=== PATIENT | female | born 1935 | race Caucasian/White ===

== ENCOUNTER → 2017-08-14 10:19 | Day surgery (SDC) | payer MEDICARE, SELFPAY ==
[2017-08-11 09:38] VITALS: BMI 31.8
[2017-08-14 10:35] LABS: Prothrombin Time Fingerstick 28.8 SEC (11.9-14.4)
--- NOTE | 2017-08-14 10:40 | PCM.HP.STD ---
Problem List (1) Persistent atrial fibrillation Status: Chronic (2) Benign hypertension Status: Chronic History of Present Illness Date of Admission: 08/14/17 The patient is a 81 year old F [who presents here today for a cardioversion. Patient is a patient of Dr. Hector Junior. This would be her third cardioversion. She is on flecainide. Her INR has been therapeutic. She states that she noted that she was in atrial fibrillation by her blood pressure monitor and feeling more fatigued and short of breath walking up steps. She does not have any chest discomfort or heaviness. She does not have any lightheadedness, dizziness, syncopal episodes. She does not have any lower extremity edema.] Past Medical History Past Medical History (Chronic Problems): Chronic Problems (Last Updated 08/04/17 @ 08:54 by Charlene Bey) History of sigmoidoscopy (Chronic) 12/10/2009 History of colonoscopy (Chronic) 06/2004 History of selective injection of anesthetic agent around lumbar nerve root (Chronic) History of cholecystectomy (Chronic) 1969 Status post surgical manipulation of ankle joint (Chronic) right X 2 in 2007 History of bilateral cataract extraction (Chronic) 2009 History of cardioversion (Chronic) 04/02/2002 History of ovarian cystectomy (Chronic) 2014 History of section (Chronic) 1965, 1968 History of laminectomy (Chronic) 2010 1-2 segment excision lesion thoracic History of appendectomy (Chronic) 1968 Sensory neuropathy (Chronic) Diverticulitis (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) 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) Persistent atrial fibrillation (Chronic) Obesity (Chronic) Adult body mass index 30+ (Chronic) Benign hypertension (Chronic) Allergies crab Allergy (Severe, Verified 08/04/17 08:36) Itching and swelling on contact Sulfa (Sulfonamide Antibiotics) Allergy (Severe, Verified 08/04/17 08:36) Swelling, Rash metoprolol [From Toprol XL] Adverse Reaction (Intermediate, Verified 08/04/17 08:36) Chest heaviness or fullness Lobster Allergy (Severe, Uncoded 08/04/17 08:36) Itching and swelling on contact Scampi Allergy (Severe, Uncoded 08/04/17 08:36) Itching and swelling on contact Home Medications: Ambulatory Orders Medication Instructions Recorded biotin 1 mg capsule 1 mg PO QDAY 08/04/17 cholecalciferol (vitamin D3) 2,000 2,000 unit PO QDAY cap 08/04/17 unit capsule denosumab 60 mg/mL subcutaneous 60 mg SC [id number] 08/04/17 syringe flecainide 100 mg tablet 100 mg PO Q12H 08/04/17 fluticasone furoate 200 1 inh INHALATION Q24H 08/04/17 mcg/actuation blister powder for inhalation furosemide 20 mg tablet 20 mg PO .q other day tab 08/04/17 hydroxychloroquine 200 mg tablet 200 mg PO BID tab 08/04/17 ketoconazole 2 % shampoo 1 applic TOPICAL .q day ml 08/04/17 lisinopril 20 mg tablet 20 mg PO BID tab 08/04/17 nitroglycerin 0.4 mg sublingual 0.4 mg SUBLINGUAL Q5-15M PRN 08/04/17 tablet oxycodone-acetaminophen 5 mg-325 1 tab PO .q day PRN tab 08/04/17 mg tablet potassium chloride ER 10 mEq 10 meq PO .COMPLEX 08/04/17 capsule,extended release temazepam 15 mg capsule 15 mg PO QHS PRN 08/04/17 tramadol 50 mg tablet 50 mg PO Q6H PRN tab 08/04/17 warfarin 5 mg tablet 5 mg PO .COMPLEX 08/04/17 Montelukast [Singulair] 10 mg PO DAILY 08/11/17 Verapamil HCl [Verapamil ER] 240 mg PO DAILY 08/11/17 Surgical History: appendectomy Lives: Spouse/ Significant Other Smoking Status: Never smoker Review of Systems Constitutional: Denies: Chills, Fever, Weight Change HEENT: Denies: Head Aches, Sinus Congestion, Sinus Drainage Cardiovascular: Denies: Chest Pain, Palpitations Respiratory: Reports: Shortness of Breath. Denies: Cough, Shortness of breath at rest, Sputum production Gastrointestinal: Denies: Abdominal Pain, Nausea, Vomiting Genitourinary: Denies: Dysuria Musculoskeletal: Denies: Joint Pain, Joint Tenderness Skin: Denies: Rash, Wounds Neurological: Denies: Numbness, Tingling, Focal weakness Psychiatric: Denies: Anxiety, Depression, Homicidal Ideations, Suicidal Ideations Hematologic/ Lymphatic: Denies: Easy Bruising, Easy Bleeding VTE Information - Inpt Only VTE Present on Admission: No - here for cardioversion - Physical Exam General: Alert, Oriented x3, Cooperative HEENT: Atraumatic, PERRLA, EOMI, Normocephalic Neck: Supple, No JVD, Negative Carotid Bruits Lungs: Clear to auscultation, Normal air movement Cardiovascular: No murmurs, - - irregularly irregular Abdomen: Bowel Sounds Present, Soft, Non Tender Extremities: No edema, Capillary Refill Less than 3 Seconds Skin: No rashes, No breakdown Musculoskeletal: No Tenderness to Palpation of Joints or Extremities Neurological: Cranial nerves II-XII grossly intact Psych/Mental Status: Normal Affect, Appropriate Weight: 203 lb Body Mass Index (BMI) 31.8 Laboratory Tests Past 24 Hrs 08/14/17 10:27 POC PT 28.8 H INR 2.50 Assessment/Plan 1. Atrial fibrillation: Patient's INR has been therapeutic for greater than 30 days. EKG today demonstrates atrial fibrillation. We will proceed with cardioversion. This will be done by Dr. Drew Ledezma. She will follow-up with Dr. Hector Aguilera post cardioversion. 2. Hypertension: This is managed by primary care doctor.
--- NOTE | 2017-08-14 10:44 | HP.PCM_ITS ---
Problem List (1) Persistent atrial fibrillation Status: Chronic (2) Benign hypertension Status: Chronic History of Present Illness Date of Admission: 08/14/17 The patient is a 81 year old F [who presents here today for a cardioversion. Patient is a patient of Dr. Hector Junior. This would be her third cardioversion. She is on flecainide. Her INR has been therapeutic. She states that she noted that she was in atrial fibrillation by her blood pressure monitor and feeling more fatigued and short of breath walking up steps. She does not have any chest discomfort or heaviness. She does not have any lightheadedness, dizziness, syncopal episodes. She does not have any lower extremity edema.] Past Medical History Past Medical History (Chronic Problems): Chronic Problems (Last Updated 08/04/17 @ 08:54 by Charlene Bey) History of sigmoidoscopy (Chronic) 12/10/2009 History of colonoscopy (Chronic) 06/2004 History of selective injection of anesthetic agent around lumbar nerve root ( Chronic) History of cholecystectomy (Chronic) 1969 Status post surgical manipulation of ankle joint (Chronic) right X 2 in 2007 History of bilateral cataract extraction (Chronic) 2009 History of cardioversion (Chronic) 04/02/2002 History of ovarian cystectomy (Chronic) 2014 History of section (Chronic) 1965, 1968 History of laminectomy (Chronic) 2010 1-2 segment excision lesion thoracic History of appendectomy (Chronic) 1968 Sensory neuropathy (Chronic) Diverticulitis (Chronic) 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 (Chronic) Persistent atrial fibrillation (Chronic) Obesity (Chronic) Adult body mass index 30+ (Chronic) Benign hypertension (Chronic) Allergies crab Allergy (Severe, Verified 08/04/17 08:36) Itching and swelling on contact Sulfa (Sulfonamide Antibiotics) Allergy (Severe, Verified 08/04/17 08:36) Swelling, Rash metoprolol [From Toprol XL] Adverse Reaction (Intermediate, Verified 08/04/17 08 :36) Chest heaviness or fullness Lobster Allergy (Severe, Uncoded 08/04/17 08:36) Itching and swelling on contact Scampi Allergy (Severe, Uncoded 08/04/17 08:36) Itching and swelling on contact Home Medications: Ambulatory Orders Medication Instructions Recorded biotin 1 mg capsule 1 mg PO QDAY 08/04/17 cholecalciferol (vitamin D3) 2,000 2,000 unit PO QDAY cap 08/04/17 unit capsule denosumab 60 mg/mL subcutaneous 60 mg SC [id number] 08/04/17 syringe flecainide 100 mg tablet 100 mg PO Q12H 08/04/17 fluticasone furoate 200 1 inh INHALATION Q24H 08/04/17 mcg/actuation blister powder for inhalation furosemide 20 mg tablet 20 mg PO .q other day tab 08/04/17 hydroxychloroquine 200 mg tablet 200 mg PO BID tab 08/04/17 ketoconazole 2 % shampoo 1 applic TOPICAL .q day ml 08/04/17 lisinopril 20 mg tablet 20 mg PO BID tab 08/04/17 nitroglycerin 0.4 mg sublingual 0.4 mg SUBLINGUAL Q5-15M PRN 08/04/17 tablet oxycodone-acetaminophen 5 mg-325 1 tab PO .q day PRN tab 08/04/17 mg tablet potassium chloride ER 10 mEq 10 meq PO .COMPLEX 08/04/17 capsule,extended release temazepam 15 mg capsule 15 mg PO QHS PRN 08/04/17 tramadol 50 mg tablet 50 mg PO Q6H PRN tab 08/04/17 warfarin 5 mg tablet 5 mg PO .COMPLEX 08/04/17 Montelukast [Singulair] 10 mg PO DAILY 08/11/17 Verapamil HCl [Verapamil ER] 240 mg PO DAILY 08/11/17 Surgical History: appendectomy Lives: Spouse/ Significant Other Smoking Status: Never smoker Review of Systems Constitutional: Denies: Chills, Fever, Weight Change HEENT: Denies: Head Aches, Sinus Congestion, Sinus Drainage Cardiovascular: Denies: Chest Pain, Palpitations Respiratory: Reports: Shortness of Breath. Denies: Cough, Shortness of breath at rest, Sputum production Gastrointestinal: Denies: Abdominal Pain, Nausea, Vomiting Genitourinary: Denies: Dysuria Musculoskeletal: Denies: Joint Pain, Joint Tenderness Skin: Denies: Rash, Wounds Neurological: Denies: Numbness, Tingling, Focal weakness Psychiatric: Denies: Anxiety, Depression, Homicidal Ideations, Suicidal Ideations Hematologic/ Lymphatic: Denies: Easy Bruising, Easy Bleeding VTE Information - Inpt Only VTE Present on Admission: No - here for cardioversion - Physical Exam General: Alert, Oriented x3, Cooperative HEENT: Atraumatic, PERRLA, EOMI, Normocephalic Neck: Supple, No JVD, Negative Carotid Bruits Lungs: Clear to auscultation, Normal air movement Cardiovascular: No murmurs, - - irregularly irregular Abdomen: Bowel Sounds Present, Soft, Non Tender Extremities: No edema, Capillary Refill Less than 3 Seconds Skin: No rashes, No breakdown Musculoskeletal: No Tenderness to Palpation of Joints or Extremities Neurological: Cranial nerves II-XII grossly intact Psych/Mental Status: Normal Affect, Appropriate Weight: 203 lb Body Mass Index (BMI) 31.8 Laboratory Tests Past 24 Hrs 08/14/17 10:27 POC PT 28.8 H INR 2.50 Assessment/Plan 1. Atrial fibrillation: Patient's INR has been therapeutic for greater than 30 days. EKG today demonstrates atrial fibrillation. We will proceed with cardioversion. This will be done by Dr. Drew Ledezma. She will follow-up with Dr. Hector Aguilera post cardioversion. 2. Hypertension: This is managed by primary care doctor.
--- NOTE | 2017-08-14 12:07 | PCM.OP.BLANK ---
Operative Report Date of Procedure: 08/14/17 DC cardioversion. Indication: Persistent atrial fibrillation. X Procedure: Patient was previously evaluated by Dr. Aguilera of the cardiovascular division. She was scheduled to have a DC cardioversion had been on anticoagulation for at least 4 weeks with therapeutic INRs. After informed consent was obtained anterior posterior pads were applied an EKG was done which confirmed that the patient was in atrial fibrillation with a controlled ventricular response rate. The patient was seen by Dr. Rothman of the critical care division. The patient was administered 40 mg of intravenous propofol. 200 J of synchronized DC cardioversion energy were applied with prompt reversal to sinus rhythm. Patient tolerated the procedure well. Postoperative EKG confirmed sinus rhythm. Patient will continue to follow-up with Dr. Aguilera on her current medications.
--- NOTE | 2017-08-14 12:53 | OP.PCM_ITS ---
Operative Report Date of Procedure: 08/14/17 CONSCIOUS SEDATION REPORT DATE OF SERVICE: August 14, 2017 BRIEF HISTORY OF PRESENT ILLNESS: The patient is an 81-year-old female who presented to [facility] for an elective outpatient cardioversion due to underlying atrial fibrillation. The patient's last surface echocardiogram revealed ejection fraction of 55%. The patient denies a previous history of anesthetic complications. She does report a history of asthma. She denies a history of obstructive sleep apnea. She is currently anticoagulated on Coumadin. PHYSICAL EXAMINATION: VITAL SIGNS: Reviewed and were acceptable. GENERAL: The patient is a female, in no apparent distress, speaking in full sentences. HEENT: Normocephalic, atraumatic. Mucous membranes are moist and pink. Good mouth opening noted. Trachea is midline. Good neck mobility. CHEST: S1, S2 irregularly irregular. No murmurs, rubs or gallops were noted. LUNGS: Clear to auscultation bilaterally without appreciable wheezes, rales or rhonchi. ABDOMEN: Soft, nontender, nondistended. Positive bowel sounds. EXTREMITIES: There is no clubbing, cyanosis or edema. ASA Class: II DESCRIPTION OF PROCEDURE: After confirmation of informed consent, the patient's anesthesia plan was reviewed in detail. Propofol was chosen. Risks and benefits were reviewed and the patient agreed to proceed. At 1201, the patient was given 40 mg of propofol. The patient achieved an appropriate level of sedation and was given a 200 joule synchronized cardioversion by Dr. Ledezma at the bedside. This was successful in achieving normal sinus rhythm. The patient was monitored until 1208, at which time she reached her baseline mental status and function. The patient tolerated the procedure well. COMPLICATIONS: None ESTIMATED BLOOD LOSS: None RECOMMENDATIONS: Okay to recover in usual fashion. Code Visit 9xxxx: Other Procedure See Report
== END ==
PROVIDERS: Family Provider Internal Medicine; PCP Internal Medicine; Visit Provider Internal Medicine Cardiovascular Disease
DX: I48.1 Persistent atrial fibrillation (principal); I10 Essential (primary) hypertension; E66.9 Obesity, unspecified; Z68.31 Body mass index [BMI] 31.0-31.9, adult; Z79.01 Long term (current) use of anticoagulants; Z79.899 Other long term (current) drug therapy
CPT/HCPCS: 36416; 85610; 92960; 93005

== ENCOUNTER 2018-04-06 16:34 | Emergency (ER) | payer MEDICARE, SELFPAY ==
[2018-04-06 16:34] VITALS: BP 158/93; PULSE 67; RESP 16; TEMP 36.5; O2SAT 96; BMI 32.8
--- NOTE | 2018-04-06 16:55 | CT_ITS ---
STUDY: CT CERVICAL SPINE WITHOUT CONTRAST REASON FOR EXAM: Female, 82 years old. Fall, head injury, pain RADIATION DOSAGE (If Supplied By Facility): CTDIvol = ( 23.01 ) mGy, DLP = ( 463.92 ) mGycm TECHNIQUE: High resolution transaxial imaging was performed without contrast material. Sagittal and coronal images were reconstructed. Individualized dose optimization techniques were used for this CT. COMPARISON: None FINDINGS: There are degenerative changes of the atlantoaxial articulation. The odontoid process is unremarkable. There is straightening of the normal cervical lordosis. There are osteophytes scattered in the cervical spine. C2-3: There is no disc space narrowing or canal narrowing. There is mild foraminal narrowing on the right and moderate foraminal narrowing on the left. C3-4: There is moderate disc space narrowing without canal narrowing. There is marked foraminal narrowing on the right and mild foraminal narrowing on the left. C4-5: There is mild disc space narrowing without canal narrowing. There is marked foraminal narrowing bilaterally. C5-6: There is marked disc space narrowing with mild canal narrowing. There is marked foraminal narrowing bilaterally. C6-7: There is mild disc space narrowing without canal narrowing. There is mild foraminal narrowing bilaterally. C7-T1: There is moderate disc space narrowing without canal narrowing. There is mild foraminal narrowing on the left. The lung apices are unremarkable. There is a vague 1 cm hypodensity in the right lobe of the thyroid. There are mild vascular calcifications in the carotid bulbs. CT/Spine Cervical without Contras IMPRESSION: No acute abnormalities are seen in the cervical spine. There are scattered degenerative changes, described above. There is a vague 1 cm hypodensity in the right lobe of the thyroid. An outpatient thyroid ultrasound can be obtained for further characterization. Electronically Signed: Rosemary Fallon MD at 18:23 EST Tel Direct: [phone], Service support ,
--- NOTE | 2018-04-06 16:55 | CT_ITS ---
STUDY: CT BRAIN WITHOUT CONTRAST REASON FOR EXAM: Female, 82 years old. Fall, head injury, pain, patient on Coumadin RADIATION DOSAGE (If Supplied By Facility): CTDIvol = ( 44.99 ) mGy, DLP = ( 829.85 ) mGycm TECHNIQUE: Transaxial CT imaging of the brain was performed without administration of intravenous contrast material. Individualized dose optimization techniques were used for this CT. COMPARISON: None. FINDINGS: There is very minimal soft tissue swelling in the left parietal region. The osseous structures are unremarkable. There is mild cerebral atrophy with widening of the extra-axial spaces and ventricular dilatation. There are scattered areas of decreased attenuation within the white matter tracts of the supratentorial brain. The basal ganglia and thalami are unremarkable. No abnormalities are seen in the brainstem. The cerebellum is unremarkable. There are marked vascular calcifications. There is no intracranial hemorrhage. There are no findings of acute ischemia. The visualized sinuses are unremarkable. 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 CT/Brain/Head without Contrast IMPRESSION: No acute intracranial abnormalities. There are scattered white matter changes likely representing microvascular disease. Electronically Signed: Rosemary Fallon MD at 18:15 EST Tel Direct: [phone], Service support ,
--- NOTE | 2018-04-06 18:43 | ED.VISSUMM ---
- ER Visit Summary Date of Service: 04/06/18 Chief Complaint: [Fall with head injury] History of Present Illness: The patient is a 82 F presents the emergency department after a fall that occurred earlier today. Patient states that she missed the stool while sitting in the kitchen and fell backwards striking her head on the stool and in the tile floor. No loss of consciousness. Patient complains of some mild soreness in her neck. Patient states that she is on Coumadin and she was advised by her primary care physician if she ever hit her head to be evaluated. Patient also had an INR checked this morning and her INR was elevated at 5.1 and she is was advised on stopping the Coumadin for a short time by her physicians. Patient denies any chest or abdomen pain. Patient's been ambulatory since the fall. She denies any vomiting. She denies visual changes.] Physical Examination: [HEENT-PERRLA, EOMI. Cranial nerves II through XII grossly intact. TMs clear. Mucous membranes moist. No adenopathy. Patient has a small hematoma to the right posterior occiput with no bony step-offs noted. Patient has some mild diffuse C-spine tenderness on palpation. Cardiovascular-regular rate and rhythm without murmur or ectopy Lungs-clear to auscultation, chest wall stable without crepitus or subcu emphysema Abdomen-normoactive bowel sounds, soft, nontender, no rebound or rigidity, no peritoneal signs. Extremities-intact ?4, normal range of motion, normal pulses, atraumatic] Test Results: [CT scan of the brain without contrast showed chronic microvascular changes. CT scan of C-spine showed chronic degenerative changes as well as a 1 cm hypodensity in the right lobe of the thyroid and recommended outpatient ultrasound for further evaluation.] Emergency Department Course and Treatment: [I discussed results with patient and advised to follow-up with primary care physician regarding an outpatient ultrasound of her thyroid.] Treatment Plan: [Patient to follow-up with her primary care physician within next 3-5 days. Patient advised to return if worsening headache, vomiting, difficult with balance or speech, or condition should worsen anyway. She is advised that there is a small possibility of delayed intracranial hemorrhage and if symptoms worsen to return the emergency department.] Disposition: [Discharged home in stable condition] Impression: [Mechanical fall Closed head injury Cervical strain Coumadin coagulopathy] This note was generated with Dragon dictation software. It may contain incorrect words, spelling, and punctuation that were not noted in review of the chart prior to signing ED Disposition - Plan for ED Patient: Chief Complaint: Fall Referrals: Ariana Almazan MD [Primary Care Provider] -
--- NOTE | 2018-04-06 18:47 | ED.DEP ---
ED Disposition - Plan for ED Patient: Chief Complaint: Fall Instructions: ED Mechanical Fall, ED Head Injury Closed, ED Sprain Strain Neck Referrals: Ariana Almazan MD [Primary Care Provider] - 3-5 Days Additional Instructions: Recommend having outpatient ultrasound of your thyroid gland to evaluate 1 cm Hypodensity
[2018-04-06 19:02] VITALS: BP 149/95
--- OUTSIDE RECORDS SUMMARY | 2018-06-01 16:30 | XMS RPT_ITS ---
:1935 Author Organization OHIP Care Team Providers Name Role Phone Maida Charlene Danielle Attending Unavailable Brisa, Drew Attending Unavailable Brisa, [place] Referring Unavailable Ganta, Farrukh Primary Care Unavailable Brisa, [place] Attending Unavailable Brisa, [place] Referring Unavailable Ganta, Farrukh Primary Care Unavailable Brisa, Drew Consulting Unavailable Joseph Rothman D.O. Attending Unavailable Brisa, [place] Referring Unavailable Ganta, Farrukh Primary Care Unavailable Brisa, Drew Consulting Unavailable Brisa, [place] Attending Unavailable Ganta, Farrukh Referring Unavailable Ganta, Farrukh Primary Care Unavailable Jaxson Carrillo Attending Unavailable RAFAEL, RASHARD E Referring Unavailable RAFAEL, RASHARD E Attending Unavailable RAFAEL, RASHARD E Referring Unavailable RAFAEL, RASHARD E Referring Unavailable RAFAEL, RASHARD E Attending Unavailable RAFAEL, RASHARD E Referring Unavailable GANTA, FARRUKH Referring Unavailable RAFAEL, RASHARD E Referring Unavailable GANTA, FARRUKH Referring Unavailable GANTA, FARRUKH Referring Unavailable GANTA, FARRUKH Referring Unavailable RAFAEL, RASHARD E Referring Unavailable GANTA, FARRUKH Referring Unavailable RAFAEL, RASHARD E Referring Unavailable GANTA, FARRUKH Referring Unavailable RAFAEL, RASHARD E Referring Unavailable GANTA, FARRUKH Attending Unavailable GANTA, FARRUKH Referring Unavailable RAFAEL, RASHARD E Referring Unavailable GANTA, FARRUKH Referring Unavailable GANTA, FARRUKH Referring Unavailable RAFAEL, RASHARD E Referring Unavailable LUIS VAZQUEZ Attending Unavailable MICKLEWRIGHT, JUSTINA Mota (PA) Attending Unavailable MICKLEWRIGHT, JUSTINA E (PA) Referring Unavailable RAFAEL, RASHARD E Referring Unavailable GANTA, FARRUKH Referring Unavailable GANTA, FARRUKH Referring Unavailable DIANNE MCCLURE (FOREST PATROLMAN) Referring Unavailable RAFAEL, RASHARD E Referring Unavailable TESTRAKEWOLFGANG Attending Unavailable RAFAEL, RASHARD E Referring Unavailable TESTRAKE, WOLFGANG Attending Unavailable TESTRAKE, WOLFGANG Referring Unavailable RAFAEL, RASHARD E Referring Unavailable GANTA, FARRUKH Attending Unavailable GANTA, FARRUKH Referring Unavailable RAFAEL, RASHARD E Attending Unavailable GANTA, FARRUKH Referring Unavailable CHAD AKINS (PT) Attending Unavailable GANTA, FARRUKH Referring Unavailable GANTA, FARRUKH Referring Unavailable GANTA, FARRUKH Referring Unavailable GANTA, FARRUKH Referring Unavailable GANTA, FARRUKH Referring Unavailable GANTA, FARRUKH Referring Unavailable GANTA, FARRUKH Referring Unavailable GANTA, FARRUKH Referring Unavailable GANTA, FARRUKH Referring Unavailable GANTA, FARRUKH Referring Unavailable CHAD AKINS (PT) Attending Unavailable GANTA, FARRUKH Referring Unavailable GANTA, FARRUKH Referring Unavailable GANTA, FARRUKH Referring Unavailable RAFAEL, RASHARD E Referring Unavailable GANTA, FARRUKH Attending Unavailable GANTA, FARRUKH Referring Unavailable MICKLEWRIGHT, JUSTINA E (PA) Referring Unavailable MICKLEWRIGHT, JUSTINA E (PA) Attending Unavailable MICKLEWRIGHT, JUSTINA E (PA) Referring Unavailable GANTA, FARRUKH Referring Unavailable GANTA, FARRUKH Referring Unavailable ANMOL CASEY (FOREST PATROLMAN) Attending Unavailable GANTA, FARRUKH Referring Unavailable ANMOL CASEY (FOREST PATROLMAN) Referring Unavailable GANTA, FARRUKH Referring Unavailable [facility] Primary Care Unavailable RASHARD HALL Attending Unavailable RAFAEL, RASHARD Referring Unavailable [facility] Primary Care Unavailable RAFAEL RASHARD Referring Unavailable [facility] Primary Care Unavailable RAFAEL, RASHARD Attending Unavailable RAFAEL, RASHARD Referring Unavailable [facility] Primary Care Unavailable RASHARD HALL Referring Unavailable [facility] Referring Unavailable RASHARD HALL Attending Unavailable PROBLEMS PROBLEMS DATE TYPE CONDITION / CODE ATTENDING STATUS SOURCE 04/18/2018 Active 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 / [facility] E04.1(ICD-10) [facility] 04/16/2018 Active Unspecified fall, NA Active [place] initial encounter / [facility] W19.XXXA(ICD-10) [facility] 03/16/2018 Active Moderate persistent NA Active [place] asthma, [facility] uncomplicated / [facility] J45.40(ICD-10) Repository 03/08/2018 Active Other 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 NA Active [place] (current) drug [facility] therapy / [facility] Z79.899(ICD-10) Repository 11/14/2017 Active Unknown / JAVIER WHALENRA Active [place] UNK(Unknown) [facility] 09/11/2008 Active Unspecified atrial NA Active [place] fibrillation / [facility] I48.91(ICD-10) [facility] 09/12/2017 Active intermediate card tender (current) NA Active [place] use of [facility] Main anticoagulants / [place] Z79.01(ICD-10) Repository 08/18/2017 Admitting Unknown / RAFAEL, Active [place] [facility] diagnosis UNK(Unknown) [facility] Repository 06/27/2017 Active Paroxysmal atrial RAFAEL, Active [place] fibrillation / [facility] Other I48.0(ICD-10) [facility] 05/12/2015 Active Essential (primary) NA Active [place] hypertension / [facility] I10(ICD-10) [facility] PROCEDURES PROCEDURES No Procedure Records FoundRESULTS RESULTS PROGRESS Observed: 04/18/2018 Status: COMPLETED Source: [place] 11:02 AM [facility] REPOSITORY HNO ID: [id number] Author: Dianne Grimes MA Service: (none) Author Type: (none) Type: Progress Notes Filed: 04/18/2018 11:02 AM Note Text: Please see phone note. Dianne Grmies MA T3 Collected: 04/18/2018 Status: F Source: [facility] 9:40 AM MAIN CAMPUS REPOSITORY TYPE CODE TESTS RESULT OUT OF RANGE REFERENCE UNITS LAB T3 79-165 ng/dL T3 103 Performed By: #### T3, T4, TSH #### [facility] [address], [place] [address] T4 Collected: 04/18/2018 Status: F Source: [facility] 9:40 AM [facility] REPOSITORY TYPE CODE TESTS RESULT OUT OF RANGE REFERENCE UNITS LAB T4 5.5-10.2 ug/dL T4 8.5 Performed By: #### T3, T4, TSH #### [facility] [address], [place] [address] TSH Collected: 04/18/2018 Status: F Source: [place] 9:40 AM [facility] REPOSITORY TYPE CODE TESTS RESULT OUT OF RANGE REFERENCE UNITS LAB TSH 0.400-5.500 uU/mL TSH 2.020 Performed By: #### T3, T4, TSH #### [facility] [address], [place] [address] PROGRESS Observed: 04/18/2018 Status: COMPLETED Source: [place] 9:36 AM [facility] REPOSITORY HNO ID: [id number] Author: Irena Montoya RN Service: (none) Author Type: (none) Type: Progress Notes Filed: 04/18/2018 9:39 AM Note Text: Patient had INR completed at [facility] Patient's INR is 3.2 Patient is currently taking 6mg alt 9mg. Patient's last dose change was 04/06/18 due to high INR at 5.1 Patient has had no medication and no change in diet. Advised patient that they would be contacted regarding medication dose and follow-up once reviewed by provider. After provider review, please contact patient with information and schedule follow-up appointment with coumadin clinic. XR THORACIC 2V AP/LAT Observed: 04/16/2018 Status: F Source: [place] 5:04 PM [facility] REPOSITORY * * *Final Report* * * DATE OF EXAM: Apr 16 2018 5:04PM WOX [id number] - XR THORACIC 2V AP/LAT / PROCEDURE REASON: Fall, initial encounter * * * * Physician Interpretation * * * * EXAM: LUMBAR SPINE, 3 VIEWS; THORACIC SPINE, 2 VIEWS CLINICAL: 82-year-old female with pain after fall TECHNIQUE: AP, lateral coned down lateral ; AP and lateral thoracic spine COMPARISON: Lumbar spine done on 10/03/2015 RESULTS: Counting reference: Anatomic Variant: None. L4-5 is considered the level of the iliac crest and assume there are 5 lumbar-type vertebrae. The first rib-bearing vertebral bodies considered T1. 12 thoracic and 5 lumbar vertebrae. There is a long segment curve of the thoracic spine convex right centered at T6/T7. Osteopenia. Diffuse degenerative disc disease in the thoracic spine more prominent thoracic kyphosis centered at approximately T6. Lateral bridging osteophytes on the right in the mid to lower thoracic spine. Severe crush type compression fractures of L1 L5. Mild levoscoliosis centered at L1. Moderate degenerative disc disease at L1/L2 and L2/L3 and mild degenerative disc disease L3/L4. Severe degenerative disc disease at L4/L5 and L5/S1 with 9 mm grade 1 anterolisthesis of L4 in relation L5. Facet degenerative changes are present throughout the lumbar spine with hypertrophic changes at L3/L4 through L5/S1. Abdominal aortic calcifications are present. There is methacrylate consistent with vertebral augmentation at the L5 vertebral body. IMPRESSION: COMPRESSION FRACTURES AT L1 AND L5. DIFFUSE DEGENERATIVE DISC DISEASE IN THE THORACOLUMBAR SPINE. OSTEOPENIA. FACET DEGENERATIVE CHANGES IN LOWER LUMBAR SPINE. VERTEBRAL AUGMENTATION AT L5. 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 Receptionist: In[employer] Transcribe Date/Time: Apr 17 2018 5:57P Dictated by : NAINA BRUNER MD This examination was interpreted and the report reviewed and electronically signed by: NAINA BRUNER MD on Apr 17 2018 6:04PM EST [id number] XR LUMBAR 3V Observed: 04/16/2018 Status: F Source: [place] AP/LAT/L5-S1 5:04 PM [facility] MAIN CAMP[facility] REPOSITORY * * *Final Report* * * DATE OF EXAM: Apr 16 2018 5:04PM WOX [id number] - XR LUMBAR 3V AP/LAT/L5-S1 / PROCEDURE REASON: Fall, initial encounter * * * * Physician Interpretation * * * * EXAM: LUMBAR SPINE, 3 VIEWS; THORACIC SPINE, 2 VIEWS CLINICAL: 82-year-old female with pain after fall TECHNIQUE: AP, lateral coned down lateral ; AP and lateral thoracic spine COMPARISON: Lumbar spine done on 10/03/2015 RESULTS: Counting reference: Anatomic Variant: None. L4-5 is considered the level of the iliac crest and assume there are 5 lumbar-type vertebrae. The first rib-bearing vertebral bodies considered T1. 12 thoracic and 5 lumbar vertebrae. There is a long segment curve of the thoracic spine convex right centered at T6/T7. Osteopenia. Diffuse degenerative disc disease in the thoracic spine more prominent thoracic kyphosis centered at approximately T6. Lateral bridging osteophytes on the right in the mid to lower thoracic spine. Severe crush type compression fractures of L1 L5. Mild levoscoliosis centered at L1. Moderate degenerative disc disease at L1/L2 and L2/L3 and mild degenerative disc disease L3/L4. Severe degenerative disc disease at L4/L5 and L5/S1 with 9 mm grade 1 anterolisthesis of L4 in relation L5. Facet degenerative changes are present throughout the lumbar spine with hypertrophic changes at L3/L4 through L5/S1. Abdominal aortic calcifications are present. There is methacrylate consistent with vertebral augmentation at the L5 vertebral body. IMPRESSION: COMPRESSION FRACTURES AT L1 AND L5. DIFFUSE DEGENERATIVE DISC DISEASE IN THE THORACOLUMBAR SPINE. OSTEOPENIA. FACET DEGENERATIVE CHANGES IN LOWER LUMBAR SPINE. VERTEBRAL AUGMENTATION AT L5. Clerical Receptionist: OLIVIA Transcribe Date/Time: Apr 17 2018 5:57P Dictated by : NAINA BRUNER MD This examination was interpreted and the report reviewed and electronically signed by: NAINA BRUNER MD on Apr 17 2018 6:04PM EST [id number] PROGRESS Observed: 04/16/2018 Status: COMPLETED Source: [place] 4:53 PM [facility] REPOSITORY HNO ID: [id number] Author: Harinder Santos (He Nixon Service: (none) Author Type: Funeral Service Apprentice Type: Progress Notes Filed: 04/16/2018 5:04 PM Note Text: Radiology Service Progress Note PATIENT NAME: Felicia Stover DATE OF SERVICE: April 16, 2018 TIME: 4:53 PM PATIENT IDENTITY VERIFICATION COMPLETED USING TWO (2) METHODS: Patient confirmed name verbally and Date of . PATIENT GENDER DATA: Female. status: : No status: NO. PATIENT RELEVANT IMPLANT DATA REVIEWED: Not Applicable RADIOLOGY DEPARTMENT: General X-ray: Exam(s) Completed: Spine X-Ray(s): Thoracic and Lumbar AP / LAT / L5-S1 Two view thoracic only PERIPHERAL IV DATA: Not applicable SIGNED BY: RT Jose April 16, 2018 4:53 PM PROGRESS Observed: 04/16/2018 Status: COMPLETED Source: [place] 11:36 AM [facility] REPOSITORY HNO ID: [id number] Author: Anmol Casey Service: (none) Author Type: Nurse Practitioner Type: Progress Notes Filed: 04/16/2018 1:52 PM Note Text: CC: Patient presents with: Recheck: ER Follow up, patient has had 3 falls in 3 weeks. Having some back pain HPI Felicia Stover is a 82 year old female who presents today for [facility] ER follow up 04/06/18. Patient presented to [facility] ER 10 days ago after sustaining a fall where she hit her head. Patient is on coumadin and required further evaluation. CT of the brain showed only chronic changes and CT of the Cspine showed chronic degenerative changes as well as a 1cm hypodensity to right lobe of the thyroid with recommendations for US outpatient. Patient reports she has fallen 3 times over the last 3 weeks, most recent occurred just prior to her ER evaluation. Falls were all mechanically related. Patient denies any dizziness, lightheadedness or syncope related to the falls. Today patient presents with left sided mid back pain without radiation that began ~1 week ago after her last fall. Pain is described as aching and sharp. Pain is worse with standing, walking and changing positions and better with sitting. Patient also denies dysuria. Patient does have history of osteoporosis- on Prolia and positive hx of previous spine fractures. She also reports ongoing intermittent constipation. States this has been ongoing and she forgets to discuss at routine visits. She notes BMs occur once daily or every other day, but seem to be small then every 4th or 5th day she reports having abdominal cramping, episode of vomiting and several large BMs throughout the day. She denies any fever, chills, constant abdominal pain, nausea, black or bloody stools. She reports adequate water intake and is relatively active. No recent dietary changes. She has not tried anything for relief. REVIEW OF SYSTEMS General: no fevers, no chills, no change in appetite, no change in energy and no significant changes in weight Respiratory: no shortness of breath, no hemoptysis Chronic cough with intermittent wheezing/SOB secondary to asthma diagnosis Cardiovascular: no chest pain, no chest pressure and no palpitations GI: See HPI : No history of dysuria, frequency or incontinence Musculoskeletal: See HPI Neurologic: No headache, neck stiffness, tremor, vertigo, dizziness, memory loss, syncope. Chronic numbness/tingling of BLE. 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 - LAPAROSCOPIC CYSTECTOMY 01/14/14 bilateral oophrectomy - PAST SURGICAL HISTORY OF 04/02/2002 DC cardioversion - PAST SURGICAL HISTORY OF 2008 cataracts left and right - PAST SURGICAL HISTORY OF 2007 ankle surgery x 2 right - PAST SURGICAL HISTORY OF lumbar pain injections X2 - REMOVAL GALLBLADDER 1968 Cholecystectomy open - SIGMOIDOSCOPY FLEX DIAG 12/10/09 ALLERGIES Crab; Lobster (Crustaceans); Ragweed; Scampi [Other]; Sulfa (Sulfonamide Antibiotics); Toprol Xl [Metoprolol Succinate] MEDICATIONS temazepam (RESTORIL) 15 mg cap TAKE ONE CAPSULE BY MOUTH EVERY DAY AT BEDTIME predniSONE (DELTASONE) 10 mg tablet Take 2 tabs a day for 5 days, then take 1 tab a day for 5 days. Then stop. Keep leftover budesonide (PULMICORT) 0.5 mg/2 mL nebulizer solution Take 1 vial in the nebulizer twice a day Nebulizer and Compressor For Neb denise Use as directed. Please provide machine with accessories with lifetime supply. warfarin (COUMADIN) 3 mg tablet Take 3 day cycle - day 1 9mg, day 2 9mg, day 3 6mg and repeat or as directed by physician lisinopril (ZESTRIL, PRINIVIL) 20 mg tablet Take 1 tablet by mouth twice daily. flecainide (TAMBOCOR) 100 mg tablet TAKE 1 TABLET BY MOUTH TWICE DAILY. warfarin (COUMADIN) 3 mg tablet Take 1 tablet by mouth once daily. As directed montelukast (SINGULAIR) 10 mg tablet TAKE 1 TABLET BY MOUTH DAILY AT BEDTIME. verapamil SR (CALAN SR, ISOPTIN SR) 240 mg CR tablet Take 1 tablet by mouth once daily. ipratropium bromide (ATROVENT) 42 mcg (0.06 %) nasal spray 2 sprays per each nostril 2-3 times a day. potassium chloride (K-TAB) 10 mEq tablet Take 1 tablet by mouth every 48 hours. furosemide (LASIX) 20 mg tablet Take 1 tablet by mouth every 48 hours. mupirocin (BACTROBAN) 2 % cream Apply 1 application to affected area three times daily. nitroglycerin sublingual (NITROQUICK) 0.4 mg SL tablet Dissolve 1 tablet under the tongue as needed. for chest pain,every 5 min x3 fluticasone furoate (ARNUITY ELLIPTA) 200 mcg/actuation dsdv Inhale 1 Inhalation as instructed once daily. ketoconazole (NIZORAL) 2 % shampoo Apply 1 application to affected area once daily as needed. For hair thinning hydroxychloroquine (PLAQUENIL) 200 mg tablet Take 200 mg by mouth twice daily. warfarin (COUMADIN) 2.5 mg tablet Take as directed per physician. warfarin (COUMADIN) 5 mg tablet Take as directed warfarin (COUMADIN) 2 mg tablet Take 1 tablet by mouth daily as directed. denosumab (PROLIA) 60 mg/mL syrg Inject 1 mL subcutaneously as directed. oxyCODONE-acetaminophen (PERCOCET) 5-325 mg tablet Take 1 tablet by mouth once daily as needed. BIOTIN ORAL Take 1 capsule by mouth once daily. Cholecalciferol, Vitamin D3, 2,000 unit cap Take 1 capsule by mouth once daily. take with the largest meal of the day FAMILY HISTORY Problem Relation Age of Onset - Heart Father - Stroke Mother - Hypertension Mother - Diabetes Brother Social History Substance Use Topics - Smoking status: Never Smoker - Smokeless tobacco: Never Used - Alcohol use Yes Comment: 7 glasses of wine weekly PHYSICAL EXAM BP 136/88 Pulse 67 Temp 36.2 ?C (97.1 ?F) (Temporal Artery) Resp 16 Wt 95.7 kg (211 lb) SpO2 98% BMI 33.05 kg/m? General Appearance: well appearing, in no acute distress, alert Skin: Skin color, texture, turgor normal for age; Head: normocephalic, atraumatic Back: thoracolumbar scoliosis of mild degree, limitation of motion - flexion: mild and rotation: mild, tenderness over paraspinal muscles at level of T10-12 Lungs: lungs clear to auscultation. No wheezing, rhonchi, rales Heart: RRR without murmur, gallop, or rubs. No ectopy Abdomen: Abdomen soft, non-tender. Bowel sounds normal. No masses, organomegaly Bilateral Lower Extremities: No deformities or edema. Pulses +2 DIABETES SCREEN due on 10/16/2020 DTAP,TDAP,TD(2 - Td) due on 12/02/2024 BONE DENSITY Completed ADULT PREVNAR-13 Completed INFLUENZA Completed PNEUMOVAX AGE 65 AND OVER WITH 5YR LOOKBACK Completed ASSESSMENT/PLAN: 1. Fall, initial encounter - ICD9: E888.9, ICD10: W19.XXXA (primary diagnosis) - No concerning exam findings, but given nature of recent falls and patient's medical history will order imaging studies - XR LUMBAR GENERAL 3V AP/LAT/L5-S1 - XR THORACIC LIMITED 2V AP/LAT 2. Acute left-sided thoracic back pain - ICD9: 724.1, ICD10: M54.6 - No concerning exam findings, will obtain imaging d/t recent falls - Bedrest for 2-3 days - Ice for localized tenderness - Avoid NSAIDs given retirement coumadin use, recommend Tylenol Arthritis - Consider PT if no improvement - Patient given instructions use of medications as ordered, intermittent rest and back care exercise program - Follow up in 2 weeks or sooner if symptoms persist or worsen 3. Abnormal CT scan - ICD9: 793.99, ICD10: R93.89 - Incidental 1cm hypodensity found on brain CT preformed at [facility] ER 04/06/18 - Labs ordered previously, TSH, T3/T4 to be completed - US THYROID/PARATHYROID - Follow up to be determined by laboratory and imaging studies, may require surgical consult for possible biopsy. 4. Change in bowel habits - ICD9: 787.99, ICD10: R19.4 - DOCUSATE SODIUM 100 MG CAPSULE daily - Follow up in 2 weeks if no symptom improvement, sooner for new or worsening symptoms Anmol Casey APRN.FOREST PATROLMAN Prescription instructions reviewed with patient as applicable. Potential red flag symptoms discussed with the patient. Reviewed appropriate action plan to take if red flag symptoms occur. Patient agreeable to treatment plan. CNOV Observed: 04/16/2018 Status: COMPLETED Source: [place] 11:20 AM [facility] REPOSITORY Office Visit (INTMWS) FELICIA STOVER ([id number]) 1935 F NFR Date Time Provider Department 04/16/18 11:20 AM ANMOL CASEY ([facility]) INTMWS During your visit today, we recorded the following information about you: Temperature Pulse Respiration Blood pressure 97.1 degrees 67/minute 16/minute 136/88 Weight 95.7 kg Anmol Casey APRN.CNP 04/16/2018 1:52 PM Signed CC: Patient presents with: Recheck: ER Follow up, patient has had 3 falls in 3 weeks. Having some back pain HPI Felicia Stover is a 82 year old female who presents today for [facility] ER follow up 04/06/18. Patient presented to [facility] ER 10 days ago after sustaining a fall where she hit her head. Patient is on coumadin and required further evaluation. CT of the brain showed only chronic changes and CT of the Cspine showed chronic degenerative changes as well as a 1cm hypodensity to right lobe of the thyroid with recommendations for US outpatient. Patient reports she has fallen 3 times over the last 3 weeks, most recent occurred just prior to her ER evaluation. Falls were all mechanically related. Patient denies any dizziness, lightheadedness or syncope related to the falls. Today patient presents with left sided mid back pain without radiation that began ~1 week ago after her last fall. Pain is described as aching and sharp. Pain is worse with standing, walking and changing positions and better with sitting. Patient also denies dysuria. Patient does have history of osteoporosis- on Prolia and positive hx of previous spine fractures. She also reports ongoing intermittent constipation. States this has been ongoing and she forgets to discuss at routine visits. She notes BMs occur once daily or every other day, but seem to be small then every 4th or 5th day she reports having abdominal cramping, episode of vomiting and several large BMs throughout the day. She denies any fever, chills, constant abdominal pain, nausea, black or bloody stools. She reports adequate water intake and is relatively active. No recent dietary changes. She has not tried anything for relief. REVIEW OF SYSTEMS General: no fevers, no chills, no change in appetite, no change in energy and no significant changes in weight Respiratory: no shortness of breath, no hemoptysis Chronic cough with intermittent wheezing/SOB secondary to asthma diagnosis Cardiovascular: no chest pain, no chest pressure and no palpitations GI: See HPI : No history of dysuria, frequency or incontinence Musculoskeletal: See HPI Neurologic: No headache, neck stiffness, tremor, vertigo, dizziness, memory loss, syncope. Chronic numbness/tingling of BLE. 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 - LAPAROSCOPIC CYSTECTOMY 01/14/14 bilateral oophrectomy - PAST SURGICAL HISTORY OF 04/02/2002 DC cardioversion - PAST SURGICAL HISTORY OF 2009 cataracts left and right - PAST SURGICAL HISTORY OF 2007 ankle surgery x 2 right - PAST SURGICAL HISTORY OF lumbar pain injections X2 - REMOVAL GALLBLADDER 1968 Cholecystectomy open - SIGMOIDOSCOPY FLEX DIAG 12/10/09 ALLERGIES Crab; Lobster (Crustaceans); Ragweed; Scampi [Other]; Sulfa (Sulfonamide Antibiotics); Toprol Xl [Metoprolol Succinate] MEDICATIONS temazepam (RESTORIL) 15 mg cap TAKE ONE CAPSULE BY MOUTH EVERY DAY AT BEDTIME predniSONE (DELTASONE) 10 mg tablet Take 2 tabs a day for 5 days, then take 1 tab a day for 5 days. Then stop. Keep leftover budesonide (PULMICORT) 0.5 mg/2 mL nebulizer solution Take 1 vial in the nebulizer twice a day Nebulizer and Compressor For Neb denise Use as directed. Please provide machine with accessories with lifetime supply. NP [id number] warfarin (COUMADIN) 3 mg tablet Take 3 day cycle - day 1 9mg, day 2 9mg, day 3 6mg and repeat or as directed by physician lisinopril (ZESTRIL, PRINIVIL) 20 mg tablet Take 1 tablet by mouth twice daily. flecainide (TAMBOCOR) 100 mg tablet TAKE 1 TABLET BY MOUTH TWICE DAILY. warfarin (COUMADIN) 3 mg tablet Take 1 tablet by mouth once daily. As directed montelukast (SINGULAIR) 10 mg tablet TAKE 1 TABLET BY MOUTH DAILY AT BEDTIME. verapamil SR (CALAN SR, ISOPTIN SR) 240 mg CR tablet Take 1 tablet by mouth once daily. ipratropium bromide (ATROVENT) 42 mcg (0.06 %) nasal spray 2 sprays per each nostril 2-3 times a day. potassium chloride (K-TAB) 10 mEq tablet Take 1 tablet by mouth every 48 hours. furosemide (LASIX) 20 mg tablet Take 1 tablet by mouth every 48 hours. mupirocin (BACTROBAN) 2 % cream Apply 1 application to affected area three times daily. nitroglycerin sublingual (NITROQUICK) 0.4 mg SL tablet Dissolve 1 tablet under the tongue as needed. for chest pain,every 5 min x3 fluticasone furoate (ARNUITY ELLIPTA) 200 mcg/actuation dsdv Inhale 1 Inhalation as instructed once daily. ketoconazole (NIZORAL) 2 % shampoo Apply 1 application to affected area once daily as needed. For hair thinning hydroxychloroquine (PLAQUENIL) 200 mg tablet Take 200 mg by mouth twice daily. warfarin (COUMADIN) 2.5 mg tablet Take as directed per physician. warfarin (COUMADIN) 5 mg tablet Take as directed warfarin (COUMADIN) 2 mg tablet Take 1 tablet by mouth daily as directed. denosumab (PROLIA) 60 mg/mL syrg Inject 1 mL subcutaneously as directed. oxyCODONE-acetaminophen (PERCOCET) 5-325 mg tablet Take 1 tablet by mouth once daily as needed. BIOTIN ORAL Take 1 capsule by mouth once daily. Cholecalciferol, Vitamin D3, 2,000 unit cap Take 1 capsule by mouth once daily. take with the largest meal of the day FAMILY HISTORY Problem Relation Age of Onset - Heart Father - Stroke Mother - Hypertension Mother - Diabetes Brother Social History Substance Use Topics - Smoking status: Never Smoker - Smokeless tobacco: Never Used - Alcohol use Yes Comment: 7 glasses of wine weekly PHYSICAL EXAM BP 136/88 Pulse 67 Temp 36.2 ?C (97.1 ?F) (Temporal Artery) Resp 16 Wt 95.7 kg (211 lb) SpO2 98% BMI 33.05 kg/m? General Appearance: well appearing, in no acute distress, alert Skin: Skin color, texture, turgor normal for age; Head: normocephalic, atraumatic Back: thoracolumbar scoliosis of mild degree, limitation of motion - flexion: mild and rotation: mild, tenderness over paraspinal muscles at level of T10-12 Lungs: lungs clear to auscultation. No wheezing, rhonchi, rales Heart: RRR without murmur, gallop, or rubs. No ectopy Abdomen: Abdomen soft, non-tender. Bowel sounds normal. No masses, organomegaly Bilateral Lower Extremities: No deformities or edema. Pulses +2 DIABETES SCREEN due on 10/16/2020 DTAP,TDAP,TD(2 - Td) due on 12/02/2024 BONE DENSITY Completed ADULT PREVNAR-13 Completed INFLUENZA Completed PNEUMOVAX AGE 65 AND OVER WITH 5YR LOOKBACK Completed ASSESSMENT/PLAN: 1. Fall, initial encounter - ICD9: E888.9, ICD10: W19.XXXA (primary diagnosis) - No concerning exam findings, but given nature of recent falls and patient's medical history will order imaging studies - XR LUMBAR GENERAL 3V AP/LAT/L5-S1 - XR THORACIC LIMITED 2V AP/LAT 2. Acute left-sided thoracic back pain - ICD9: 724.1, ICD10: M54.6 - No concerning exam findings, will obtain imaging d/t recent falls - Bedrest for 2-3 days - Ice for localized tenderness - Avoid NSAIDs given 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 coumadin use, recommend Tylenol Arthritis - Consider PT if no improvement - Patient given instructions use of medications as ordered, intermittent rest and back care exercise program - Follow up in 2 weeks or sooner if symptoms persist or worsen 3. Abnormal CT scan - ICD9: 793.99, ICD10: R93.89 - Incidental 1cm hypodensity found on brain CT preformed at [facility] ER 04/06/18 - Labs ordered previously, TSH, T3/T4 to be completed - US THYROID/PARATHYROID - Follow up to be determined by laboratory and imaging studies, may require surgical consult for possible biopsy. 4. Change in bowel habits - ICD9: 787.99, ICD10: R19.4 - DOCUSATE SODIUM 100 MG CAPSULE daily - Follow up in 2 weeks if no symptom improvement, sooner for new or worsening symptoms Anmol Casey APRN.[facility] Prescription instructions reviewed with patient as applicable. Potential red flag symptoms discussed with the patient. Reviewed appropriate action plan to take if red flag symptoms occur. Patient agreeable to treatment plan. Anmol Casey APRN.CNP 04/16/2018 12:13 PM Signed Ice to back 2-3 times a day. Rest as much as possible 2-3 days. Tylenol Arthritis as needed for back pain. Take Colace daily to help regulate stools, if no improvement after 2 weeks please notify office. Xrays of the back. Referring Provider: FARRUKH WHALEN [[id number]] Allergies As of Date: 04/16/2018 Noted Allergy Reaction CRAB 03/12/2003 Comments: Itching, swelling LOBSTER (CRUSTACEANS) 03/12/2003 Comments: Can'T touch RAGWEED 03/12/2003 14 - Other: See Comments Comments: Sneezing Scampi [Other] 03/12/2003 Comments: Swelling, itching. SULFA (SULFONAMIDE ANTIBIOTICS) 03/12/2003 Comments: SWELLING Rash TOPROL XL (METOPROLOL SUCCINATE) 04/13/2010 14 - Other: See Comments Comments: Chest fullness Date Reviewed: 03/16/2018 Reviewed by: Seun Varela Ma - Fully Assessed Reason for Visit: Recheck [92] Cmt: ER Follow up, patient has had 3 falls in 3 weeks. Having some back pain Reason For Visit History Recorded Primary Visit Diagnosis:Fall, initial encounter [W19.XXXA] Other Visit Diagnoses:Acute left-sided thoracic back pain [M54.6] Abnormal CT scan [R93.89] Change in bowel habits [R19.4] Order(s):XR LUMBAR GENERAL 3V AP/LAT/L5-S1 [[id number]] Order #: [id number] FUTURE XR THORACIC LIMITED 2V AP/LAT [[id number]] Order #: [id number] FUTURE docusate sodium (COLACE) 100 mg capsuleTake 1 capsule by mouth once daily.Disp: 30 capsuleRfl: 1 THYROID/PARATHYROID [[id number]] Order #: [id number] FUTURE Prescriptions as of 04/16/2018 Sig: DOCUSATE SODIUM 100 MG CAPSULE Take 1 capsule by mouth once * TEMAZEPAM 15 MG CAPSULE TAKE ONE CAPSULE BY MOUTH BALTA* PREDNISONE 10 MG TABLET Take 2 tabs a day for 5 days,* BUDESONIDE 0.5 MG/2 ML SUSPEN* Take 1 vial in the nebulizer * NEBULIZER AND COMPRESSOR Use as directed. Please provi* WARFARIN 3 MG TABLET Take 3 day cycle - day 1 9mg* LISINOPRIL 20 MG TABLET Take 1 tablet by mouth twice * FLECAINIDE 100 MG TABLET TAKE 1 TABLET BY MOUTH TWICE * WARFARIN 3 MG TABLET Take 1 tablet by mouth once d* MONTELUKAST 10 MG TABLET TAKE 1 TABLET BY MOUTH DAILY * VERAPAMIL ER (SR) 240 MG TABL* Take 1 tablet by mouth once d* IPRATROPIUM BROMIDE 42 MCG (0* 2 sprays per each nostril 2-3* Patient not taking: Reported on 11/17/2017 POTASSIUM CHLORIDE ER 10 MEQ * Take 1 tablet by mouth every * Patient taking differently: Take 10 mEq by mouth once lio* FUROSEMIDE 20 MG TABLET Take 1 tablet by mouth every * Patient taking differently: Take 20 mg by mouth as needed* MUPIROCIN 2 % TOPICAL CREAM Apply 1 application to affect* NITROGLYCERIN 0.4 MG SUBLINGU* Dissolve 1 tablet under the t* FLUTICASONE FUROATE 200 MCG/A* Inhale 1 Inhalation as instru* KETOCONAZOLE 2 % SHAMPOO Apply 1 application to affect* HYDROXYCHLOROQUINE 200 MG TAB* Take 200 mg by mouth twice da* WARFARIN 2.5 MG TABLET Take as directed per physicia* WARFARIN 5 MG TABLET Take as directed WARFARIN 2 MG TABLET Take 1 tablet by mouth daily * DENOSUMAB 60 MG/ML SUBCUTANEO* Inject 1 mL subcutaneously as* OXYCODONE-ACETAMINOPHEN 5 MG-* Take 1 tablet by mouth once d* BIOTIN ORAL Take 1 capsule by mouth once * CHOLECALCIFEROL (VITAMIN D3) * Take 1 capsule by mouth once * Problem List As Of Date 04/16/2018 Noted Resolved PARESTHESIAS [R20.9] INVALID FOR* OVERWEIGHT [E66.9] INVALID FOR*12/02/2014 Essential hypertension [I10] INVALID FOR* More... FEMALE STRESS INCONTINENCE [N39.3] INVALID FOR* DIVERTICULITIS OF COLON W/O BLEED [K57.32] INVALID FOR* HEMORRHOIDS NOS [K64.9] INVALID FOR* ATRIAL FIBRILLATION [I48.91] INVALID FOR* More... HYPERLIPIDEMIA NEC/NOS [E78.5] INVALID FOR* More... INSOMNIA NOS [G47.00] INVALID FOR* GENERAL OSTEOARTHROSIS [M15.9] INVALID FOR* BRADYCARDIA [I49.8] INVALID FOR* Postmenopausal osteoporosis [M81.0] INVALID FOR* More... HYPERGLYCEMIA [R79.89] INVALID FOR* More... MITRAL REGURGITATION [I05.9] INVALID FOR* HYPOMAGNESEMIA [E83.40] INVALID FOR* Unspecified closed fracture of ankle [S82.899A] INVALID FOR* More... IDIO PERIPH NEURPTHY NOS [G60.9] INVALID FOR* BACKACHE NOS [M54.9] INVALID FOR* Other Chronic Pain [G89.29] INVALID FOR* More... 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 Pathologic fracture of vertebrae [M84.48XA] INVALID FOR* Lumbago [M54.5] INVALID FOR* Pseudogout [M11.20] INVALID FOR* More... Lumbar spondylosis [M47.816] INVALID FOR* Spinal stenosis of lumbar region [M48.061] INVALID FOR* Vitamin D deficiency [E55.9] INVALID FOR* GERD (gastroesophageal reflux disease) [K21.9] INVALID FOR* BMI 32.0-32.9,adult [Z68.32] INVALID FOR* Hyperlipidemia [E78.5] INVALID FOR* More... Impaired fasting glucose [R73.01] INVALID FOR* Bilateral low back pain without sciatica [M54.5]INVALID FOR* Moderate persistent asthma [J45.40] INVALID FOR* More... Persistent asthma [CFY4382] INVALID FOR* CKD (chronic kidney disease) stage 3, GFR 30-59*INVALID FOR* Other instructions from your clinician: Ice to back 2-3 times a day. Rest as much as possible 2-3 days. Tylenol Arthritis as needed for back pain. Take Colace daily to help regulate stools, if no improvement after 2 weeks please notify office. Xrays of the back. Prescriptions ordered this encounter Disp Refills Start End DOCUSATE SODIUM 100 MG CAPSULE 30 c* 1 04/16/2018 Route: ORAL Sig: Take 1 capsule by mouth once daily. Encounter Status:Closed by ANMOL CASEY CNP on 04/16/18 [place] Observed: 04/16/2018 Status: COMPLETED Source: [place] 12:00 AM [facility] REPOSITORY Telephone (INTMWS) MERCHANTDENZEL ([id number]) 1935 F NFR Date Time Provider Department 04/16/18 ANMOL CASEY (ALVIN) INTMWS During your visit today, we recorded the following information about you: Anmol Casey APRN.CNP 04/16/2018 12:55 PM Signed Can we please remind patient to have labs completed when she comes in for xrays. I have also ordered follow up US of the thyroid if we can assist with scheduling. LUZ ELENA Youngblood LPN 04/17/2018 4:14 PM Signed Pt notified of need for labs and US of thyroid. Manjula Langford Psr 04/24/2018 4:13 PM Signed us appt has been schedule for 12--18 and told patient to get labs done to Allergies As of Date: 04/16/2018 Noted Allergy Reaction CRAB 03/12/2003 Comments: Itching, swelling LOBSTER (CRUSTACEANS) 03/12/2003 Comments: Can'T touch RAGWEED 03/12/2003 14 - Other: See Comments Comments: Sneezing Scampi [Other] 03/12/2003 Comments: Swelling, itching. SULFA (SULFONAMIDE ANTIBIOTICS) 03/12/2003 Comments: SWELLING Rash TOPROL XL (METOPROLOL SUCCINATE) 04/13/2010 14 - Other: See Comments Comments: Chest fullness Date Reviewed: 03/16/2018 Reviewed by: Seun Varela Ma - Fully Assessed Reason for Visit: Lab Orders [1688] Prescriptions as of 04/16/2018 Sig: BIOTIN ORAL Take 1 capsule by mouth once * BUDESONIDE 0.5 MG/2 ML SUSPEN* Take 1 vial in the nebulizer * CHOLECALCIFEROL (VITAMIN D3) * Take 1 capsule by mouth once * DENOSUMAB 60 MG/ML SUBCUTANEO* Inject 1 mL subcutaneously as* DOCUSATE SODIUM 100 MG CAPSULE Take 1 capsule by mouth once * FLECAINIDE 100 MG TABLET TAKE 1 TABLET BY MOUTH TWICE * FLUTICASONE FUROATE 200 MCG/A* Inhale 1 Inhalation as instru* FUROSEMIDE 20 MG TABLET Take 1 tablet by mouth every * Patient taking differently: Take 20 mg by mouth as needed* HYDROXYCHLOROQUINE 200 MG TAB* Take 200 mg by mouth twice da* IPRATROPIUM BROMIDE 42 MCG (0* 2 sprays per each nostril 2-3* Patient not taking: Reported on 11/17/2017 KETOCONAZOLE 2 % SHAMPOO Apply 1 application to affect* LISINOPRIL 20 MG TABLET Take 1 tablet by mouth twice * MONTELUKAST 10 MG TABLET TAKE 1 TABLET BY MOUTH DAILY * MUPIROCIN 2 % TOPICAL CREAM Apply 1 application to affect* NEBULIZER AND COMPRESSOR Use as directed. Please provi* NITROGLYCERIN 0.4 MG SUBLINGU* Dissolve 1 tablet under the t* OXYCODONE-ACETAMINOPHEN 5 MG-* Take 1 tablet by mouth once d* POTASSIUM CHLORIDE ER 10 MEQ * Take 1 tablet by mouth every * Patient taking differently: Take 10 mEq by mouth once lio* PREDNISONE 10 MG TABLET Take 2 tabs a day for 5 days,* TEMAZEPAM 15 MG CAPSULE TAKE ONE CAPSULE BY MOUTH BALTA* VERAPAMIL ER (SR) 240 MG TABL* Take 1 tablet by mouth once d* WARFARIN 2 MG TABLET Take 1 tablet by mouth daily * WARFARIN 2.5 MG TABLET Take as directed per physicia* WARFARIN 3 MG TABLET Take 1 tablet by mouth once d* WARFARIN 3 MG TABLET Take 3 day cycle - day 1 9mg* WARFARIN 5 MG TABLET Take as directed Problem List As Of Date 04/16/2018 Noted Resolved PARESTHESIAS [R20.9] INVALID FOR* OVERWEIGHT [E66.9] INVALID FOR*12/02/2014 Essential hypertension [I10] INVALID FOR* More... FEMALE STRESS INCONTINENCE [N39.3] INVALID FOR* DIVERTICULITIS OF COLON W/O BLEED [K57.32] INVALID FOR* HEMORRHOIDS NOS [K64.9] INVALID FOR* ATRIAL FIBRILLATION [I48.91] INVALID FOR* More... HYPERLIPIDEMIA NEC/NOS [E78.5] INVALID FOR* More... INSOMNIA NOS [G47.00] INVALID FOR* GENERAL OSTEOARTHROSIS [M15.9] INVALID FOR* BRADYCARDIA [I49.8] INVALID FOR* Postmenopausal osteoporosis [M81.0] INVALID FOR* More... HYPERGLYCEMIA [R79.89] INVALID FOR* More... MITRAL REGURGITATION [I05.9] INVALID FOR* HYPOMAGNESEMIA [E83.40] INVALID FOR* Unspecified closed fracture of ankle [S82.899A] INVALID FOR* More... IDIO PERIPH NEURPTHY NOS [G60.9] INVALID FOR* BACKACHE NOS [M54.9] INVALID FOR* Other Chronic Pain [G89.29] INVALID FOR* More... 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 Pathologic fracture of vertebrae [M84.48XA] INVALID FOR* Lumbago [M54.5] INVALID FOR* Pseudogout [M11.20] INVALID FOR* More... Lumbar spondylosis [M47.816] INVALID FOR* Spinal stenosis of lumbar region [M48.061] INVALID FOR* Vitamin D deficiency [E55.9] INVALID FOR* GERD (gastroesophageal reflux disease) [K21.9] INVALID FOR* BMI 32.0-32.9,adult [Z68.32] INVALID FOR* Hyperlipidemia [E78.5] INVALID FOR* More... Impaired fasting glucose [R73.01] INVALID FOR* Bilateral low back pain without sciatica [M54.5]INVALID FOR* Moderate persistent asthma [J45.40] INVALID FOR* More... Persistent asthma [ECH1976] INVALID FOR* CKD (chronic kidney disease) stage 3, GFR 30-59*INVALID FOR* Encounter Status:Closed by MANJULA VIEIRA LPN on 04/17/18 PROGRESS Observed: 04/10/2018 Status: COMPLETED Source: [place] 3:28 PM [facility] REPOSITORY HNO ID: [id number] Author: Mesfin Peterson RN Service: (none) Author Type: (none) Type: Progress Notes Filed: 04/10/2018 3:28 PM Note Text: See phone note for instructions Mesfin Peterson RN PROGRESS Observed: 04/10/2018 Status: COMPLETED Source: [place] 3:28 PM [facility] REPOSITORY HNO ID: [id number] Author: Mesfin Peterson RN Service: (none) Author Type: (none) Type: Progress Notes Filed: 04/10/2018 3:28 PM Note Text: This note was created using Soundstache. Subjective Felicia Stover is a 82 year old female. Review of Systems Objective There were no vitals taken for this visit. Physical Exam Assessment and Plan PROGRESS Observed: 04/10/2018 Status: COMPLETED Source: [place] 3:15 PM [facility] REPOSITORY HNO ID: [id number] Author: Chula Renee RN Service: (none) Author Type: (none) Type: Progress Notes Filed: 04/10/2018 3:16 PM Note Text: patient had inr completed at [facility] patients inr is 2.9 (patients inr range is 2.0-3.0) patient is currently taking 6mg alternating with 9mg patients last dose change was on 04/06/18 due to a high level of 5.1 (dose at that time was 9mg alternating with 6mg) patient has had no changes in medication except for coumadin and no uninstructed missed doses and no change in diet Advised patient that they would be contacted regarding medication dose and when to follow up after information is reviewed by provider. After provider review please contact the patient with information and schedule follow up appointment with coumadin clinic. DISCHARGE INSTRUCTION Observed: 04/06/2018 Status: F Source: [place] 6:48 PM [facility] [place] Medical Records Department [address] [place] [address] Discharge Instruction 04/06/181846 MR#: [id number] Acct: [id number] Name: FELICIA STOVER Rep #: [id number] : 1935 82 From: Jaxson Carrillo DO PCP: Farrukh Whalen MD Status: REG ER ED Disposition - Plan for ED Patient: Chief Complaint: Fall Instructions: ED Mechanical Fall, ED Head Injury Closed, ED Sprain Strain Neck Referrals: Farrukh Whalen MD [Primary Care Provider] - 3-5 Days Additional Instructions: Recommend having outpatient ultrasound of your thyroid gland to evaluate 1 cm Hypodensity What to do if you have Problems For any increased pain, shortness of breath, bleeding, nausea or vomiting, chest pain, or any unexpected problems, contact your Primary Care Provider. Call [facility] ([phone]) or report to the closest Emergency Room. Call 911 if necessary. 04/06/181847 <Electronically signed by aJxson Carrillo DO> Date Jaxson Carrillo DO Cosigner Signature (If Indicated): Date CC: Farrukh Whalen MD EMERGENCY DEPARTMENT Observed: 04/06/2018 Status: F Source: [place] SUMMARY 6:46 PM [facility] [place] [facility] Medical Records Department [address] [place] [address] Emergency Department Summary 04/06/181842 MR#: [id number] Acct: [id number] Name: FELICIA STOVER Rep #: [id number] : 1935 82 From: Jaxson Carrillo DO PCP: Farrukh Whalen MD Status: REG ER - ER Visit Summary Date of Service: 04/06/18 Chief Complaint: [Fall with head injury] History of Present Illness: The patient is a 82 F presents the emergency department after a fall that occurred earlier today. Patient states that she missed the stool while sitting in the kitchen and fell backwards striking her head on the stool and in the tile floor. No loss of consciousness. Patient complains of some mild soreness in her neck. Patient states that she is on Coumadin and she was advised by her primary care physician if she ever hit her head to be evaluated. Patient also had an INR checked this morning and her INR was elevated at 5.1 and she is was advised on stopping the Coumadin for a short time by her physicians. Patient denies any chest or abdomen pain. Patient's been ambulatory since the fall. She denies any vomiting. She denies visual changes.] Physical Examination: [HEENT-PERRLA, EOMI. Cranial nerves II through XII grossly intact. TMs clear. Mucous membranes moist. No adenopathy. Patient has a small hematoma to the right posterior occiput with no bony step-offs noted. Patient has some mild diffuse C-spine tenderness on palpation. Cardiovascular-regular rate and rhythm without murmur or ectopy Lungs-clear to auscultation, chest wall stable without crepitus or subcu emphysema Abdomen-normoactive bowel sounds, soft, nontender, no rebound or rigidity, no peritoneal signs. Extremities-intact 4, normal range of motion, normal pulses, atraumatic] Test Results: [CT scan of the brain without contrast showed chronic microvascular changes. CT scan of C-spine showed chronic degenerative changes as well as a 1 cm hypodensity in the right lobe of the thyroid and recommended outpatient ultrasound for further evaluation.] Emergency Department Course and Treatment: [I discussed results with patient and advised to follow-up with primary care physician regarding an outpatient ultrasound of her thyroid.] Treatment Plan: [Patient to follow-up with her primary care physician within next 3-5 days. Patient advised to return if worsening headache, vomiting, difficult with balance or speech, or condition should worsen anyway. She is advised that there is a small possibility of delayed intracranial hemorrhage and if symptoms worsen to return the emergency department.] Disposition: [Discharged home in stable condition] Impression: [Mechanical fall Closed head injury Cervical strain Coumadin coagulopathy] This note was generated with BlueMessaging dictation software. It may contain incorrect words, spelling, and punctuation that were not noted in review of the chart prior to signing ED Disposition - Plan for ED Patient: Chief Complaint: Fall Referrals: Farrukh Whalen MD [Primary Care Provider] - What to do if you have Problems For any increased pain, shortness of breath, bleeding, nausea or vomiting, chest pain, or any unexpected problems, contact your Primary Care Provider. Call [facility] ([phone]) or report to the closest Emergency Room. Call 911 if necessary. 04/06/18 1846 <Electronically signed by Jaxson Carrillo DO> Date Jaxson Carrillo DO Cosigner Signature (If Indicated): Date CC: Farrukh Whalen MD BRAIN/HEAD WITHOUT Observed: 04/06/2018 Status: F Source: [place] 4:55 PM [facility] [place] [facility] Imaging Services [address] [place] [id number] Brain/Head without Contrast MR#: [id number] Acct: [id number] Name: FELICIA STOVER Rep #: [id number] : 1935 F 82 From: Rosemary Fallon MD PCP: Farrukh Whalen MD Status: REG ER Study: Brain/Head without Contrast Date of Exam: 04/06/18 Exam# [id number] Ordering Dr: Jaxson Carrillo DO STUDY: CT BRAIN WITHOUT CONTRAST REASON FOR EXAM: Female, 82 years old. Fall, head injury, pain, patient on Coumadin RADIATION DOSAGE (If Supplied By Facility): CTDIvol = ( 44.99 ) mGy, DLP = ( 829.85 ) mGycm TECHNIQUE: Transaxial CT imaging of the brain was performed without administration of intravenous contrast material. Individualized dose optimization techniques were used for this CT. COMPARISON: None. FINDINGS: There is very minimal soft tissue swelling in the left parietal region. The osseous structures are unremarkable. There is mild cerebral atrophy with widening of the extra- axial spaces and ventricular dilatation. There are scattered areas of decreased attenuation within the white matter tracts of the supratentorial brain. The basal ganglia and thalami are unremarkable. No abnormalities are seen in the brainstem. The cerebellum is unremarkable. There are marked vascular calcifications. There is no intracranial hemorrhage. There are no findings of acute ischemia. The visualized sinuses are unremarkable. 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 CT/Brain/Head without Contrast IMPRESSION: No acute intracranial abnormalities. There are scattered white matter changes likely representing microvascular disease. Electronically Signed: Rosemary Fallon MD at 18:15 EST Tel Direct: [phone], Service support , CC: Farrukh Whalen MD; Jaxson Carrillo DO Clerical Receptionist: Signed SPINE CERVICAL Observed: 04/06/2018 Status: F Source: [place] WITHOUT [place] 4:55 PM [facility] [place] [facility] Imaging Services [address] [place] [id number] Spine Cervical without Contras MR#: [id number] Acct: [id number] Name: FELICIA STOVER Rep #: [id number] : 1935 F 82 From: Rosemary Fallon MD PCP: Farrukh Whalen MD Status: REG ER Study: Spine Cervical without Contras Date of Exam: 04/06/18 Exam# [id number] Ordering Dr: Jaxson Carrillo DO STUDY: CT CERVICAL SPINE WITHOUT CONTRAST REASON FOR EXAM: Female, 82 years old. Fall, head injury, pain RADIATION DOSAGE (If Supplied By Facility): CTDIvol = ( 23.01 ) mGy, DLP = ( 463.92 ) mGycm TECHNIQUE: High resolution transaxial imaging was performed without contrast material. Sagittal and coronal images were reconstructed. Individualized dose optimization techniques were used for this CT. COMPARISON: None FINDINGS: There are degenerative changes of the atlantoaxial articulation. The odontoid process is unremarkable. There is straightening of the normal cervical lordosis. There are osteophytes scattered in the cervical spine. C2-3: There is no disc space narrowing or canal narrowing. There is mild foraminal narrowing on the right and moderate foraminal narrowing on the left. C3-4: There is moderate disc space narrowing without canal narrowing. There is marked foraminal narrowing on the right and mild foraminal narrowing on the left. C4-5: There is mild disc space narrowing without canal narrowing. There is marked foraminal narrowing bilaterally. C5-6: There is marked disc space narrowing with mild canal narrowing. There is marked foraminal narrowing bilaterally. C6-7: There is mild disc space narrowing without canal narrowing. There is mild foraminal narrowing bilaterally. C7-T1: There is moderate disc space narrowing without canal narrowing. There is mild foraminal narrowing on the left. The lung apices are unremarkable. There is a vague 1 cm hypodensity in the right lobe of the thyroid. There are mild vascular calcifications in the carotid bulbs. CT/Spine Cervical without Contras IMPRESSION: No acute abnormalities are seen in the cervical spine. There are scattered degenerative changes, described above. There is a vague 1 cm hypodensity in the right lobe of the thyroid. An outpatient thyroid ultrasound can be obtained for further characterization. Electronically Signed: Rosemary Fallon MD at 18:23 EST Tel Direct: [phone], Service support , CC: Farrukh Whalen MD; Jaxson Carrillo DO Clerical Receptionist: Signed PROGRESS Observed: 04/06/2018 Status: COMPLETED Source: [place] 10:14 AM [facility] REPOSITORY HNO ID: [id number] Author: Dianne Grimes MA Service: (none) Author Type: (none) Type: Progress Notes Filed: 04/06/2018 10:14 AM Note Text: Please see phone encounter. Dianne Grimes MA PROGRESS Observed: 04/06/2018 Status: COMPLETED Source: [place] 9:52 AM [facility] REPOSITORY HNO ID: [id number] Author: Chula Renee RN Service: (none) Author Type: (none) Type: Progress Notes Filed: 04/06/2018 9:53 AM Note Text: patient had inr completed at [facility] [place] patients inr is 5.1 (patients inr range is 2.0-3.0) patient is currently taking 9mg alternating with 6mg (per patient) patients last dose change unknown as patient has been getting lab blood draws patient has had no changes in medication and no missed doses and no change in diet Advised patient that they would be contacted regarding medication dose and when to follow up after information is reviewed by provider. After provider review please contact the patient with information and schedule follow up appointment with coumadin clinic. 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 Cough - Suspect post nasal drip instigated by vasomotor rhintis, upper airway cough syndrome - Tried flonase in the past without resolution - Cannot have antihistamines per pt - TRIAL of ipratropium bromide nasal spray- 2-3 x a day, advised to use before meal in the evening. - If symptoms continue, can consider a trial of different nasal steroid spray. ? Felicia Stover will follow-up in pulmonary clinic in 6 months, sooner if needed. History Felicia Stover is a 82 year old female with asthma who presents today for follow-up. Doing well today, but has noticed over the past month she has been coughing more frequently Cough is sometimes productive of white to yellow mucous. 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 Denies dyspnea. Her a fib was converted- feels much better since conversion. Denies reflux Taking arnuity ICS daily Singulair daily Albuterol PRN Medications Current Outpatient Prescriptions: traMADol (ULTRAM) 50 mg tablet Take 1 tablet by mouth every 4 hours for 7 days. temazepam (RESTORIL) 15 mg cap Take 1 capsule by mouth daily at bedtime for 30 days. warfarin (COUMADIN) 3 mg tablet Take 3 day cycle - day 1 9mg, day 2 9mg, day 3 6mg and repeat or as directed by physician lisinopril (ZESTRIL, PRINIVIL) 20 mg tablet Take 1 tablet by mouth twice daily. flecainide (TAMBOCOR) 100 mg tablet TAKE 1 TABLET BY MOUTH TWICE DAILY. warfarin (COUMADIN) 3 mg tablet Take 1 tablet by mouth once daily. As directed montelukast (SINGULAIR) 10 mg tablet TAKE 1 TABLET BY MOUTH DAILY AT BEDTIME. verapamil SR (CALAN SR, ISOPTIN SR) 240 mg CR tablet Take 1 tablet by mouth once daily. ipratropium bromide (ATROVENT) 42 mcg (0.06 %) nasal spray 2 sprays per each nostril 2-3 times a day. (Patient not taking: Reported on 11/17/2017 ) potassium chloride (K-TAB) 10 mEq tablet Take 1 tablet by mouth every 48 hours. (Patient taking differently: Take 10 mEq by mouth once daily. ) furosemide (LASIX) 20 mg tablet Take 1 tablet by mouth every 48 hours. (Patient taking differently: Take 20 mg by mouth as needed. ) mupirocin (BACTROBAN) 2 % cream Apply 1 application to affected area three times daily. nitroglycerin sublingual (NITROQUICK) 0.4 mg SL tablet Dissolve 1 tablet under the tongue as needed. for chest pain,every 5 min x3 fluticasone furoate (ARNUITY ELLIPTA) 200 mcg/actuation dsdv Inhale 1 Inhalation as instructed once daily. ketoconazole (NIZORAL) 2 % shampoo Apply 1 application to affected area once daily as needed. For hair thinning hydroxychloroquine (PLAQUENIL) 200 mg tablet Take 200 mg by mouth twice daily. warfarin (COUMADIN) 2.5 mg tablet Take as directed per physician. warfarin (COUMADIN) 5 mg tablet Take as directed warfarin (COUMADIN) 2 mg tablet Take 1 tablet by mouth daily as directed. denosumab (PROLIA) 60 mg/mL syrg Inject 1 mL subcutaneously as directed. oxyCODONE-acetaminophen (PERCOCET) 5-325 mg tablet Take 1 tablet by mouth once daily as needed. BIOTIN ORAL Take 1 capsule by mouth once daily. Cholecalciferol, Vitamin D3, 2,000 unit cap Take 1 capsule by mouth once daily. take with the largest meal of the day No current facility-administered medications for this visit. Immunization History Administered Date(s) Administered Influenza Seasonal - High Dose - Age 65+ 03/21/2015 04/07/2016 02/21/2017 Influenza Seasonal Inj Age 3+ 03/27/2014 Influenza Vaccine, Split-Non Spec 04/21/2005 03/20/2006 03/07/2007 03/13/2008 02/07/2009 03/09/2010 03/19/2011 02/25/2012 03/23/2013 Pneumococcal-13 Vac Conjugate 12/02/2014 Pneumovax 02/06/2008 06/01/2009 TD Adult 05/08/2004 Tdap (Age 7+) 12/02/2014 Zostavax 07/01/2008 Deferred Date(s) Deferred Influenza Seasonal - High Dose - Age 65+ 02/21/2017 03/15/2018 Allergies ALLERGIES Allergen Reactions - Crab Itching, swelling - Lobster (Crustacean* Can'T touch - Ragweed Other: See Comments Sneezing - Scampi [Other] Swelling, itching. - Sulfa (Sulfonamide * SWELLING Rash - Toprol Xl [Metoprol* Other: See Comments Chest fullness This patient's past medical history, family history, social history, medications and allergies have been reviewed from the [facility] electronic medical record and any appropriate up-dates have been made. Physical Exam BP 146/66 Pulse 69 Temp 97.7 Resp 16 Ht 5' 7 (1.70m) Wt 215 lb (97.5kg) SpO2 95% BMI 33.67 kg/(m2). GEN: NAD, AANDO x 3, speaking in full sentences HEENT: EOMI, sinus non tender; clear oropharynx, nares patent CV: RRR no MRG, no heaves/thrills, 2+ radial arteries bilaterally, no clubbing, cyanosis or edema of LE Lungs: symmetrical expansion, fair breath sounds- diminished at bases, no wheeze Ext: gait - wheeled walker, digits/nails no clubbing, cyanosis or edema, muscles of head and neck stable, non-tender. Diagnostic Data SPIROMETRY WITH DILATOR IF OBSTRUCTED ([id number]) - ordered on 03/16/18 [facility] [address] [place] [address] Test Date: 2018-03-16 Pat Name: FELICIA STOVER Department: Room: Gender: Female Funeral Service Apprentice: JUDITH Bach : 1935 Requested By: Order Number: [id number] Reading MD: Interpretive Statements Test no. 1 03/16/2018 01:49:29PM Medications and Allergies were reviewed for possible drug interactions per policy MM-102. No contraindications or sensitivities were noted. Meds taken: ELLIPTA 4.5 hours before testing. PRE AND POST: ATS acceptability and repeatability standards for spirometry met. 4 puffs albuterol (360 mcg) [facility], HRpre=49 /min, HRpost=56 /min.//JUDITH james?? IMPRESSION: [facility] [place] Pulmonary Function Lab Pred LLN ULN Pre % Post % % chg Date [id number] Time 01:39PM 01:54PM -- Height 170.2 170.2 Weight 98 98 -- FVC 2.86 2.10 3.61 1.94 68 1.97 69 2 FEV 1 2.13 1.49 2.77 1.23 58 1.30 61 6 FEV1%F 73.17 63.38 82.97 63.57 87 66.07 90 4 FEV 2 2.27 1.53 3.01 1.41 62 1.54 68 9 FEV 3 2.64 2.02 3.26 1.54 58 1.66 63 8 FEV3%E 88.68 83.32 94.04 79.52 90 84.42 95 6 MEF 50 2.77 1.59 3.95 0.61 22 0.82 30 35 FIF 50 2.69 1.84 -32 F25/75 1.43 0.08 2.79 0.42 30 0.64 45 52 FE%FIF 22.72 44.75 97 FEV6 1.74 1.86 7 PEF 5.53 3.80 7.26 4.33 78 4.46 81 3 FET 12.98 11.59 -11 FETPEF 0.06 0.06 13 VBe%FV 3.07 5.82 90 VBEex 0.06 0.11 93 -- VC MAX 2.86 2.10 3.61 1.94 68 1.98 69 2 -- -- -- I have personally reviewed and confirmed the findings on pulmonary function testing. Impression / Plan: Moderate persistent asthma Recent increase in symptoms of cough Spirometry features obstruction and decrease in FEV1 since last testing Her history with this testing indicative of asthma flare Does not tolerate PO steroids well (had poor experience with medrol- felt terrible) Low dose prednisone: 20 mg x 5 days, 10 mg x 5 days Start additional ICS - budesonide in nebulizer Sending for nebulizer for patient to begin, along with RX of nebulized budesonide to be run through medicare part B High dose fluzone today Felicia Stover will follow-up in pulmonary clinic in 4 months, sooner if needed She will call in 4 weeks with an update. The duration of this appointment visit was 30 minutes of zajg-bk-zxgo time with the patient. More than 50% of this time was spent in counseling, explanation of diagnosis, planning of further management, and coordination of care. Justina Martinez PA-C [facility] March 16, 2018 2:21 PM CNOV Observed: 03/16/2018 Status: COMPLETED Source: [place] 1:55 PM [facility] REPOSITORY Office Visit (PULMMN) FELICIA STOVER ([id number]) 1935 F NFR Date Time Provider Department 03/16/18 1:55 PM JUSTINA MARTINEZ) MADELYN During your visit today, we recorded the following information about you: Temperature Pulse Respiration Blood pressure 97.7 degrees 69/minute 16/minute 146/66 Weight Height 97.5 kg 1.702 m LEONCIO Gonzalez 03/16/2018 6:53 PM Signed At last visit : Moderate persistent asthma, well controlled on daily ICS inhaler - Continue Arnuity Ellipta once daily - Albuterol PRN for symptoms ? Cough - Suspect post nasal drip instigated by vasomotor rhintis, upper airway cough syndrome - Tried flonase in the past without resolution - Cannot have antihistamines per pt - TRIAL of ipratropium bromide nasal spray- 2-3 x a day, advised to use before meal in the evening. - If symptoms continue, can consider a trial of different nasal steroid spray. ? Felicia Stover will follow-up in pulmonary clinic in 6 months, sooner if needed. History Felicia Stover is a 82 year old female with asthma who presents today for follow-up. Doing well today, but has noticed over the past month she has been coughing more frequently Cough is sometimes productive of white to yellow mucous. 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 Denies dyspnea. Her a fib was converted- feels much better since conversion. Denies reflux Taking arnuity ICS daily Singulair daily Albuterol PRN Medications Current Outpatient Prescriptions: traMADol (ULTRAM) 50 mg tablet Take 1 tablet by mouth every 4 hours for 7 days. temazepam (RESTORIL) 15 mg cap Take 1 capsule by mouth daily at bedtime for 30 days. warfarin (COUMADIN) 3 mg tablet Take 3 day cycle - day 1 9mg, day 2 9mg, day 3 6mg and repeat or as directed by physician pratikpril (ZESTRIL, PRINIVIL) 20 mg tablet Take 1 tablet by mouth twice daily. flecainide (TAMBOCOR) 100 mg tablet TAKE 1 TABLET BY MOUTH TWICE DAILY. warfarin (COUMADIN) 3 mg tablet Take 1 tablet by mouth once daily. As directed montelukast (SINGULAIR) 10 mg tablet TAKE 1 TABLET BY MOUTH DAILY AT BEDTIME. verapamil SR (CALAN SR, ISOPTIN SR) 240 mg CR tablet Take 1 tablet by mouth once daily. ipratropium bromide (ATROVENT) 42 mcg (0.06 %) nasal spray 2 sprays per each nostril 2-3 times a day. (Patient not taking: Reported on 11/17/2017 ) potassium chloride (K-TAB) 10 mEq tablet Take 1 tablet by mouth every 48 hours. (Patient taking differently: Take 10 mEq by mouth once daily. ) furosemide (LASIX) 20 mg tablet Take 1 tablet by mouth every 48 hours. (Patient taking differently: Take 20 mg by mouth as needed. ) mupirocin (BACTROBAN) 2 % cream Apply 1 application to affected area three times daily. nitroglycerin sublingual (NITROQUICK) 0.4 mg SL tablet Dissolve 1 tablet under the tongue as needed. for chest pain,every 5 min x3 fluticasone furoate (ARNUITY ELLIPTA) 200 mcg/actuation dsdv Inhale 1 Inhalation as instructed once daily. ketoconazole (NIZORAL) 2 % shampoo Apply 1 application to affected area once daily as needed. For hair thinning hydroxychloroquine (PLAQUENIL) 200 mg tablet Take 200 mg by mouth twice daily. warfarin (COUMADIN) 2.5 mg tablet Take as directed per physician. warfarin (COUMADIN) 5 mg tablet Take as directed warfarin (COUMADIN) 2 mg tablet Take 1 tablet by mouth daily as directed. denosumab (PROLIA) 60 mg/mL syrg Inject 1 mL subcutaneously as directed. oxyCODONE-acetaminophen (PERCOCET) 5-325 mg tablet Take 1 tablet by mouth once daily as needed. BIOTIN ORAL Take 1 capsule by mouth once daily. Cholecalciferol, Vitamin D3, 2,000 unit cap Take 1 capsule by mouth once daily. take with the largest meal of the day No current facility-administered medications for this visit. Immunization History Administered Date(s) Administered Influenza Seasonal - High Dose - Age 65+ 03/21/2015 04/07/2016 02/21/2017 Influenza Seasonal Inj Age 3+ 03/27/2014 Influenza Vaccine, Split-Non Spec 04/21/2005 03/20/2006 03/07/2007 03/13/2008 02/07/2009 03/09/2010 03/19/2011 02/25/2012 03/23/2013 Pneumococcal-13 Vac Conjugate 12/02/2014 Pneumovax 02/06/2008 06/01/2009 TD Adult 05/08/2004 Tdap (Age 7+) 12/02/2014 Zostavax 07/01/2008 Deferred Date(s) Deferred Influenza Seasonal - High Dose - Age 65+ 02/21/2017 03/15/2018 Allergies ALLERGIES Allergen Reactions - Crab Itching, swelling - Lobster (Crustacean* Can'T touch - Ragweed Other: See Comments Sneezing - Scampi [Other] Swelling, itching. - Sulfa (Sulfonamide * SWELLING Rash - Toprol Xl [Metoprol* Other: See Comments Chest fullness This patient's past medical history, family history, social history, medications and allergies have been reviewed from the [facility] electronic medical record and any appropriate up-dates have been made. Physical Exam BP 146/66 Pulse 69 Temp 97.7 Resp 16 Ht 5' 7 (1.70m) Wt 215 lb (97.5kg) SpO2 95% BMI 33.67 kg/(m2). GEN: NAD, AANDO x 3, speaking in full sentences HEENT: EOMI, sinus non tender; clear oropharynx, nares patent CV: RRR no MRG, no heaves/thrills, 2+ radial arteries bilaterally, no clubbing, cyanosis or edema of LE Lungs: symmetrical expansion, fair breath sounds- diminished at bases, no wheeze Ext: gait - wheeled walker, digits/nails no clubbing, cyanosis or edema, muscles of head and neck stable, non-tender. Diagnostic Data SPIROMETRY WITH DILATOR IF OBSTRUCTED ([id number]) - ordered on 03/16/18 [facility] [address] [place] [address] Test Date: 2018-03-16 Pat Name: FELICIA STOVER Department: Room: Gender: Female Funeral Service Apprentice: JUDITH Bach : 1935 Requested By: Order Number: [id number] Reading MD: Interpretive Statements Test no. 1 03/16/2018 01:49:29PM Medications and Allergies were reviewed for possible drug interactions per policy MM-102. No contraindications or sensitivities were noted. Meds taken: ELLIPTA 4.5 hours before testing. PRE AND POST: ATS acceptability and repeatability standards for spirometry met. 4 puffs albuterol (360 mcg) delivered by MDI via valved holding ch[facility] er, HRpre=49 /min, HRpost=56 /min.//JUDITH james?? IMPRESSION: [facility] [place] Pulmonary Function Lab Pred AN MADRIGAL Pre % Post % % [facility] Date [id number] Time 01:39PM 01:54PM Height 170.2 170.2 Weight 98 98 FVC 2.86 2.10 3.61 1.94 68 1.97 69 2 FEV 1 2.13 1.49 2.77 1.23 58 1.30 61 6 FEV1%F 73.17 63.38 82.97 63.57 87 66.07 90 4 FEV 2 2.27 1.53 3.01 1.41 62 1.54 68 9 FEV 3 2.64 2.02 3.26 1.54 58 1.66 63 8 FEV3%E 88.68 83.32 94.04 79.52 90 84.42 95 6 MEF 50 2.77 1.59 3.95 0.61 22 0.82 30 35 FIF 50 2.69 1.84 -32 F25/75 1.43 0.08 2.79 0.42 30 0.64 45 52 FE%FIF 22.72 44.75 97 FEV6 1.74 1.86 7 PEF 5.53 3.80 7.26 4.33 78 4.46 81 3 FET 12.98 11.59 -11 FETPEF 0.06 0.06 13 VBe%FV 3.07 5.82 90 VBEex 0.06 0.11 93 VC MAX 2.86 2.10 3.61 1.94 68 1.98 69 2 I have personally reviewed and confirmed the findings on pulmonary function testing. Impression / Plan: Moderate persistent asthma Recent increase in symptoms of cough Spirometry features obstruction and decrease in FEV1 since last testing Her history with this testing indicative of asthma flare Does not tolerate PO steroids well (had poor experience with medrol- felt terrible) Low dose prednisone: 20 mg x 5 days, 10 mg x 5 days Start additional ICS - budesonide in nebulizer Sending for nebulizer for patient to begin, along with RX of nebulized budesonide to be run through medicare part B High dose fluzone today Felicia Stover will follow-up in pulmonary clinic in 4 months, sooner if needed She will call in 4 weeks with an update. The duration of this appointment visit was 30 minutes of xsss-gi-hvht time with the patient. More than 50% of this time was spent in counseling, explanation of diagnosis, planning of further management, and coordination of care. Justina Martinez PA-C [facility] [place] March 16, 2018 2:21 PM LEONCIO Gonzalez 03/16/2018 3:14 PM Addendum For the cough and mucous now- low dose prednisone 20 mg x 5 days, then 10 mg x 5 days. Then stop. New medicine- Budesonide (also called pulmicort) This is an extra inhaled steroid to help with the inflammation in the lungs. Continue to take your Arnuity Ellipta in the morning. Then, in the afternoon or evening, take one nebulizer treatment with one vial of budesonide. Do this everyday for at least 2 weeks. Give me an update in 4 weeks to let me know how you are doing. You can call sooner if there are any new symptoms or you aren't feeling any better. Or if there is any issue getting your meds. High dose flu shot today option 3 (you will get one of our secretaries- sara or aye - they will send me a message to call you back) Referring Provider: JUSTINA MARTINEZ (LEONCIO) [[id number]] Allergies As of Date: 03/16/2018 Noted Allergy Reaction CRAB 03/12/2003 Comments: Itching, swelling LOBSTER (CRUSTACEANS) 03/12/2003 Comments: Can'T touch RAGWEED 03/12/2003 14 - Other: See Comments Comments: Sneezing Scampi [Other] 03/12/2003 Comments: Swelling, itching. SULFA (SULFONAMIDE ANTIBIOTICS) 03/12/2003 Comments: SWELLING Rash TOPROL XL (METOPROLOL SUCCINATE) 04/13/2010 14 - Other: See Comments Comments: Chest fullness Date Reviewed: 03/16/2018 Reviewed by: Seun Varela Ma - Fully Assessed Reason for Visit: Recheck [92] Primary Visit Diagnosis:Moderate persistent asthma with acute exacerbation [J45.41] Other Visit Diagnosis:Need for vaccination [Z23] Order(s):predniSONE (DELTASONE) 10 mg tabletTake 2 tabs a day for 5 days, then take 1 tab a day for 5 days. Then stop. Keep leftoverDisp: 20 tabletRfl: 0 budesonide (PULMICORT) 0.5 mg/2 mL nebulizer solutionTake 1 vial in the nebulizer twice a dayDisp: 60 VialRfl: 1 ADMIN OF INFLUENZA VACCINE [[id number]] Order #: [id number]: 1 INFLUENZA SEASONAL HIGH DOSE AGE 65+ [[id number]] Order #: [id number] Prescriptions as of 03/16/2018 Sig: PREDNISONE 10 MG TABLET Take 2 tabs a day for 5 days,* BUDESONIDE 0.5 MG/2 ML SUSPEN* Take 1 vial in the nebulizer * TRAMADOL 50 MG TABLET Take 1 tablet by mouth every * TEMAZEPAM 15 MG CAPSULE Take 1 capsule by mouth daily* WARFARIN 3 MG TABLET Take 3 day cycle - day 1 9mg* LISINOPRIL 20 MG TABLET Take 1 tablet by mouth twice * FLECAINIDE 100 MG TABLET TAKE 1 TABLET BY MOUTH TWICE * WARFARIN 3 MG TABLET Take 1 tablet by mouth once d* MONTELUKAST 10 MG TABLET TAKE 1 TABLET BY MOUTH DAILY * VERAPAMIL ER (SR) 240 MG TABL* Take 1 tablet by mouth once d* IPRATROPIUM BROMIDE 42 MCG (0* 2 sprays per each nostril 2-3* Patient not taking: Reported on 11/17/2017 POTASSIUM CHLORIDE ER 10 MEQ * Take 1 tablet by mouth every * Patient taking differently: Take 10 mEq by mouth once lio* FUROSEMIDE 20 MG TABLET Take 1 tablet by mouth every * Patient taking differently: Take 20 mg by mouth as needed* MUPIROCIN 2 % TOPICAL CREAM Apply 1 application to affect* NITROGLYCERIN 0.4 MG SUBLINGU* Dissolve 1 tablet under the t* FLUTICASONE FUROATE 200 MCG/A* Inhale 1 Inhalation as instru* KETOCONAZOLE 2 % SHAMPOO Apply 1 application to affect* HYDROXYCHLOROQUINE 200 MG TAB* Take 200 mg by mouth twice da* WARFARIN 2.5 MG TABLET Take as directed per physicia* WARFARIN 5 MG TABLET Take as directed WARFARIN 2 MG TABLET Take 1 tablet by mouth daily * DENOSUMAB 60 MG/ML SUBCUTANEO* Inject 1 mL subcutaneously as* OXYCODONE-ACETAMINOPHEN 5 MG-* Take 1 tablet by mouth once d* BIOTIN ORAL Take 1 capsule by mouth once * CHOLECALCIFEROL (VITAMIN D3) * Take 1 capsule by mouth once * Problem List As Of Date 03/16/2018 Noted Resolved PARESTHESIAS [R20.9] INVALID FOR* OVERWEIGHT [E66.9] INVALID FOR*12/02/2014 Essential hypertension [I10] INVALID FOR* More... FEMALE STRESS INCONTINENCE [N39.3] INVALID FOR* DIVERTICULITIS OF COLON W/O BLEED [K57.32] INVALID FOR* HEMORRHOIDS NOS [K64.9] INVALID FOR* ATRIAL FIBRILLATION [I48.91] INVALID FOR* More... HYPERLIPIDEMIA NEC/NOS [E78.5] INVALID FOR* More... INSOMNIA NOS [G47.00] INVALID FOR* GENERAL OSTEOARTHROSIS [M15.9] INVALID FOR* BRADYCARDIA [I49.8] INVALID FOR* Postmenopausal osteoporosis [M81.0] INVALID FOR* More... HYPERGLYCEMIA [R79.89] INVALID FOR* More... MITRAL REGURGITATION [I05.9] INVALID FOR* HYPOMAGNESEMIA [E83.40] INVALID FOR* Unspecified closed fracture of ankle [S82.899A] INVALID FOR* More... IDIO PERIPH NEURPTHY NOS [G60.9] INVALID FOR* BACKACHE NOS [M54.9] INVALID FOR* Other Chronic Pain [G89.29] INVALID FOR* More... 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 Pathologic fracture of vertebrae [M84.48XA] INVALID FOR* Lumbago [M54.5] INVALID FOR* Pseudogout [M11.20] INVALID FOR* More... Lumbar spondylosis [M47.816] INVALID FOR* Spinal stenosis of lumbar region [M48.061] INVALID FOR* Vitamin D deficiency [E55.9] INVALID FOR* GERD (gastroesophageal reflux disease) [K21.9] INVALID FOR* BMI 32.0-32.9,adult [Z68.32] INVALID FOR* Hyperlipidemia [E78.5] INVALID FOR* More... Impaired fasting glucose [R73.01] INVALID FOR* Bilateral low back pain without sciatica [M54.5]INVALID FOR* Moderate persistent asthma [J45.40] INVALID FOR* More... Persistent asthma [DGN0658] INVALID FOR* CKD (chronic kidney disease) stage 3, GFR 30-59*INVALID FOR* Other instructions from your clinician: For the cough and mucous now- low dose prednisone 20 mg x 5 days, then 10 mg x 5 days. Then stop. New medicine- Budesonide (also called pulmicort) This is an extra inhaled steroid to help with the inflammation in the lungs. Continue to take your Arnuity Ellipta in the morning. Then, in the afternoon or evening, take one nebulizer treatment with one vial of budesonide. Do this everyday for at least 2 weeks. Give me an update in 4 weeks to let me know how you are doing. You can call sooner if there are any new symptoms or you aren't feeling any better. Or if there is any issue getting your meds. High dose flu shot today option 3 (you will get one of our secretaries- sara or aye - they will send me a message to call you back) Prescriptions ordered this encounter Disp Refills Start End PREDNISONE 10 MG TABLET 20 t* 0 03/16/2018 Sig: Take 2 tabs a day for 5 days, then take 1 tab a day for 5 days. Then stop. Keep leftover BUDESONIDE 0.5 MG/2 ML SUSPENSION FO* 60 V* 1 03/16/2018 Class: Print RX Sig: Take 1 vial in the nebulizer twice a day Disposition: Return in about 5 months (around 08/14/2018) for asthma follow up. Follow-up and Disposition History Recorded Encounter Status:Closed by JUSTINA MARTINEZ on 03/16/18 PROGRESS Observed: 03/15/2018 Status: COMPLETED Source: [place] 11:04 AM [facility] REPOSITORY HNO ID: [id number] Author: Farrukh Whalen Service: (none) Author Type: Physician Type: Progress Notes Filed: 03/15/2018 12:34 PM Note Text: Reason for Visit Patient presents with: Established Patient: 4 month follow up-HTN c/o right knee pain Imm/Inj: Flu Vaccine Felicia Stover is a 82 year old female who presents here today for Above Complaints.. Health Maintenance INFLUENZA(1) HPI Got pain medications from Dr. Noel in the past, but he asked her to follow up with me from the same. She uses the tramadol only when she needs it, The last time 30 pills lasted for one and a half year and more. Its when the patient cannot sleep that she takes the medication She hurt her knee recently. She notes that she failed her rehab. She is not any better from rehab to make her walk better. Has not had anyone xray her back for a long time..... Her breathing has been doing fairly well. Plaquenil for degenerative changes of the thumb, generalized ostearthritis and She takes prednisone when her wrist starts swelling- this was given by Dr Winkler. She has had her eye checked this year. Has not had anyone xray her back for a long time..... On chronic anticoagulation for afib. She gets prolia shots for her cholesterol every 6 months. No problem-specific Assessment AND Plan notes found for this encounter. 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 - LAPAROSCOPIC CYSTECTOMY 01/14/14 bilateral oophrectomy - PAST SURGICAL HISTORY OF 04/02/2002 DC cardioversion - PAST SURGICAL HISTORY OF 2009 cataracts left and right - PAST SURGICAL HISTORY OF 2008 ankle surgery x 2 right - PAST SURGICAL HISTORY OF lumbar pain injections X2 - REMOVAL GALLBLADDER 1969 Cholecystectomy open - SIGMOIDOSCOPY FLEX DIAG 12/10/09 FAMILY HISTORY Problem Relation Age of Onset - Heart Father - Stroke Mother - Hypertension Mother - Diabetes Brother Social History Substance Use Topics - Smoking status: Never Smoker - Smokeless tobacco: Never Used - Alcohol use Yes Comment: 7 glasses of wine weekly Past medical history, appointments, medications, allergies reviewed. Pertinent Lab/Diagnostic Studies are reviewed and discussed today Current Outpatient Prescriptions: - temazepam (RESTORIL) 15 mg cap - warfarin (COUMADIN) 3 mg tablet - lisinopril (ZESTRIL, PRINIVIL) 20 mg tablet - flecainide (TAMBOCOR) 100 mg tablet - warfarin (COUMADIN) 3 mg tablet - montelukast (SINGULAIR) 10 mg tablet - verapamil SR (CALAN SR, ISOPTIN SR) 240 mg CR tablet - ipratropium bromide (ATROVENT) 42 mcg (0.06 %) nasal spray - potassium chloride (K-TAB) 10 mEq tablet - furosemide (LASIX) 20 mg tablet - mupirocin (BACTROBAN) 2 % cream - nitroglycerin sublingual (NITROQUICK) 0.4 mg SL tablet - fluticasone furoate (ARNUITY ELLIPTA) 200 mcg/actuation dsdv - ketoconazole (NIZORAL) 2 % shampoo - hydroxychloroquine (PLAQUENIL) 200 mg tablet - warfarin (COUMADIN) 2.5 mg tablet - warfarin (COUMADIN) 5 mg tablet - warfarin (COUMADIN) 2 mg tablet - denosumab (PROLIA) 60 mg/mL syrg - oxyCODONE-acetaminophen (PERCOCET) 5-325 mg tablet - traMADol (ULTRAM) 50 mg tablet - BIOTIN ORAL - Cholecalciferol, Vitamin D3, 2,000 unit cap Review of Systems CONSTITUTIONAL: No fevers, chills night sweats, unintended weight loss CARDIOVASCULAR: No chest pain, dyspnea, palpitations, orthopnea, PND, ankle edema. PULM: No dyspnea, unexplained cough. GI: No dysphagia/odynophagia, problematic reflux, constipation, diarrhea, changes in stool habits, hematochezia, melena. : No new urinary complaints, including dysuria, gross hematuria or pyuria. NEURO: No new balance problems, peripheral weakness/paresthesias or numbness of concern. Physical Exam BP 132/72 (BP Site: Left Arm, BP Position: Sitting, BP Cuff Size: Large Adult) Pulse 63 Resp 14 Ht 170.2 cm (5' 7) Wt 97.1 kg (214 lb) SpO2 94% BMI 33.52 kg/m? General appearance: Well appearing, alert, in no acute distress, well nourished. Skin: Skin color, texture, turgor normal, no suspicious rashes or lesions Head: Normocephalic, no masses, lesions, tenderness or abnormalities Eyes: Anicteric sclera. Pupils are equally round and reactive to light. Extraocular movements are intact. Lungs: Lungs clear to auscultation. No wheezing, rhonchi, rales Heart: RRR without murmur, gallop, or rubs. Extremities: No deformities, edema, skin discoloration, clubbing or cyanosis. Good capillary refill. ASSESSMENT/PLAN: 1. Osteoarthritis of both knees, unspecified osteoarthritis type - ICD9: 715.96, ICD10: M17.0 (primary diagnosis) - TRAMADOL 50 MG TABLET 2. Need for vaccination - ICD9: V05.9, ICD10: Z23 - INFLUENZA SEASONAL HIGH DOSE AGE 65+ 3. Essential hypertension - ICD9: 401.9, ICD10: I10 - good control - Recommended regular aerobic exercise. - Recommend home blood pressure monitoring, to bring results in on next visit - Goal of BP <130/80 4. Atrial fibrillation, unspecified type (HCC) - ICD9: 427.31, ICD10: I48.91 Chronic anticoagulation - TRAMADOL 50 MG TABLET She does take restoril on and off. FARRUKH WHALEN MD PROGRESS Observed: 03/15/2018 Status: COMPLETED Source: [place] 10:47 AM [facility] REPOSITORY O ID: [id number] Author: Swathi Lopez LPN Service: (none) Author Type: (none) Type: Progress Notes Filed: 03/15/2018 12:34 PM Note Text: 82 year old female here for INACTIVATED INFLUENZA VACCINE. [id number] Season Patient is identified by name and date of : Yes [] CONTRAINDICATIONS color enhanced section Age less than 6 months? No Allergy to eggs, chicken, chicken feathers, or chicken dander? No Allergy to thimerosal (a preservative) or formaldehyde, gelatin? No History of severe reaction to any vaccine component or a previous dose of influenza vaccination? No History of Guillain-Arabi Syndrome within 6 weeks after a previous influenza vaccine? No Patient is not moderately or severely ill? No Current temperature greater or equal to 100.4F? No History of Bone Marrow Transplant prior 6 months or solid organ transplant in the past 3 months ? No History of fainting after a prior injection or medical procedure? No- ? If patient has fainted in the past, the CDC recommends sitting or lying down for 15 minutes after the vaccination. [] VERIFICATION color enhanced section Was the answer Yes for any of the above contraindications? No contraindications present. Acceptable to proceed with vaccine. Patient/guardian agrees the above answers are true to the best of their knowledge? Yes Flu vaccine information sheet given? Yes See immunization activity in [facility] for details of immunizations adminstered today. Patient age: [age] year old For The 2474-4413 Flu Season 6-35 months old: Fluzone 0.25 ml - IM (Preservative Free) 3 years of age: Fluzone 0.5 ml - IM (Preservative Free) 3 years and older: Fluzone 0.5 ml- IM-(with Preservatives) 65+ years old: 2-49 years old Fluzone High-Dose 0.5 ml - IM (Preservative Free) FLUMIST- intranasal REMEMBER: If patient is less than 9 years of age and this is the first vaccine of Influenza to be received in any flu season, they should receive a second dose in one months time. CNOV Observed: 03/15/2018 Status: COMPLETED Source: [place] 10:40 AM [facility] RE[facility] Office Visit (INTMWS) KAYKAYFELICIA BENSON ([id number]) 1935 F NFR Date Time Provider Department 03/15/18 10:40 AM FARRUKH WHALEN INTMWS During your visit today, we recorded the following information about you: Pulse Respiration Blood pressure Weight 63/minute 14/minute 132/72 97.1 kg Height 1.702 m Swathi John [place] 03/15/2018 12:34 PM Signed 82 year old female here for INACTIVATED INFLUENZA VACCINE. [id number] Season Patient is identified by name and date of : Yes [] CONTRAINDICATIONS color enhanced section Age less than 6 months? No Allergy to eggs, chicken, chicken feathers, or chicken dander? No Allergy to thimerosal (a preservative) or formaldehyde, gelatin? No History of severe reaction to any vaccine component or a previous dose of influenza vaccination? No History of Guillain-Arabi Syndrome within 6 weeks after a previous influenza vaccine? No Patient is not moderately or severely ill? No Current temperature greater or equal to 100.4F? No History of Bone Marrow Transplant prior 6 months or solid organ transplant in the past 3 months ? No History of fainting after a prior injection or medical procedure? No- ? If patient has fainted in the past, the CDC recommends sitting or lying down for 15 minutes after the vaccination. [] VERIFICATION color enhanced section Was the answer Yes for any of the above contraindications? No contraindications present. Acceptable to proceed with vaccine. Patient/guardian agrees the above answers are true to the best of their knowledge? Yes Flu vaccine information sheet given? Yes See immunization activity in [facility] for details of immunizations adminstered today. Patient age: [age] year old For The 7473-5215 Flu Season 6-35 months old: Fluzone 0.25 ml - IM (Preservative Free) 3 years of age: Fluzone 0.5 ml - IM (Preservative Free) 3 years and older: Fluzone 0.5 ml- IM-(with Preservatives) 65+ years old: 2-49 years old Fluzone High-Dose 0.5 ml - IM (Preservative Free) FLUMIST- intranasal REMEMBER: If patient is less than 9 years of age and this is the first vaccine of Influenza to be received in any flu season, they should receive a second dose in one months time. FARRUKH WHALEN MD 03/15/2018 12:34 PM Signed Reason for Visit Patient presents with: Established Patient: 4 month follow up-HTN c/o right knee pain Imm/Inj: Flu Vaccine Felicia Stover is a 82 year old female who presents here today for Above Complaints.. Health Maintenance INFLUENZA(1) HPI Got pain medications from Dr. Noel in the past, but he asked her to follow up with me from the same. She uses the tramadol only when she needs it, The last time 30 pills lasted for one and a half year and more. Its when the patient cannot sleep that she takes the medication She hurt her knee recently. She notes that she failed her rehab. She is not any better from rehab to make her walk better. Has not had anyone xray her back for a long time..... Her breathing has been doing fairly well. Plaquenil for degenerative changes of the thumb, generalized ostearthritis and She takes prednisone when her wrist starts swelling- this was given by Dr Winkler. She has had her eye checked this year. Has not had anyone xray her back for a long time..... On chronic anticoagulation for afib. She gets prolia shots for her cholesterol every 6 months. No problem-specific Assessment AND Plan notes found for this encounter. 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 - LAPAROSCOPIC CYSTECTOMY 01/14/14 bilateral oophrectomy - PAST SURGICAL HISTORY OF 04/02/2002 DC cardioversion - PAST SURGICAL HISTORY OF 2008 cataracts left and right - PAST SURGICAL HISTORY OF 2007 ankle surgery x 2 right - PAST SURGICAL HISTORY OF lumbar pain injections X2 - REMOVAL GALLBLADDER 1968 Cholecystectomy open - SIGMOIDOSCOPY FLEX DIAG 12/10/09 FAMILY HISTORY Problem Relation Age of Onset - Heart Father - Stroke Mother - Hypertension Mother - Diabetes Brother Social History Substance Use Topics - Smoking status: Never Smoker - Smokeless tobacco: Never Used - Alcohol use Yes Comment: 7 glasses of wine weekly Past medical history, appointments, medications, allergies reviewed. Pertinent Lab/Diagnostic Studies are reviewed and discussed today Current Outpatient Prescriptions: - temazepam (RESTORIL) 15 mg cap - warfarin (COUMADIN) 3 mg tablet - lisinopril (ZESTRIL, PRINIVIL) 20 mg tablet - flecainide (TAMBOCOR) 100 mg tablet - warfarin (COUMADIN) 3 mg tablet - montelukast (SINGULAIR) 10 mg tablet - verapamil SR (CALAN SR, ISOPTIN SR) 240 mg CR tablet - ipratropium bromide (ATROVENT) 42 mcg (0.06 %) nasal spray - potassium chloride (K-TAB) 10 mEq tablet - furosemide (LASIX) 20 mg tablet - mupirocin (BACTROBAN) 2 % cream - nitroglycerin sublingual (NITROQUICK) 0.4 mg SL tablet - fluticasone furoate (ARNUITY ELLIPTA) 200 mcg/actuation dsdv - ketoconazole (NIZORAL) 2 % shampoo - hydroxychloroquine (PLAQUENIL) 200 mg tablet - warfarin (COUMADIN) 2.5 mg tablet - warfarin (COUMADIN) 5 mg tablet - warfarin (COUMADIN) 2 mg tablet - denosumab (PROLIA) 60 mg/mL syrg - oxyCODONE-acetaminophen (PERCOCET) 5-325 mg tablet - traMADol (ULTRAM) 50 mg tablet - BIOTIN ORAL - Cholecalciferol, Vitamin D3, 2,000 unit cap Review of Systems CONSTITUTIONAL: No fevers, chills night sweats, unintended weight loss CARDIOVASCULAR: No chest pain, dyspnea, palpitations, orthopnea, PND, ankle edema. PULM: No dyspnea, unexplained cough. GI: No dysphagia/odynophagia, problematic reflux, constipation, diarrhea, changes in stool habits, hematochezia, melena. : No new urinary complaints, including dysuria, gross hematuria or pyuria. NEURO: No new balance problems, peripheral weakness/paresthesias or numbness of concern. Physical Exam BP 132/72 (BP Site: Left Arm, BP Position: Sitting, BP Cuff Size: Large Adult) Pulse 63 Resp 14 Ht 170.2 cm (5' 7) Wt 97.1 kg (214 lb) SpO2 94% BMI 33.52 kg/m? General appearance: Well appearing, alert, in no acute distress, well nourished. Skin: Skin color, texture, turgor normal, no suspicious rashes or lesions Head: Normocephalic, no masses, lesions, tenderness or abnormalities Eyes: Anicteric sclera. Pupils are equally round and reactive to light. Extraocular movements are intact. Lungs: Lungs clear to auscultation. No wheezing, rhonchi, rales Heart: RRR without murmur, gallop, or rubs. Extremities: No deformities, edema, skin discoloration, clubbing or cyanosis. Good capillary refill. ASSESSMENT/PLAN: 1. Osteoarthritis of both knees, unspecified osteoarthritis type - ICD9: 715.96, ICD10: M17.0 (primary diagnosis) - TRAMADOL 50 MG TABLET 2. Need for vaccination - ICD9: V05.9, ICD10: Z23 - INFLUENZA SEASONAL HIGH DOSE AGE 65+ 3. Essential hypertension - ICD9: 401.9, ICD10: I10 - good control - Recommended regular aerobic exercise. - Recommend home blood pressure monitoring, to bring results in on next visit - Goal of BP <130/80 4. Atrial fibrillation, unspecified type (HCC) - ICD9: 427.31, ICD10: I48.91 Chronic anticoagulation - TRAMADOL 50 MG TABLET She does take restoril on and off. FARRUKH WHALEN MD Referring Provider: FARRUKH WHALEN [[id number]] Allergies As of Date: 03/15/2018 Noted Allergy Reaction CRAB 03/12/2003 Comments: Itching, swelling LOBSTER (CRUSTACEANS) 03/12/2003 Comments: Can'T touch RAGWEED 03/12/2003 14 - Other: See Comments Comments: Sneezing Scampi [Other] 03/12/2003 Comments: Swelling, itching. SULFA (SULFONAMIDE ANTIBIOTICS) 03/12/2003 Comments: SWELLING Rash TOPROL XL (METOPROLOL SUCCINATE) 04/13/2010 14 - Other: See Comments Comments: Chest fullness Date Reviewed: 02/22/2018 Reviewed by: Rosemary Graves RN - Fully Assessed Reason for Visit: Established Patient [175] Cmt: 4 month follow up-HTN c/o right knee pain Imm/Inj [58] Cmt: Flu Vaccine Reason For Visit History Recorded Primary Visit Diagnosis:Osteoarthritis of both knees, unspecified osteoarthritis type [M17.0] Other Visit Diagnoses:Need for vaccination [Z23] Essential hypertension [I10] Atrial fibrillation, unspecified type (HCC) [I48.91] Order(s):INFLUENZA SEASONAL HIGH DOSE AGE 65+ [[id number]] Order #: [id number] traMADol (ULTRAM) 50 mg tabletTake 1 tablet by mouth every 4 hours for 7 days.Disp: 30 tabletRfl: 1 Prescriptions as of 03/15/2018 Sig: TRAMADOL 50 MG TABLET Take 1 tablet by mouth every * TEMAZEPAM 15 MG CAPSULE Take 1 capsule by mouth daily* WARFARIN 3 MG TABLET Take 3 day cycle - day 1 9mg* LISINOPRIL 20 MG TABLET Take 1 tablet by mouth twice * FLECAINIDE 100 MG TABLET TAKE 1 TABLET BY MOUTH TWICE * WARFARIN 3 MG TABLET Take 1 tablet by mouth once d* MONTELUKAST 10 MG TABLET TAKE 1 TABLET BY MOUTH DAILY * VERAPAMIL ER (SR) 240 MG TABL* Take 1 tablet by mouth once d* IPRATROPIUM BROMIDE 42 MCG (0* 2 sprays per each nostril 2-3* Patient not taking: Reported on 11/17/2017 POTASSIUM CHLORIDE ER 10 MEQ * Take 1 tablet by mouth every * Patient taking differently: Take 10 mEq by mouth once lio* FUROSEMIDE 20 MG TABLET Take 1 tablet by mouth every * Patient taking differently: Take 20 mg by mouth as needed* MUPIROCIN 2 % TOPICAL CREAM Apply 1 application to affect* NITROGLYCERIN 0.4 MG SUBLINGU* Dissolve 1 tablet under the t* FLUTICASONE FUROATE 200 MCG/A* Inhale 1 Inhalation as instru* KETOCONAZOLE 2 % SHAMPOO Apply 1 application to affect* HYDROXYCHLOROQUINE 200 MG TAB* Take 200 mg by mouth twice da* WARFARIN 2.5 MG TABLET Take as directed per physicia* WARFARIN 5 MG TABLET Take as directed WARFARIN 2 MG TABLET Take 1 tablet by mouth daily * DENOSUMAB 60 MG/ML SUBCUTANEO* Inject 1 mL subcutaneously as* OXYCODONE-ACETAMINOPHEN 5 MG-* Take 1 tablet by mouth once d* BIOTIN ORAL Take 1 capsule by mouth once * CHOLECALCIFEROL (VITAMIN D3) * Take 1 capsule by mouth once * Problem List As Of Date 03/15/2018 Noted Resolved PARESTHESIAS [R20.9] INVALID FOR* OVERWEIGHT [E66.9] INVALID FOR*12/02/2014 Essential hypertension [I10] INVALID FOR* More... FEMALE STRESS INCONTINENCE [N39.3] INVALID FOR* DIVERTICULITIS OF COLON W/O BLEED [K57.32] INVALID FOR* HEMORRHOIDS NOS [K64.9] INVALID FOR* ATRIAL FIBRILLATION [I48.91] INVALID FOR* More... HYPERLIPIDEMIA NEC/NOS [E78.5] INVALID FOR* More... INSOMNIA NOS [G47.00] INVALID FOR* GENERAL OSTEOARTHROSIS [M15.9] INVALID FOR* BRADYCARDIA [I49.8] INVALID FOR* Postmenopausal osteoporosis [M81.0] INVALID FOR* More... HYPERGLYCEMIA [R79.89] INVALID FOR* More... MITRAL REGURGITATION [I05.9] INVALID FOR* HYPOMAGNESEMIA [E83.40] INVALID FOR* Unspecified closed fracture of ankle [S82.899A] INVALID FOR* More... IDIO PERIPH NEURPTHY NOS [G60.9] INVALID FOR* BACKACHE NOS [M54.9] INVALID FOR* Other Chronic Pain [G89.29] INVALID FOR* More... 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 Pathologic fracture of vertebrae [M84.48XA] INVALID FOR* Lumbago [M54.5] INVALID FOR* Pseudogout [M11.20] INVALID FOR* More... Lumbar spondylosis [M47.816] INVALID FOR* Spinal stenosis of lumbar region [M48.061] INVALID FOR* Vitamin D deficiency [E55.9] INVALID FOR* GERD (gastroesophageal reflux disease) [K21.9] INVALID FOR* BMI 32.0-32.9,adult [Z68.32] INVALID FOR* Hyperlipidemia [E78.5] INVALID FOR* More... Impaired fasting glucose [R73.01] INVALID FOR* Bilateral low back pain without sciatica [M54.5]INVALID FOR* Moderate persistent asthma [J45.40] INVALID FOR* More... Persistent asthma [[id number]] INVALID FOR* CKD (chronic kidney disease) stage 3, GFR 30-59*INVALID FOR* Prescriptions ordered this encounter Disp Refills Start End TRAMADOL 50 MG TABLET 30 t* 1 03/15/2018 03/22/2018 Class: Print RX Route: ORAL Sig: Take 1 tablet by mouth every 4 hours for 7 days. Medications Discontinued During This Encounter traMADol (ULTRAM) 50 mg tablet 120 * 1 01/18/2016 03/15/2018 Class: Print RX Route: ORAL Sig: Take 1 tablet by mouth every 6 hours as needed. Disc: Reason for discontinue is not on file. Encounter Status:Closed by FARRUKH WHALEN MD on 03/15/18 PROTIME Collected: 03/08/2018 Status: F Source: [place] 9:05 AM [facility] RE[facility] TYPE CODE TESTS RESULT OUT OF RANGE REFERENCE UNITS LAB PSEC 9.7-13.0 sec High PT Sec 24.4 LAB INR 0.9-1.3 High PT INR 2.5 Result Comment: Vitamin K Antagonist (VKA) Therapeutic Range: INR 2 to 3 (Target INR of 2.5) Note: For patients treated with VKA drugs, such as warfarin, the [employer] [employer] 2012 Guideline recommends a therapeutic INR range of 2 to 3 (target INR of 2.5). This recommendation includes high-risk patients with antiphospholipid syndrome with previous arterial or venous thromboembolism, current-generation mechanical or bioprosthetic aortic heart valve replacement. Note: Patients with mechanical aortic valve replacement and additional risk factors for thromboembolic events (atrial fibrillation, previous thromboembolism, LV dysfunction, hypercoagulable conditions) or an older generation mechanical AVR (i.e., ball in-Cage) or any mechanical MVR should have a INR therapeutic range of 2.5 to 3.5 (target INR of 3). Solomon GH, et al. Chest 2012, 141:7S-47S Harshad RA, et al. [facility] 2017, 70: 252-289 Performed By: #### PT #### [facility] [address] [address] LIPID PANEL, BASIC Collected: 03/08/2018 Status: F Source: [place] 9:05 AM [facility] REPOSITORY TYPE CODE TESTS RESULT OUT OF REFERENCE UNITS RANGE LAB CHOL <200 mg/dL Cholesterol 197 Result Comment: <200 mg/dL, Desirable 200-239 mg/dL, Borderline high >239 mg/dL, High LAB TRIGLY <150 mg/dL Triglyceride 61 Result Comment: <150 mg/dL, Normal 150-199 mg/dL, Borderline high 200-499 mg/dL, High >499 mg/dL, Very high LAB HDL >39 mg/dL HDL-Cholesterol 83 Result Comment: 40-59 mg/dL, Acceptable >59 mg/dL, High: Negative risk factor for coronary heart disease <40 mg/dL, Low: Positive risk factor for coronary heart disease LAB LDL <100 mg/dL LDL-Cholesterol High 102 Result Comment: <100 mg/dL, Optimal 100-129 mg/dL, Near optimal/above optimal 130-159 mg/dL, Borderline high 160-189 mg/dL, High >189 mg/dL, Very high Secondary prevention optimal LDL Cholesterol levels are recommended to be < 70 mg/dL LAB NONHDL <130 mg/dL Non HDL Cholesterol 114 Result Comment: <130 mg/dL, Optimal 130-159 mg/dL, Near optimal/above optimal 160-189 mg/dL, Borderline high 190-219 mg/dL, High >219 mg/dL, Very high Secondary prevention optimal non HDL Cholesterol levels are recommended to be < 100 mg/dL LAB FT hrs Fasting Time 12 LAB VLDL <30 mg/dL VLDL Cholesterol 12 LAB TCHDL <5.10 TC:HDL Ratio 2.37 LAB LDLHDL <2.54 LDL:HDL Ratio 1.23 Result Comment: Reference: 1. National Cholesterol Education Program ATP III Guideline At-A-Glance Quick Desk Reference: National Heart, Lung, and Blood [place]. National Institutes of Health. 2001: NIH Publication No. 01-3305. 2. An International Atherosclerosis Society position paper: global recommendations for the management of dyslipidemia: executive summary, Atherosclerosis. 2014: 232(2):410-413. Performed By: #### LIPB #### [facility] [address] [id number] CNPTOUTREACH Observed: 02/27/2018 Status: COMPLETED Source: [place] 12:00 AM [facility] REPOSITORY Patient Outreach (INTM[facility]) FELICIA STOVER ([id number]) 1935 F NFR Date Time Provider Department 02/27/18 FARRUKH WHALEN [facility] During your visit today, we recorded the following information about you: Allergies As of Date: 02/27/2018 Noted Allergy Reaction CRAB 03/12/2003 Comments: Itching, swelling LOBSTER (CRUSTACEANS) 03/12/2003 Comments: Can'T touch RAGWEED 03/12/2003 14 - Other: See Comments Comments: Sneezing Scampi [Other] 03/12/2003 Comments: Swelling, itching. SULFA (SULFONAMIDE ANTIBIOTICS) 03/12/2003 Comments: SWELLING Rash TOPROL XL (METOPROLOL SUCCINATE) 04/13/2010 14 - Other: See Comments Comments: Chest fullness Date Reviewed: 02/22/2018 Reviewed by: Rosemary Graves RN - Fully Assessed Visit Diagnosis:Medication management [Z79.899] Order(s):LIPID PANEL BASIC [SQLIPB] Order #: [id number] FUTURE Prescriptions as of 02/27/2018 Sig: X TEMAZEPAM 15 MG CAPSULE Take 1 capsule by mouth daily* WARFARIN 3 MG TABLET Take 3 day cycle - day 1 9mg* LISINOPRIL 20 MG TABLET Take 1 tablet by mouth twice * FLECAINIDE 100 MG TABLET TAKE 1 TABLET BY MOUTH TWICE * WARFARIN 3 MG TABLET Take 1 tablet by mouth once d* MONTELUKAST 10 MG TABLET TAKE 1 TABLET BY MOUTH DAILY * VERAPAMIL ER (SR) 240 MG TABL* Take 1 tablet by mouth once d* IPRATROPIUM BROMIDE 42 MCG (0* 2 sprays per each nostril 2-3* Patient not taking: Reported on 11/17/2017 POTASSIUM CHLORIDE ER 10 MEQ * Take 1 tablet by mouth every * Patient taking differently: Take 10 mEq by mouth once lio* FUROSEMIDE 20 MG TABLET Take 1 tablet by mouth every * Patient taking differently: Take 20 mg by mouth as needed* MUPIROCIN 2 % TOPICAL CREAM Apply 1 application to affect* NITROGLYCERIN 0.4 MG SUBLINGU* Dissolve 1 tablet under the t* FLUTICASONE FUROATE 200 MCG/A* Inhale 1 Inhalation as instru* KETOCONAZOLE 2 % SHAMPOO Apply 1 application to affect* HYDROXYCHLOROQUINE 200 MG TAB* Take 200 mg by mouth twice da* WARFARIN 2.5 MG TABLET Take as directed per physicia* WARFARIN 5 MG TABLET Take as directed WARFARIN 2 MG TABLET Take 1 tablet by mouth daily * DENOSUMAB 60 MG/ML SUBCUTANEO* Inject 1 mL subcutaneously as* OXYCODONE-ACETAMINOPHEN 5 MG-* Take 1 tablet by mouth once d* X TRAMADOL 50 MG TABLET Take 1 tablet by mouth every * BIOTIN ORAL Take 1 capsule by mouth once * CHOLECALCIFEROL (VITAMIN D3) * Take 1 capsule by mouth once * Problem List As Of Date 02/27/2018 Noted Resolved PARESTHESIAS [R20.9] INVALID FOR* OVERWEIGHT [E66.9] INVALID FOR*12/02/2014 Essential hypertension [I10] INVALID FOR* More... FEMALE STRESS INCONTINENCE [N39.3] INVALID FOR* DIVERTICULITIS OF COLON W/O BLEED [K57.32] INVALID FOR* HEMORRHOIDS NOS [K64.9] INVALID FOR* ATRIAL FIBRILLATION [I48.91] INVALID FOR* More... HYPERLIPIDEMIA NEC/NOS [E78.5] INVALID FOR* More... INSOMNIA NOS [G47.00] INVALID FOR* GENERAL OSTEOARTHROSIS [M15.9] INVALID FOR* BRADYCARDIA [I49.8] INVALID FOR* Postmenopausal osteoporosis [M81.0] INVALID FOR* More... HYPERGLYCEMIA [R79.89] INVALID FOR* More... MITRAL REGURGITATION [I05.9] INVALID FOR* HYPOMAGNESEMIA [E83.40] INVALID FOR* Unspecified closed fracture of ankle [S82.899A] INVALID FOR* More... IDIO PERIPH NEURPTHY NOS [G60.9] INVALID FOR* BACKACHE NOS [M54.9] INVALID FOR* Other Chronic Pain [G89.29] INVALID FOR* More... 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 Pathologic fracture of vertebrae [M84.48XA] INVALID FOR* Lumbago [M54.5] INVALID FOR* Pseudogout [M11.20] INVALID FOR* More... Lumbar spondylosis [M47.816] INVALID FOR* Spinal stenosis of lumbar region [M48.061] INVALID FOR* Vitamin D deficiency [E55.9] INVALID FOR* GERD (gastroesophageal reflux disease) [K21.9] INVALID FOR* BMI 32.0-32.9,adult [Z68.32] INVALID FOR* Hyperlipidemia [E78.5] INVALID FOR* More... Impaired fasting glucose [R73.01] INVALID FOR* Bilateral low back pain without sciatica [M54.5]INVALID FOR* Moderate persistent asthma [J45.40] INVALID FOR* More... Persistent asthma [DWO2642] INVALID FOR* CKD (chronic kidney disease) stage 3, GFR 30-59*INVALID FOR* Encounter Status:Closed by EPIC, PRODUSER on 03/30/18 CNOV Observed: 02/22/2018 Status: COMPLETED Source: [place] 10:30 AM [facility] REPOSITORY Office Visit (ENDMED) FELICIA STOVER ([id number]) 1935 F NFR Date Time Provider Department 02/22/18 10:30 AM NURSE MAYA CUADRA ANTONINO During your visit today, we recorded the following information about you: Rosemary Graves RN 02/22/2018 10:36 AM Signed The patient is here for an injection of Prolia Dose: 60 mg Route: Subcutaneous Lot# [id number] Expiration date 05/2020 [facility]: 61117-014-80 Given without incident. Site: left arm Dr. López present in clinic at time of injection. The date due for the next injection is 6 months. On or after 08/23/18. Primary Insurance: [employer] Medicare. [place] up to date: effective: 02/07/18--02/07/19 Patient education was given by nurse. Patient tolerated well in NAD and no reactions noted. Medication supplied by [facility] stock Pharmacy. Rosemary Graves RN Referring Provider: SELF [200] Allergies As of Date: 02/22/2018 Noted Allergy Reaction CRAB 03/12/2003 Comments: Itching, swelling LOBSTER (CRUSTACEANS) 03/12/2003 Comments: Can'T touch RAGWEED 03/12/2003 14 - Other: See Comments Comments: Sneezing Scampi [Other] 03/12/2003 Comments: Swelling, itching. SULFA (SULFONAMIDE ANTIBIOTICS) 03/12/2003 Comments: SWELLING Rash TOPROL XL (METOPROLOL SUCCINATE) 04/13/2010 14 - Other: See Comments Comments: Chest fullness Date Reviewed: 02/22/2018 Reviewed by: Rosemary Graves RN - Fully Assessed Reason for Visit: Prolia Injection [Other] Primary Visit Diagnosis:Osteoporosis, unspecified osteoporosis type, unspecified pathological fracture presence [M81.0] Order(s):[] denosumab 60 mg injection (PROLIA)Disp: Rfl: Prescriptions as of 02/22/2018 Sig: TEMAZEPAM 15 MG CAPSULE Take 1 capsule by mouth daily* WARFARIN 3 MG TABLET Take 3 day cycle - day 1 9mg* LISINOPRIL 20 MG TABLET Take 1 tablet by mouth twice * FLECAINIDE 100 MG TABLET TAKE 1 TABLET BY MOUTH TWICE * WARFARIN 3 MG TABLET Take 1 tablet by mouth once d* MONTELUKAST 10 MG TABLET TAKE 1 TABLET BY MOUTH DAILY * VERAPAMIL ER (SR) 240 MG TABL* Take 1 tablet by mouth once d* IPRATROPIUM BROMIDE 42 MCG (0* 2 sprays per each nostril 2-3* Patient not taking: Reported on 11/17/2017 POTASSIUM CHLORIDE ER 10 MEQ * Take 1 tablet by mouth every * Patient taking differently: Take 10 mEq by mouth once lio* FUROSEMIDE 20 MG TABLET Take 1 tablet by mouth every * Patient taking differently: Take 20 mg by mouth as needed* MUPIROCIN 2 % TOPICAL CREAM Apply 1 application to affect* NITROGLYCERIN 0.4 MG SUBLINGU* Dissolve 1 tablet under the t* FLUTICASONE FUROATE 200 MCG/A* Inhale 1 Inhalation as instru* KETOCONAZOLE 2 % SHAMPOO Apply 1 application to affect* HYDROXYCHLOROQUINE 200 MG TAB* Take 200 mg by mouth twice da* WARFARIN 2.5 MG TABLET Take as directed per physicia* WARFARIN 5 MG TABLET Take as directed WARFARIN 2 MG TABLET Take 1 tablet by mouth daily * DENOSUMAB 60 MG/ML SUBCUTANEO* Inject 1 mL subcutaneously as* OXYCODONE-ACETAMINOPHEN 5 MG-* Take 1 tablet by mouth once d* TRAMADOL 50 MG TABLET Take 1 tablet by mouth every * BIOTIN ORAL Take 1 capsule by mouth once * CHOLECALCIFEROL (VITAMIN D3) * Take 1 capsule by mouth once * Problem List As Of Date 02/22/2018 Noted Resolved PARESTHESIAS [R20.9] INVALID FOR* OVERWEIGHT [E66.9] INVALID FOR*12/02/2014 Essential hypertension [I10] INVALID FOR* More... FEMALE STRESS INCONTINENCE [N39.3] INVALID FOR* DIVERTICULITIS OF COLON W/O BLEED [K57.32] INVALID FOR* HEMORRHOIDS NOS [K64.9] INVALID FOR* ATRIAL FIBRILLATION [I48.91] INVALID FOR* More... HYPERLIPIDEMIA NEC/NOS [E78.5] INVALID FOR* More... INSOMNIA NOS [G47.00] INVALID FOR* GENERAL OSTEOARTHROSIS [M15.9] INVALID FOR* BRADYCARDIA [I49.8] INVALID FOR* Postmenopausal osteoporosis [M81.0] INVALID FOR* More... HYPERGLYCEMIA [R79.89] INVALID FOR* More... MITRAL REGURGITATION [I05.9] INVALID FOR* HYPOMAGNESEMIA [E83.40] INVALID FOR* Unspecified closed fracture of ankle [S82.899A] INVALID FOR* More... IDIO PERIPH NEURPTHY NOS [G60.9] INVALID FOR* BACKACHE NOS [M54.9] INVALID FOR* Other Chronic Pain [G89.29] INVALID FOR* More... 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 Pathologic fracture of vertebrae [M84.48XA] INVALID FOR* Lumbago [M54.5] INVALID FOR* Pseudogout [M11.20] INVALID FOR* More... Lumbar spondylosis [M47.816] INVALID FOR* Spinal stenosis of lumbar region [M48.061] INVALID FOR* Vitamin D deficiency [E55.9] INVALID FOR* GERD (gastroesophageal reflux disease) [K21.9] INVALID FOR* BMI 32.0-32.9,adult [Z68.32] INVALID FOR* Hyperlipidemia [E78.5] INVALID FOR* More... Impaired fasting glucose [R73.01] INVALID FOR* Bilateral low back pain without sciatica [M54.5]INVALID FOR* Moderate persistent asthma [J45.40] INVALID FOR* More... Persistent asthma [SGE7949] INVALID FOR* CKD (chronic kidney disease) stage 3, GFR 30-59*INVALID FOR* Visit Notes: >> Rosemary Graves RN Rox Feb 22, 2018 10:30 AM Status: Signed The patient is here for an injection of Prolia Dose: 60 mg Route: Subcutaneous Lot# [id number] Expiration date 05/2020 [facility]: 46556-026-26 Given without incident. Site: left arm Dr. López present in clinic at time of injection. The date due for the next injection is 6 months. On or after 08/23/18. Primary Insurance: [employer] Medicare. [place] up to date: effective: 02/07/18--02/07/19 Patient education was given by nurse. Patient tolerated well in NAD and no reactions noted. Medication supplied by [facility] stock Pharmacy. Rosemary Graves RN Prescriptions ordered this encounter Disp Refills Start End DENOSUMAB 60 MG/ML SUBCUTANEOUS SYRI* 02/22/2018 02/22/2018 Route: SUBCUTANEOUS Encounter Status:Closed by ROSEMARY GRAVES RN on 02/22/18 PROGRESS Observed: 02/02/2018 Status: COMPLETED Source: [place] 4:09 PM [facility] REPOSITORY HNO ID: [id number] Author: Mesfin Peterson RN Service: (none) Author Type: (none) Type: Progress Notes Filed: 02/02/2018 4:10 PM Note Text: Patient notified of results and provider's instructions. Patient verbalizes understanding. Mesfin Peterson RN PROGRESS Observed: 02/02/2018 Status: COMPLETED Source: [place] 4:09 PM [facility] REPOSITORY HNO ID: [id number] Author: Mesfin Peterson RN Service: (none) Author Type: (none) Type: Progress Notes Filed: 02/02/2018 4:10 PM Note Text: This note was created using Soundstache. Subjective Felicia Stover is a 82 year old female. Review of Systems Objective There were no vitals taken for this visit. Physical Exam Assessment and Plan PROGRESS Observed: 02/02/2018 Status: COMPLETED Source: [place] 4:05 PM [facility] REPOSITORY HNO ID: [id number] Author: Rashard Hall Service: (none) Author Type: Physician Type: Progress Notes Filed: 02/02/2018 4:10 PM Note Text: This note was created using Soundstache. Subjective Felicia Stover is a 82 year old female. Review of Systems Objective There were no vitals taken for this visit. Physical Exam Assessment and Plan Same dose. 4 weeks Rashard Hall MD PROGRESS Observed: 02/02/2018 Status: COMPLETED Source: [place] 1:16 PM [facility] REPOSITORY HNO ID: [id number] Author: Chula Renee RN Service: (none) Author Type: (none) Type: Progress Notes Filed: 02/02/2018 1:17 PM Note Text: patient had inr completed at [facility] patients inr is 2.8 (patients inr range is 2.0-3.0) patient is currently taking 9mg-9mg-6mg cycle patients last dose change was on 08/01/17 due to provider choice (inr level at that was 2.7 and dose was 9mg alternating with 6mg) patient has had no changes in medication and no missed doses and no change in diet Advised patient that they would be contacted regarding medication dose and when to follow up after information is reviewed by provider. After provider review please contact the patient with information and schedule follow up appointment with coumadin clinic. PROGRESS Observed: 01/08/2018 Status: COMPLETED Source: [place] 10:17 PM [facility] REPOSITORY HNO ID: [id number] Author: Chad Akins Service: (none) Author Type: Physical Therapist Type: Progress Notes Filed: 01/08/2018 10:23 PM Note Text: Episode Visit Count: 9 Therapist That Will Oversee The Plan Of Care: Chad Akins Start of Care Date: 11/23/17 Onset Date: 05/08/17 Plan of Care Certification Date: 11/23/17 REHABILITATION AND SPORTS THERAPY PHYSICAL THERAPY DISCONTINUANCE OF CARE PLAN OF CARE UPDATE: Assessment: Felicia Stover is discontinued from Physical Therapy services due to maximal benefit.. Patient was seen for 9 visits from Start of Care Date: 11/23/17 to 01/08/2018 and treatment included: Therapeutic exercise, Neuromuscular re-education, Self-snf management and Patient/Family/Caregiver Education. Patient has seen little to no progress, and actually regression in some of her objective measures taken today. Patient may be fatigued and having more difficulty coming in later in the day than she usually does, but regardless of objective measures, she has seen no carry over into functional gains or changes outside of therapy. Patient has a good exercise program that she is performing 3x/week and is appropriate to continue this on her own. Patient encouraged to contact me with any questions or concerns in regards to her home program, but considering she has seen no change at this point, it is unlikely that she will benefit from any further skilled care. Goals for Episode of Care: created on 11/23/17 through 02/23/18 Patient will report no falls. Met Improve score on Timed Up and Go Test to 10 seconds to reflect decreased fall risk. Not met Improve score on 30 Second Chair Stand to 8 repetitions to reflect decreased fall risk. Not met Improve performance on 4 Stage Balance Test to 8 sec bilaterally in single leg stance to reflect decreased fall risk. Not met Bath in home exercise program including cardiovascular exercise. Met Patient will decrease pain rating by 2 points to meet Minimal Clinical Important Difference for number pain scale rating. Not met Perform standing for cooking with decreased report of symptoms / pain. Not met G CODE REPORTING Based on clinical assessment and the score on the AM-PAC Scale Score Assessment Tool, the G code and corresponding severity modifiers are documented below. Evaluation: 11/23/2017 Current Status: Mobility: Walking and Moving Around: G8978 CJ 20-39% impaired Goal Status: Mobility: Walking and Moving Around: G8979 CJ 20-39% impaired G CODE REPORTING: Based on clinical assessment and the score on the AM-PAC Scale Score Assessment Tool, the G code and corresponding severity modifiers are documented below. Discharge: 01/08/2018 Goal Status: Mobility: Walking and Moving Around: G8979 CJ 20-39% impaired Discharge: Mobility: Walking and Moving Around: G8980 CK 40-59% impaired SUBJECTIVE: Pt reports no change in therapy thus far. She feels she is better at the exercises, but this has had zero functional carry over outside of therapy. She also fidns she has been having issues with fatigue exercising 5x/week at this point.. Pain Score: 3/10 Pain Location: Back Description: Aching Frequency: Continuous Post Treatment Pain Score: No Change OBJECTIVE MEASURES WITH LEVEL OF FUNCTION: LE Strength Trunk Strength: 4-/5 R LE Strength: 5/5 L LE Strength: 5/5 30 Second Sit to Stand Test (reps): 7 reps 4 Stage Balance Test Tandem base of support (sec): 10 sec Single leg stance - right (sec): 0 sec Single leg stance - left (sec): 0 sec Timed Up and Go (sec): 14.01 sec TREATMENT: Therapeutic Exercise: 2: Seated TA with alt arm lifts x 15. 3: SeatedTA with marching x 15 4: Seated TA with alt arm and leg lifts x 15 5: Seated heel and toe raises x 25. 6: Seated marching 3# B 2x12. 7: Seated B LAQ 2x12 Skilled Intervention: Patient was educated in proper exercise technique and purpose for exercises. Skilled judgment was provided in selection of appropriate interventions. Billing: [facility]: Therapeutic Exercise (29304): 1:1 time: 40 minutes (3 units: 38-52 mins) Total time: 40 minutes Chad Akins PT PROGRESS Observed: 01/05/2018 Status: COMPLETED Source: [place] 4:39 PM [facility] REPOSITORY HNO ID: [id number] Author: Mesfin Peterson RN Service: (none) Author Type: (none) Type: Progress Notes Filed: 01/05/2018 4:39 PM Note Text: See phone note for orders Mesfin Peterson RN PROGRESS Observed: 01/05/2018 Status: COMPLETED Source: [place] 4:39 PM [facility] REPOSITORY HNO ID: [id number] Author: Mesfin Peterson RN Service: (none) Author Type: (none) Type: Progress Notes Filed: 01/05/2018 4:39 PM Note Text: This note was created using Soundstache. Subjective Felicia Stover is a 82 year old female. Review of Systems Objective There were no vitals taken for this visit. Physical Exam Assessment and Plan PROGRESS Observed: 01/05/2018 Status: COMPLETED Source: [place] 1:31 PM [facility] REPOSITORY HNO ID: [id number] Author: Chula Renee RN Service: (none) Author Type: (none) Type: Progress Notes Filed: 01/05/2018 1:33 PM Note Text: patient had inr completed at [facility] patients inr is 3.0 (patients inr range is 2.0-3.0) patient is currently taking 9mg-9mg-6mg cycle patients last dose change was on 08/01/17 due to provider preference (level of 2.7 and dose was 9mg alternating with 6mg) patient has had no changes in medication and no missed doses and no change in diet Advised patient that they would be contacted regarding medication dose and when to follow up after information is reviewed by provider. After provider review please contact the patient with information and schedule follow up appointment with coumadin clinic. FYI- if patient is needing an inr in 1-2 weeks patient will need to be advises that they will have to have this completed at that lab due to the coumadin clinic will be closed 01/12-01/19/18 - thanks CNTHERAPY Observed: 01/04/2018 Status: COMPLETED Source: [place] 12:30 PM [facility] REPOSITORY OT/PT/Speech Visit (PTWS) FELICIA STOVER ([id number]) 1935 F NFR Date Time Provider Department 01/04/18 12:30 PM CHAD AKINS (PT) PTWS Date Time Provider Department Center 01/04/2018 12:30 PM [id number], SEAN (PT)PTWS [facility] Reason for Visit: PT Discharge [752] Physical Therapy [503] Primary Visit Diagnosis:Chronic bilateral low back pain without sciatica [M54.5, G89.29] Other Visit Diagnosis:Spinal stenosis of lumbar region, unspecified whether neurogenic claudication present [M48.061] Allergies As of Date: 01/04/2018 Noted Allergy Reaction CRAB 03/12/2003 Comments: Itching, swelling LOBSTER (CRUSTACEANS) 03/12/2003 Comments: Can'T touch RAGWEED 03/12/2003 14 - Other: See Comments Comments: Sneezing Scampi [Other] 03/12/2003 Comments: Swelling, itching. SULFA (SULFONAMIDE ANTIBIOTICS) 03/12/2003 Comments: SWELLING Rash TOPROL XL (METOPROLOL SUCCINATE) 04/13/2010 14 - Other: See Comments Comments: Chest fullness Date Reviewed: 11/17/2017 Reviewed by: Mesfin Peterson RN - Fully Assessed Prescriptions as of 01/04/2018 Sig: TEMAZEPAM 15 MG CAPSULE TAKE ONE CAPSULE BY MOUTH AT * LISINOPRIL 20 MG TABLET Take 1 tablet by mouth twice * FLECAINIDE 100 MG TABLET TAKE 1 TABLET BY MOUTH TWICE * WARFARIN 3 MG TABLET Take 1 tablet by mouth once d* MONTELUKAST 10 MG TABLET TAKE 1 TABLET BY MOUTH DAILY * VERAPAMIL ER (SR) 240 MG TABL* Take 1 tablet by mouth once d* IPRATROPIUM BROMIDE 42 MCG (0* 2 sprays per each nostril 2-3* Patient not taking: Reported on 11/17/2017 POTASSIUM CHLORIDE ER 10 MEQ * Take 1 tablet by mouth every * Patient taking differently: Take 10 mEq by mouth once lio* FUROSEMIDE 20 MG TABLET Take 1 tablet by mouth every * Patient taking differently: Take 20 mg by mouth as needed* MUPIROCIN 2 % TOPICAL CREAM Apply 1 application to affect* NITROGLYCERIN 0.4 MG SUBLINGU* Dissolve 1 tablet under the t* FLUTICASONE FUROATE 200 MCG/A* Inhale 1 Inhalation as instru* KETOCONAZOLE 2 % SHAMPOO Apply 1 application to affect* HYDROXYCHLOROQUINE 200 MG TAB* Take 200 mg by mouth twice da* WARFARIN 2.5 MG TABLET Take as directed per physicia* WARFARIN 5 MG TABLET Take as directed WARFARIN 2 MG TABLET Take 1 tablet by mouth daily * DENOSUMAB 60 MG/ML SUBCUTANEO* Inject 1 mL subcutaneously as* OXYCODONE-ACETAMINOPHEN 5 MG-* Take 1 tablet by mouth once d* TRAMADOL 50 MG TABLET Take 1 tablet by mouth every * BIOTIN ORAL Take 1 capsule by mouth once * CHOLECALCIFEROL (VITAMIN D3) * Take 1 capsule by mouth once * Progress Notes: Chad Akins, PT 01/08/2018 10:23 PM Signed Episode Visit Count: 9 Therapist That Will Oversee The Plan Of Care: Chad Akins Start of Care Date: 11/23/17 Onset Date: 05/08/17 Plan of Care Certification Date: 11/23/17 REHABILITATION AND SPORTS THERAPY PHYSICAL THERAPY DISCONTINUANCE OF CARE PLAN OF CARE UPDATE: Assessment: Felicia Stover is discontinued from Physical Therapy services due to maximal benefit.. Patient was seen for 9 visits from Start of Care Date: 11/23/17 to 01/08/2018 and treatment included: Therapeutic exercise, Neuromuscular re-education, Self-snf management and Patient/Family/Caregiver Education. Patient has seen little to no progress, and actually regression in some of her objective measures taken today. Patient may be fatigued and having more difficulty coming in later in the day than she usually does, but regardless of objective measures, she has seen no carry over into functional gains or changes outside of therapy. Patient has a good exercise program that she is performing 3x/week and is appropriate to continue this on her own. Patient encouraged to contact me with any questions or concerns in regards to her home program, but considering she has seen no change at this point, it is unlikely that she will benefit from any further skilled care. Goals for Episode of Care: created on 11/23/17 through 02/23/18 Patient will report no falls. Met Improve score on Timed Up and Go Test to 10 seconds to reflect decreased fall risk. Not met Improve score on 30 Second Chair Stand to 8 repetitions to reflect decreased fall risk. Not met Improve performance on 4 Stage Balance Test to 8 sec bilaterally in single leg stance to reflect decreased fall risk. Not met Bath in home exercise program including cardiovascular exercise. Met Patient will decrease pain rating by 2 points to meet Minimal Clinical Important Difference for number pain scale rating. Not met Perform standing for cooking with decreased report of symptoms / pain. Not met G CODE REPORTING Based on clinical assessment and the score on the AM-PAC Scale Score Assessment Tool, the G code and corresponding severity modifiers are documented below. Evaluation: 11/23/2017 Current Status: Mobility: Walking and Moving Around: G8978 CJ 20-39% impaired Goal Status: Mobility: Walking and Moving Around: G8979 CJ 20-39% impaired G CODE REPORTING: Based on clinical assessment and the score on the AM-PAC Scale Score Assessment Tool, the G code and corresponding severity modifiers are documented below. Discharge: 01/08/2018 Goal Status: Mobility: Walking and Moving Around: G8979 CJ 20-39% impaired Discharge: Mobility: Walking and Moving Around: G8980 CK 40-59% impaired SUBJECTIVE: Pt reports no change in therapy thus far. She feels she is better at the exercises, but this has had zero functional carry over outside of therapy. She also fidns she has been having issues with fatigue exercising 5x/week at this point.. Pain Score: 07/15 Pain Location: Back Description: Aching Frequency: Continuous Post Treatment Pain Score: No Change OBJECTIVE MEASURES WITH LEVEL OF FUNCTION: LE Strength Trunk Strength: 4-/5 R LE Strength: 5/5 L LE Strength: 5/5 30 Second Sit to Stand Test (reps): 7 reps 4 Stage Balance Test Tandem base of support (sec): 10 sec Single leg stance - right (sec): 0 sec Single leg stance - left (sec): 0 sec Timed Up and Go (sec): 14.01 sec TREATMENT: Therapeutic Exercise: 2: Seated TA with alt arm lifts x 15. 3: SeatedTA with marching x 15 4: Seated TA with alt arm and leg lifts x 15 5: Seated heel and toe raises x 25. 6: Seated marching 3# B 2x12. 7: Seated B LAQ 2x12 Skilled Intervention: Patient was educated in proper exercise technique and purpose for exercises. Skilled judgment was provided in selection of appropriate interventions. Billing: [facility]: Therapeutic Exercise ([id number]): 1:1 time: 40 minutes (3 units: 38-52 mins) Total time: 40 minutes Chad Akins PT PROGRESS Observed: 01/02/2018 Status: COMPLETED Source: [place] 11:01 AM [facility] REPOSITORY HNO ID: [id number] Author: Chad Akins Service: (none) Author Type: Physical Therapist Type: Progress Notes Filed: 01/02/2018 12:42 PM Note Text: Episode Visit Count: 8 Therapist That Will Oversee The Plan Of Care: Chad Akins Start of Care Date: 11/23/17 Onset Date: 05/08/17 Plan of Care Certification Date: 11/23/17 Patient Identified by Name and Date of : Yes REHABILITATION AND SPORTS THERAPY PHYSICAL THERAPY TREATMENT NOTE ASSESSMENT: Felicia Stover demonstrated improvements in 30 second sit to stand and improved balance with Narrow base of support on uneven surfaces. She needs cueing to look up during gait to assist with better posture. The patient will continue to benefit from continued skilled physical therapy for balance ,strengthening and plan of care update. PLAN FOR NEXT VISIT: POC update next visit SUBJECTIVE: Patient reports her back is feeling achy today. Pain Score: 5/10 Pain Location: Back Description: Aching Frequency: Continuous Post Treatment Pain Score: No Change OBJECTIVE MEASURES WITH LEVEL OF FUNCTION: 30 second sit to stand from chair x 7 with UE assist. TREATMENT: Therapeutic Exercise: 1: Seated upright perturbations with green Rep band forward, lateral right and lateral left 3x15. 2: Seated TA with alt arm lifts x 15. 3: SeatedTA with marching x 15 4: Seated TA with alt arm and leg lifts x 15 5: Seated heel and toe raises x 25. 6: Seated marching 3# B 2x12. 7: Seated B LAQ 3# 2x12. 8: Sit to stand from chair 1x 10 with UE assist. 9: Supine core stabiliation with green band from thighs up toward ceiling 2x15. 10: Standing upright alt shoulder extension for core stabilization with green Rep band 2x10. 12: seated scapular retraction 1x15. 13: 30 second sit to stand from chair x 7 with UE assist. Skilled Intervention: Patient was educated in proper exercise technique and purpose for exercises. Skilled judgment was provided in selection of appropriate interventions. Correct performance of therapeutic exercises was facilitated with verbal cuing. Neuromuscular Re-Education: 1: NBOS on foam square with eyes open, eyes open and head turns and eyes closed with CGA. 2: Semi-tandem stance with eyes open , eyes open and head turns and eyes closed with CGA. 3: Balance board A/P and lateral x 10 and multiple attempts at balance. with CGA. 4: Tandem stance leading with right and left LE with CGA and difficulty. 5: Forward step up onto foam beam leading with right and left LE x 10 each with 1 UE assist. 6: Semi- tandem stance on foam with eyes open with difficulty. 7: Forward and backward stepping over 6 nafisa x 10 with CGA Skilled Intervention: Skilled judgment used to assess appropriate program for balance and coordination activity. Insured patient safety with use of gait belt and contact guard assist. Billing: [facility]: Therapeutic Exercise ([id number]): 1:1 time: 30 minutes (2 units: 23-37 mins) Neuromuscular Re-education ([id number]): 1:1 time:15 minutes (1 unit: 8-22 mins) Total time: 45 minutes JOSH Henao PT CNTHERAPY Observed: 01/02/2018 Status: COMPLETED Source: [place] 10:45 AM [facility] REPOSITORY OT/PT/Speech Visit (PTWS) FELICIA STOVER ([id number]) 1935 F NFR Date Time Provider Department 01/02/18 10:45 AM ZULMA PATEL ([facility] PTWS Date Time Provider Department Center 01/02/2018 10:45 AM [id number], NANCY ([facility]) PTWS [facility] Reason for Visit: Physical Therapy [503] Primary Visit Diagnosis:Chronic bilateral low back pain without sciatica [M54.5, G89.29] Other Visit Diagnosis:Spinal stenosis of lumbar region, unspecified whether neurogenic claudication present [M48.061] Allergies As of Date: 01/02/2018 Noted Allergy Reaction CRAB 03/12/2003 Comments: Itching, swelling LOBSTER (CRUSTACEANS) 03/12/2003 Comments: Can'T touch RAGWEED 03/12/2003 14 - Other: See Comments Comments: Sneezing Scampi [Other] 03/12/2003 Comments: Swelling, itching. SULFA (SULFONAMIDE ANTIBIOTICS) 03/12/2003 Comments: SWELLING Rash TOPROL XL (METOPROLOL SUCCINATE) 04/13/2010 14 - Other: See Comments Comments: Chest fullness Date Reviewed: 11/17/2017 Reviewed by: Mesfin Peterson RN - Fully Assessed Prescriptions as of 01/02/2018 Sig: LISINOPRIL 20 MG TABLET Take 1 tablet by mouth twice * FLECAINIDE 100 MG TABLET TAKE 1 TABLET BY MOUTH TWICE * WARFARIN 3 MG TABLET Take 1 tablet by mouth once d* MONTELUKAST 10 MG TABLET TAKE 1 TABLET BY MOUTH DAILY * VERAPAMIL ER (SR) 240 MG TABL* Take 1 tablet by mouth once d* IPRATROPIUM BROMIDE 42 MCG (0* 2 sprays per each nostril 2-3* Patient not taking: Reported on 11/17/2017 POTASSIUM CHLORIDE ER 10 MEQ * Take 1 tablet by mouth every * Patient taking differently: Take 10 mEq by mouth once lio* FUROSEMIDE 20 MG TABLET Take 1 tablet by mouth every * Patient taking differently: Take 20 mg by mouth as needed* MUPIROCIN 2 % TOPICAL CREAM Apply 1 application to affect* NITROGLYCERIN 0.4 MG SUBLINGU* Dissolve 1 tablet under the t* FLUTICASONE FUROATE 200 MCG/A* Inhale 1 Inhalation as instru* KETOCONAZOLE 2 % SHAMPOO Apply 1 application to affect* HYDROXYCHLOROQUINE 200 MG TAB* Take 200 mg by mouth twice da* WARFARIN 2.5 MG TABLET Take as directed per physicia* WARFARIN 5 MG TABLET Take as directed WARFARIN 2 MG TABLET Take 1 tablet by mouth daily * DENOSUMAB 60 MG/ML SUBCUTANEO* Inject 1 mL subcutaneously as* OXYCODONE-ACETAMINOPHEN 5 MG-* Take 1 tablet by mouth once d* TRAMADOL 50 MG TABLET Take 1 tablet by mouth every * BIOTIN ORAL Take 1 capsule by mouth once * CHOLECALCIFEROL (VITAMIN D3) * Take 1 capsule by mouth once * Progress Notes: Chad Akins, PT 01/02/2018 12:42 PM Signed Episode Visit Count: 8 Therapist That Will Oversee The Plan Of Care: Chad Akins Start of Care Date: 11/23/17 Onset Date: 05/08/17 Plan of Care Certification Date: 11/23/17 Patient Identified by Name and Date of : Yes REHABILITATION AND SPORTS THERAPY PHYSICAL THERAPY TREATMENT NOTE ASSESSMENT: Felicia Stover demonstrated improvements in 30 second sit to stand and improved balance with Narrow base of support on uneven surfaces. She needs cueing to look up during gait to assist with better posture. The patient will continue to benefit from continued skilled physical therapy for balance ,strengthening and plan of care update. PLAN FOR NEXT VISIT: POC update next visit SUBJECTIVE: Patient reports her back is feeling achy today. Pain Score: 5/10 Pain Location: Back Description: Aching Frequency: Continuous Post Treatment Pain Score: No Change OBJECTIVE MEASURES WITH LEVEL OF FUNCTION: 30 second sit to stand from chair x 7 with UE assist. TREATMENT: Therapeutic Exercise: 1: Seated upright perturbations with green Rep band forward, lateral right and lateral left 3x15. 2: Seated TA with alt arm lifts x 15. 3: SeatedTA with marching x 15 4: Seated TA with alt arm and leg lifts x 15 5: Seated heel and toe raises x 25. 6: Seated marching 3# B 2x12. 7: Seated B LAQ 3# 2x12. 8: Sit to stand from chair 1x 10 with UE assist. 9: Supine core stabiliation with green band from thighs up toward ceiling 2x15. 10: Standing upright alt shoulder extension for core stabilization with green Rep band 2x10. 12: seated scapular retraction 1x15. 13: 30 second sit to stand from chair x 7 with UE assist. Skilled Intervention: Patient was educated in proper exercise technique and purpose for exercises. Skilled judgment was provided in selection of appropriate interventions. Correct performance of therapeutic exercises was facilitated with verbal cuing. Neuromuscular Re-Education: 1: NBOS on foam square with eyes open, eyes open and head turns and eyes closed with CGA. 2: Semi-tandem stance with eyes open , eyes open and head turns and eyes closed with CGA. 3: Balance board A/P and lateral x 10 and multiple attempts at balance. with CGA. 4: Tandem stance leading with right and left LE with CGA and difficulty. 5: Forward step up onto foam beam leading with right and left LE x 10 each with 1 UE assist. 6: Semi- tandem stance on foam with eyes open with difficulty. 7: Forward and backward stepping over 6 nafisa x 10 with CGA Skilled Intervention: Skilled judgment used to assess appropriate program for balance and coordination activity. Insured patient safety with use of gait belt and contact guard assist. Billing: [facility]: Therapeutic Exercise ([id number]): 1:1 time: 30 minutes (2 units: 23-37 mins) Neuromuscular Re-education (99072): 1:1 time:15 minutes (1 unit: 8-22 mins) Total time: 45 minutes JOSH Henao PT Previous Version Follow-up and Disposition History Recorded PROGRESS Observed: 12/31/2017 Status: COMPLETED Source: [place] 8:08 PM [facility] REPOSITORY HNO ID: [id number] Author: Chad Akins Service: (none) Author Type: Physical Therapist Type: Progress Notes Filed: 12/31/2017 8:27 PM Note Text: Episode Visit Count: 7 Therapist That Will Oversee The Plan Of Care: Chad Akins Start of Care Date: 11/23/17 Onset Date: 05/08/17 Plan of Care Certification Date: 11/23/17 Patient Identified by Name and Date of : Yes REHABILITATION AND SPORTS THERAPY PHYSICAL THERAPY TREATMENT NOTE ASSESSMENT: Felicia Stover demonstrated improvements in balance exercises today with improved control. Patient with difficulty with upright posture during walking. Instructed patient on scapular retraction to be done throughout the day to assist patient with upright posture. The patient will continue to benefit from continued skilled physical therapy for lower extremity strengthening, core strengthening and balance. PLAN FOR NEXT VISIT: Continue with core stabilization and balance exercises. SUBJECTIVE: Patient reports she played bridge yesterday and was able to move around and had no increase pain with the activity. Patient reports being pleased with the no increase in pain. Pain Score: 3/10 Pain Location: Back (thoracic area tightness) Description: Tightness Frequency: Continuous Post Treatment Pain Score: No Change OBJECTIVE MEASURES WITH LEVEL OF FUNCTION: Forward flexed posture during gait with cane. TREATMENT: Therapeutic Exercise: 1: Seated upright perturbations with green Rep band forward, lateral right and lateral left 3x15. 2: SeatedTA with alt arm lifts x 15. 3: SeatedTA with marching x 15 4: Seated TA with alt arm and leg lifts x 10 5: Seated heel and toe raises x 25. 6: Seated marching 3# B 2x10. 7: Seated B LAQ 3# 2x10. 8: Sit to stand from chair 2x 10 with UE assist. 9: Supine core stabiliation with green band from thighs up toward ceiling 2x15. 10: Standing upright alt shoulder extension for core stabilization with green Rep band 2x10. 12: * seated scapular retraction with instruction to do this 3-5 times throughout the day. Skilled Intervention: Patient was educated in proper exercise technique and purpose for exercises. Reviewed and educated patient on additions/changes for home exercise program as above (*) Skilled judgment was provided in selection of appropriate interventions. Provided written instruction for home exercise program to facilitate proper performance and compliance. Correct performance of therapeutic exercises was facilitated with verbal and visual cuing. Neuromuscular Re-Education: 1: NBOS on foam square with eyes open, eyes open and head turns and eyes closed with CGA. 2: Semi-tandem stance with eyes open , eyes open and head turns and eyes closed with CGA. 3: Balance board A/P and lateral x 10 and multiple attempts at balance. with CGA. 4: Tandem stance leading with right and left LE with CGA and difficulty. 5: Forward step up onto foam beam leading with right and left LE x 10 each with 1 UE assist. 6: Semi- tandem stance on foam with eyes open with difficulty. 7: Forward and backward stepping over 2'x4 x 10 with CGA Skilled Intervention: Skilled judgment used to assess appropriate program for balance and coordination activity. Insured patient safety with use of gait belt and contact guard assist. Billing: [facility]: Therapeutic Exercise ([id number]): 1:1 time: 30 minutes (2 units: 23-37 mins) Neuromuscular Re-education (62301): 1:1 time:15 minutes (1 unit: 8-22 mins) Total time: 45 minutes JOSH Henao PT CNTHERAPY Observed: 12/28/2017 Status: COMPLETED Source: [place] 10:45 AM [facility] REPOSITORY OT/PT/Speech Visit (PTWS) FELICIA STOVER ([id number]) 1935 F NFR Date Time Provider Department 12/28/17 10:45 AM ZULMA PATEL ([facility] PTWS Date Time Provider Department Center 12/28/2017 10:45 AM [id number], NANCY ([facility]) PTWS [facility] Reason for Visit: Physical Therapy [503] Primary Visit Diagnosis:Chronic bilateral low back pain without sciatica [M54.5, G89.29] Other Visit Diagnosis:Spinal stenosis of lumbar region, unspecified whether neurogenic claudication present [M48.061] Allergies As of Date: 12/28/2017 Noted Allergy Reaction CRAB 03/12/2003 Comments: Itching, swelling LOBSTER (CRUSTACEANS) 03/12/2003 Comments: Can'T touch RAGWEED 03/12/2003 14 - Other: See Comments Comments: Sneezing Scampi [Other] 03/12/2003 Comments: Swelling, itching. SULFA (SULFONAMIDE ANTIBIOTICS) 03/12/2003 Comments: SWELLING Rash TOPROL XL (METOPROLOL SUCCINATE) 04/13/2010 14 - Other: See Comments Comments: Chest fullness Date Reviewed: 11/17/2017 Reviewed by: Mesfin Peterson RN - Fully Assessed Prescriptions as of 12/28/2017 Sig: LISINOPRIL 20 MG TABLET Take 1 tablet by mouth twice * FLECAINIDE 100 MG TABLET TAKE 1 TABLET BY MOUTH TWICE * WARFARIN 3 MG TABLET Take 1 tablet by mouth once d* MONTELUKAST 10 MG TABLET TAKE 1 TABLET BY MOUTH DAILY * VERAPAMIL ER (SR) 240 MG TABL* Take 1 tablet by mouth once d* IPRATROPIUM BROMIDE 42 MCG (0* 2 sprays per each nostril 2-3* Patient not taking: Reported on 11/17/2017 POTASSIUM CHLORIDE ER 10 MEQ * Take 1 tablet by mouth every * Patient taking differently: Take 10 mEq by mouth once lio* FUROSEMIDE 20 MG TABLET Take 1 tablet by mouth every * Patient taking differently: Take 20 mg by mouth as needed* MUPIROCIN 2 % TOPICAL CREAM Apply 1 application to affect* NITROGLYCERIN 0.4 MG SUBLINGU* Dissolve 1 tablet under the t* FLUTICASONE FUROATE 200 MCG/A* Inhale 1 Inhalation as instru* KETOCONAZOLE 2 % SHAMPOO Apply 1 application to affect* HYDROXYCHLOROQUINE 200 MG TAB* Take 200 mg by mouth twice da* WARFARIN 2.5 MG TABLET Take as directed per physicia* WARFARIN 5 MG TABLET Take as directed WARFARIN 2 MG TABLET Take 1 tablet by mouth daily * DENOSUMAB 60 MG/ML SUBCUTANEO* Inject 1 mL subcutaneously as* OXYCODONE-ACETAMINOPHEN 5 MG-* Take 1 tablet by mouth once d* TRAMADOL 50 MG TABLET Take 1 tablet by mouth every * BIOTIN ORAL Take 1 capsule by mouth once * CHOLECALCIFEROL (VITAMIN D3) * Take 1 capsule by mouth once * Progress Notes: Chad Akins, PT 12/31/2017 8:27 PM Signed Episode Visit Count: 7 Therapist That Will Oversee The Plan Of Care: Chad Akins Start of Care Date: 11/23/17 Onset Date: 05/08/17 Plan of Care Certification Date: 11/23/17 Patient Identified by Name and Date of : Yes REHABILITATION AND SPORTS THERAPY PHYSICAL THERAPY TREATMENT NOTE ASSESSMENT: Felicia Stover demonstrated improvements in balance exercises today with improved control. Patient with difficulty with upright posture during walking. Instructed patient on scapular retraction to be done throughout the day to assist patient with upright posture. The patient will continue to benefit from continued skilled physical therapy for lower extremity strengthening, core strengthening and balance. PLAN FOR NEXT VISIT: Continue with core stabilization and balance exercises. SUBJECTIVE: Patient reports she played bridge yesterday and was able to move around and had no increase pain with the activity. Patient reports being pleased with the no increase in pain. Pain Score: 3/10 Pain Location: Back (thoracic area tightness) Description: Tightness Frequency: Continuous Post Treatment Pain Score: No Change OBJECTIVE MEASURES WITH LEVEL OF FUNCTION: Forward flexed posture during gait with cane. TREATMENT: Therapeutic Exercise: 1: Seated upright perturbations with green Rep band forward, lateral right and lateral left 3x15. 2: SeatedTA with alt arm lifts x 15. 3: SeatedTA with marching x 15 4: Seated TA with alt arm and leg lifts x 10 5: Seated heel and toe raises x 25. 6: Seated marching 3# B 2x10. 7: Seated B LAQ 3# 2x10. 8: Sit to stand from chair 2x 10 with UE assist. 9: Supine core stabiliation with green band from thighs up toward ceiling 2x15. 10: Standing upright alt shoulder extension for core stabilization with green Rep band 2x10. 12: * seated scapular retraction with instruction to do this 3-5 times throughout the day. Skilled Intervention: Patient was educated in proper exercise technique and purpose for exercises. Reviewed and educated patient on additions/changes for home exercise program as above (*) Skilled judgment was provided in selection of appropriate interventions. Provided written instruction for home exercise program to facilitate proper performance and compliance. Correct performance of therapeutic exercises was facilitated with verbal and visual cuing. Neuromuscular Re-Education: 1: NBOS on foam square with eyes open, eyes open and head turns and eyes closed with CGA. 2: Semi-tandem stance with eyes open , eyes open and head turns and eyes closed with CGA. 3: Balance board A/P and lateral x 10 and multiple attempts at balance. with CGA. 4: Tandem stance leading with right and left LE with CGA and difficulty. 5: Forward step up onto foam beam leading with right and left LE x 10 each with 1 UE assist. 6: Semi- tandem stance on foam with eyes open with difficulty. 7: Forward and backward stepping over 2'x4 x 10 with CGA Skilled Intervention: Skilled judgment used to assess appropriate program for balance and coordination activity. Insured patient safety with use of gait belt and contact guard assist. Billing: [facility]: Therapeutic Exercise ([id number]): 1:1 time: 30 minutes (2 units: 23-37 mins) Neuromuscular Re-education ([id number]): 1:1 time:15 minutes (1 unit: 8-22 mins) Total time: 45 minutes JOSH Henao PT Previous Version Follow-up and Disposition History Recorded PROGRESS Observed: 12/26/2017 Status: COMPLETED Source: [place] 11:38 AM [facility] REPOSITORY HNO ID: [id number] Author: Chad Akins Service: (none) Author Type: Physical Therapist Type: Progress Notes Filed: 12/26/2017 12:09 PM Note Text: Episode Visit Count: 6 Therapist That Will Oversee The Plan Of Care: Chad Akins Start of Care Date: 11/23/17 Onset Date: 05/08/17 Plan of Care Certification Date: 11/23/17 Patient Identified by Name and Date of : Yes REHABILITATION AND SPORTS THERAPY PHYSICAL THERAPY TREATMENT NOTE ASSESSMENT: Felicia Stover demonstrated improvements in back pain reduction. She had difficulty with getting out of a chair after prolonged period of playing cards yesterday. Patient is challenged with balance activities. The patient will continue to benefit from continued skilled physical therapy for core stabilization and balance exercises. PLAN FOR NEXT VISIT: Continue with core stabilization and balance exercises. SUBJECTIVE: Patient reports she played cards for a long time period yesterday and she had to have help to get out of the chair. Patient reports she had a hard time standing over the weekend due to pain.. Pain Score: 2/10 Pain Location: Back Description: Aching Frequency: Continuous Post Treatment Pain Score: No Change OBJECTIVE MEASURES WITH LEVEL OF FUNCTION: Ambulation on level with cane with forward flexed posture. TREATMENT: Therapeutic Exercise: 1: TA supine 2-3 second hold x 15. 2: TA with alt arm lifts x 15. 3: TA with marching x 15 4: TA with bent knee fall outs x 15. 5: Seated heel and toe raises x 25. 6: Seated marching 2# B 2x15. 7: Seated B LAQ 2# 2x15. 8: Sit to stand from chair 1x 10 and 1x5 with UE assist. 9: Supine core stabiliation with green band from thighs up toward ceiling 2x12. 10: Standing upright alt shoulder extension for core stabilization with green Rep band 2x10. 11: TA supine with alt arm and leg lifts x 15 each side. Skilled Intervention: Patient was educated in proper exercise technique and purpose for exercises. Skilled judgment was provided in selection of appropriate interventions. Correct performance of therapeutic exercises was facilitated with verbal and visual cuing. Neuromuscular Re-Education: 1: NBOS on foam square with eyes open, eyes open and head turns and eyes closed with CGA. 2: Semi-tandem stance with eyes open , eyes open and head turns and eyes closed with CGA. 3: Balance board A/P and lateral x 10 and multiple attempts at balance. with CGA. 4: Tandem stance leading with right and left LE with CGA and difficulty. 5: Forward step up onto foam beam leading with right and left LE x 10 each with 1 UE assist. Skilled Intervention: Skilled judgment used to assess appropriate program for balance and coordination activity. Insured patient safety with use of gait belt and contact guard assist. Billing: [facility]: Therapeutic Exercise (69917): 1:1 time: 30 minutes (2 units: 23-37 mins) Neuromuscular Re-education (98253): 1:1 time:15 minutes (1 unit: 8-22 mins) Total time: 45 minutes JOSH Henao PT CNTHERAPY Observed: 12/26/2017 Status: COMPLETED Source: [place] 10:45 AM [facility] REPOSITORY OT/PT/Speech Visit (PTWS) FELICIA STOVER ([id number]) 1935 F NFR Date Time Provider Department 12/26/17 10:45 AM ZULMA PATEL ([facility] PTWS Date Time Provider Department Center 12/26/2017 10:45 AM [id number], NANCY ([facility]) PTWS [facility] Reason for Visit: Physical Therapy [503] Primary Visit Diagnosis:Chronic bilateral low back pain without sciatica [M54.5, G89.29] Other Visit Diagnosis:Spinal stenosis of lumbar region, unspecified whether neurogenic claudication present [M48.061] Allergies As of Date: 12/26/2017 Noted Allergy Reaction CRAB 03/12/2003 Comments: Itching, swelling LOBSTER (CRUSTACEANS) 03/12/2003 Comments: Can'T touch RAGWEED 03/12/2003 14 - Other: See Comments Comments: Sneezing Scampi [Other] 03/12/2003 Comments: Swelling, itching. SULFA (SULFONAMIDE ANTIBIOTICS) 03/12/2003 Comments: SWELLING Rash TOPROL XL (METOPROLOL SUCCINATE) 04/13/2010 14 - Other: See Comments Comments: Chest fullness Date Reviewed: 11/17/2017 Reviewed by: Mesfin Peterson RN - Fully Assessed Prescriptions as of 12/26/2017 Sig: LISINOPRIL 20 MG TABLET Take 1 tablet by mouth twice * FLECAINIDE 100 MG TABLET TAKE 1 TABLET BY MOUTH TWICE * WARFARIN 3 MG TABLET Take 1 tablet by mouth once d* MONTELUKAST 10 MG TABLET TAKE 1 TABLET BY MOUTH DAILY * VERAPAMIL ER (SR) 240 MG TABL* Take 1 tablet by mouth once d* IPRATROPIUM BROMIDE 42 MCG (0* 2 sprays per each nostril 2-3* Patient not taking: Reported on 11/17/2017 POTASSIUM CHLORIDE ER 10 MEQ * Take 1 tablet by mouth every * Patient taking differently: Take 10 mEq by mouth once lio* FUROSEMIDE 20 MG TABLET Take 1 tablet by mouth every * Patient taking differently: Take 20 mg by mouth as needed* MUPIROCIN 2 % TOPICAL CREAM Apply 1 application to affect* NITROGLYCERIN 0.4 MG SUBLINGU* Dissolve 1 tablet under the t* FLUTICASONE FUROATE 200 MCG/A* Inhale 1 Inhalation as instru* KETOCONAZOLE 2 % SHAMPOO Apply 1 application to affect* HYDROXYCHLOROQUINE 200 MG TAB* Take 200 mg by mouth twice da* WARFARIN 2.5 MG TABLET Take as directed per physicia* WARFARIN 5 MG TABLET Take as directed WARFARIN 2 MG TABLET Take 1 tablet by mouth daily * DENOSUMAB 60 MG/ML SUBCUTANEO* Inject 1 mL subcutaneously as* OXYCODONE-ACETAMINOPHEN 5 MG-* Take 1 tablet by mouth once d* TRAMADOL 50 MG TABLET Take 1 tablet by mouth every * BIOTIN ORAL Take 1 capsule by mouth once * CHOLECALCIFEROL (VITAMIN D3) * Take 1 capsule by mouth once * Progress Notes: Chad Akins, PT 12/26/2017 12:09 PM Signed Episode Visit Count: 6 Therapist That Will Oversee The Plan Of Care: Chad Akins Start of Care Date: 11/23/17 Onset Date: 05/08/17 Plan of Care Certification Date: 11/23/17 Patient Identified by Name and Date of : Yes REHABILITATION AND SPORTS THERAPY PHYSICAL THERAPY TREATMENT NOTE ASSESSMENT: Felicia Stover demonstrated improvements in back pain reduction. She had difficulty with getting out of a chair after prolonged period of playing cards yesterday. Patient is challenged with balance activities. The patient will continue to benefit from continued skilled physical therapy for core stabilization and balance exercises. PLAN FOR NEXT VISIT: Continue with core stabilization and balance exercises. SUBJECTIVE: Patient reports she played cards for a long time period yesterday and she had to have help to get out of the chair. Patient reports she had a hard time standing over the weekend due to pain.. Pain Score: 2/10 Pain Location: Back Description: Aching Frequency: Continuous Post Treatment Pain Score: No Change OBJECTIVE MEASURES WITH LEVEL OF FUNCTION: Ambulation on level with cane with forward flexed posture. TREATMENT: Therapeutic Exercise: 1: TA supine 2-3 second hold x 15. 2: TA with alt arm lifts x 15. 3: TA with marching x 15 4: TA with bent knee fall outs x 15. 5: Seated heel and toe raises x 25. 6: Seated marching 2# B 2x15. 7: Seated B LAQ 2# 2x15. 8: Sit to stand from chair 1x 10 and 1x5 with UE assist. 9: Supine core stabiliation with green band from thighs up toward ceiling 2x12. 10: Standing upright alt shoulder extension for core stabilization with green Rep band 2x10. 11: TA supine with alt arm and leg lifts x 15 each side. Skilled Intervention: Patient was educated in proper exercise technique and purpose for exercises. Skilled judgment was provided in selection of appropriate interventions. Correct performance of therapeutic exercises was facilitated with verbal and visual cuing. Neuromuscular Re-Education: 1: NBOS on foam square with eyes open, eyes open and head turns and eyes closed with CGA. 2: Semi-tandem stance with eyes open , eyes open and head turns and eyes closed with CGA. 3: Balance board A/P and lateral x 10 and multiple attempts at balance. with CGA. 4: Tandem stance leading with right and left LE with CGA and difficulty. 5: Forward step up onto foam beam leading with right and left LE x 10 each with 1 UE assist. Skilled Intervention: Skilled judgment used to assess appropriate program for balance and coordination activity. Insured patient safety with use of gait belt and contact guard assist. Billing: [facility]: Therapeutic Exercise ([id number]): 1:1 time: 30 minutes (2 units: 23-37 mins) Neuromuscular Re-education (72371): 1:1 time:15 minutes (1 unit: 8-22 mins) Total time: 45 minutes Zulma Patel PT-Danielle Akins PT Previous Version Follow-up and Disposition History Recorded OBSOLETE Observed: 12/24/2017 Status: COMPLETED Source: [place] 12:00 AM [facility] REPOSITORY Refill (AGCARDWST) FELICIA STOVER ([id number]) 1935 F NFR Date Time Provider Department 12/24/17 [facility] AGCARDWST During your visit today, we recorded the following information about you: Allergies As of Date: 12/24/2017 Noted Allergy Reaction CRAB 03/12/2003 Comments: Itching, swelling LOBSTER (CRUSTACEANS) 03/12/2003 Comments: Can'T touch RAGWEED 03/12/2003 14 - Other: See Comments Comments: Sneezing Scampi [Other] 03/12/2003 Comments: Swelling, itching. SULFA (SULFONAMIDE ANTIBIOTICS) 03/12/2003 Comments: SWELLING Rash TOPROL XL (METOPROLOL SUCCINATE) 04/13/2010 14 - Other: See Comments Comments: Chest fullness Date Reviewed: 11/17/2017 Reviewed by: Mesfin Peterson RN - Fully Assessed Reason for Visit: Refill Request [94] Order(s):flecainide (TAMBOCOR) 100 mg tabletTAKE 1 TABLET BY MOUTH TWICE DAILY.Disp: 180 tabletRfl: 3 Prescriptions as of 12/24/2017 Sig: FLECAINIDE 100 MG TABLET TAKE 1 TABLET BY MOUTH TWICE * WARFARIN 3 MG TABLET Take 1 tablet by mouth once d* MONTELUKAST 10 MG TABLET TAKE 1 TABLET BY MOUTH DAILY * VERAPAMIL ER (SR) 240 MG TABL* Take 1 tablet by mouth once d* IPRATROPIUM BROMIDE 42 MCG (0* 2 sprays per each nostril 2-3* Patient not taking: Reported on 11/17/2017 POTASSIUM CHLORIDE ER 10 MEQ * Take 1 tablet by mouth every * Patient taking differently: Take 10 mEq by mouth once lio* FUROSEMIDE 20 MG TABLET Take 1 tablet by mouth every * Patient taking differently: Take 20 mg by mouth as needed* MUPIROCIN 2 % TOPICAL CREAM Apply 1 application to affect* NITROGLYCERIN 0.4 MG SUBLINGU* Dissolve 1 tablet under the t* FLUTICASONE FUROATE 200 MCG/A* Inhale 1 Inhalation as instru* KETOCONAZOLE 2 % SHAMPOO Apply 1 application to affect* HYDROXYCHLOROQUINE 200 MG TAB* Take 200 mg by mouth twice da* LISINOPRIL 20 MG TABLET Take 1 tablet by mouth twice * WARFARIN 2.5 MG TABLET Take as directed per physicia* WARFARIN 5 MG TABLET Take as directed WARFARIN 2 MG TABLET Take 1 tablet by mouth daily * DENOSUMAB 60 MG/ML SUBCUTANEO* Inject 1 mL subcutaneously as* OXYCODONE-ACETAMINOPHEN 5 MG-* Take 1 tablet by mouth once d* TRAMADOL 50 MG TABLET Take 1 tablet by mouth every * BIOTIN ORAL Take 1 capsule by mouth once * CHOLECALCIFEROL (VITAMIN D3) * Take 1 capsule by mouth once * Problem List As Of Date 12/24/2017 Noted Resolved PARESTHESIAS [R20.9] INVALID FOR* OVERWEIGHT [E66.9] INVALID FOR*12/02/2014 Essential hypertension [I10] INVALID FOR* More... FEMALE STRESS INCONTINENCE [N39.3] INVALID FOR* DIVERTICULITIS OF COLON W/O BLEED [K57.32] INVALID FOR* HEMORRHOIDS NOS [K64.9] INVALID FOR* ATRIAL FIBRILLATION [I48.91] INVALID FOR* More... HYPERLIPIDEMIA NEC/NOS [E78.5] INVALID FOR* More... INSOMNIA NOS [G47.00] INVALID FOR* GENERAL OSTEOARTHROSIS [M15.9] INVALID FOR* BRADYCARDIA [I49.8] INVALID FOR* Postmenopausal osteoporosis [M81.0] INVALID FOR* More... HYPERGLYCEMIA [R79.89] INVALID FOR* More... MITRAL REGURGITATION [I05.9] INVALID FOR* HYPOMAGNESEMIA [E83.40] INVALID FOR* Unspecified closed fracture of ankle [S82.899A] INVALID FOR* More... IDIO PERIPH NEURPTHY NOS [G60.9] INVALID FOR* BACKACHE NOS [M54.9] INVALID FOR* Other Chronic Pain [G89.29] INVALID FOR* More... 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 Pathologic fracture of vertebrae [M84.48XA] INVALID FOR* Lumbago [M54.5] INVALID FOR* Pseudogout [M11.20] INVALID FOR* More... Lumbar spondylosis [M47.816] INVALID FOR* Spinal stenosis of lumbar region [M48.061] INVALID FOR* Vitamin D deficiency [E55.9] INVALID FOR* GERD (gastroesophageal reflux disease) [K21.9] INVALID FOR* BMI 32.0-32.9,adult [Z68.32] INVALID FOR* Hyperlipidemia [E78.5] INVALID FOR* More... Impaired fasting glucose [R73.01] INVALID FOR* Bilateral low back pain without sciatica [M54.5]INVALID FOR* Moderate persistent asthma [J45.40] INVALID FOR* More... Persistent asthma [J45.909] INVALID FOR* CKD (chronic kidney disease) stage 3, GFR 30-59*INVALID FOR* Prescriptions ordered this encounter Disp Refills Start End FLECAINIDE 100 MG TABLET 180 * 3 12/25/2017 Route: ORAL Sig: TAKE 1 TABLET BY MOUTH TWICE DAILY. Medications Discontinued During This Encounter flecainide (TAMBOCOR) 100 mg tablet 180 * 3 03/20/2017 12/25/2017 Route: ORAL Sig: Take 1 tablet by mouth twice daily. Disc: Reason for discontinue is not on file. Encounter Status:Closed by MESFIN PETERSON RN on 12/25/17 PROGRESS Observed: 12/21/2017 Status: COMPLETED Source: [place] 11:41 AM [facility] REPOSITORY [facility] ID: [id number] Author: Chad (Pt) Tashi Service: (none) Author Type: Physical Therapist Type: Progress Notes Filed: 12/21/2017 1:39 PM Note Text: Episode Visit Count: 5 Therapist That Will Oversee The Plan Of Care: Chad Akins Start of Care Date: 11/23/17 Onset Date: 05/08/17 Plan of Care Certification Date: 11/23/17 Patient Identified by Name and Date of : Yes REHABILITATION AND SPORTS THERAPY PHYSICAL THERAPY TREATMENT NOTE ASSESSMENT: Felicia Stover demonstrated difficulty with standing in place for too long due to increase fatigue in B legs. No improvement with 30 second sit to stand test. The patient will continue to benefit from continued skilled physical therapy for progression of strength and balance activities. PLAN FOR NEXT VISIT: Add standing alt shoulder extension with resistance next visit. SUBJECTIVE: Patient reports her back continues to feel stiff. She reports her legs have a tired feeling. Pain Score: 5/10 Pain Location: Back Description: Stiffness Frequency: Continuous Post Treatment Pain Score: No Change OBJECTIVE MEASURES WITH LEVEL OF FUNCTION: 30 second sit to stand from chair with UE assist x 5. TREATMENT: Therapeutic Exercise: 1: TA supine 2-3 second hold x 15. 2: TA with alt arm lifts x 15. 3: TA with marching x 15 4: TA with bent knee fall outs x 15. 5: Seated heel and toe raises x 25. 6: Seated marching 2# B 2x12. 7: Seated B LAQ 2# 2x12. 8: Sit to stand from chair 1x 10 with UE assist. 9: Supine core stabiliation with green band from thighs up toward ceiling 2x10. 10: Step One stepper seat 14 x 5 minutes at start of treatment. subjective taken during this time. 11: TA supine with alt arm and leg lifts x 15 each side. 13: 30 second sit to stand from chair with UE assist x 5. Skilled Intervention: Patient was educated in proper exercise technique and purpose for exercises. Skilled judgment was provided in selection of appropriate interventions. Neuromuscular Re-Education: 1: NBOS on foam square with eyes open, eyes open and head turns and eyes closed with CGA. 2: Semi-tandem stance with eyes open , eyes open and head turns and eyes closed with CGA. 3: Balance board A/P and lateral x 10 and multiple attempts at balance. with CGA. 4: Tandem stance leading with right and left LE with CGA and difficulty. 5: Forward step up onto foam beam leading with right and left LE x 10 each with 1 UE assist. Skilled Intervention: Skilled judgment used to assess appropriate program for balance and coordination activity. Insured patient safety with use of gait belt and contact guard assist. Billing: [facility]: Therapeutic Exercise (58392): 1:1 time: 23 minutes (2 units: 23-37 mins) Neuromuscular Re-education (93322): 1:1 time:20 minutes (1 unit: 8-22 mins) Total time: 43 minutes Zulma Patel PTDavid Akins PT CNTHERAPY Observed: 12/21/2017 Status: COMPLETED Source: [place] 10:45 AM [facility] REPOSITORY OT/PT/Speech Visit (PTWS) FELICIA STOVER ([id number]) 1935 F NFR Date Time Provider Department 12/21/17 10:45 AM ZULMA PATEL ([facility] PTWS Date Time Provider Department Center 12/21/2017 10:45 AM [id number], NANCY ([facility]) PTWS [facility] Reason for Visit: Physical Therapy [503] Primary Visit Diagnosis:Chronic bilateral low back pain without sciatica [M54.5, G89.29] Other Visit Diagnosis:Spinal stenosis of lumbar region, unspecified whether neurogenic claudication present [M48.061] Allergies As of Date: 12/21/2017 Noted Allergy Reaction CRAB 03/12/2003 Comments: Itching, swelling LOBSTER (CRUSTACEANS) 03/12/2003 Comments: Can'T touch RAGWEED 03/12/2003 14 - Other: See Comments Comments: Sneezing Scampi [Other] 03/12/2003 Comments: Swelling, itching. SULFA (SULFONAMIDE ANTIBIOTICS) 03/12/2003 Comments: SWELLING Rash TOPROL XL (METOPROLOL SUCCINATE) 04/13/2010 14 - Other: See Comments Comments: Chest fullness Date Reviewed: 11/17/2017 Reviewed by: Mesfin Peterson RN - Fully Assessed Prescriptions as of 12/21/2017 Sig: WARFARIN 3 MG TABLET Take 1 tablet by mouth once d* MONTELUKAST 10 MG TABLET TAKE 1 TABLET BY MOUTH DAILY * VERAPAMIL ER (SR) 240 MG TABL* Take 1 tablet by mouth once d* IPRATROPIUM BROMIDE 42 MCG (0* 2 sprays per each nostril 2-3* Patient not taking: Reported on 11/17/2017 POTASSIUM CHLORIDE ER 10 MEQ * Take 1 tablet by mouth every * Patient taking differently: Take 10 mEq by mouth once lio* FUROSEMIDE 20 MG TABLET Take 1 tablet by mouth every * Patient taking differently: Take 20 mg by mouth as needed* MUPIROCIN 2 % TOPICAL CREAM Apply 1 application to affect* NITROGLYCERIN 0.4 MG SUBLINGU* Dissolve 1 tablet under the t* FLUTICASONE FUROATE 200 MCG/A* Inhale 1 Inhalation as instru* KETOCONAZOLE 2 % SHAMPOO Apply 1 application to affect* FLECAINIDE 100 MG TABLET Take 1 tablet by mouth twice * HYDROXYCHLOROQUINE 200 MG TAB* Take 200 mg by mouth twice da* LISINOPRIL 20 MG TABLET Take 1 tablet by mouth twice * WARFARIN 2.5 MG TABLET Take as directed per physicia* WARFARIN 5 MG TABLET Take as directed WARFARIN 2 MG TABLET Take 1 tablet by mouth daily * DENOSUMAB 60 MG/ML SUBCUTANEO* Inject 1 mL subcutaneously as* OXYCODONE-ACETAMINOPHEN 5 MG-* Take 1 tablet by mouth once d* TRAMADOL 50 MG TABLET Take 1 tablet by mouth every * BIOTIN ORAL Take 1 capsule by mouth once * CHOLECALCIFEROL (VITAMIN D3) * Take 1 capsule by mouth once * Progress Notes: Chad Akins, PT 12/21/2017 1:39 PM Signed Episode Visit Count: 5 Therapist That Will Oversee The Plan Of Care: Chad Akins Start of Care Date: 11/23/17 Onset Date: 05/08/17 Plan of Care Certification Date: 11/23/17 Patient Identified by Name and Date of : Yes REHABILITATION AND SPORTS THERAPY PHYSICAL THERAPY TREATMENT NOTE ASSESSMENT: Felicia Stover demonstrated difficulty with standing in place for too long due to increase fatigue in B legs. No improvement with 30 second sit to stand test. The patient will continue to benefit from continued skilled physical therapy for progression of strength and balance activities. PLAN FOR NEXT VISIT: Add standing alt shoulder extension with resistance next visit. SUBJECTIVE: Patient reports her back continues to feel stiff. She reports her legs have a tired feeling. Pain Score: 5/10 Pain Location: Back Description: Stiffness Frequency: Continuous Post Treatment Pain Score: No Change OBJECTIVE MEASURES WITH LEVEL OF FUNCTION: 30 second sit to stand from chair with UE assist x 5. TREATMENT: Therapeutic Exercise: 1: TA supine 2-3 second hold x 15. 2: TA with alt arm lifts x 15. 3: TA with marching x 15 4: TA with bent knee fall outs x 15. 5: Seated heel and toe raises x 25. 6: Seated marching 2# B 2x12. 7: Seated B LAQ 2# 2x12. 8: Sit to stand from chair 1x 10 with UE assist. 9: Supine core stabiliation with green band from thighs up toward ceiling 2x10. 10: Step One stepper seat 14 x 5 minutes at start of treatment. subjective taken during this time. 11: TA supine with alt arm and leg lifts x 15 each side. 13: 30 second sit to stand from chair with UE assist x 5. Skilled Intervention: Patient was educated in proper exercise technique and purpose for exercises. Skilled judgment was provided in selection of appropriate interventions. Neuromuscular Re-Education: 1: NBOS on foam square with eyes open, eyes open and head turns and eyes closed with CGA. 2: Semi-tandem stance with eyes open , eyes open and head turns and eyes closed with CGA. 3: Balance board A/P and lateral x 10 and multiple attempts at balance. with CGA. 4: Tandem stance leading with right and left LE with CGA and difficulty. 5: Forward step up onto foam beam leading with right and left LE x 10 each with 1 UE assist. Skilled Intervention: Skilled judgment used to assess appropriate program for balance and coordination activity. Insured patient safety with use of gait belt and contact guard assist. Billing: [facility]: Therapeutic Exercise ([id number]): 1:1 time: 23 minutes (2 units: 23-37 mins) Neuromuscular Re-education (38763): 1:1 time:20 minutes (1 unit: 8-22 mins) Total time: 43 minutes JOSH Henao PT Previous Version Follow-up and Disposition History Recorded PROGRESS Observed: 12/19/2017 Status: COMPLETED Source: [place] 11:34 AM [facility] REPOSITORY [facility] ID: [id number] Author: Chad Akins Service: (none) Author Type: Physical Therapist Type: Progress Notes Filed: 12/19/2017 1:46 PM Note Text: Episode Visit Count: 4 Therapist That Will Oversee The Plan Of Care: Chad Akins Start of Care Date: 11/23/17 Onset Date: 05/08/17 Plan of Care Certification Date: 11/23/17 Patient Identified by Name and Date of : Yes REHABILITATION AND SPORTS THERAPY PHYSICAL THERAPY TREATMENT NOTE ASSESSMENT: Felicia Stover demonstrated improvements in ability to sit to stand today from chair with UE assist. Advanced balance exercise today. Patient needs short rest periods throughout treatment. The patient will continue to benefit from continued skilled physical therapy for progression of core stabilization and balance. PLAN FOR NEXT VISIT: Add standing alt shoulder extension with resistance next visit. SUBJECTIVE: Patient reports working out at [facility] for about 45 minutes and did another set of exercises at home. She feeling tired from the exercise. She reports hurting this morning. Pain Score: 5/10 Pain Location: Back (with movment and at rest) Description: Stiffness Frequency: Continuous Post Treatment Pain Score: (not rated) OBJECTIVE MEASURES WITH LEVEL OF FUNCTION: Improved functional ability to sit to stand from chair. TREATMENT: Therapeutic Exercise: 1: TA supine 2-3 second hold x 15. 2: TA with alt arm lifts x 15. 3: TA with marching x 15 4: TA with bent knee fall outs x 15. 5: Seated heel and toe raises x 20. 6: Seated marching 1# B 2x12. 7: Seated B LAQ 1# 2x12. 8: Sit to stand from chair 1x 10 and 1x5 with UE assist. 9: Supine core stabiliation with green band from thighs up toward ceiling 2x10. Skilled Intervention: Patient was educated in proper exercise technique and purpose for exercises. Skilled judgment was provided in selection of appropriate interventions. Neuromuscular Re-Education: 1: NBOS on foam square with eyes open, eyes open and head turns and eyes closed with CGA. 2: Semi-tandem stance with eyes open , eyes open and head turns and eyes closed with CGA. 3: Balance board A/P and lateral x 10 and multiple attempts at balance. with CGA. 4: Forward and backward stepping over 2'x4 x 10 each direction. 5: Forward step up onto foam square leading with right and left LE x 10 each with 1 UE assist. Skilled Intervention: Skilled judgment used to assess appropriate program for balance and coordination activity. Insured patient safety with use of gait belt and contact guard assist. Billing: [facility]: Therapeutic Exercise ([id number]): 1:1 time: 25 minutes (2 units: 23-37 mins) Neuromuscular Re-education (44113): 1:1 time:20 minutes (1 unit: 8-22 mins) Total time: 45 minutes Zluma Patel, PT-Danielle Akins PT CNTHERAPY Observed: 12/19/2017 Status: COMPLETED Source: [place] 10:45 AM [facility] REPOSITORY OT/PT/Speech Visit (PTWS) FELICIA STOVER ([id number]) 1935 F NFR Date Time Provider Department 12/19/17 10:45 AM ZULMA PATEL ([facility] PTWS Date Time Provider Department Center 12/19/2017 10:45 AM [id number], NANCY ([facility]) PTWS [facility] Reason for Visit: Physical Therapy [503] Primary Visit Diagnosis:Chronic bilateral low back pain without sciatica [M54.5, G89.29] Other Visit Diagnosis:Spinal stenosis of lumbar region, unspecified whether neurogenic claudication present [M48.061] Allergies As of Date: 12/19/2017 Noted Allergy Reaction CRAB 03/12/2003 Comments: Itching, swelling LOBSTER (CRUSTACEANS) 03/12/2003 Comments: Can'T touch RAGWEED 03/12/2003 14 - Other: See Comments Comments: Sneezing Scampi [Other] 03/12/2003 Comments: Swelling, itching. SULFA (SULFONAMIDE ANTIBIOTICS) 03/12/2003 Comments: SWELLING Rash TOPROL XL (METOPROLOL SUCCINATE) 04/13/2010 14 - Other: See Comments Comments: Chest fullness Date Reviewed: 11/17/2017 Reviewed by: Mesfin Peterson RN - Fully Assessed Prescriptions as of 12/19/2017 Sig: WARFARIN 3 MG TABLET Take 1 tablet by mouth once d* MONTELUKAST 10 MG TABLET TAKE 1 TABLET BY MOUTH DAILY * VERAPAMIL ER (SR) 240 MG TABL* Take 1 tablet by mouth once d* IPRATROPIUM BROMIDE 42 MCG (0* 2 sprays per each nostril 2-3* Patient not taking: Reported on 11/17/2017 POTASSIUM CHLORIDE ER 10 MEQ * Take 1 tablet by mouth every * Patient taking differently: Take 10 mEq by mouth once lio* FUROSEMIDE 20 MG TABLET Take 1 tablet by mouth every * Patient taking differently: Take 20 mg by mouth as needed* MUPIROCIN 2 % TOPICAL CREAM Apply 1 application to affect* NITROGLYCERIN 0.4 MG SUBLINGU* Dissolve 1 tablet under the t* FLUTICASONE FUROATE 200 MCG/A* Inhale 1 Inhalation as instru* KETOCONAZOLE 2 % SHAMPOO Apply 1 application to affect* FLECAINIDE 100 MG TABLET Take 1 tablet by mouth twice * HYDROXYCHLOROQUINE 200 MG TAB* Take 200 mg by mouth twice da* LISINOPRIL 20 MG TABLET Take 1 tablet by mouth twice * WARFARIN 2.5 MG TABLET Take as directed per physicia* WARFARIN 5 MG TABLET Take as directed WARFARIN 2 MG TABLET Take 1 tablet by mouth daily * DENOSUMAB 60 MG/ML SUBCUTANEO* Inject 1 mL subcutaneously as* OXYCODONE-ACETAMINOPHEN 5 MG-* Take 1 tablet by mouth once d* TRAMADOL 50 MG TABLET Take 1 tablet by mouth every * BIOTIN ORAL Take 1 capsule by mouth once * CHOLECALCIFEROL (VITAMIN D3) * Take 1 capsule by mouth once * Progress Notes: Chad Akins, PT 12/19/2017 1:46 PM Signed Episode Visit Count: 4 Therapist That Will Oversee The Plan Of Care: Chad Akins Start of Care Date: 11/23/17 Onset Date: 05/08/17 Plan of Care Certification Date: 11/23/17 Patient Identified by Name and Date of : Yes REHABILITATION AND SPORTS THERAPY PHYSICAL THERAPY TREATMENT NOTE ASSESSMENT: Felicia Stover demonstrated improvements in ability to sit to stand today from chair with UE assist. Advanced balance exercise today. Patient needs short rest periods throughout treatment. The patient will continue to benefit from continued skilled physical therapy for progression of core stabilization and balance. PLAN FOR NEXT VISIT: Add standing alt shoulder extension with resistance next visit. SUBJECTIVE: Patient reports working out at [facility] for about 45 minutes and did another set of exercises at home. She feeling tired from the exercise. She reports hurting this morning. Pain Score: 5/10 Pain Location: Back (with movment and at rest) Description: Stiffness Frequency: Continuous Post Treatment Pain Score: (not rated) OBJECTIVE MEASURES WITH LEVEL OF FUNCTION: Improved functional ability to sit to stand from chair. TREATMENT: Therapeutic Exercise: 1: TA supine 2-3 second hold x 15. 2: TA with alt arm lifts x 15. 3: TA with marching x 15 4: TA with bent knee fall outs x 15. 5: Seated heel and toe raises x 20. 6: Seated marching 1# B 2x12. 7: Seated B LAQ 1# 2x12. 8: Sit to stand from chair 1x 10 and 1x5 with UE assist. 9: Supine core stabiliation with green band from thighs up toward ceiling 2x10. Skilled Intervention: Patient was educated in proper exercise technique and purpose for exercises. Skilled judgment was provided in selection of appropriate interventions. Neuromuscular Re-Education: 1: NBOS on foam square with eyes open, eyes open and head turns and eyes closed with CGA. 2: Semi-tandem stance with eyes open , eyes open and head turns and eyes closed with CGA. 3: Balance board A/P and lateral x 10 and multiple attempts at balance. with CGA. 4: Forward and backward stepping over 2'x4 x 10 each direction. 5: Forward step up onto foam square leading with right and left LE x 10 each with 1 UE assist. Skilled Intervention: Skilled judgment used to assess appropriate program for balance and coordination activity. Insured patient safety with use of gait belt and contact guard assist. Billing: [facility]: Therapeutic Exercise (35498): 1:1 time: 25 minutes (2 units: 23-37 mins) Neuromuscular Re-education (44032): 1:1 time:20 minutes (1 unit: 8-22 mins) Total time: 45 minutes Zulma Patel PTDavid Akins PT Previous Version Follow-up and Disposition History Recorded PROGRESS Observed: 12/15/2017 Status: COMPLETED Source: [place] 3:56 PM [facility] REPOSITORY HNO ID: [id number] Author: Dacia Uriostegui Service: (none) Author Type: LICENSED NURSE Type: Progress Notes Filed: 12/15/2017 3:56 PM Note Text: See phone note.Dacia Uriostegui LPN PROGRESS Observed: 12/15/2017 Status: COMPLETED Source: [place] 2:59 PM [facility] REPOSITORY HNO ID: [id number] Author: James JosePt) Marycesar Service: (none) Author Type: Physical Therapist Type: Progress Notes Filed: 12/15/2017 3:59 PM Note Text: Episode Visit Count: 3 Therapist That Will Oversee The Plan Of Care: Chad Akins Start of Care Date: 11/23/17 Onset Date: 05/08/17 Plan of Care Certification Date: 11/23/17 Patient Identified by Name and Date of : Yes REHABILITATION AND SPORTS THERAPY PHYSICAL THERAPY TREATMENT NOTE ASSESSMENT: Felicia Stover demonstrated difficulty with backward stepping over 2'x4. She also fatigued quickly with balance exercise and needed to sit more frequently today. Patient appeared tired today and reported feeling tired. Good form with exercises from previous treatment. The patient will continue to benefit from continued skilled physical therapy for progression of lower extremity strengthening and balance. PLAN FOR NEXT VISIT: Continue with balance , core strengthening and LE strengthening. SUBJECTIVE: Patient reports increase soreness in back with cane being adjusted shorter and requested to have the cane re-adjuted. Patient reports having a corn on right foot which is painful today. 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 Patient reports good tolerance to exercise from last visit. Pain Score: 6/10 Pain Location: Back (no pain at rest) Description: Aching Frequency: Continuous Post Treatment Pain Score: No Change OBJECTIVE MEASURES WITH LEVEL OF FUNCTION: 30 second sit to stand from chair with UE assist x 6. TREATMENT: Therapeutic Exercise: 1: TA supine 2-3 second hold x 10. 2: TA with alt arm lifts x 12. 3: TA with marching x 12 4: TA with bent knee fall outs x 12. 5: Seated heel and toe raises x 20. 6: Seated marching 1# B 2x10. 7: Seated B LAQ 1# 2x10. 8: 30 second sit to stand from chair with UE assist x 6. Skilled Intervention: Patient was educated in proper exercise technique and purpose for exercises. Skilled judgment was provided in selection of appropriate interventions. Correct performance of therapeutic exercises was facilitated with verbal cuing. Neuromuscular Re-Education: 1: NBOS on level with eyes open, eyes open and head turns and eyes closed with CGA. 2: Semi-tandem stance with eyes open , eyes open and head turns and eyes closed with CGA. 3: Balance board A/P and lateral x 10 and multiple attempts at balance. with CGA. 4: Forward and backward stepping over 2'x4 x 10 each direction. Skilled Intervention: Skilled judgment used to assess appropriate program for balance and coordination activity. Insured patient safety with use of gait belt and contact guard assist. Billing: [facility]: Therapeutic Exercise ([id number]): 1:1 time: 25 minutes (2 units: 23-37 mins) Neuromuscular Re-education (93229): 1:1 time:15 minutes (1 unit: 8-22 mins) Total time: 40 minutes JOSH Henao PT CNTHERAPY Observed: 12/15/2017 Status: COMPLETED Source: [place] 2:45 PM [facility] REPOSITORY OT/PT/Speech Visit (PTWS) FELICIA STOVER ([id number]) 1935 F NFR Date Time Provider Department 12/15/17 2:45 PM ZULMA PATEL ([facility] PTWS Date Time Provider Department Center 12/15/2017 2:45 PM [id number], NANCY ([facility]) PTWS [facility] Reason for Visit: Physical Therapy [503] Primary Visit Diagnosis:Chronic bilateral low back pain without sciatica [M54.5, G89.29] Other Visit Diagnosis:Spinal stenosis of lumbar region, unspecified whether neurogenic claudication present [M48.061] Allergies As of Date: 12/15/2017 Noted Allergy Reaction CRAB 03/12/2003 Comments: Itching, swelling LOBSTER (CRUSTACEANS) 03/12/2003 Comments: Can'T touch RAGWEED 03/12/2003 14 - Other: See Comments Comments: Sneezing Scampi [Other] 03/12/2003 Comments: Swelling, itching. SULFA (SULFONAMIDE ANTIBIOTICS) 03/12/2003 Comments: SWELLING Rash TOPROL XL (METOPROLOL SUCCINATE) 04/13/2010 14 - Other: See Comments Comments: Chest fullness Date Reviewed: 11/17/2017 Reviewed by: Mesfin Peterson RN - Fully Assessed Prescriptions as of 12/15/2017 Sig: WARFARIN 3 MG TABLET Take 1 tablet by mouth once d* MONTELUKAST 10 MG TABLET TAKE 1 TABLET BY MOUTH DAILY * VERAPAMIL ER (SR) 240 MG TABL* Take 1 tablet by mouth once d* IPRATROPIUM BROMIDE 42 MCG (0* 2 sprays per each nostril 2-3* Patient not taking: Reported on 11/17/2017 POTASSIUM CHLORIDE ER 10 MEQ * Take 1 tablet by mouth every * Patient taking differently: Take 10 mEq by mouth once lio* FUROSEMIDE 20 MG TABLET Take 1 tablet by mouth every * Patient taking differently: Take 20 mg by mouth as needed* MUPIROCIN 2 % TOPICAL CREAM Apply 1 application to affect* NITROGLYCERIN 0.4 MG SUBLINGU* Dissolve 1 tablet under the t* FLUTICASONE FUROATE 200 MCG/A* Inhale 1 Inhalation as instru* KETOCONAZOLE 2 % SHAMPOO Apply 1 application to affect* FLECAINIDE 100 MG TABLET Take 1 tablet by mouth twice * HYDROXYCHLOROQUINE 200 MG TAB* Take 200 mg by mouth twice da* LISINOPRIL 20 MG TABLET Take 1 tablet by mouth twice * WARFARIN 2.5 MG TABLET Take as directed per physicia* WARFARIN 5 MG TABLET Take as directed WARFARIN 2 MG TABLET Take 1 tablet by mouth daily * DENOSUMAB 60 MG/ML SUBCUTANEO* Inject 1 mL subcutaneously as* OXYCODONE-ACETAMINOPHEN 5 MG-* Take 1 tablet by mouth once d* TRAMADOL 50 MG TABLET Take 1 tablet by mouth every * BIOTIN ORAL Take 1 capsule by mouth once * CHOLECALCIFEROL (VITAMIN D3) * Take 1 capsule by mouth once * Progress Notes: James Mena, PT 12/15/2017 3:59 PM Signed Episode Visit Count: 3 Therapist That Will Oversee The Plan Of Care: Chad Akins Start of Care Date: 11/23/17 Onset Date: 05/08/17 Plan of Care Certification Date: 11/23/17 Patient Identified by Name and Date of : Yes REHABILITATION AND SPORTS THERAPY PHYSICAL THERAPY TREATMENT NOTE ASSESSMENT: Felicia Stover demonstrated difficulty with backward stepping over 2'x4. She also fatigued quickly with balance exercise and needed to sit more frequently today. Patient appeared tired today and reported feeling tired. Good form with exercises from previous treatment. The patient will continue to benefit from continued skilled physical therapy for progression of lower extremity strengthening and balance. PLAN FOR NEXT VISIT: Continue with balance , core strengthening and LE strengthening. SUBJECTIVE: Patient reports increase soreness in back with cane being adjusted shorter and requested to have the cane re-adjuted. Patient reports having a corn on right foot which is painful today. 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 Patient reports good tolerance to exercise from last visit. Pain Score: 6/10 Pain Location: Back (no pain at rest) Description: Aching Frequency: Continuous Post Treatment Pain Score: No Change OBJECTIVE MEASURES WITH LEVEL OF FUNCTION: 30 second sit to stand from chair with UE assist x 6. TREATMENT: Therapeutic Exercise: 1: TA supine 2-3 second hold x 10. 2: TA with alt arm lifts x 12. 3: TA with marching x 12 4: TA with bent knee fall outs x 12. 5: Seated heel and toe raises x 20. 6: Seated marching 1# B 2x10. 7: Seated B LAQ 1# 2x10. 8: 30 second sit to stand from chair with UE assist x 6. Skilled Intervention: Patient was educated in proper exercise technique and purpose for exercises. Skilled judgment was provided in selection of appropriate interventions. Correct performance of therapeutic exercises was facilitated with verbal cuing. Neuromuscular Re-Education: 1: NBOS on level with eyes open, eyes open and head turns and eyes closed with CGA. 2: Semi-tandem stance with eyes open , eyes open and head turns and eyes closed with CGA. 3: Balance board A/P and lateral x 10 and multiple attempts at balance. with CGA. 4: Forward and backward stepping over 2'x4 x 10 each direction. Skilled Intervention: Skilled judgment used to assess appropriate program for balance and coordination activity. Insured patient safety with use of gait belt and contact guard assist. Billing: [facility]: Therapeutic Exercise ([id number]): 1:1 time: 25 minutes (2 units: 23-37 mins) Neuromuscular Re-education (82580): 1:1 time:15 minutes (1 unit: 8-22 mins) Total time: 40 minutes Zulma Patel PTDavid Mena PT Previous Version Follow-up and Disposition History Recorded PROGRESS Observed: 12/15/2017 Status: COMPLETED Source: [place] 9:48 AM [facility] REPOSITORY HNO ID: [id number] Author: Chula Renee RN Service: (none) Author Type: (none) Type: Progress Notes Filed: 12/15/2017 9:50 AM Note Text: patient had inr completed at [facility] patients inr is 2.3 (patients inr range is 2.0-3.0) patient is currently taking 9mg-9mg-6mg cycle patients last dose change was on 08/01/17 due to provider choice (level of 2.7 and dose at that time was 9mg alternating with 6mg) patient has had no changes in medication and no missed doses and no change in diet Advised patient that they would be contacted regarding medication dose and when to follow up after information is reviewed by provider. After provider review please contact the patient with information and schedule follow up appointment with coumadin clinic. PROGRESS Observed: 12/12/2017 Status: COMPLETED Source: [place] 12:06 PM [facility] REPOSITORY HNO ID: [id number] Author: Chad Akins Service: (none) Author Type: Physical Therapist Type: Progress Notes Filed: 12/12/2017 12:29 PM Note Text: Episode Visit Count: 2 Therapist That Will Oversee The Plan Of Care: Chad Akins Start of Care Date: 11/23/17 Onset Date: 05/08/17 Plan of Care Certification Date: 11/23/17 Patient Identified by Name and Date of : Yes REHABILITATION AND SPORTS THERAPY PHYSICAL THERAPY TREATMENT NOTE ASSESSMENT: Felicia Stover demonstrated difficulty with gait with st cane with increase external rotation of left foot from previous foot surgery. Patient with continual low back pain and core strengthening was started today and added to HEP. Flexion based exercises will be avoided due to osteoporosis. The patient will continue to benefit from continued skilled physical therapy for exercise and balance and gait. PLAN FOR NEXT VISIT: Continue with core strengthening, LE strengthening and balance activities. SUBJECTIVE: Patient reports her back aches and she has balance trouble. She reports not taking pain pills currently. Patient reports she goes to the gym at [employer] and works out 3x/week. Pain Score: 6/10 Pain Location: Back (Central) Description: Aching;Stiffness Frequency: Continuous Post Treatment Pain Score: No Change OBJECTIVE MEASURES WITH LEVEL OF FUNCTION: Increase external rotation of left foot during gait with st cane. Patient reports this is from previous left foot surgery. TREATMENT: Therapeutic Exercise: 1: *TA supine 2-3 second hold x 10. 2: *TA with alt arm lifts x 10. 3: *TA with marchin x 10 4: *TA with bent knee fall outs x 10. 5: *Seated heel and toe raises x 20. 6: *Seated marching B 2x10. 7: *Seated B LAQ 2x10. Skilled Intervention: Patient was educated in proper exercise technique and purpose for exercises. Reviewed and educated patient on additions/changes for home exercise program as above (*) Skilled judgment was provided in selection of appropriate interventions. Provided written instruction for home exercise program to facilitate proper performance and compliance. Correct performance of therapeutic exercises was facilitated with verbal and visual cuing. Neuromuscular Re-Education: 1: NBOS on level with eyes open, eyes open and head turns and eyes closed with CGA. 2: Semi-tandem stance with eyes open , eyes open and head turns and eyes closed with CGA. 3: Balance board A/P and lateral x 10 and multiple attempts at balance. with CGA. Skilled Intervention: Skilled judgment used to assess appropriate program for balance and coordination activity. Insured patient safety with use of gait belt and contact guard assist. Billing: [facility]: Therapeutic Exercise ([id number]): 1:1 time: 35 minutes (2 units: 23-37 mins) Neuromuscular Re-education (81534): 1:1 time:10 minutes (1 unit: 8-22 mins) Total time: 45 minutes JOSH Henao PT CNTHERAPY Observed: 12/12/2017 Status: COMPLETED Source: [place] 10:45 AM [facility] REPOSITORY OT/PT/Speech Visit (PTWS) FELICIA STOVER ([id number]) 1935 F NFR Date Time Provider Department 12/12/17 10:45 AM ZULMA PATEL ([facility] PT[facility] Date Time Provider Department Center 12/12/2017 10:45 AM [id number], NANCY ([facility]) PTWS [facility] Reason for Visit: Physical Therapy [503] Primary Visit Diagnosis:Chronic bilateral low back pain without sciatica [M54.5, G89.29] Other Visit Diagnosis:Spinal stenosis of lumbar region, unspecified whether neurogenic claudication present [M48.061] Allergies As of Date: 12/12/2017 Noted Allergy Reaction CRAB 03/12/2003 Comments: Itching, swelling LOBSTER (CRUSTACEANS) 03/12/2003 Comments: Can'T touch RAGWEED 03/12/2003 14 - Other: See Comments Comments: Sneezing Scampi [Other] 03/12/2003 Comments: Swelling, itching. SULFA (SULFONAMIDE ANTIBIOTICS) 03/12/2003 Comments: SWELLING Rash TOPROL XL (METOPROLOL SUCCINATE) 04/13/2010 14 - Other: See Comments Comments: Chest fullness Date Reviewed: 11/17/2017 Reviewed by: Mesfin Peterson RN - Fully Assessed Prescriptions as of 12/12/2017 Sig: MONTELUKAST 10 MG TABLET TAKE 1 TABLET BY MOUTH DAILY * VERAPAMIL ER (SR) 240 MG TABL* Take 1 tablet by mouth once d* IPRATROPIUM BROMIDE 42 MCG (0* 2 sprays per each nostril 2-3* Patient not taking: Reported on 11/17/2017 POTASSIUM CHLORIDE ER 10 MEQ * Take 1 tablet by mouth every * Patient taking differently: Take 10 mEq by mouth once lio* FUROSEMIDE 20 MG TABLET Take 1 tablet by mouth every * Patient taking differently: Take 20 mg by mouth as needed* MUPIROCIN 2 % TOPICAL CREAM Apply 1 application to affect* NITROGLYCERIN 0.4 MG SUBLINGU* Dissolve 1 tablet under the t* FLUTICASONE FUROATE 200 MCG/A* Inhale 1 Inhalation as instru* KETOCONAZOLE 2 % SHAMPOO Apply 1 application to affect* FLECAINIDE 100 MG TABLET Take 1 tablet by mouth twice * HYDROXYCHLOROQUINE 200 MG TAB* Take 200 mg by mouth twice da* LISINOPRIL 20 MG TABLET Take 1 tablet by mouth twice * WARFARIN 3 MG TABLET Take 1 tablet by mouth once d* WARFARIN 2.5 MG TABLET Take as directed per physicia* WARFARIN 5 MG TABLET Take as directed WARFARIN 2 MG TABLET Take 1 tablet by mouth daily * DENOSUMAB 60 MG/ML SUBCUTANEO* Inject 1 mL subcutaneously as* OXYCODONE-ACETAMINOPHEN 5 MG-* Take 1 tablet by mouth once d* TRAMADOL 50 MG TABLET Take 1 tablet by mouth every * BIOTIN ORAL Take 1 capsule by mouth once * CHOLECALCIFEROL (VITAMIN D3) * Take 1 capsule by mouth once * Progress Notes: Chad Akins, PT 12/12/2017 12:29 PM Signed Episode Visit Count: 2 Therapist That Will Oversee The Plan Of Care: Chad Akins Start of Care Date: 11/23/17 Onset Date: 05/08/17 Plan of Care Certification Date: 11/23/17 Patient Identified by Name and Date of : Yes REHABILITATION AND SPORTS THERAPY PHYSICAL THERAPY TREATMENT NOTE ASSESSMENT: Felicia Stover demonstrated difficulty with gait with st cane with increase external rotation of left foot from previous foot surgery. Patient with continual low back pain and core strengthening was started today and added to HEP. Flexion based exercises will be avoided due to osteoporosis. The patient will continue to benefit from continued skilled physical therapy for exercise and balance and gait. PLAN FOR NEXT VISIT: Continue with core strengthening, LE strengthening and balance activities. SUBJECTIVE: Patient reports her back aches and she has balance trouble. She reports not taking pain pills currently. Patient reports she goes to the gym at [employer] and works out 3x/week. Pain Score: 6/10 Pain Location: Back (Central) Description: Aching;Stiffness Frequency: Continuous Post Treatment Pain Score: No Change OBJECTIVE MEASURES WITH LEVEL OF FUNCTION: Increase external rotation of left foot during gait with st cane. Patient reports this is from previous left foot surgery. TREATMENT: Therapeutic Exercise: 1: *TA supine 2-3 second hold x 10. 2: *TA with alt arm lifts x 10. 3: *TA with marchin x 10 4: *TA with bent knee fall outs x 10. 5: *Seated heel and toe raises x 20. 6: *Seated marching B 2x10. 7: *Seated B LAQ 2x10. Skilled Intervention: Patient was educated in proper exercise technique and purpose for exercises. Reviewed and educated patient on additions/changes for home exercise program as above (*) Skilled judgment was provided in selection of appropriate interventions. Provided written instruction for home exercise program to facilitate proper performance and compliance. Correct performance of therapeutic exercises was facilitated with verbal and visual cuing. Neuromuscular Re-Education: 1: NBOS on level with eyes open, eyes open and head turns and eyes closed with CGA. 2: Semi-tandem stance with eyes open , eyes open and head turns and eyes closed with CGA. 3: Balance board A/P and lateral x 10 and multiple attempts at balance. with CGA. Skilled Intervention: Skilled judgment used to assess appropriate program for balance and coordination activity. Insured patient safety with use of gait belt and contact guard assist. Billing: [facility]: Therapeutic Exercise ([id number]): 1:1 time: 35 minutes (2 units: 23-37 mins) Neuromuscular Re-education (90491): 1:1 time:10 minutes (1 unit: 8-22 mins) Total time: 45 minutes Zulma Patel PTDavid Akins PT Previous Version Follow-up and Disposition History Recorded PROGRESS Observed: 11/29/2017 Status: COMPLETED Source: [place] 2:37 PM [facility] REPOSITORY HNO ID: [id number] Author: Dacia Uriostegui Service: (none) Author Type: LICENSED NURSE Type: Progress Notes Filed: 11/29/2017 2:37 PM Note Text: See phone note.Dacia Uriostegui LPN PROGRESS Observed: 11/29/2017 Status: COMPLETED Source: [place] 10:38 AM [facility] REPOSITORY HNO ID: [id number] Author: Nikkie Hilliard RN Service: (none) Author Type: (none) Type: Progress Notes Filed: 11/29/2017 2:37 PM Note Text: INR 3.2-results reviewed with patient. Current Coumadin dose is 9mg-9mg-6mg cycle (patient finished recent antibiotic) with no recent dose change. Last INR on 11/14/17 was 2.4. Advised patient would be contacted regarding dosage and followup instructions after review by Cardiology provider. Written instructions given and patient verbalized understanding. Nikkie Hilliard RN PROGRESS Observed: 11/23/2017 Status: COMPLETED Source: [place] 11:36 AM [facility] REPOSITORY HNO ID: [id number] Author: Chad (Pt) Tashi Service: (none) Author Type: Physical Therapist Type: Progress Notes Filed: 11/23/2017 2:41 PM Note Text: Episode Visit Count: 1 Therapist That Will Oversee The Plan Of Care: Chad Akins Start of Care Date: 11/23/17 Onset Date: 05/08/17 Plan of Care Certification Date: 11/23/17 Patient Identified by Name and Date of : Yes REHABILITATION AND SPORTS THERAPY PHYSICAL THERAPY EVALUATION PLAN OF CARE: Assessment: Felicia Stover presents with the chief complaint of difficulty with walking, standing, and general functional mobility. She presents with impairments of history of falls with injury, balance deficits, endurance and functional strength deficits, as well as decreased walking speed. Patient presents as a complex at risk fall group. She may benefit from skilled therapy services to improve the above noted deficits and prevent prevent falls. Goals for Episode of Care: created on 11/23/17 through 02/23/18 Patient will report no falls. Improve score on Timed Up and Go Test to 10 seconds to reflect decreased fall risk. Improve score on 30 Second Chair Stand to 8 repetitions to reflect decreased fall risk. Improve performance on 4 Stage Balance Test to 8 sec bilaterally in single leg stance to reflect decreased fall risk. Bath in home exercise program including cardiovascular exercise. Patient will decrease pain rating by 2 points to meet Minimal Clinical Important Difference for number pain scale rating. Perform standing for cooking with decreased report of symptoms / pain. G CODE REPORTING Based on clinical assessment and the score on the AM-PAC Scale Score Assessment Tool, the G code and corresponding severity modifiers are documented below. Evaluation: 11/23/2017 Current Status: Mobility: Walking and Moving Around: G8978 20-39% impaired Goal Status: Mobility: Walking and Moving Around: G8979 20-39% impaired Planned Interventions, Frequency, and Duration: Current Frequency: 2x/week Duration: 4 weeks Total Number of Visits Planned: 8 Planned Treatment Interventions: Therapeutic exercise;Neuromuscular re-education;Manual therapy;Self-snf management;Patient/Family/Caregiver Education Patient demonstrates good understanding of plan of care and treatment. The above goals and plan of care were discussed and agreed upon by patient/family. SUBJECTIVE: Felicia Stover is a 82 year old female seen today for chronic low back pain with unsteadiness, difficulty walking, standing, and balance. Sitting is no issue, she can sit for hours with no issues. Getting out of a chair can be problematic. Cooking is very difficult due to the long duration standing. Pt has no issues bending over, but straightening out she feels like her legs are very weak and about to give out on her. Pt has had 4 back fractures spanning from 1989- 2011 or so. Has had many falls in past with and without injury. Spine History Symptoms Location at Onset: Back Symptoms Since Onset: Worsening Pain is Worse Always: Standing Pain is Worse Sometimes: Walking Pain is Better Always: Sitting Pain is Better Sometimes: Lying Pain Score: 2/10 Pain Location: Back Description: Aching Frequency: Continuous OBJECTIVE MEASURES WITH LEVEL OF FUNCTION: LE Strength Trunk Strength: 4-/5 R LE Strength: 5/5 L LE Strength: 5/5 30 Second Sit to Stand Test (reps): 6 reps 4 Stage Balance Test Narrow base of support (sec): 20 sec Semi-tandem base of support (sec): 20 sec Tandem base of support (sec): 10 sec Single leg stance - right (sec): 2 sec Single leg stance - left (sec): 5 sec Timed Up and Go (sec): 13.08 sec Education: TREATMENT: Evaluation Billing: [facility]: Evaluation - Moderate Complexity (16802) Total time: 40 minutes Chad Akins PT CNTHERAPY Observed: 11/23/2017 Status: COMPLETED Source: [place] 10:15 AM [facility] REPOSITORY OT/PT/Speech Visit (PTWS) FELICIA STOVER ([id number]) 1935 F NFR Date Time Provider Department 11/23/17 10:15 AM CHAD AKINS (PT) PTWS Date Time Provider Department Center 11/23/2017 10:15 AM [id number], SEAN (PT)PTWS [facility] Reason for Visit: PT Eval [747] Physical Therapy [503] Primary Visit Diagnosis:Bilateral low back pain without sciatica, unspecified chronicity [M54.5] Other Visit Diagnosis:Spinal stenosis of lumbar region, unspecified whether neurogenic claudication present [M48.061] Allergies As of Date: 11/23/2017 Noted Allergy Reaction CRAB 03/12/2003 Comments: Itching, swelling LOBSTER (CRUSTACEANS) 03/12/2003 Comments: Can'T touch RAGWEED 03/12/2003 14 - Other: See Comments Comments: Sneezing Scampi [Other] 03/12/2003 Comments: Swelling, itching. SULFA (SULFONAMIDE ANTIBIOTICS) 03/12/2003 Comments: SWELLING Rash TOPROL XL (METOPROLOL SUCCINATE) 04/13/2010 14 - Other: See Comments Comments: Chest fullness Date Reviewed: 11/17/2017 Reviewed by: Mesfin Peterson RN - Fully Assessed Prescriptions as of 11/23/2017 Sig: MONTELUKAST 10 MG TABLET TAKE 1 TABLET BY MOUTH DAILY * VERAPAMIL ER (SR) 240 MG TABL* Take 1 tablet by mouth once d* IPRATROPIUM BROMIDE 42 MCG (0* 2 sprays per each nostril 2-3* Patient not taking: Reported on 11/17/2017 POTASSIUM CHLORIDE ER 10 MEQ * Take 1 tablet by mouth every * Patient taking differently: Take 10 mEq by mouth once lio* FUROSEMIDE 20 MG TABLET Take 1 tablet by mouth every * Patient taking differently: Take 20 mg by mouth as needed* MUPIROCIN 2 % TOPICAL CREAM Apply 1 application to affect* NITROGLYCERIN 0.4 MG SUBLINGU* Dissolve 1 tablet under the t* FLUTICASONE FUROATE 200 MCG/A* Inhale 1 Inhalation as instru* KETOCONAZOLE 2 % SHAMPOO Apply 1 application to affect* FLECAINIDE 100 MG TABLET Take 1 tablet by mouth twice * HYDROXYCHLOROQUINE 200 MG TAB* Take 200 mg by mouth twice da* LISINOPRIL 20 MG TABLET Take 1 tablet by mouth twice * WARFARIN 3 MG TABLET Take 1 tablet by mouth once d* WARFARIN 2.5 MG TABLET Take as directed per physicia* WARFARIN 5 MG TABLET Take as directed WARFARIN 2 MG TABLET Take 1 tablet by mouth daily * DENOSUMAB 60 MG/ML SUBCUTANEO* Inject 1 mL subcutaneously as* OXYCODONE-ACETAMINOPHEN 5 MG-* Take 1 tablet by mouth once d* TRAMADOL 50 MG TABLET Take 1 tablet by mouth every * BIOTIN ORAL Take 1 capsule by mouth once * CHOLECALCIFEROL (VITAMIN D3) * Take 1 capsule by mouth once * Progress Notes: Chad Akins, PT 11/23/2017 2:41 PM Signed Episode Visit Count: 1 Therapist That Will Oversee The Plan Of Care: Chad Akins Start of Care Date: 11/23/17 Onset Date: 05/08/17 Plan of Care Certification Date: 11/23/17 Patient Identified by Name and Date of : Yes REHABILITATION AND SPORTS THERAPY PHYSICAL THERAPY EVALUATION PLAN OF CARE: Assessment: Felicia Stover presents with the chief complaint of difficulty with walking, standing, and general functional mobility. She presents with impairments of history of falls with injury, balance deficits, endurance and functional strength deficits, as well as decreased walking speed. Patient presents as a complex at risk fall group. She may benefit from skilled therapy services to improve the above noted deficits and prevent prevent falls. Goals for Episode of Care: created on 11/23/17 through 02/23/18 Patient will report no falls. Improve score on Timed Up and Go Test to 10 seconds to reflect decreased fall risk. Improve score on 30 Second Chair Stand to 8 repetitions to reflect decreased fall risk. Improve performance on 4 Stage Balance Test to 8 sec bilaterally in single leg stance to reflect decreased fall risk. Bath in home exercise program including cardiovascular exercise. Patient will decrease pain rating by 2 points to meet Minimal Clinical Important Difference for number pain scale rating. Perform standing for cooking with decreased report of symptoms / pain. G CODE REPORTING Based on clinical assessment and the score on the AM-PAC Scale Score Assessment Tool, the G code and corresponding severity modifiers are documented below. Evaluation: 11/23/2017 Current Status: Mobility: Walking and Moving Around: G8978 20-39% impaired Goal Status: Mobility: Walking and Moving Around: G8979 20-39% impaired Planned Interventions, Frequency, and Duration: Current Frequency: 2x/week Duration: 4 weeks Total Number of Visits Planned: 8 Planned Treatment Interventions: Therapeutic exercise;Neuromuscular re-education;Manual therapy;Self-snf management;Patient/Family/Caregiver Education Patient demonstrates good understanding of plan of care and treatment. The above goals and plan of care were discussed and agreed upon by patient/family. SUBJECTIVE: Felicia Stover is a 82 year old female seen today for chronic low back pain with unsteadiness, difficulty walking, standing, and balance. Sitting is no issue, she can sit for hours with no issues. Getting out of a chair can be problematic. Cooking is very difficult due to the long duration standing. Pt has no issues bending over, but straightening out she feels like her legs are very weak and about to give out on her. Pt has had 4 back fractures spanning from [id number] or so. Has had many falls in past with and without injury. Spine History Symptoms Location at Onset: Back Symptoms Since Onset: Worsening Pain is Worse Always: Standing Pain is Worse Sometimes: Walking Pain is Better Always: Sitting Pain is Better Sometimes: Lying Pain Score: 2/10 Pain Location: Back Description: Aching Frequency: Continuous OBJECTIVE MEASURES WITH LEVEL OF FUNCTION: LE Strength Trunk Strength: 4-/5 R LE Strength: 5/5 L LE Strength: 5/5 30 Second Sit to Stand Test (reps): 6 reps 4 Stage Balance Test Narrow base of support (sec): 20 sec Semi-tandem base of support (sec): 20 sec Tandem base of support (sec): 10 sec Single leg stance - right (sec): 2 sec Single leg stance - left (sec): 5 sec Timed Up and Go (sec): 13.08 sec Education: TREATMENT: Evaluation Billing: [facility]: Evaluation - Moderate Complexity ([id number]) Total time: 40 minutes Chad Akins PT PROGRESS Observed: 11/17/2017 Status: COMPLETED Source: [place] 2:53 PM [facility] REPOSITORY HNO ID: [id number] Author: Rashard Hall Service: (none) Author Type: Physician Type: Progress Notes Filed: 11/17/2017 5:18 PM Note Text: PERTINENT CARDIAC HISTORY Atrial fib - paroxysmal, c/version (multiple), intolerant of beta doug (bradycardia) HL - declines statin HTN ADHERENCE TO GUIDELINES ABDIEL-I or ARB for HF with prior LVEF<40 (NQF 0081) - N/A ASA or Plavix for ASHD (NQF 0067) - N/A Beta doug for ASHD with prior NC or prior LVEF<40 (NQF 0070) - N/A Beta doug for HF with prior LVEF<40 (NQF 0083) - N/A ABDIEL-I or ARB for ASHD with DM or prior LVEF<40 (NQF 0066) - N/A Statin therapy for ASHD or FHL or DM - declines BMI documented and plan if >25 (NQF 0421) - lifestyle recommendation form Tobacco use screening and referral (NQF 0028) - lifestyle recommendation form Recommendation for whole food, plant based diet - lifestyle recommendation form CLINICAL IMPRESSION/PLAN: Felicia Stover is doing well. She is clinically in sinus rhythm at this time. Blood pressure is well controlled. I've advised her to continue her current medication. She has been advised to increase her exercise. I will see her in 6 months. Follow-up echocardiogram will be considered at that time. Written and verbal health teaching given to patient, patient verbalizes understanding and agrees with treatment plan. DIAGNOSIS FOR VISIT: PAF HISTORY OF PRESENT ILLNESS Felicia Stover returns for follow-up of her atrial fibrillation and hypertension. She has had no palpitations since her last cardioversion. Her exercise tolerance has been stable. She's had no chest pain. She denies orthopnea, edema, syncope, TIAs, amaurosis and claudication. ALLERGIES: ALLERGIES Allergen Reactions - Crab Itching, swelling - Lobster (Crustacean* Can'T touch - Ragweed Other: See Comments Sneezing - Scampi [Other] Swelling, itching. - Sulfa (Sulfonamide * SWELLING Rash - Toprol Xl [Metoprol* Other: See Comments Chest fullness CURRENT OUTPATIENT MEDICATIONS: montelukast (SINGULAIR) 10 mg tablet TAKE 1 TABLET BY MOUTH DAILY AT BEDTIME. verapamil SR (CALAN SR, ISOPTIN SR) 240 mg CR tablet Take 1 tablet by mouth once daily. potassium chloride (K-TAB) 10 mEq tablet Take 1 tablet by mouth every 48 hours. furosemide (LASIX) 20 mg tablet Take 1 tablet by mouth every 48 hours. nitroglycerin sublingual (NITROQUICK) 0.4 mg SL tablet Dissolve 1 tablet under the tongue as needed. for chest pain,every 5 min x3 fluticasone furoate (ARNUITY ELLIPTA) 200 mcg/actuation dsdv Inhale 1 Inhalation as instructed once daily. flecainide (TAMBOCOR) 100 mg tablet Take 1 tablet by mouth twice daily. hydroxychloroquine (PLAQUENIL) 200 mg tablet Take 200 mg by mouth twice daily. lisinopril (ZESTRIL, PRINIVIL) 20 mg tablet Take 1 tablet by mouth twice daily. warfarin (COUMADIN) 2 mg tablet Take 1 tablet by mouth daily as directed. denosumab (PROLIA) 60 mg/mL syrg Inject 1 mL subcutaneously as directed. oxyCODONE-acetaminophen (PERCOCET) 5-325 mg tablet Take 1 tablet by mouth once daily as needed. traMADol (ULTRAM) 50 mg tablet Take 1 tablet by mouth every 6 hours as needed. BIOTIN ORAL Take 1 capsule by mouth once daily. Cholecalciferol, Vitamin D3, 2,000 unit cap Take 1 capsule by mouth once daily. take with the largest meal of the day ipratropium bromide (ATROVENT) 42 mcg (0.06 %) nasal spray 2 sprays per each nostril 2-3 times a day. mupirocin (BACTROBAN) 2 % cream Apply 1 application to affected area three times daily. ketoconazole (NIZORAL) 2 % shampoo Apply 1 application to affected area once daily as needed. For hair thinning warfarin (COUMADIN) 3 mg tablet Take 1 tablet by mouth once daily. As directed warfarin (COUMADIN) 2.5 mg tablet Take as directed per physician. warfarin (COUMADIN) 5 mg tablet Take as directed PHYSICAL EXAMINATION: VITAL SIGNS: BP 125/78 Pulse 78 Wt 211 lb 14.4 oz (96.1kg) Chest: Clear to percussion and auscultation. Trachea is midline. Air entry is equal. Cardiac: Regular rhythm. S1 and S2 are normal. PMI is nondisplaced. There is a soft murmur of mitral insufficiency. Carotids are brisk without bruits. JVP is less than 10 cm. Abdomen: Soft and nontender. There are no pulsatile masses or bruits. No liver enlargement. Bowel sounds are active. Extremities: Trace edema. Pulses are intact and symmetrical. Recent labs reviewed. Renal function is mildly impaired, but stable. Electronically Signed: Rashard Hall MD November 17, 2017 2:53 PM CC: FARRUKH WHALEN MD CNOV Observed: 11/17/2017 Status: COMPLETED Source: [place] 2:30 PM [facility] REPOSITORY Office Visit (CAWSTR) FELICIA STOVER ([id number]) 1935 F NFR Date Time Provider Department 11/17/17 2:30 PM RASHARD HALL CAWSTR During your visit today, we recorded the following information about you: Pulse Blood pressure Weight 78/minute 125/78 96.1 kg Rashard Hall MD 11/17/2017 5:18 PM Signed PERTINENT CARDIAC HISTORY Atrial fib - paroxysmal, c/version (multiple), intolerant of beta doug (bradycardia) HL - declines statin HTN ADHERENCE TO GUIDELINES ABDIEL-I or ARB for HF with prior LVEF<40 (NQF 0081) - N/A ASA or Plavix for ASHD (NQF 0067) - N/A Beta doug for ASHD with prior NC or prior LVEF<40 (NQF 0070) - N/A Beta doug for HF with prior LVEF<40 (NQF 0083) - N/A ABDIEL-I or ARB for ASHD with DM or prior LVEF<40 (NQF 0066) - N/A Statin therapy for ASHD or FHL or DM - declines BMI documented and plan if >25 (NQF 0421) - lifestyle recommendation form Tobacco use screening and referral (NQF 0028) - lifestyle recommendation form Recommendation for whole food, plant based diet - lifestyle recommendation form CLINICAL IMPRESSION/PLAN: Felicia Stover is doing well. She is clinically in sinus rhythm at this time. Blood pressure is well controlled. I've advised her to continue her current medication. She has been advised to increase her exercise. I will see her in 6 months. Follow-up echocardiogram will be considered at that time. Written and verbal health teaching given to patient, patient verbalizes understanding and agrees with treatment plan. DIAGNOSIS FOR VISIT: PAF HISTORY OF PRESENT ILLNESS Felicia Stover returns for follow-up of her atrial fibrillation and hypertension. She has had no palpitations since her last cardioversion. Her exercise tolerance has been stable. She's had no chest pain. She denies orthopnea, edema, syncope, TIAs, amaurosis and claudication. ALLERGIES: ALLERGIES Allergen Reactions - Crab Itching, swelling - Lobster (Crustacean* Can'T touch - Ragweed Other: See Comments Sneezing - Scampi [Other] Swelling, itching. - Sulfa (Sulfonamide * SWELLING Rash - Toprol Xl [Metoprol* Other: See Comments Chest fullness CURRENT OUTPATIENT MEDICATIONS: montelukast (SINGULAIR) 10 mg tablet TAKE 1 TABLET BY MOUTH DAILY AT BEDTIME. verapamil SR (CALAN SR, ISOPTIN SR) 240 mg CR tablet Take 1 tablet by mouth once daily. potassium chloride (K-TAB) 10 mEq tablet Take 1 tablet by mouth every 48 hours. furosemide (LASIX) 20 mg tablet Take 1 tablet by mouth every 48 hours. nitroglycerin sublingual (NITROQUICK) 0.4 mg SL tablet Dissolve 1 tablet under the tongue as needed. for chest pain,every 5 min x3 fluticasone furoate (ARNUITY ELLIPTA) 200 mcg/actuation dsdv Inhale 1 Inhalation as instructed once daily. flecainide (TAMBOCOR) 100 mg tablet Take 1 tablet by mouth twice daily. hydroxychloroquine (PLAQUENIL) 200 mg tablet Take 200 mg by mouth twice daily. lisinopril (ZESTRIL, PRINIVIL) 20 mg tablet Take 1 tablet by mouth twice daily. warfarin (COUMADIN) 2 mg tablet Take 1 tablet by mouth daily as directed. denosumab (PROLIA) 60 mg/mL syrg Inject 1 mL subcutaneously as directed. oxyCODONE-acetaminophen (PERCOCET) 5-325 mg tablet Take 1 tablet by mouth once daily as needed. traMADol (ULTRAM) 50 mg tablet Take 1 tablet by mouth every 6 hours as needed. BIOTIN ORAL Take 1 capsule by mouth once daily. Cholecalciferol, Vitamin D3, 2,000 unit cap Take 1 capsule by mouth once daily. take with the largest meal of the day ipratropium bromide (ATROVENT) 42 mcg (0.06 %) nasal spray 2 sprays per each nostril 2-3 times a day. mupirocin (BACTROBAN) 2 % cream Apply 1 application to affected area three times daily. ketoconazole (NIZORAL) 2 % shampoo Apply 1 application to affected area once daily as needed. For hair thinning warfarin (COUMADIN) 3 mg tablet Take 1 tablet by mouth once daily. As directed warfarin (COUMADIN) 2.5 mg tablet Take as directed per physician. warfarin (COUMADIN) 5 mg tablet Take as directed PHYSICAL EXAMINATION: VITAL SIGNS: BP 125/78 Pulse 78 Wt 211 lb 14.4 oz (96.1kg) Chest: Clear to percussion and auscultation. Trachea is midline. Air entry is equal. Cardiac: Regular rhythm. S1 and S2 are normal. PMI is nondisplaced. There is a soft murmur of mitral insufficiency. Carotids are brisk without bruits. JVP is less than 10 cm. Abdomen: Soft and nontender. There are no pulsatile masses or bruits. No liver enlargement. Bowel sounds are active. Extremities: Trace edema. Pulses are intact and symmetrical. Recent labs reviewed. Renal function is mildly impaired, but stable. Electronically Signed: Rashard Hall MD November 17, 2017 2:53 PM CC: MD Rashard POSADA MD 11/17/2017 2:54 PM Signed LIFESTYLE CHANGE A healthy lifestyle is the most important component of your overall treatment plan. Please give serious thought to the following areas and commit to making retirement changes. EAT A WHOLE FOOD, PLANT BASED DIET The nutrition your body gets is more important than the medicine you take. What matters most is the overall way you eat. We encourage you to minimize the use of animal products (which include dairy and all meats except fatty fish) and use whole, unprocessed plant foods to provide your protein, vitamins and other nutrients. We have a lot of information to share with you on this topic. This is not a diet. It is a way of life that you will keep with you. EXERCISE REGULARLY It is not important to spend hours in the gym, lifting weights and perspiring heavily. A total of 2-3 hours per week of aerobic (causing you to be moderately short of breath) exercise is sufficient to improve your health. Talk to us before you begin a new exercise program, if you have heart disease or experience shortness of breath or chest pain. REDUCE STRESS Chronic emotional and physical stress leads to disease. Ways of reducing stress include meditation, visualization, prayer, yoga and other forms of relaxation therapy. Consistency is the issa. Find a technique that works for you and do it every day. CULTIVATE RELATIONSHIPS Loneliness and isolation have a major negative impact on health. Seek out others who can love, care for and nurture you. Avoid hurtful relationships. MAINTAIN IDEAL BODY WEIGHT The best way to do this is to do all the things above. Our bodies naturally find the right weight if we keep moving and feed ourselves the right food. If your BMI is greater than 25, we strongly recommend a referral to a weight management program. Please speak to us or your family physician about available programs. AVOID NICOTINE IN ALL FORMS This includes all tobacco products, whether chewed, smoked, vaped, or rubbed on the skin. Smoking cessation programs, which can make use of tobacco substitutes, medications to suppress cravings and behavior management, are available. Please contact your family physician about programs in your area. Referring Provider: FARRUKH WHALEN [[id number]] Allergies As of Date: 11/17/2017 Noted Allergy Reaction CRAB 03/12/2003 Comments: Itching, swelling LOBSTER (CRUSTACEANS) 03/12/2003 Comments: Can'T touch RAGWEED 03/12/2003 14 - Other: See Comments Comments: Sneezing Scampi [Other] 03/12/2003 Comments: Swelling, itching. SULFA (SULFONAMIDE ANTIBIOTICS) 03/12/2003 Comments: SWELLING Rash TOPROL XL (METOPROLOL SUCCINATE) 04/13/2010 14 - Other: See Comments Comments: Chest fullness Date Reviewed: 11/17/2017 Reviewed by: Mesfin Peterson RN - Fully Assessed Reason for Visit: Recheck [92] Primary Visit Diagnosis:PAF (paroxysmal atrial fibrillation) ([facility]) [I48.0] Other Visit Diagnosis:Essential hypertension [I10] Prescriptions as of 11/17/2017 Sig: MONTELUKAST 10 MG TABLET TAKE 1 TABLET BY MOUTH DAILY * VERAPAMIL ER (SR) 240 MG TABL* Take 1 tablet by mouth once d* POTASSIUM CHLORIDE ER 10 MEQ * Take 1 tablet by mouth every * Patient taking differently: Take 10 mEq by mouth once lio* FUROSEMIDE 20 MG TABLET Take 1 tablet by mouth every * Patient taking differently: Take 20 mg by mouth as needed* NITROGLYCERIN 0.4 MG SUBLINGU* Dissolve 1 tablet under the t* FLUTICASONE FUROATE 200 MCG/A* Inhale 1 Inhalation as instru* FLECAINIDE 100 MG TABLET Take 1 tablet by mouth twice * HYDROXYCHLOROQUINE 200 MG TAB* Take 200 mg by mouth twice da* LISINOPRIL 20 MG TABLET Take 1 tablet by mouth twice * WARFARIN 2 MG TABLET Take 1 tablet by mouth daily * DENOSUMAB 60 MG/ML SUBCUTANEO* Inject 1 mL subcutaneously as* OXYCODONE-ACETAMINOPHEN 5 MG-* Take 1 tablet by mouth once d* TRAMADOL 50 MG TABLET Take 1 tablet by mouth every * BIOTIN ORAL Take 1 capsule by mouth once * CHOLECALCIFEROL (VITAMIN D3) * Take 1 capsule by mouth once * IPRATROPIUM BROMIDE 42 MCG (0* 2 sprays per each nostril 2-3* Patient not taking: Reported on 11/17/2017 MUPIROCIN 2 % TOPICAL CREAM Apply 1 application to affect* KETOCONAZOLE 2 % SHAMPOO Apply 1 application to affect* WARFARIN 3 MG TABLET Take 1 tablet by mouth once d* WARFARIN 2.5 MG TABLET Take as directed per physicia* WARFARIN 5 MG TABLET Take as directed Medication notes this encounter NITROGLYCERIN 0.4 MG SUBLINGUAL TABLET >> Mesfin Peterson RN 11/17/2017 2:30 PM >> MESFIN PETERSON RN Fri Nov 17, 2017 2:30 PM Problem List As Of Date 11/17/2017 Noted Resolved PARESTHESIAS [R20.9] INVALID FOR* OVERWEIGHT [E66.9] INVALID FOR*12/02/2014 Essential hypertension [I10] INVALID FOR* More... FEMALE STRESS INCONTINENCE [N39.3] INVALID FOR* DIVERTICULITIS OF COLON W/O BLEED [K57.32] INVALID FOR* HEMORRHOIDS NOS [K64.9] INVALID FOR* ATRIAL FIBRILLATION [I48.91] INVALID FOR* More... HYPERLIPIDEMIA NEC/NOS [E78.5] INVALID FOR* More... INSOMNIA NOS [G47.00] INVALID FOR* GENERAL OSTEOARTHROSIS [M15.9] INVALID FOR* BRADYCARDIA [I49.8] INVALID FOR* Postmenopausal osteoporosis [M81.0] INVALID FOR* More... HYPERGLYCEMIA [R79.89] INVALID FOR* More... MITRAL REGURGITATION [I05.9] INVALID FOR* HYPOMAGNESEMIA [E83.40] INVALID FOR* Unspecified closed fracture of ankle [S82.899A] INVALID FOR* More... IDIO PERIPH NEURPTHY NOS [G60.9] INVALID FOR* BACKACHE NOS [M54.9] INVALID FOR* Other Chronic Pain [G89.29] INVALID FOR* More... 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 Pathologic fracture of vertebrae [M84.48XA] INVALID FOR* Lumbago [M54.5] INVALID FOR* Pseudogout [M11.20] INVALID FOR* More... Lumbar spondylosis [M47.816] INVALID FOR* Lumbar stenosis [M48.061] INVALID FOR* Vitamin D deficiency [E55.9] INVALID FOR* GERD (gastroesophageal reflux disease) [K21.9] INVALID FOR* BMI 32.0-32.9,adult [Z68.32] INVALID FOR* Hyperlipidemia [E78.5] INVALID FOR* More... Impaired fasting glucose [R73.01] INVALID FOR* Bilateral low back pain without sciatica [M54.5]INVALID FOR* Moderate persistent asthma [J45.40] INVALID FOR* More... Persistent asthma [J45.909] INVALID FOR* CKD (chronic kidney disease) stage 3, GFR 30-59*INVALID FOR* Other instructions from your clinician: LIFESTYLE CHANGE A healthy lifestyle is the most important component of your overall treatment plan. Please give serious thought to the following areas and commit to making retirement changes. EAT A WHOLE FOOD, PLANT BASED DIET The nutrition your body gets is more important than the medicine you take. What matters most is the overall way you eat. We encourage you to minimize the use of animal products (which include dairy and all meats except fatty fish) and use whole, unprocessed plant foods to provide your protein, vitamins and other nutrients. We have a lot of information to share with you on this topic. This is not a diet. It is a way of life that you will keep with you. EXERCISE REGULARLY It is not important to spend hours in the gym, lifting weights and perspiring heavily. A total of 2-3 hours per week of aerobic (causing you to be moderately short of breath) exercise is sufficient to improve your health. Talk to us before you begin a new exercise program, if you have heart disease or experience shortness of breath or chest pain. REDUCE STRESS Chronic emotional and physical stress leads to disease. Ways of reducing stress include meditation, visualization, prayer, yoga and other forms of relaxation therapy. Consistency is the issa. Find a technique that works for you and do it every day. CULTIVATE RELATIONSHIPS Loneliness and isolation have a major negative impact on health. Seek out others who can love, care for and nurture you. Avoid hurtful relationships. MAINTAIN IDEAL BODY WEIGHT The best way to do this is to do all the things above. Our bodies naturally find the right weight if we keep moving and feed ourselves the right food. If your BMI is greater than 25, we strongly recommend a referral to a weight management program. Please speak to us or your family physician about available programs. AVOID NICOTINE IN ALL FORMS This includes all tobacco products, whether chewed, smoked, vaped, or rubbed on the skin. Smoking cessation programs, which can make use of tobacco substitutes, medications to suppress cravings and behavior management, are available. Please contact your family physician about programs in your area. Encounter Status:Closed by RASHARD HALL MD on 11/17/17 PROGRESS Observed: 11/14/2017 Status: COMPLETED Source: [place] 11:48 AM [facility] [place] REPOSITORY O ID: [id number] Author: Farrukh Whalen Service: (none) Author Type: Physician Type: Progress Notes Filed: 11/14/2017 1:00 PM Note Text: Reason for Visit Patient presents with: Established Patient: 4 month follow up-htn ,questions about balance Felicia Stover is a 82 year old female who presents here today for Above Complaints.. Health Maintenance ZOSTER VACCINE (SHINGRIX)(2 of 3) HPI Continues to jameson the Prolia well. Falls - at least 3; one out of bed; no fractures. Recently seen by Rheum and has been started on new med for both joint and soft tissue swelling. In August her afib was cardioverted. Continues on the tambacor. When ever she bends over after she gets to a standing position, she feels like her legs give out. ? Her crusting in the nose is better. ? Has a lesion on the left upper lid of eye, no tingling or numbness or burning of the eyes. ? Avoid NSAIDS like naproxen, motrin, brufen, aleve etc and contrast. ? Her asthma is very stable. Notes back ache, and stooping when she walks this could be from lumbar stenosis she has forgetten her exercises for the back, when she was doing it her back was definitely better , she would like to go back for therap ? BP is well controlled on current regimen of medicines- lisinopril 20 mgs- which is tolerated well. No significant side effects No problem-specific Assessment AND Plan notes found for this encounter. 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 - LAPAROSCOPIC CYSTECTOMY 01/14/14 bilateral oophrectomy - PAST SURGICAL HISTORY OF 04/02/2002 DC cardioversion - PAST SURGICAL HISTORY OF 2008 cataracts left and right - PAST SURGICAL HISTORY OF 2007 ankle surgery x 2 right - PAST SURGICAL HISTORY OF lumbar pain injections X2 - REMOVAL GALLBLADDER 1968 Cholecystectomy open - SIGMOIDOSCOPY FLEX DIAG 12/10/09 FAMILY HISTORY Problem Relation Age of Onset - Heart Father - Stroke Mother - Hypertension Mother - Diabetes Brother Social History Substance Use Topics - Smoking status: Never Smoker - Smokeless tobacco: Never Used - Alcohol use Yes Comment: 7 glasses of wine weekly Past medical history, appointments, medications, allergies reviewed. Pertinent Lab/Diagnostic Studies are reviewed and discussed today Current Outpatient Prescriptions: - montelukast (SINGULAIR) 10 mg tablet - verapamil SR (CALAN SR, ISOPTIN SR) 240 mg CR tablet - ipratropium bromide (ATROVENT) 42 mcg (0.06 %) nasal spray - potassium chloride (K-TAB) 10 mEq tablet - furosemide (LASIX) 20 mg tablet - mupirocin (BACTROBAN) 2 % cream - nitroglycerin sublingual (NITROQUICK) 0.4 mg SL tablet - fluticasone furoate (ARNUITY ELLIPTA) 200 mcg/actuation dsdv - ketoconazole (NIZORAL) 2 % shampoo - flecainide (TAMBOCOR) 100 mg tablet - hydroxychloroquine (PLAQUENIL) 200 mg tablet - lisinopril (ZESTRIL, PRINIVIL) 20 mg tablet - warfarin (COUMADIN) 3 mg tablet - warfarin (COUMADIN) 2.5 mg tablet - warfarin (COUMADIN) 5 mg tablet - warfarin (COUMADIN) 2 mg tablet - denosumab (PROLIA) 60 mg/mL syrg - oxyCODONE-acetaminophen (PERCOCET) 5-325 mg tablet - traMADol (ULTRAM) 50 mg tablet - BIOTIN ORAL - Cholecalciferol, Vitamin D3, 2,000 unit cap Review of Systems CONSTITUTIONAL: No fevers, chills night sweats, unintended weight loss CARDIOVASCULAR: No chest pain, dyspnea, palpitations, orthopnea, PND, ankle edema. PULM: No dyspnea, unexplained cough. GI: No dysphagia/odynophagia, problematic reflux, constipation, diarrhea, changes in stool habits, hematochezia, melena. : No new urinary complaints, including dysuria, gross hematuria or pyuria. NEURO: No new balance problems, peripheral weakness/paresthesias or numbness of concern. Physical Exam BP 128/70 (BP Site: Left Arm, BP Position: Sitting, BP Cuff Size: Large Adult) Pulse 67 Resp 12 Ht 170.2 cm (5' 7) Wt 88.9 kg (196 lb) SpO2 96% BMI 30.70 kg/m? General appearance: Well appearing, alert, in no acute distress, well nourished. Skin: Skin color, texture, turgor normal, no suspicious rashes or lesions Head: Normocephalic, no masses, lesions, tenderness or abnormalities Eyes: Anicteric sclera. Pupils are equally round and reactive to light. Extraocular movements are intact. Lungs: Lungs clear to auscultation. No wheezing, rhonchi, rales Heart: RRR without murmur, gallop, or rubs. Extremities: No deformities, edema, skin discoloration, clubbing or cyanosis. Good capillary refill. ASSESSMENT/PLAN: 1. Essential hypertension - ICD9: 401.9, ICD10: I10 (primary diagnosis) - good control - Recommended regular aerobic exercise. - Recommend home blood pressure monitoring, to bring results in on next visit - Goal of BP <130/80 2. Postmenopausal osteoporosis - ICD9: 733.01, ICD10: M81.0 - Reviewed the need for Calcium and Vitamin D supplements and weight bearing exercise as tolerated 3. Atrial fibrillation, unspecified type ([facility]) - ICD9: 427.31, ICD10: I48.91 4. CKD (chronic kidney disease) stage 3, GFR 30-59 ml/min ([facility]) - ICD9: 585.3, ICD10: N18.3 5. Moderate persistent asthma without complication - ICD9: 493.90, ICD10: J45.40 Mild intermittent Asthma stable - Avoidance of triggers recommended 6. Need for vaccination - ICD9: V05.9, ICD10: Z23 - VARICELLA-ZOSTER GLYCOE VACC-AS01B ADJ(PF) 50 MCG/0.5 ML IM SUSP, KIT 7. Lumbar spondylosis - ICD9: 721.3, ICD10: M47.816 - CONSULT TO PHYSICAL THERAPY 8. Spinal stenosis of lumbar region, unspecified whether neurogenic claudication present - ICD9: 724.02, ICD10: M48.061 Mechanical low back pain - Bedrest for 2-3 days - CONSULT TO PHYSICAL THERAPY MD BECKY POSADAOV Observed: 11/14/2017 Status: COMPLETED Source: [place] 11:20 AM [facility] REPOSITORY Office Visit (INTMWS) FELICIA STOVER ([id number]) 1935 F NFR Date Time Provider Department 11/14/17 11:20 AM FARRUKH WHALEN During your visit today, we recorded the following information about you: Pulse Respiration Blood pressure Weight 67/minute 12/minute 128/70 88.9 kg Height 1.702 m FARRUKH WHALEN MD 11/14/2017 1:00 PM Signed Reason for Visit Patient presents with: Established Patient: 4 month follow up-htn ,questions about balance Felicia Stvoer is a 82 year old female who presents here today for Above Complaints.. Health Maintenance ZOSTER VACCINE (SHINGRIX)(2 of 3) HPI Continues to jameson the Prolia well. Falls - at least 3; one out of bed; no fractures. Recently seen by Rheum and has been started on new med for both joint and soft tissue swelling. In August her afib was cardioverted. Continues on the tambacor. When ever she bends over after she gets to a standing position, she feels like her legs give out. ? Her crusting in the nose is better. ? Has a lesion on the left upper lid of eye, no tingling or numbness or burning of the eyes. ? Avoid NSAIDS like naproxen, motrin, brufen, aleve etc and contrast. ? Her asthma is very stable. Notes back ache, and stooping when she walks this could be from lumbar stenosis she has forgetten her exercises for the back, when she was doing it her back was definitely better , she would like to go back for therap ? BP is well controlled on current regimen of medicines- lisinopril 20 mgs- which is tolerated well. No significant side effects No problem-specific Assessment AND Plan notes found for this encounter. 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 - LAPAROSCOPIC CYSTECTOMY 01/14/14 bilateral oophrectomy - PAST SURGICAL HISTORY OF 04/02/2002 DC cardioversion - PAST SURGICAL HISTORY OF 2008 cataracts left and right - PAST SURGICAL HISTORY OF 2007 ankle surgery x 2 right - PAST SURGICAL HISTORY OF lumbar pain injections X2 - REMOVAL GALLBLADDER 1968 Cholecystectomy open - SIGMOIDOSCOPY FLEX DIAG 12/10/09 FAMILY HISTORY Problem Relation Age of Onset - Heart Father - Stroke Mother - Hypertension Mother - Diabetes Brother Social History Substance Use Topics - Smoking status: Never Smoker - Smokeless tobacco: Never Used - Alcohol use Yes Comment: 7 glasses of wine weekly Past medical history, appointments, medications, allergies reviewed. Pertinent Lab/Diagnostic Studies are reviewed and discussed today Current Outpatient Prescriptions: - montelukast (SINGULAIR) 10 mg tablet - verapamil SR (CALAN SR, ISOPTIN SR) 240 mg CR tablet - ipratropium bromide (ATROVENT) 42 mcg (0.06 %) nasal spray - potassium chloride (K-TAB) 10 mEq tablet - furosemide (LASIX) 20 mg tablet - mupirocin (BACTROBAN) 2 % cream - nitroglycerin sublingual (NITROQUICK) 0.4 mg SL tablet - fluticasone furoate (ARNUITY ELLIPTA) 200 mcg/actuation dsdv - ketoconazole (NIZORAL) 2 % shampoo - flecainide (TAMBOCOR) 100 mg tablet - hydroxychloroquine (PLAQUENIL) 200 mg tablet - lisinopril (ZESTRIL, PRINIVIL) 20 mg tablet - warfarin (COUMADIN) 3 mg tablet - warfarin (COUMADIN) 2.5 mg tablet - warfarin (COUMADIN) 5 mg tablet - warfarin (COUMADIN) 2 mg tablet - denosumab (PROLIA) 60 mg/mL syrg - oxyCODONE-acetaminophen (PERCOCET) 5-325 mg tablet - traMADol (ULTRAM) 50 mg tablet - BIOTIN ORAL - Cholecalciferol, Vitamin D3, 2,000 unit cap Review of Systems CONSTITUTIONAL: No fevers, chills night sweats, unintended weight loss CARDIOVASCULAR: No chest pain, dyspnea, palpitations, orthopnea, PND, ankle edema. PULM: No dyspnea, unexplained cough. GI: No dysphagia/odynophagia, problematic reflux, constipation, diarrhea, changes in stool habits, hematochezia, melena. : No new urinary complaints, including dysuria, gross hematuria or pyuria. NEURO: No new balance problems, peripheral weakness/paresthesias or numbness of concern. Physical Exam BP 128/70 (BP Site: Left Arm, BP Position: Sitting, BP Cuff Size: Large Adult) Pulse 67 Resp 12 Ht 170.2 cm (5' 7) Wt 88.9 kg (196 lb) SpO2 96% BMI 30.70 kg/m? General appearance: Well appearing, alert, in no acute distress, well nourished. Skin: Skin color, texture, turgor normal, no suspicious rashes or lesions Head: Normocephalic, no masses, lesions, tenderness or abnormalities Eyes: Anicteric sclera. Pupils are equally round and reactive to light. Extraocular movements are intact. Lungs: Lungs clear to auscultation. No wheezing, rhonchi, rales Heart: RRR without murmur, gallop, or rubs. Extremities: No deformities, edema, skin discoloration, clubbing or cyanosis. Good capillary refill. ASSESSMENT/PLAN: 1. Essential hypertension - ICD9: 401.9, ICD10: I10 (primary diagnosis) - good control - Recommended regular aerobic exercise. - Recommend home blood pressure monitoring, to bring results in on next visit - Goal of BP <130/80 2. Postmenopausal osteoporosis - ICD9: 733.01, ICD10: M81.0 - Reviewed the need for Calcium and Vitamin D supplements and weight bearing exercise as tolerated 3. Atrial fibrillation, unspecified type (HCC) - ICD9: 427.31, ICD10: I48.91 4. CKD (chronic kidney disease) stage 3, GFR 30-59 ml/min (HCC) - ICD9: 585.3, ICD10: N18.3 5. Moderate persistent asthma without complication - ICD9: 493.90, ICD10: J45.40 Mild intermittent Asthma stable - Avoidance of triggers recommended 6. Need for vaccination - ICD9: V05.9, ICD10: Z23 - VARICELLA-ZOSTER GLYCOE VACC-AS01B ADJ(PF) 50 MCG/0.5 ML IM SUSP, KIT 7. Lumbar spondylosis - ICD9: 721.3, ICD10: M47.816 - CONSULT TO PHYSICAL THERAPY 8. Spinal stenosis of lumbar region, unspecified whether neurogenic claudication present - ICD9: 724.02, ICD10: M48.061 Mechanical low back pain - Bedrest for 2-3 days - CONSULT TO PHYSICAL THERAPY FARRUKH WHALEN MD Referring Provider: FARRUKH WHALEN [[id number]] Allergies As of Date: 11/14/2017 Noted Allergy Reaction CRAB 03/12/2003 Comments: Itching, swelling LOBSTER (CRUSTACEANS) 03/12/2003 Comments: Can'T touch RAGWEED 03/12/2003 14 - Other: See Comments Comments: Sneezing Scampi [Other] 03/12/2003 Comments: Swelling, itching. SULFA (SULFONAMIDE ANTIBIOTICS) 03/12/2003 Comments: SWELLING Rash TOPROL XL (METOPROLOL SUCCINATE) 04/13/2010 14 - Other: See Comments Comments: Chest fullness Date Reviewed: 11/14/2017 Reviewed by: Swathi Lopez LPN - Fully Assessed Reason for Visit: Established Patient [175] Cmt: 4 month follow up-htn ,questions about balance Primary Visit Diagnosis:Essential hypertension [I10] Other Visit Diagnoses:Postmenopausal osteoporosis [M81.0] Atrial fibrillation, unspecified type ([facility]) [I48.91] CKD (chronic kidney disease) stage 3, GFR 30-59 ml/min ([facility]) [N18.3] Moderate persistent asthma without complication [J45.40] Need for vaccination [Z23] Lumbar spondylosis [M47.816] Spinal stenosis of lumbar region, unspecified whether neurogenic claudication present [M48.061] Order(s):zoster vaccine, recombinant, adjuvanted, (SHINGRIX) 50 mcg/0.5 mL injectionInject 0.5 mL intramuscularly one time only for 1 dose.Disp: 0.5 mLRfl: 0 CONSULT TO PHYSICAL THERAPY [9032] Order #: [id number]: 1 Prescriptions as of 11/14/2017 Sig: VARICELLA-ZOSTER GLYCOE VACC-* Inject 0.5 mL intramuscularly* MONTELUKAST 10 MG TABLET TAKE 1 TABLET BY MOUTH DAILY * VERAPAMIL ER (SR) 240 MG TABL* Take 1 tablet by mouth once d* IPRATROPIUM BROMIDE 42 MCG (0* 2 sprays per each nostril 2-3* POTASSIUM CHLORIDE ER 10 MEQ * Take 1 tablet by mouth every * FUROSEMIDE 20 MG TABLET Take 1 tablet by mouth every * MUPIROCIN 2 % TOPICAL CREAM Apply 1 application to affect* NITROGLYCERIN 0.4 MG SUBLINGU* Dissolve 1 tablet under the t* FLUTICASONE FUROATE 200 MCG/A* Inhale 1 Inhalation as instru* KETOCONAZOLE 2 % SHAMPOO Apply 1 application to affect* FLECAINIDE 100 MG TABLET Take 1 tablet by mouth twice * HYDROXYCHLOROQUINE 200 MG TAB* Take 200 mg by mouth twice da* LISINOPRIL 20 MG TABLET Take 1 tablet by mouth twice * WARFARIN 3 MG TABLET Take 1 tablet by mouth once d* WARFARIN 2.5 MG TABLET Take as directed per physicia* WARFARIN 5 MG TABLET Take as directed WARFARIN 2 MG TABLET Take 1 tablet by mouth daily * DENOSUMAB 60 MG/ML SUBCUTANEO* Inject 1 mL subcutaneously as* OXYCODONE-ACETAMINOPHEN 5 MG-* Take 1 tablet by mouth once d* TRAMADOL 50 MG TABLET Take 1 tablet by mouth every * BIOTIN ORAL Take 1 capsule by mouth once * CHOLECALCIFEROL (VITAMIN D3) * Take 1 capsule by mouth once * Problem List As Of Date 11/14/2017 Noted Resolved PARESTHESIAS [R20.9] INVALID FOR* OVERWEIGHT [E66.9] INVALID FOR*12/02/2014 Essential hypertension [I10] INVALID FOR* More... FEMALE STRESS INCONTINENCE [N39.3] INVALID FOR* DIVERTICULITIS OF COLON W/O BLEED [K57.32] INVALID FOR* HEMORRHOIDS NOS [K64.9] INVALID FOR* ATRIAL FIBRILLATION [I48.91] INVALID FOR* More... HYPERLIPIDEMIA NEC/NOS [E78.5] INVALID FOR* More... INSOMNIA NOS [G47.00] INVALID FOR* GENERAL OSTEOARTHROSIS [M15.9] INVALID FOR* BRADYCARDIA [I49.8] INVALID FOR* Postmenopausal osteoporosis [M81.0] INVALID FOR* More... HYPERGLYCEMIA [R79.89] INVALID FOR* More... MITRAL REGURGITATION [I05.9] INVALID FOR* HYPOMAGNESEMIA [E83.40] INVALID FOR* Unspecified closed fracture of ankle [S82.899A] INVALID FOR* More... IDIO PERIPH NEURPTHY NOS [G60.9] INVALID FOR* BACKACHE NOS [M54.9] INVALID FOR* Other Chronic Pain [G89.29] INVALID FOR* More... 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 Pathologic fracture of vertebrae [M84.48XA] INVALID FOR* Lumbago [M54.5] INVALID FOR* Pseudogout [M11.20] INVALID FOR* More... Lumbar spondylosis [M47.816] INVALID FOR* Lumbar stenosis [M48.061] INVALID FOR* Vitamin D deficiency [E55.9] INVALID FOR* GERD (gastroesophageal reflux disease) [K21.9] INVALID FOR* BMI 32.0-32.9,adult [Z68.32] INVALID FOR* Hyperlipidemia [E78.5] INVALID FOR* More... Impaired fasting glucose [R73.01] INVALID FOR* Bilateral low back pain without sciatica [M54.5]INVALID FOR* Moderate persistent asthma [J45.40] INVALID FOR* More... Persistent asthma [J45.909] INVALID FOR* CKD (chronic kidney disease) stage 3, GFR 30-59*INVALID FOR* Prescriptions ordered this encounter Disp Refills Start End VARICELLA-ZOSTER GLYCOE VACC-AS01B A* 0.5 * 0 11/14/2017 11/14/2017 Class: Print RX Route: INTRAMUSCULA Sig: Inject 0.5 mL intramuscularly one time only for 1 dose. Encounter Status:Closed by FARRUKH WHALEN MD on 11/14/17 PROTIME Collected: 11/14/2017 Status: F Source: [place] 10:58 AM [facility] RE[facility] TYPE CODE TESTS RESULT OUT OF RANGE REFERENCE UNITS LAB PSEC 9.7-13.0 sec High PT Sec 23.2 LAB INR 0.9-1.3 High PT INR 2.4 Result Comment: Vitamin K Antagonist (VKA) Therapeutic Range: INR 2 to 3 (Target INR of 2.5) Note: For patients treated with VKA drugs, such as warfarin, the [place] [employer] 2012 Guideline recommends a therapeutic INR range of 2 to 3 (target INR of 2.5). This recommendation includes high-risk patients with antiphospholipid syndrome with previous arterial or venous thromboembolism, current-generation mechanical or bioprosthetic aortic heart valve replacement. Note: Patients with mechanical aortic valve replacement and additional risk factors for thromboembolic events (atrial fibrillation, previous thromboembolism, LV dysfunction, hypercoagulable conditions) or an older generation mechanical AVR (i.e., ball in-Cage) or any mechanical MVR should have a INR therapeutic range of 2.5 to 3.5 (target INR of 3). Solomon BUSTAMANTE, et al. Chest 2012, 141:7S-47S Harshad ESCAMILLA, et al. [facility] 2017, 70: [phone] Performed By: #### PT #### [facility] [address], [place] [address] PROGRESS Observed: 10/19/2017 Status: COMPLETED Source: [place] 8:12 AM [facility] REPOSITORY O ID: [id number] Author: Wolfgang Doan Service: (none) Author Type: Physician Type: Progress Notes Filed: 10/19/2017 8:43 AM Note Text: ? Wolfgang Doan DPM Department of Podiatry [address] [place] [id number] Dept: [phone] Dept 10/19/2017 Follow Up Podiatric Office Visit: HPI: Felicia Stover is a 82 year old female. Patient presents for follow up for callus. She feels that it needs debrided again. Patient has no complaints of pain. She has tried using the gel toe cap that was given to her at her last office visit but she feels it does not help. Physical Exam: Constitutional: Pt is a well developed 82 year old female who is alert, oriented and cooperative Eyes: Following during examination. No redness or drainage. Respiratory: RR normal and nonlabored. Even breathing. No evidence of distress or shortness of breath. Psychology: Patient is engaged during conversation. Normal affect and mood. Does not appear depressed or anxious during encounter. Vascular: Dorsalis pedis and posterior tibial pulses palpable, R Capillary Fill time < 5 seconds to digits 1-5 R Skin temperature warm to warm proximal to distal R Hair growth present to digits Dermatological: Skin appears well hydrated and supple. good color, texture, turgor. Callosities present to R 5th toe, 1st metatarsal.Open lesions absent. Hammertoe, R 5th toe. Wound: Not present. ASSESSMENT: (L85.9) Hyperkeratosis (primary encounter diagnosis) Comment: Explained that callus is caused by contracture of toe causing rubbing on shoe. Options include conservative care vs surgical correction. Patient does not want surgery at this time. Explained to patient that callus will continue to come back without doing surgery. Patient verbalized understanding. PLAN: 1. History and physical examination performed. 2. Hyperkeratotic lesion(s) to R 5th toe, 1st metatarsal debrided today utilizing both sharp and/or sanding disc. I had long discussion regarding the callus of 5th toe. She feels the corn is still present. After shaving with 15 blade and sanding disk, there is no callus present. The pain she is feeling is due to hammertoe of 5th toe. Continue with wider shoes and padding vs surgical options to derotate the 5th toe. She is not interested in surgery at this time. 3. Follow up as needed for debridement The documentation for this note was completed by Macey Davison RN acting as scribe for Wolfgang Doan DPM. October 19, 2017 8:12 AM. I agree with the Chief Complaint, ROS, and Past Histories independently gathered by the clinical data support specialist and the remaining scribed note accurately describes my personal service to the patient. Wolfgang Dona DPM CNOV Observed: 10/19/2017 Status: COMPLETED Source: [place] 8:10 AM [facility] REPOSITORY Office Visit (PODIWS) FELICIA STOVER ([id number]) 1935 F NFR Date Time Provider Department 10/19/17 8:10 AM WOLFGANG DOAN During your visit today, we recorded the following information about you: Wolfgang Doan DPM 10/19/2017 8:43 AM Signed ? Wolfgang Doan DPM Department of Podiatry [address] [facility] [address] Dept: [phone] Dept 10/19/2017 Follow Up Podiatric Office Visit: HPI: Felicia Stover is a 82 year old female. Patient presents for follow up for callus. She feels that it needs debrided again. Patient has no complaints of pain. She has tried using the gel toe cap that was given to her at her last office visit but she feels it does not help. Physical Exam: Constitutional: Pt is a well developed 82 year old female who is alert, oriented and cooperative Eyes: Following during examination. No redness or drainage. Respiratory: RR normal and nonlabored. Even breathing. No evidence of distress or shortness of breath. Psychology: Patient is engaged during conversation. Normal affect and mood. Does not appear depressed or anxious during encounter. Vascular: Dorsalis pedis and posterior tibial pulses palpable, R Capillary Fill time < 5 seconds to digits 1-5 R Skin temperature warm to warm proximal to distal R Hair growth present to digits Dermatological: Skin appears well hydrated and supple. good color, texture, turgor. Callosities present to R 5th toe, 1st metatarsal.Open lesions absent. Hammertoe, R 5th toe. Wound: Not present. ASSESSMENT: (L85.9) Hyperkeratosis (primary encounter diagnosis) Comment: Explained that callus is caused by contracture of toe causing rubbing on shoe. Options include conservative care vs surgical correction. Patient does not want surgery at this time. Explained to patient that callus will continue to come back without doing surgery. Patient verbalized understanding. PLAN: 1. History and physical examination performed. 2. Hyperkeratotic lesion(s) to R 5th toe, 1st metatarsal debrided today utilizing both sharp and/or sanding disc. I had long discussion regarding the callus of 5th toe. She feels the corn is still present. After shaving with 15 blade and sanding disk, there is no callus present. The pain she is feeling is due to hammertoe of 5th toe. Continue with wider shoes and padding vs surgical options to derotate the 5th toe. She is not interested in surgery at this time. 3. Follow up as needed for debridement The documentation for this note was completed by Macey Davison RN acting as scribe for Wolfgang Doan DPM. October 19, 2017 8:12 AM. I agree with the Chief Complaint, ROS, and Past Histories independently gathered by the clinical data support specialist and the remaining scribed note accurately describes my personal service to the patient. EWA Valerio RN 10/19/2017 8:23 AM Signed Follow up when you need callus debrided again Referring Provider: WOLFGANG DOAN [[id number]] Allergies As of Date: 10/19/2017 Noted Allergy Reaction CRAB 03/12/2003 Comments: Itching, swelling LOBSTER (CRUSTACEANS) 03/12/2003 Comments: Can'T touch RAGWEED 03/12/2003 14 - Other: See Comments Comments: Sneezing Scampi [Other] 03/12/2003 Comments: Swelling, itching. SULFA (SULFONAMIDE ANTIBIOTICS) 03/12/2003 Comments: SWELLING Rash TOPROL XL (METOPROLOL SUCCINATE) 04/13/2010 14 - Other: See Comments Comments: Chest fullness Date Reviewed: 10/19/2017 Reviewed by: Macey Davison RN - Fully Assessed Reason for Visit: Recheck [92] Primary Visit Diagnosis:Hyperkeratosis [L85.9] Other Visit Diagnosis:Pain in toe of right foot [M79.674] Prescriptions as of 10/19/2017 Sig: MONTELUKAST 10 MG TABLET TAKE 1 TABLET BY MOUTH DAILY * VERAPAMIL ER (SR) 240 MG TABL* Take 1 tablet by mouth once d* IPRATROPIUM BROMIDE 42 MCG (0* 2 sprays per each nostril 2-3* POTASSIUM CHLORIDE ER 10 MEQ * Take 1 tablet by mouth every * FUROSEMIDE 20 MG TABLET Take 1 tablet by mouth every * MUPIROCIN 2 % TOPICAL CREAM Apply 1 application to affect* FLUTICASONE FUROATE 200 MCG/A* Inhale 1 Inhalation as instru* KETOCONAZOLE 2 % SHAMPOO Apply 1 application to affect* FLECAINIDE 100 MG TABLET Take 1 tablet by mouth twice * HYDROXYCHLOROQUINE 200 MG TAB* Take 200 mg by mouth twice da* LISINOPRIL 20 MG TABLET Take 1 tablet by mouth twice * WARFARIN 3 MG TABLET Take 1 tablet by mouth once d* WARFARIN 2.5 MG TABLET Take as directed per physicia* WARFARIN 5 MG TABLET Take as directed WARFARIN 2 MG TABLET Take 1 tablet by mouth daily * DENOSUMAB 60 MG/ML SUBCUTANEO* Inject 1 mL subcutaneously as* OXYCODONE-ACETAMINOPHEN 5 MG-* Take 1 tablet by mouth once d* TRAMADOL 50 MG TABLET Take 1 tablet by mouth every * BIOTIN ORAL Take 1 capsule by mouth once * CHOLECALCIFEROL (VITAMIN D3) * Take 1 capsule by mouth once * NITROGLYCERIN 0.4 MG SUBLINGU* Dissolve 1 tablet under the t* Problem List As Of Date 10/19/2017 Noted Resolved PARESTHESIAS [R20.9] INVALID FOR* OVERWEIGHT [E66.9] INVALID FOR*12/02/2014 Essential hypertension [I10] INVALID FOR* More... FEMALE STRESS INCONTINENCE [N39.3] INVALID FOR* DIVERTICULITIS OF COLON W/O BLEED [K57.32] INVALID FOR* HEMORRHOIDS NOS [K64.9] INVALID FOR* ATRIAL FIBRILLATION [I48.91] INVALID FOR* More... HYPERLIPIDEMIA NEC/NOS [E78.5] INVALID FOR* More... INSOMNIA NOS [G47.00] INVALID FOR* GENERAL OSTEOARTHROSIS [M15.9] INVALID FOR* BRADYCARDIA [I49.8] INVALID FOR* Postmenopausal osteoporosis [M81.0] INVALID FOR* More... HYPERGLYCEMIA [R79.89] INVALID FOR* More... MITRAL REGURGITATION [I05.9] INVALID FOR* HYPOMAGNESEMIA [E83.40] INVALID FOR* Unspecified closed fracture of ankle [S82.899A] INVALID FOR* More... IDIO PERIPH NEURPTHY NOS [G60.9] INVALID FOR* BACKACHE NOS [M54.9] INVALID FOR* Other Chronic Pain [G89.29] INVALID FOR* More... 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 Pathologic fracture of vertebrae [M84.48XA] INVALID FOR* Lumbago [M54.5] INVALID FOR* Pseudogout [M11.20] INVALID FOR* More... Lumbar spondylosis [M47.816] INVALID FOR* Lumbar stenosis [M48.061] INVALID FOR* Vitamin D deficiency [E55.9] INVALID FOR* GERD (gastroesophageal reflux disease) [K21.9] INVALID FOR* BMI 32.0-32.9,adult [Z68.32] INVALID FOR* Hyperlipidemia [E78.5] INVALID FOR* More... Impaired fasting glucose [R73.01] INVALID FOR* Bilateral low back pain without sciatica [M54.5]INVALID FOR* Moderate persistent asthma [J45.40] INVALID FOR* More... Persistent asthma [J45.909] INVALID FOR* CKD (chronic kidney disease) stage 3, GFR 30-59*INVALID FOR* Other instructions from your clinician: Follow up when you need callus debrided again Disposition: Return if symptoms worsen or fail to improve. Follow-up and Disposition History Recorded Encounter Status:Closed by WOLFGANG DOAN DPM on 10/19/17 [place] Observed: 10/17/2017 Status: COMPLETED Source: [place] 12:00 AM [facility] REPOSITORY Telephone (CAWSTR) FELICIA STOVER ([id number]) 1935 F NFR Date Time Provider Department 10/17/17 RASHARD HALL During your visit today, we recorded the following information about you: Mesfin Peterson RN 10/17/2017 8:02 AM Signed INR 2.4 Taking 9-9-6 Mesfin Hall MD 10/17/2017 12:05 PM Signed Same dose. 2 weeks. MD Mesfin Adams RN 10/17/2017 1:22 PM Signed Patient notified of results and provider's instructions. Patient verbalizes understanding. *pt asking if she is able to go to coumadin clinic. Please advise Mesfin Hall MD 10/17/2017 3:12 PM Signed I have no objection, if that option is available now MD Yumiko Adams LPN 10/17/2017 4:12 PM Signed Patient aware Yumiko Peterson RN 10/18/2017 11:23 AM Signed Called and talked to coumadin clinic. Per staff pt's are able to set up appointments at coumadin clinic and all results will be sent to us to continue to manage here by Dr. Hall. Called and left pt message to inform her she is able to go to coumadin clinic. She just needs to call and set up apt. Mesfin Uriostegui LPN 10/18/2017 11:42 AM Signed Patient notified of results and provider's instructions. Patient verbalizes understanding. Dacia Uriostegui LPN Allergies As of Date: 10/17/2017 Noted Allergy Reaction CRAB 03/12/2003 Comments: Itching, swelling LOBSTER (CRUSTACEANS) 03/12/2003 Comments: Can'T touch RAGWEED 03/12/2003 14 - Other: See Comments Comments: Sneezing Scampi [Other] 03/12/2003 Comments: Swelling, itching. SULFA (SULFONAMIDE ANTIBIOTICS) 03/12/2003 Comments: SWELLING Rash TOPROL XL (METOPROLOL SUCCINATE) 04/13/2010 14 - Other: See Comments Comments: Chest fullness Date Reviewed: 10/06/2017 Reviewed by: Macey Davison RN - Fully Assessed Reason for Visit: Anticoagulation [8] Prescriptions as of 10/17/2017 Sig: MONTELUKAST 10 MG TABLET TAKE 1 TABLET BY MOUTH DAILY * VERAPAMIL ER (SR) 240 MG TABL* Take 1 tablet by mouth once d* IPRATROPIUM BROMIDE 42 MCG (0* 2 sprays per each nostril 2-3* POTASSIUM CHLORIDE ER 10 MEQ * Take 1 tablet by mouth every * FUROSEMIDE 20 MG TABLET Take 1 tablet by mouth every * MUPIROCIN 2 % TOPICAL CREAM Apply 1 application to affect* NITROGLYCERIN 0.4 MG SUBLINGU* Dissolve 1 tablet under the t* FLUTICASONE FUROATE 200 MCG/A* Inhale 1 Inhalation as instru* KETOCONAZOLE 2 % SHAMPOO Apply 1 application to affect* FLECAINIDE 100 MG TABLET Take 1 tablet by mouth twice * HYDROXYCHLOROQUINE 200 MG TAB* Take 200 mg by mouth twice da* LISINOPRIL 20 MG TABLET Take 1 tablet by mouth twice * WARFARIN 3 MG TABLET Take 1 tablet by mouth once d* WARFARIN 2.5 MG TABLET Take as directed per physicia* WARFARIN 5 MG TABLET Take as directed WARFARIN 2 MG TABLET Take 1 tablet by mouth daily * DENOSUMAB 60 MG/ML SUBCUTANEO* Inject 1 mL subcutaneously as* OXYCODONE-ACETAMINOPHEN 5 MG-* Take 1 tablet by mouth once d* TRAMADOL 50 MG TABLET Take 1 tablet by mouth every * BIOTIN ORAL Take 1 capsule by mouth once * CHOLECALCIFEROL (VITAMIN D3) * Take 1 capsule by mouth once * Problem List As Of Date 10/17/2017 Noted Resolved PARESTHESIAS [R20.9] INVALID FOR* OVERWEIGHT [E66.9] INVALID FOR*12/02/2014 Essential hypertension [I10] INVALID FOR* More... FEMALE STRESS INCONTINENCE [N39.3] INVALID FOR* DIVERTICULITIS OF COLON W/O BLEED [K57.32] INVALID FOR* HEMORRHOIDS NOS [K64.9] INVALID FOR* ATRIAL FIBRILLATION [I48.91] INVALID FOR* More... HYPERLIPIDEMIA NEC/NOS [E78.5] INVALID FOR* More... INSOMNIA NOS [G47.00] INVALID FOR* GENERAL OSTEOARTHROSIS [M15.9] INVALID FOR* BRADYCARDIA [I49.8] INVALID FOR* Postmenopausal osteoporosis [M81.0] INVALID FOR* More... HYPERGLYCEMIA [R79.89] INVALID FOR* More... MITRAL REGURGITATION [I05.9] INVALID FOR* HYPOMAGNESEMIA [E83.40] INVALID FOR* Unspecified closed fracture of ankle [S82.899A] INVALID FOR* More... IDIO PERIPH NEURPTHY NOS [G60.9] INVALID FOR* BACKACHE NOS [M54.9] INVALID FOR* Other Chronic Pain [G89.29] INVALID FOR* More... 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 Pathologic fracture of vertebrae [M84.48XA] INVALID FOR* Lumbago [M54.5] INVALID FOR* Pseudogout [M11.20] INVALID FOR* More... Lumbar spondylosis [M47.816] INVALID FOR* Lumbar stenosis [M48.061] INVALID FOR* Vitamin D deficiency [E55.9] INVALID FOR* GERD (gastroesophageal reflux disease) [K21.9] INVALID FOR* BMI 32.0-32.9,adult [Z68.32] INVALID FOR* Hyperlipidemia [E78.5] INVALID FOR* More... Impaired fasting glucose [R73.01] INVALID FOR* Bilateral low back pain without sciatica [M54.5]INVALID FOR* Moderate persistent asthma [J45.40] INVALID FOR* More... Persistent asthma [J45.909] INVALID FOR* CKD (chronic kidney disease) stage 3, GFR 30-59*INVALID FOR* Encounter Status:Closed by YUMIKO CAMARILLO LPN on 10/17/17 PROTIME Collected: 10/16/2017 Status: F Source: [place] 11:52 AM [facility] TYPE CODE TESTS RESULT OUT OF RANGE REFERENCE UNITS LAB PSEC 9.7-13.0 sec High PT Sec 23.5 LAB INR 0.9-1.3 High PT INR 2.4 Result Comment: Vitamin K Antagonist (VKA) Therapeutic Range: INR 2 to 3 (Target INR of 2.5) Note: For patients treated with VKA drugs, such as warfarin, the [place] [employer] 2012 Guideline recommends a therapeutic INR range of 2 to 3 (target INR of 2.5). This recommendation includes high-risk patients with antiphospholipid syndrome with previous arterial or venous thromboembolism, current-generation mechanical or bioprosthetic aortic heart valve replacement. Note: Patients with mechanical aortic valve replacement and additional risk factors for thromboembolic events (atrial fibrillation, previous thromboembolism, LV dysfunction, hypercoagulable conditions) or an older generation mechanical AVR (i.e., ball in-Cage) or any mechanical MVR should have a INR therapeutic range of 2.5 to 3.5 (target INR of 3). Solomon GH, et al. Chest 2012, 141:7S-47S Harshad RA, et al. [facility] 2017, 70: 252-289 Performed By: #### PT, BMP #### [facility] [address] [place], [place] [address] BASIC METABOLIC PANL Collected: 10/16/2017 Status: F Source: [place] 11:52 AM [facility] REPOSITORY TYPE CODE TESTS RESULT OUT OF REFERENCE UNITS RANGE LAB GLU 74-99 mg/dL Glucose 97 Result Comment: The [place] [employer] Association (ADA) provides guidance for cutoff values for fasting glucose and random glucose. The ADA defines fasting as no caloric intake for at least 8 hours. Fas ting plasma glucose results between 100 to 125 mg/dL indicate increased risk for diabetes (prediabetes). Fasting plasma glucose results greater than or equal to 126 mg/dL meet the criteria for diagnosis of diabetes. In the absence of unequivocal hyperglycemia, results should be confirmed by repeat testing. In a patient with classic symptoms of hyperglycemia or hyperglycemic crisis, random plasma glucose results greater than or equal to 200 mg/dL meet the criteria for diagnosis of diabetes. Reference: Standards of Medical Care in Diabetes 2016, [place] [employer] Association. Diabetes Care. 2016.39(Suppl 1). LAB BUN 7-21 mg/dL BUN 19 LAB CRET 0.58-0.96 mg/dL Creatinine High 1.22 LAB NA 136-144 mmol/L Sodium 141 LAB K 3.7-5.1 mmol/L Potassium 4.7 LAB CL 97-105 mmol/L Chloride 104 LAB CO2 22-30 mmol/L CO2 26 LAB AGAP 9-18 mmol/L Anion Gap 11 LAB CA 8.5-10.2 mg/dL Calcium, Total 8.7 LAB GFRAA eGFR- Amer. 51 LAB GFRNAA . eGFR-All Other Races 42 Result Comment: eGFR (Estimated GFR) Units of measure: mL/min/1.73 meters squared eGFR is derived from the reexpressed MDRD Study equation using the following parameters: serum creatinine, age, gender and race. The creatinine assay has been calibrated to be traceable to IDMS. An eGFR <60 mL/min/1.73m2 for >3 months is consistent with chronic kidney disease. Refer to KDOQI guidelines for clinical interpretation. In patients with unstable renal function, e.g. those with acute kidney injury, the eGFR may not accurately reflect actual GFR. Performed By: #### PT, BMP #### [facility] [address] [place], [place] [address] PROGRESS Observed: 10/06/2017 Status: COMPLETED Source: [place] 10:30 AM [facility] REPOSITORY HNO ID: [id number] Author: Wolfgang Doan Service: (none) Author Type: Physician Type: Progress Notes Filed: 10/06/2017 11:01 AM Note Text: ? Wolfgang Doan DPM Department of Podiatry [address] [facility] [address] Dept: [phone] Dept 10/06/2017 Initial Podiatric Office Visit: HPI: Felicia Stover is a 82 year old female. Patient presents with:Right callous for the past 2 months. Usually patient is able to debride herself with a razor and then she applies a corn pad to help with offloading but this time it's not helping. She used to be a patient of Dr. Echeverria and was seen for regular toenail debridement. Patient does have pain in toenails at times and would like the nails debrided. Patient is on coumadin for a.fib. 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 verapamil SR (CALAN SR, ISOPTIN SR) 240 mg CR tablet Take 1 tablet by mouth once daily. ipratropium bromide (ATROVENT) 42 mcg (0.06 %) nasal spray 2 sprays per each nostril 2-3 times a day. potassium chloride (K-TAB) 10 mEq tablet Take 1 tablet by mouth every 48 hours. furosemide (LASIX) 20 mg tablet Take 1 tablet by mouth every 48 hours. mupirocin (BACTROBAN) 2 % cream Apply 1 application to affected area three times daily. fluticasone furoate (ARNUITY ELLIPTA) 200 mcg/actuation dsdv Inhale 1 Inhalation as instructed once daily. ketoconazole (NIZORAL) 2 % shampoo Apply 1 application to affected area once daily as needed. For hair thinning flecainide (TAMBOCOR) 100 mg tablet Take 1 tablet by mouth twice daily. hydroxychloroquine (PLAQUENIL) 200 mg tablet Take 200 mg by mouth twice daily. lisinopril (ZESTRIL, PRINIVIL) 20 mg tablet Take 1 tablet by mouth twice daily. warfarin (COUMADIN) 3 mg tablet Take 1 tablet by mouth once daily. As directed warfarin (COUMADIN) 2.5 mg tablet Take as directed per physician. warfarin (COUMADIN) 5 mg tablet Take as directed warfarin (COUMADIN) 2 mg tablet Take 1 tablet by mouth daily as directed. denosumab (PROLIA) 60 mg/mL syrg Inject 1 mL subcutaneously as directed. oxyCODONE-acetaminophen (PERCOCET) 5-325 mg tablet Take 1 tablet by mouth once daily as needed. traMADol (ULTRAM) 50 mg tablet Take 1 tablet by mouth every 6 hours as needed. BIOTIN ORAL Take 1 capsule by mouth once daily. Cholecalciferol, Vitamin D3, 2,000 unit cap Take 1 capsule by mouth once daily. take with the largest meal of the day nitroglycerin sublingual (NITROQUICK) 0.4 mg SL tablet Dissolve 1 tablet under the tongue as needed. for chest pain,every 5 min x3 No current facility-administered medications for this visit. ALLERGIES Allergen Reactions - Crab Itching, swelling - Lobster (Crustacean* Can'T touch - Ragweed Other: See Comments Sneezing - Scampi [Other] Swelling, itching. - Sulfa (Sulfonamide * SWELLING Rash - Toprol Xl [Metoprol* Other: See Comments Chest fullness PAST SURGICAL HISTORY Procedure Laterality Date - APPENDECTOMY 1968 - DELIVERY ONLY 1964 , low transverse - DELIVERY ONLY 1968 , low transverse - COLONOSCOP W/ OR W/O [facility] SPEC 06/2004 Colonoscopy - LAMINCTMY 1-2 SEG EXC LESION O 2010? 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 EYES: No diplopia or blurry vision. CARDIOVASCULAR: No chest pain, dyspnea, palpitations, orthopnea, PND, ankle edema. PULM: No dyspnea, unexplained cough. GI: No dysphagia/odynophagia, problematic reflux, constipation, diarrhea, changes in stool habits, hematochezia, melena. : No new urinary complaints, including dysuria, gross hematuria or pyuria. NEURO: No new balance problems, peripheral weakness/paresthesias or numbness of concern. MUSC-SKEL: No new joint pain, swelling, or erythema. PSY: No concerns regarding depression, anxiety or panic. INTEGUMENTARY: No new skin changes (rash, new or changing mole, new growth) Physical Exam: Constitutional: Pt is a well developed 82 year old female who is alert, oriented and cooperative Eyes: Following during examination. No redness or drainage. Respiratory: RR normal and nonlabored. Even breathing. No evidence of distress or shortness of breath. Psychology: Patient is engaged during conversation. Normal affect and mood. Does not appear depressed or anxious during encounter. Vascular: Dorsalis pedis and posterior tibial pulses palpable as b/l Capillary Fill time < 5 seconds to digits 1-5 b/l Skin temperature warm to warm proximal to distal b/l Hair growth present to digits Neurological: intact light touch/epicritic sensation Vibratory sensation intact to hallux b/l intact protective sensation, insignificant neurological deficits Dermatological: Nails 1-5 b/l appear thick, discolored, painful. . Webspaces clean and dry 1-4 b/l. Skin appears well hydrated and supple. good color, texture, turgor. Callosities present b/l 5th toe and b/l 1st metatarsal.Open lesions absent. Wound: Not present. Musculoskeletal/Orthopaedic: Patient has pain to palpation of b/l 5th toe at site of callus Foot type is neutral structurally AJ ROM is full with knee extended and flexed 1st MPJ is full when loaded and no pain or crepitus are noted with ROM. MTJ, STJ are full and free of pain and crepitus. 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 Callus of 5th toe caused by hammertoe. Discussed conservative vs surgical options for callus. Patient interested in only conservative care for now Toenails 1-5 b/l were debrided in length and thickness. f/u in 3 months Offered xrays for hammertoe. Patient elected to hold EWA Valerio Observed: 10/06/2017 Status: COMPLETED Source: [place] 10:25 AM [facility] REPOSITORY Office Visit (PODIWS) FELICIA STOVER ([id number]) 1935 F NFR Date Time Provider Department 10/06/17 10:25 AM WOLFGANG DOAN During your visit today, we recorded the following information about you: Wolfgang Doan DPM 10/06/2017 11:01 AM Signed ? Wolfgang Doan DPM Department of Podiatry [address] [facility] [address] Dept: [phone] Dept 10/06/2017 Initial Podiatric Office Visit: HPI: Felicia Stover is a 82 year old female. Patient presents with:Right callous for the past 2 months. Usually patient is able to debride herself with a razor and then she applies a corn pad to help with offloading but this time it's not helping. She used to be a patient of Dr. Echeverria and was seen for regular toenail debridement. Patient does have pain in toenails at times and would like the nails debrided. Patient is on coumadin for a.fib. 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 verapamil SR (CALAN SR, ISOPTIN SR) 240 mg CR tablet Take 1 tablet by mouth once daily. ipratropium bromide (ATROVENT) 42 mcg (0.06 %) nasal spray 2 sprays per each nostril 2-3 times a day. potassium chloride (K-TAB) 10 mEq tablet Take 1 tablet by mouth every 48 hours. furosemide (LASIX) 20 mg tablet Take 1 tablet by mouth every 48 hours. mupirocin (BACTROBAN) 2 % cream Apply 1 application to affected area three times daily. fluticasone furoate (ARNUITY ELLIPTA) 200 mcg/actuation dsdv Inhale 1 Inhalation as instructed once daily. ketoconazole (NIZORAL) 2 % shampoo Apply 1 application to affected area once daily as needed. For hair thinning flecainide (TAMBOCOR) 100 mg tablet Take 1 tablet by mouth twice daily. hydroxychloroquine (PLAQUENIL) 200 mg tablet Take 200 mg by mouth twice daily. lisinopril (ZESTRIL, PRINIVIL) 20 mg tablet Take 1 tablet by mouth twice daily. warfarin (COUMADIN) 3 mg tablet Take 1 tablet by mouth once daily. As directed warfarin (COUMADIN) 2.5 mg tablet Take as directed per physician. warfarin (COUMADIN) 5 mg tablet Take as directed warfarin (COUMADIN) 2 mg tablet Take 1 tablet by mouth daily as directed. denosumab (PROLIA) 60 mg/mL syrg Inject 1 mL subcutaneously as directed. oxyCODONE-acetaminophen (PERCOCET) 5-325 mg tablet Take 1 tablet by mouth once daily as needed. traMADol (ULTRAM) 50 mg tablet Take 1 tablet by mouth every 6 hours as needed. BIOTIN ORAL Take 1 capsule by mouth once daily. Cholecalciferol, Vitamin D3, 2,000 unit cap Take 1 capsule by mouth once daily. take with the largest meal of the day nitroglycerin sublingual (NITROQUICK) 0.4 mg SL tablet Dissolve 1 tablet under the tongue as needed. for chest pain,every 5 min x3 No current facility-administered medications for this visit. ALLERGIES Allergen Reactions - Crab Itching, swelling - Lobster (Crustacean* Can'T touch - Ragweed Other: See Comments Sneezing - Scampi [Other] Swelling, itching. - Sulfa (Sulfonamide * SWELLING Rash - Toprol Xl [Metoprol* Other: See Comments Chest fullness PAST SURGICAL HISTORY Procedure Laterality Date - APPENDECTOMY 1968 - DELIVERY ONLY 1964 , low transverse - DELIVERY ONLY 1968 , low transverse - COLONOSCOP W/ OR W/O [facility] SPEC 06/2004 Colonoscopy - LAMINCTMY 1-2 SEG EXC LESION THO 2010? 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 EYES: No diplopia or blurry vision. CARDIOVASCULAR: No chest pain, dyspnea, palpitations, orthopnea, PND, ankle edema. PULM: No dyspnea, unexplained cough. GI: No dysphagia/odynophagia, problematic reflux, constipation, diarrhea, changes in stool habits, hematochezia, melena. : No new urinary complaints, including dysuria, gross hematuria or pyuria. NEURO: No new balance problems, peripheral weakness/paresthesias or numbness of concern. MUSC-SKEL: No new joint pain, swelling, or erythema. PSY: No concerns regarding depression, anxiety or panic. INTEGUMENTARY: No new skin changes (rash, new or changing mole, new growth) Physical Exam: Constitutional: Pt is a well developed 82 year old female who is alert, oriented and cooperative Eyes: Following during examination. No redness or drainage. Respiratory: RR normal and nonlabored. Even breathing. No evidence of distress or shortness of breath. Psychology: Patient is engaged during conversation. Normal affect and mood. Does not appear depressed or anxious during encounter. Vascular: Dorsalis pedis and posterior tibial pulses palpable as b/l Capillary Fill time < 5 seconds to digits 1-5 b/l Skin temperature warm to warm proximal to distal b/l Hair growth present to digits Neurological: intact light touch/epicritic sensation Vibratory sensation intact to hallux b/l intact protective sensation, insignificant neurological deficits Dermatological: Nails 1-5 b/l appear thick, discolored, painful. . Webspaces clean and dry 1-4 b/l. Skin appears well hydrated and supple. good color, texture, turgor. Callosities present b/l 5th toe and b/l 1st metatarsal.Open lesions absent. Wound: Not present. Musculoskeletal/Orthopaedic: Patient has pain to palpation of b/l 5th toe at site of callus Foot type is neutral structurally AJ ROM is full with knee extended and flexed 1st MPJ is full when loaded and no pain or crepitus are noted with ROM. MTJ, STJ are full and free of pain and crepitus. 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 Callus of 5th toe caused by hammertoe. Discussed conservative vs surgical options for callus. Patient interested in only conservative care for now Toenails 1-5 b/l were debrided in length and thickness. f/u in 3 months Offered xrays for hammertoe. Patient elected to hold EWA Valerio RN 10/06/2017 11:02 AM Signed You have been given a gel toe cap. These can be purchased at [employer] or online at [employer], [employer], [employer] or [employer] Referring Provider: SELF [[id number]] Allergies As of Date: 10/06/2017 Noted Allergy Reaction CRAB 03/12/2003 Comments: Itching, swelling LOBSTER (CRUSTACEANS) 03/12/2003 Comments: Can'T touch RAGWEED 03/12/2003 14 - Other: See Comments Comments: Sneezing Scampi [Other] 03/12/2003 Comments: Swelling, itching. SULFA (SULFONAMIDE ANTIBIOTICS) 03/12/2003 Comments: SWELLING Rash TOPROL XL (METOPROLOL SUCCINATE) 04/13/2010 14 - Other: See Comments Comments: Chest fullness Date Reviewed: 10/06/2017 Reviewed by: Macey Whitmyer RN - Fully Assessed Reason for Visit: New Patient [172] Primary Visit Diagnosis:Onychomycosis [B35.1] Other Visit Diagnoses:Pain in toe of left foot [M79.675] Pain in toe of right foot [M79.674] Hyperkeratosis [L85.9] Prescriptions as of 10/06/2017 Sig: MONTELUKAST 10 MG TABLET TAKE 1 TABLET BY MOUTH DAILY * VERAPAMIL ER (SR) 240 MG TABL* Take 1 tablet by mouth once d* IPRATROPIUM BROMIDE 42 MCG (0* 2 sprays per each nostril 2-3* POTASSIUM CHLORIDE ER 10 MEQ * Take 1 tablet by mouth every * FUROSEMIDE 20 MG TABLET Take 1 tablet by mouth every * MUPIROCIN 2 % TOPICAL CREAM Apply 1 application to affect* FLUTICASONE FUROATE 200 MCG/A* Inhale 1 Inhalation as instru* KETOCONAZOLE 2 % SHAMPOO Apply 1 application to affect* FLECAINIDE 100 MG TABLET Take 1 tablet by mouth twice * HYDROXYCHLOROQUINE 200 MG TAB* Take 200 mg by mouth twice da* LISINOPRIL 20 MG TABLET Take 1 tablet by mouth twice * WARFARIN 3 MG TABLET Take 1 tablet by mouth once d* WARFARIN 2.5 MG TABLET Take as directed per physicia* WARFARIN 5 MG TABLET Take as directed WARFARIN 2 MG TABLET Take 1 tablet by mouth daily * DENOSUMAB 60 MG/ML SUBCUTANEO* Inject 1 mL subcutaneously as* OXYCODONE-ACETAMINOPHEN 5 MG-* Take 1 tablet by mouth once d* TRAMADOL 50 MG TABLET Take 1 tablet by mouth every * BIOTIN ORAL Take 1 capsule by mouth once * CHOLECALCIFEROL (VITAMIN D3) * Take 1 capsule by mouth once * NITROGLYCERIN 0.4 MG SUBLINGU* Dissolve 1 tablet under the t* Problem List As Of Date 10/06/2017 Noted Resolved PARESTHESIAS [R20.9] INVALID FOR* OVERWEIGHT [E66.9] INVALID FOR*12/02/2014 Essential hypertension [I10] INVALID FOR* More... FEMALE STRESS INCONTINENCE [N39.3] INVALID FOR* DIVERTICULITIS OF COLON W/O BLEED [K57.32] INVALID FOR* HEMORRHOIDS NOS [K64.9] INVALID FOR* ATRIAL FIBRILLATION [I48.91] INVALID FOR* More... HYPERLIPIDEMIA NEC/NOS [E78.5] INVALID FOR* More... INSOMNIA NOS [G47.00] INVALID FOR* GENERAL OSTEOARTHROSIS [M15.9] INVALID FOR* BRADYCARDIA [I49.8] INVALID FOR* Postmenopausal osteoporosis [M81.0] INVALID FOR* More... HYPERGLYCEMIA [R79.89] INVALID FOR* More... MITRAL REGURGITATION [I05.9] INVALID FOR* HYPOMAGNESEMIA [E83.40] INVALID FOR* Unspecified closed fracture of ankle [S82.899A] INVALID FOR* More... IDIO PERIPH NEURPTHY NOS [G60.9] INVALID FOR* BACKACHE NOS [M54.9] INVALID FOR* Other Chronic Pain [G89.29] INVALID FOR* More... 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 Pathologic fracture of vertebrae [M84.48XA] INVALID FOR* Lumbago [M54.5] INVALID FOR* Pseudogout [M11.20] INVALID FOR* More... Lumbar spondylosis [M47.816] INVALID FOR* Lumbar stenosis [M48.061] INVALID FOR* Vitamin D deficiency [E55.9] INVALID FOR* GERD (gastroesophageal reflux disease) [K21.9] INVALID FOR* BMI 32.0-32.9,adult [Z68.32] INVALID FOR* Hyperlipidemia [E78.5] INVALID FOR* More... Impaired fasting glucose [R73.01] INVALID FOR* Bilateral low back pain without sciatica [M54.5]INVALID FOR* Moderate persistent asthma [J45.40] INVALID FOR* More... Persistent asthma [J45.909] INVALID FOR* CKD (chronic kidney disease) stage 3, GFR 30-59*INVALID FOR* Other instructions from your clinician: You have been given a gel toe cap. These can be purchased at [employer] or online at [employer], [employer], [employer] or [employer] Disposition: Return in about 3 months (around 01/06/2018) for nail care. Follow-up and Disposition History Recorded Encounter Status:Closed by WOLFGANG DOAN DPM on 10/06/17 PROTIME Collected: 09/26/2017 Status: F Source: [place] 1:30 PM [facility] REPOSITORY TYPE CODE TESTS RESULT OUT OF RANGE REFERENCE UNITS LAB PSEC 9.7-13.0 sec High PT Sec 21.4 LAB INR 0.9-1.3 High PT INR 2.2 Result Comment: Vitamin K Antagonist (VKA) Therapeutic Range: INR 2 to 3 (Target INR of 2.5) Note: For patients treated with VKA drugs, such as warfarin, the [place] [employer] 2012 Guideline recommends a therapeutic INR range of 2 to 3 (target INR of 2.5). This recommendation includes high-risk patients with antiphospholipid syndrome with previous arterial or venous thromboembolism, current-generation mechanical or bioprosthetic aortic heart valve replacement. Note: Patients with mechanical aortic valve replacement and additional risk factors for thromboembolic events (atrial fibrillation, previous thromboembolism, LV dysfunction, hypercoagulable conditions) or an older generation mechanical AVR (i.e., ball in-Cage) or any mechanical MVR should have a INR therapeutic range of 2.5 to 3.5 (target INR of 3). Solomon GH, et al. Chest 2012, 141:7S-47S Harshad RA, et al. [facility] 2017, 70: 252-289 Performed By: #### PT #### [facility] [address] [place], [place] [address] PROTIME Collected: 09/12/2017 Status: F Source: [place] 2:57 PM [facility] REPOSITORY TYPE CODE TESTS RESULT OUT OF RANGE REFERENCE UNITS LAB PSEC 9.7-13.0 sec High PT Sec 21.4 LAB INR 0.9-1.3 High PT INR 2.2 Result Comment: Vitamin K Antagonist (VKA) Therapeutic Range: INR 2 to 3 (Target INR of 2.5) Note: For patients treated with VKA drugs, such as warfarin, the [place] [employer] 2012 Guideline recommends a therapeutic INR range of 2 to 3 (target INR of 2.5). This recommendation includes high-risk patients with antiphospholipid syndrome with previous arterial or venous thromboembolism, current-generation mechanical or bioprosthetic aortic heart valve replacement. Note: Patients with mechanical aortic valve replacement and additional risk factors for thromboembolic events (atrial fibrillation, previous thromboembolism, LV dysfunction, hypercoagulable conditions) or an older generation mechanical AVR (i.e., ball in-Cage) or any mechanical MVR should have a INR therapeutic range of 2.5 to 3.5 (target INR of 3). Solomon BUSTAMANTE, et al. Chest 2012, 141:7S-47S Harshad ESCAMILLA et al. [facility] 2017, 70: 252-289 Performed By: #### PT #### [facility] [address] [place] [address] BASIC METABOLIC PANL Collected: 09/12/2017 Status: F Source: [place] 2:57 PM [facility] REPOSITORY TYPE CODE TESTS RESULT OUT OF REFERENCE UNITS RANGE LAB GLU 74-99 mg/dL High Glucose 122 Result Comment: The [place] Diabetes Association (ADA) provides guidance for cutoff values for fasting glucose and random glucose. The ADA defines fasting as no caloric intake for at least 8 hours. Fas ting plasma glucose results between 100 to 125 mg/dL indicate increased risk for diabetes (prediabetes). Fasting plasma glucose results greater than or equal to 126 mg/dL meet the criteria for diagnosis of diabetes. In the absence of unequivocal hyperglycemia, results should be confirmed by repeat testing. In a patient with classic symptoms of hyperglycemia or hyperglycemic crisis, random plasma glucose results greater than or equal to 200 mg/dL meet the criteria for diagnosis of diabetes. Reference: Standards of Medical Care in Diabetes 2016, [place] [employer] Association. Diabetes Care. 2016.39(Suppl 1). LAB BUN 7-21 mg/dL BUN High 26 LAB CRET 0.58-0.96 mg/dL Creatinine High 1.09 LAB NA 136-144 mmol/L Sodium 139 LAB K 3.7-5.1 mmol/L Potassium 4.5 LAB CL 97-105 mmol/L Chloride 99 LAB CO2 22-30 mmol/L CO2 26 LAB AGAP 9-18 mmol/L Anion Gap 14 LAB CA 8.5-10.2 mg/dL Calcium, Total 9.2 LAB GFRAA eGFR- Amer. 58 LAB GFRNAA . eGFR-All Other Races 48 Result Comment: eGFR (Estimated GFR) Units of measure: mL/min/1.73 meters squared eGFR is derived from the reexpressed MDRD Study equation using the following parameters: serum creatinine, age, gender and race. The creatinine assay has been calibrated to be traceable to IDMS. An eGFR <60 mL/min/1.73m2 for >3 months is consistent with chronic kidney disease. Refer to KDOQI guidelines for clinical interpretation. In patients with unstable renal function, e.g. those with acute kidney injury, the eGFR may not accurately reflect actual GFR. Performed By: #### BMP #### [facility] [address] [place] [id number] PROGRESS Observed: 08/29/2017 Status: COMPLETED Source: [place] 3:43 PM [facility] REPOSITORY HNO ID: [id number] Author: Farrukh Whalen Service: (none) Author Type: Physician Type: Progress Notes Filed: 08/29/2017 4:13 PM Note Text: Agree with continuing the same and rechecking inr in 1 week, especially since she just finished with abx. PROGRESS Observed: 08/29/2017 Status: COMPLETED Source: [place] 10:48 AM [facility] REPOSITORY HNO ID: [id number] Author: Chula Renee RN Service: (none) Author Type: (none) Type: Progress Notes Filed: 08/29/2017 10:54 AM Note Text: patient had inr completed at [facility] patients inr is 3.0 (patients inr range is 2.0-3.0) patient is currently taking 9mg-9mg-6mg cycle patients last dose change was on 08/01/17 due to orders from Dr Hall as he was getting patient ready for a cardioversion (dose at that time was 9mg alternating with 6mg) patient has had a change in medication and patient just finished antibiotics yesterday, and no missed doses and no change in diet FYI - patient did have cardioversion completed and has been released from Dr Hall handling inr's and is now going back to pcp Advised patient to continue on the same dose(s) and that they would only be contacted regarding dosage and follow up instructions after review with provider, if a change is needed. Written instructions given and patient verbalized understanding. Presently scheduled in 1 week (09/05/17) for follow up INR since level is on the high side of normal but probably increased due to taking the antibiotic. PROGRESS Observed: 08/29/2017 Status: COMPLETED Source: [place] 10:36 AM [facility] REPOSITORY HNO ID: [id number] Author: Chula Renee RN Service: (none) Author Type: (none) Type: Progress Notes Filed: 08/29/2017 10:36 AM Note Text: since no reply back from recreational therapy technician and patient was in again today (08/29/17) to have inr checked, this encounter is now being closed. PROGRESS Observed: 2017 Status: COMPLETED Source: [place] 11:32 AM [facility] REPOSITORY HNO ID: [id number] Author: Chula Renee RN Service: (none) Author Type: (none) Type: Progress Notes Filed: 2017 11:36 AM Note Text: patient had inr completed at [facility] patients inr is 2.5 (patients inr range is 2.0-3.0) patient is currently taking 9mg-9mg-6mg cycle patients last dose change was on 08/01/17 due to getting ready for cardioversion (dose was 9mg alternating with 6mg) patient has had a change in medication and patient is on an antibiotic and no missed doses and no change in diet FYI - this is the first check with the [facility] since cardioversion Advised patient to continue on the same dose(s) and that they would only be contacted regarding dosage and follow up instructions after review with provider, if a change is needed. Written instructions given and patient verbalized understanding. Presently scheduled in 1 week (08/29/17) for follow up INR. PROGRESS Observed: 08/18/2017 Status: COMPLETED Source: [place] 1:32 PM [facility] REPOSITORY HNO ID: [id number] Author: Rashard Hall Service: (none) Author Type: Physician Type: Progress Notes Filed: 08/18/2017 5:43 PM Note Text: PERTINENT CARDIAC HISTORY Atrial fib - paroxysmal, c/version (multiple), intolerant of beta doug (bradycardia) HL - declines statin HTN ADHERENCE TO GUIDELINES ABDIEL-I or ARB for HF with prior LVEF<40 (NQF 0081) - N/A ASA or Plavix for ASHD (NQF 0067) - N/A Beta doug for ASHD with prior NC or prior LVEF<40 (NQF 0070) - N/A Beta doug for HF with prior LVEF<40 (NQF 0083) - N/A ABDIEL-I or ARB for ASHD with DM or prior LVEF<40 (NQ 0066) - N/A Statin therapy for ASHD or FHL or DM - declines BMI documented and plan if >25 (NQ 0421) - lifestyle recommendation form Tobacco use screening and referral (NQ 0028) - lifestyle recommendation form Recommendation for whole food, plant based diet - lifestyle recommendation form CLINICAL IMPRESSION/PLAN: Felicia Stover is back in sinus rhythm. She will continue flecainide. This is her third cardioversion. We will not cardiovert her again without changing her antiarrhythmic drug. She may be a candidate for ablation. Her ventricular dysfunction may be related to the prolonged episode of atrial fibrillation. We will repeat her echocardiogram in a few months. For the time being, verapamil will be decreased to 240 milligrams daily. I've asked her to call if there is any recurrence of atrial fibrillation. I will see her in 3 months. Written and verbal health teaching given to patient, patient verbalizes understanding and agrees with treatment plan. DIAGNOSIS FOR VISIT: PAF HISTORY OF PRESENT ILLNESS Felicia Stover returns for follow-up of her cardioversion, which went well. She's had no chest pain. She denies any recurrent palpitations. Her exercise tolerance is slightly better. She's had no strokelike symptoms. She was advised to continue her current dose of verapamil. ALLERGIES: ALLERGIES Allergen Reactions - Crab Itching, swelling - Lobster (Crustacean* Can'T touch - Ragweed Other: See Comments Sneezing - Sulfa (Sulfonamide * SWELLING Rash - Scampi [Other] Swelling, itching. - Toprol Xl [Metoprol* Other: See Comments Chest fullness CURRENT OUTPATIENT MEDICATIONS: ipratropium bromide (ATROVENT) 42 mcg (0.06 %) nasal spray 2 sprays per each nostril 2-3 times a day. potassium chloride (K-TAB) 10 mEq tablet Take 1 tablet by mouth every 48 hours. furosemide (LASIX) 20 mg tablet Take 1 tablet by mouth every 48 hours. mupirocin (BACTROBAN) 2 % cream Apply 1 application to affected area three times daily. verapamil SR (CALAN SR, ISOPTIN SR) 240 mg CR tablet Take 1.5 tablets by mouth once daily. fluticasone furoate (ARNUITY ELLIPTA) 200 mcg/actuation dsdv Inhale 1 Inhalation as instructed once daily. ketoconazole (NIZORAL) 2 % shampoo Apply 1 application to affected area once daily as needed. For hair thinning flecainide (TAMBOCOR) 100 mg tablet Take 1 tablet by mouth twice daily. hydroxychloroquine (PLAQUENIL) 200 mg tablet Take 200 mg by mouth twice daily. lisinopril (ZESTRIL, PRINIVIL) 20 mg tablet Take 1 tablet by mouth twice daily. warfarin (COUMADIN) 3 mg tablet Take 1 tablet by mouth once daily. As directed montelukast (SINGULAIR) 10 mg tablet Take 1 tablet by mouth daily at bedtime. warfarin (COUMADIN) 2.5 mg tablet Take as directed per physician. warfarin (COUMADIN) 5 mg tablet Take as directed warfarin (COUMADIN) 2 mg tablet Take 1 tablet by mouth daily as directed. denosumab (PROLIA) 60 mg/mL syrg Inject 1 mL subcutaneously as directed. oxyCODONE-acetaminophen (PERCOCET) 5-325 mg tablet Take 1 tablet by mouth once daily as needed. traMADol (ULTRAM) 50 mg tablet Take 1 tablet by mouth every 6 hours as needed. BIOTIN ORAL Take 1 capsule by mouth once daily. Cholecalciferol, Vitamin D3, 2,000 unit cap Take 1 capsule by mouth once daily. take with the largest meal of the day nitroglycerin sublingual (NITROQUICK) 0.4 mg SL tablet Dissolve 1 tablet under the tongue as needed. for chest pain,every 5 min x3 PHYSICAL EXAMINATION: VITAL SIGNS: BP 128/82 Pulse 73 Ht 5' 7 (1.70m) Wt 207 lb 12.8 oz (94.3kg) BMI 32.54 kg/(m2). Chest: Clear to percussion and auscultation. Trachea is midline. Air entry is equal. Cardiac: Regular rhythm. S1 and S2 are normal. PMI is nondisplaced. There is a soft murmur of mitral insufficiency.. Carotids are brisk without bruits. JVP is less than 10 cm. Abdomen: Soft and nontender. There are no pulsatile masses or bruits. No liver enlargement. Bowel sounds are active. Extremities: Trace edema. Pulses are intact and symmetrical. EKG demonstrates sinus bradycardia with first degree AV block. QT interval has improved. Echocardiogram done prior to cardioversion showed a slight drop in LV function and slight enlargement of the right side and left atrium. Electronically Signed: Rashard Hall MD August 18, 2017 1:32 PM CC: FARRUKH WHALEN MD CNOV Observed: 08/18/2017 Status: COMPLETED Source: [place] 1:00 PM [facility] REPOSITORY Office Visit (AGCARDWST) FELICIA STOVER ([id number]) 1935 F NFR Date Time Provider Department 08/18/17 1:00 PM RASHARD HALL AGCARDWST During your visit today, we recorded the following information about you: Pulse Blood pressure Weight Height 73/minute 128/82 94.3 kg 1.702 m Rashard Hall MD 08/18/2017 5:43 PM Signed PERTINENT CARDIAC HISTORY Atrial fib - paroxysmal, c/version (multiple), intolerant of beta doug (bradycardia) HL - declines statin HTN ADHERENCE TO GUIDELINES ABDIEL-I or ARB for HF with prior LVEFANDlt;40 (NQF 0081) - N/A ASA or Plavix for ASHD (NQF 0067) - N/A Beta doug for ASHD with prior NC or prior LVEFANDlt;40 (NQF 0070) - N/A Beta doug for HF with prior LVEFANDlt;40 (NQF 0083) - N/A ABDIEL-I or ARB for ASHD with DM or prior LVEFANDlt;40 (NQF 0066) - N/A Statin therapy for ASHD or FHL or DM - declines BMI documented and plan if ANDgt;25 (NQF 0421) - lifestyle recommendation form Tobacco use screening and referral (NQF 0028) - lifestyle recommendation form Recommendation for whole food, plant based diet - lifestyle recommendation form CLINICAL IMPRESSION/PLAN: Felicia Stover is back in sinus rhythm. She will continue flecainide. This is her third cardioversion. We will not cardiovert her again without changing her antiarrhythmic drug. She may be a candidate for ablation. Her ventricular dysfunction may be related to the prolonged episode of atrial fibrillation. We will repeat her echocardiogram in a few months. For the time being, verapamil will be decreased to 240 milligrams daily. I've asked her to call if there is any recurrence of atrial fibrillation. I will see her in 3 months. Written and verbal health teaching given to patient, patient verbalizes understanding and agrees with treatment plan. DIAGNOSIS FOR VISIT: PAF HISTORY OF PRESENT ILLNESS Felicia Stover returns for follow-up of her cardioversion, which went well. She's had no chest pain. She denies any recurrent palpitations. Her exercise tolerance is slightly better. She's had no strokelike symptoms. She was advised to continue her current dose of verapamil. ALLERGIES: ALLERGIES Allergen Reactions - Crab Itching, swelling - Lobster (Crustacean* Can'T touch - Ragweed Other: See Comments Sneezing - Sulfa (Sulfonamide * SWELLING Rash - Scampi [Other] Swelling, itching. - Toprol Xl [Metoprol* Other: See Comments Chest fullness CURRENT OUTPATIENT MEDICATIONS: ipratropium bromide (ATROVENT) 42 mcg (0.06 %) nasal spray 2 sprays per each nostril 2-3 times a day. potassium chloride (K-TAB) 10 mEq tablet Take 1 tablet by mouth every 48 hours. furosemide (LASIX) 20 mg tablet Take 1 tablet by mouth every 48 hours. mupirocin (BACTROBAN) 2 % cream Apply 1 application to affected area three times daily. verapamil SR (CALAN SR, ISOPTIN SR) 240 mg CR tablet Take 1.5 tablets by mouth once daily. fluticasone furoate (ARNUITY ELLIPTA) 200 mcg/actuation dsdv Inhale 1 Inhalation as instructed once daily. ketoconazole (NIZORAL) 2 % shampoo Apply 1 application to affected area once daily as needed. For hair thinning flecainide (TAMBOCOR) 100 mg tablet Take 1 tablet by mouth twice daily. hydroxychloroquine (PLAQUENIL) 200 mg tablet Take 200 mg by mouth twice daily. lisinopril (ZESTRIL, PRINIVIL) 20 mg tablet Take 1 tablet by mouth twice daily. warfarin (COUMADIN) 3 mg tablet Take 1 tablet by mouth once daily. As directed montelukast (SINGULAIR) 10 mg tablet Take 1 tablet by mouth daily at bedtime. warfarin (COUMADIN) 2.5 mg tablet Take as directed per physician. warfarin (COUMADIN) 5 mg tablet Take as directed warfarin (COUMADIN) 2 mg tablet Take 1 tablet by mouth daily as directed. denosumab (PROLIA) 60 mg/mL syrg Inject 1 mL subcutaneously as directed. oxyCODONE-acetaminophen (PERCOCET) 5-325 mg tablet Take 1 tablet by mouth once daily as needed. traMADol (ULTRAM) 50 mg tablet Take 1 tablet by mouth every 6 hours as needed. BIOTIN ORAL Take 1 capsule by mouth once daily. Cholecalciferol, Vitamin D3, 2,000 unit cap Take 1 capsule by mouth once daily. take with the largest meal of the day nitroglycerin sublingual (NITROQUICK) 0.4 mg SL tablet Dissolve 1 tablet under the tongue as needed. for chest pain,every 5 min x3 PHYSICAL EXAMINATION: VITAL SIGNS: BP 128/82 Pulse 73 Ht 5' 7ANDquot; (1.70m) Wt 207 lb 12.8 oz (94.3kg) BMI 32.54 kg/(m2). Chest: Clear to percussion and auscultation. Trachea is midline. Air entry is equal. Cardiac: Regular rhythm. S1 and S2 are normal. PMI is nondisplaced. There is a soft murmur of mitral insufficiency.. Carotids are brisk without bruits. JVP is less than 10 cm. Abdomen: Soft and nontender. There are no pulsatile masses or bruits. No liver enlargement. Bowel sounds are active. Extremities: Trace edema. Pulses are intact and symmetrical. EKG demonstrates sinus bradycardia with first degree AV block. QT interval has improved. Echocardiogram done prior to cardioversion showed a slight drop in LV function and slight enlargement of the right side and left atrium. Electronically Signed: Rashard Hall MD August 18, 2017 1:32 PM CC: FARRUKH WHALEN MD Referring Provider: RASHARD HALL [[id number]] Allergies As of Date: 08/18/2017 Noted Allergy Reaction CRAB 03/12/2003 Comments: Itching, swelling LOBSTER (CRUSTACEANS) 03/12/2003 Comments: Can'T touch RAGWEED 03/12/2003 14 - Other: See Comments Comments: Sneezing SULFA (SULFONAMIDE ANTIBIOTICS) 03/12/2003 Comments: SWELLING Rash Scampi [Other] 03/12/2003 Comments: Swelling, itching. TOPROL XL (METOPROLOL SUCCINATE) 04/13/2010 14 - Other: See Comments Comments: Chest fullness Date Reviewed: 08/18/2017 Reviewed by: Susana Britton - Fully Assessed Reason for Visit: Follow Up [171] Primary Visit Diagnosis:PAF (paroxysmal atrial fibrillation) ([facility]) [I48.0] Order(s):ECG B/O W INTERP (MED OFFICE) [ECG06] Order #: [id number] verapamil SR (CALAN SR, ISOPTIN SR) 240 mg CR tabletTake 1 tablet by mouth once daily.Disp: 90 tabletRfl: 4 Prescriptions as of 08/18/2017 Sig: VERAPAMIL ER (SR) 240 MG TABL* Take 1 tablet by mouth once d* IPRATROPIUM BROMIDE 42 MCG (0* 2 sprays per each nostril 2-3* POTASSIUM CHLORIDE ER 10 MEQ * Take 1 tablet by mouth every * FUROSEMIDE 20 MG TABLET Take 1 tablet by mouth every * MUPIROCIN 2 % TOPICAL CREAM Apply 1 application to affect* FLUTICASONE FUROATE 200 MCG/A* Inhale 1 Inhalation as instru* KETOCONAZOLE 2 % SHAMPOO Apply 1 application to affect* FLECAINIDE 100 MG TABLET Take 1 tablet by mouth twice * HYDROXYCHLOROQUINE 200 MG TAB* Take 200 mg by mouth twice da* LISINOPRIL 20 MG TABLET Take 1 tablet by mouth twice * WARFARIN 3 MG TABLET Take 1 tablet by mouth once d* MONTELUKAST 10 MG TABLET Take 1 tablet by mouth daily * WARFARIN 2.5 MG TABLET Take as directed per physicia* WARFARIN 5 MG TABLET Take as directed WARFARIN 2 MG TABLET Take 1 tablet by mouth daily * DENOSUMAB 60 MG/ML SUBCUTANEO* Inject 1 mL subcutaneously as* OXYCODONE-ACETAMINOPHEN 5 MG-* Take 1 tablet by mouth once d* TRAMADOL 50 MG TABLET Take 1 tablet by mouth every * BIOTIN ORAL Take 1 capsule by mouth once * CHOLECALCIFEROL (VITAMIN D3) * Take 1 capsule by mouth once * NITROGLYCERIN 0.4 MG SUBLINGU* Dissolve 1 tablet under the t* Problem List As Of Date 08/18/2017 Noted Resolved PARESTHESIAS [R20.9] INVALID FOR* OVERWEIGHT [E66.9] INVALID FOR*12/02/2014 Essential hypertension [I10] INVALID FOR* More... FEMALE STRESS INCONTINENCE [N39.3] INVALID FOR* DIVERTICULITIS OF COLON W/O BLEED [K57.32] INVALID FOR* HEMORRHOIDS NOS [K64.9] INVALID FOR* ATRIAL FIBRILLATION [I48.91] INVALID FOR* More... HYPERLIPIDEMIA NEC/NOS [E78.5] INVALID FOR* More... INSOMNIA NOS [G47.00] INVALID FOR* GENERAL OSTEOARTHROSIS [M15.9] INVALID FOR* BRADYCARDIA [I49.8] INVALID FOR* Postmenopausal osteoporosis [M81.0] INVALID FOR* More... HYPERGLYCEMIA [R79.89] INVALID FOR* More... MITRAL REGURGITATION [I05.9] INVALID FOR* HYPOMAGNESEMIA [E83.40] INVALID FOR* Unspecified closed fracture of ankle [S82.899A] INVALID FOR* More... IDIO PERIPH NEURPTHY NOS [G60.9] INVALID FOR* BACKACHE NOS [M54.9] INVALID FOR* Other Chronic Pain [G89.29] INVALID FOR* More... 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 Pathologic fracture of vertebrae [M84.48XA] INVALID FOR* Lumbago [M54.5] INVALID FOR* Pseudogout [M11.20] INVALID FOR* More... Lumbar spondylosis [M47.816] INVALID FOR* Lumbar stenosis [M48.061] INVALID FOR* Vitamin D deficiency [E55.9] INVALID FOR* GERD (gastroesophageal reflux disease) [K21.9] INVALID FOR* BMI 32.0-32.9,adult [Z68.32] INVALID FOR* Hyperlipidemia [E78.5] INVALID FOR* More... Impaired fasting glucose [R73.01] INVALID FOR* Bilateral low back pain without sciatica [M54.5]INVALID FOR* Moderate persistent asthma [J45.40] INVALID FOR* More... Persistent asthma [J45.909] INVALID FOR* CKD (chronic kidney disease) stage 3, GFR 30-59*INVALID FOR* Prescriptions ordered this encounter Disp Refills Start End VERAPAMIL ER (SR) 240 MG TABLET,EXTE* 90 t* 4 08/18/2017 Class: Med Update Route: ORAL Sig: Take 1 tablet by mouth once daily. Medications Discontinued During This Encounter verapamil SR (CALAN SR, ISOPTIN SR) * 90 t* 4 06/27/2017 08/18/2017 Class: Med Update Route: ORAL Sig: Take 1.5 tablets by mouth once daily. Disc: Reason for discontinue is not on file. Encounter Status:Closed by RASHARD HALL MD on 08/18/17 HISTORY AND PHYSICAL Observed: 08/16/2017 Status: F Source: [facility] 8:22 AM [facility] Medical Records Department [address] [place] [id number] History and Physical 08/14/17 1040 MR#: [id number] Acct: [id number] Name: FELICIA STOVER Rep #: [id number] : 1935 81 From: Chula FANG PCP: Farrukh Whalen MD Status: [facility] [place] Location: [facility] Problem List (1) Persistent atrial fibrillation Status: Chronic (2) Benign hypertension Status: Chronic History of Present Illness Date of Admission: 08/14/17 The patient is a 81 year old F [who presents here today for a cardioversion. Patient is a patient of Dr. Hector Hall's. This would be her third cardioversion. She is on flecainide. Her INR has been therapeutic. She states that she noted that she was in atrial fibrillation by her blood pressure monitor and feeling more fatigued and short of breath walking up steps. She does not have any chest discomfort or heaviness. She does not have any lightheadedness, dizziness, syncopal episodes. She does not have any lower extremity edema.] Past Medical History Past Medical History (Chronic Problems): Chronic Problems (Last Updated 08/04/17 @ 08:54 by Charlene Bey) History of sigmoidoscopy (Chronic) 12/10/2009 History of colonoscopy (Chronic) 06/2004 History of selective injection of anesthetic agent around lumbar nerve root (Chronic) History of cholecystectomy (Chronic) 1969 Status post surgical manipulation of ankle joint (Chronic) right X 2 in 2008 History of bilateral cataract extraction (Chronic) 2009 History of cardioversion (Chronic) 04/02/2002 History of ovarian cystectomy (Chronic) 2014 History of section (Chronic) 1965, 1969 History of laminectomy (Chronic) 2010 1-2 segment excision lesion thoracic History of appendectomy (Chronic) 1969 Sensory neuropathy (Chronic) Diverticulitis (Chronic) [facility] current use of anticoagulant (Chronic) Persistent atrial fibrillation (Chronic) Obesity (Chronic) Adult body mass index 30+ (Chronic) Benign hypertension (Chronic) Allergies crab Allergy (Severe, Verified 08/04/17 08:36) Itching and swelling on contact Sulfa (Sulfonamide Antibiotics) Allergy (Severe, Verified 08/04/17 08:36) Swelling, Rash metoprolol [From Toprol XL] Adverse Reaction (Intermediate, Verified 08/04/17 08:36) Chest heaviness or fullness Lobster Allergy (Severe, Uncoded 08/04/17 08:36) Itching and swelling on contact Scampi Allergy (Severe, Uncoded 08/04/17 08:36) Itching and swelling on contact Home Medications: Ambulatory Orders Medication Instructions Recorded biotin 1 mg capsule 1 mg PO QDAY 08/04/17 cholecalciferol (vitamin D3) 2,000 2,000 unit PO QDAY cap 08/04/17 unit capsule Surgical History: appendectomy Lives: Spouse/ Significant Other Smoking Status: Never smoker Review of Systems Constitutional: Denies: Chills, Fever, Weight Change HEENT: Denies: Head Aches, Sinus Congestion, Sinus Drainage Cardiovascular: Denies: Chest Pain, Palpitations Respiratory: Reports: Shortness of Breath. Denies: Cough, Shortness of breath at rest, Sputum production Gastrointestinal: Denies: Abdominal Pain, Nausea, Vomiting Genitourinary: Denies: Dysuria Musculoskeletal: Denies: Joint Pain, Joint Tenderness Skin: Denies: Rash, Wounds Neurological: Denies: Numbness, Tingling, Focal weakness Psychiatric: Denies: Anxiety, Depression, Homicidal Ideations, Suicidal Ideations Hematologic/ Lymphatic: Denies: Easy Bruising, Easy Bleeding VTE Information - Inpt Only VTE Present on Admission: No - here for cardioversion - Physical Exam General: Alert, Oriented x3, Cooperative HEENT: Atraumatic, PERRLA, EOMI, Normocephalic Neck: Supple, No JVD, Negative Carotid Bruits Lungs: Clear to auscultation, Normal air movement Cardiovascular: No murmurs, - - irregularly irregular Abdomen: Bowel Sounds Present, Soft, Non Tender Extremities: No edema, Capillary Refill Less than 3 Seconds Skin: No rashes, No breakdown Musculoskeletal: No Tenderness to Palpation of Joints or Extremities Neurological: Cranial nerves II-XII grossly intact Psych/Mental Status: Normal Affect, Appropriate Weight: 203 lb Body Mass Index (BMI) 31.8 Laboratory Tests Past 24 Hrs POC PT 28.8 H INR 2.50 Assessment/Plan 1. Atrial fibrillation: Patient's INR has been therapeutic for greater than 30 days. EKG today demonstrates atrial fibrillation. We will proceed with cardioversion. This will be done by Dr. Drew Ledezma. She will follow-up with Dr. Hector Hall post cardioversion. 2. Hypertension: This is managed by primary care doctor. 08/14/17 1103 <Electronically signed by Chula Lawton PA> Date Chula FANG 08/16/17 0822<Electronically signed by Drew Ledezma MD> Cosigner Signature: Date (if applicable) Drew Ledezma MD CC: Farrukh Whalen MD; Drew Ledezma MD; Chula Lawton Signed OPERATIVE REPORT Observed: 08/14/2017 Status: F Source: [place] 12:53 PM [facility] Medical Records Department [address] [place] [address] Operative Report 08/14/17 1251 MR#: [id number] Acct: [id number] Name: FELICIA STOVER Rep #: [id number] : 1935 81 From: Joseph Rothman DO PCP: Farrukh Whalen MD Status: [facility] Y Location: [facility] Operative Report Date of Procedure: 08/14/17 CONSCIOUS SEDATION REPORT DATE OF SERVICE: August 14, 2017 BRIEF HISTORY OF PRESENT ILLNESS: The patient is an 81-year-old female who presented to [facility] for an elective outpatient cardioversion due to underlying atrial fibrillation. The patient's last surface echocardiogram revealed ejection fraction of 55%. The patient denies a previous history of anesthetic complications. She does report a history of asthma. She denies a history of obstructive sleep apnea. She is currently anticoagulated on Coumadin. PHYSICAL EXAMINATION: VITAL SIGNS: Reviewed and were acceptable. GENERAL: The patient is a female, in no apparent distress, speaking in full sentences. HEENT: Normocephalic, atraumatic. Mucous membranes are moist and pink. Good mouth opening noted. Trachea is midline. Good neck mobility. CHEST: S1, S2 irregularly irregular. No murmurs, rubs or gallops were noted. LUNGS: Clear to auscultation bilaterally without appreciable wheezes, rales or rhonchi. ABDOMEN: Soft, nontender, nondistended. Positive bowel sounds. EXTREMITIES: There is no clubbing, cyanosis or edema. ASA Class: II DESCRIPTION OF PROCEDURE: After confirmation of informed consent, the patient's anesthesia plan was reviewed in detail. Propofol was chosen. Risks and benefits were reviewed and the patient agreed to proceed. At 1201, the patient was given 40 mg of propofol. The patient achieved an appropriate level of sedation and was given a 200 joule synchronized cardioversion by Dr. Ledezma at the bedside. This was successful in achieving normal sinus rhythm. The patient was monitored until 1208, at which time she reached her baseline mental status and function. The patient tolerated the procedure well. COMPLICATIONS: None ESTIMATED BLOOD LOSS: None RECOMMENDATIONS: Okay to recover in usual fashion. Code Visit 9xxxx: Other Procedure See Report 08/14/17 1253 <Electronically signed by Joseph Rothman DO> Date Joseph Rothman DO CC: Farrukh Whalen MD; Drew Ledezma MD; Joseph Rothman D.O. Signed OPERATIVE REPORT Observed: 08/14/2017 Status: F Source: [place] 12:08 PM [facility] Medical Records Department [address] [place] [address] Operative Report 08/14/17 1207 MR#: [id number] Acct: [id number] Name: FELICIA STOVER Rep #: [id number] : 1935 81 From: Drew Ledezma MD PCP: Farrukh Whalen MD Status: [facility] [place] Location: [facility] Operative Report Date of Procedure: 08/14/17 DC cardioversion. Indication: Persistent atrial fibrillation. X Procedure: Patient was previously evaluated by Dr. Hall of the cardiovascular division. She was scheduled to have a DC cardioversion had been on anticoagulation for at least 4 weeks with therapeutic INRs. After informed consent was obtained anterior posterior pads were applied an EKG was done which confirmed that the patient was in atrial fibrillation with a controlled ventricular response rate. The patient was seen by Dr. Rothman of the critical care division. The patient was administered 40 mg of intravenous propofol. 200 J of synchronized DC cardioversion energy were applied with prompt reversal to sinus rhythm. Patient tolerated the procedure well. Postoperative EKG confirmed sinus rhythm. Patient will continue to follow-up with Dr. Hall on her current medications. 08/14/17 1208 <Electronically signed by Drew Ledezma MD> Date Drew Ledezma MD CC: Farrukh Whalen MD; Drew Ledezma MD Signed PROTIME W/INR Collected: 08/14/2017 Status: F Source: [place] 10:27 AM [facility] [place] CODE TESTS RESULT OUT OF REFERENCE UNITS RANGE LAB L9200.1001 11.9-14.4 SEC High PROTIME ISTAT 28.8 Result Comment: Reference Range 11.9 - 14.4 LAB L9200.2000 Normal INR ISTAT 2.50 Result Comment: Critical Value > 3.5 Performed By: #### L9200.0000 #### [facility] Point of Care [address] [place] [address] OV Observed: 08/08/2017 Status: COMPLETED Source: [place] 10:55 AM [facility] REPOSITORY Office Visit ([facility]) FELICIA STOVER ([id number]) 1935 F NFR Date Time Provider Department 08/08/17 10:55 AM JUSTINA MARTINEZ) MADELYN During your visit today, we recorded the following information about you: Temperature Pulse Blood pressure 98 degrees 68/minute 135/78 LEONCIO Gonzalez 08/09/2017 9:27 AM Signed At last visit : 02/14/17 Felton Stover is a pleasant 81 year old female who has asthma that was dx by positive methacholine challenge last year. Since that time she has been treated with inhaled corticosteroid and LTRA with good results. Today she has reported some continuing symptoms of dyspnea. ? Occasional symptoms, especially after exertion. Not using rescue inhaler. Stable spirometry, very slight drop in FEV1. Step up therapy with Breo (ICS+LABA) for a month, see if this is ameliorates day to day activity related symptoms. ? Hx of atrial fibrillation, 2 cardioversions in the past per patient. Believe she is currently in a fib, advised follow up with cardiology. This may be part of residual dyspnea she experiences. She is anticoagulated on coumadin. ? Plan as provided to patient: We will try the Breo - this has long acting medication to keep airways open, plus inhaled steroid. Very similar to the Arnuity- may help with the daily shortness of breath a little more. ? Lets try this for a month- if you are doing well, we can either elect to do a couple more months and then step back down to Arnuity, or you can just go back to Arnuity at that point. ? For day to day symptoms- if you are active and and notice the shortness of breath after sitting down that persists, do one puff of your rescue inhaler. ? You can come off of the singulair- if you notice increase in symptoms you can call and let us know and restart. ? Either way, please call me with update in 1 month- we can make the decision on breo at that point. [phone] - you can leave a message if I dont answer and I will get back to you. ? Please do call your recreational therapy technician for follow up, heart rate today was normal, but was irregular. Some of the shortness of breath might be from cardiac side. ? Felton Stover will follow-up in pulmonary clinic in 6 months, sooner if needed. History Felicia Stover is a 81 year old female with asthma who presents today for follow-up. Coughing regularly No wheeze or shortness of breath. On arnuity ellipta once a day. Feels asthma is well controlled. Cough is dry Usually happens when eating- any food and sometimes water- feels it hits her throat at a certain place and triggers the cough. No trouble swallowing Cough is not triggered by talking, laughing, change in temperature, cold air, strong scents, or aerosols. Coughs in bouts, usually not in the morning, can start in the afternoon. When she eats after after dinner, sometimes after washing her face, she notes an increase in rhinitis and post nasal drip. Sensation of post nasal drip triggers the cough. Occasionally wakes and has phlegm in her throat that she feels she needs to spit out. Saline spray does not help. Cannot have antihistamines per her other doctors. No chest pain, dyspnea In a fib, on anticoagulant, going in for cardioversion in the next few weeks. Sinuses not congested, just c/o rhinitis, when eating or after washing face. No increased fatigue Very rare GERD symptoms- uses tums if needed Medications Current Outpatient Prescriptions: potassium chloride (K-TAB) 10 mEq tablet Take 1 tablet by mouth every 48 hours. furosemide (LASIX) 20 mg tablet Take 1 tablet by mouth every 48 hours. mupirocin (BACTROBAN) 2 % cream Apply 1 application to affected area three times daily. verapamil SR (CALAN SR, ISOPTIN SR) 240 mg CR tablet Take 1.5 tablets by mouth once daily. nitroglycerin sublingual (NITROQUICK) 0.4 mg SL tablet Dissolve 1 tablet under the tongue as needed. for chest pain,every 5 min x3 fluticasone furoate (ARNUITY ELLIPTA) 200 mcg/actuation dsdv Inhale 1 Inhalation as instructed once daily. ketoconazole (NIZORAL) 2 % shampoo Apply 1 application to affected area once daily as needed. For hair thinning flecainide (TAMBOCOR) 100 mg tablet Take 1 tablet by mouth twice daily. hydroxychloroquine (PLAQUENIL) 200 mg tablet Take 200 mg by mouth twice daily. lisinopril (ZESTRIL, PRINIVIL) 20 mg tablet Take 1 tablet by mouth twice daily. warfarin (COUMADIN) 3 mg tablet Take 1 tablet by mouth once daily. As directed montelukast (SINGULAIR) 10 mg tablet Take 1 tablet by mouth daily at bedtime. warfarin (COUMADIN) 2.5 mg tablet Take as directed per physician. warfarin (COUMADIN) 5 mg tablet Take as directed warfarin (COUMADIN) 2 mg tablet Take 1 tablet by mouth daily as directed. denosumab (PROLIA) 60 mg/mL syrg Inject 1 mL subcutaneously as directed. oxyCODONE-acetaminophen (PERCOCET) 5-325 mg tablet Take 1 tablet by mouth once daily as needed. traMADol (ULTRAM) 50 mg tablet Take 1 tablet by mouth every 6 hours as needed. BIOTIN ORAL Take 1 capsule by mouth once daily. Cholecalciferol, Vitamin D3, 2,000 unit cap Take 1 capsule by mouth once daily. take with the largest meal of the day No current facility-administered medications for this visit. Immunization History Administered Date(s) Administered Influenza Seasonal - High Dose - Age 65+ 03/21/2015 04/07/2016 02/21/2017 Influenza Seasonal Inj Age 3+ 03/27/2014 Influenza Vaccine, Split-Non Spec 04/21/2005 03/20/2006 03/07/2007 03/13/2008 02/07/2009 03/09/2010 03/19/2011 02/25/2012 03/23/2013 Pneumococcal-13 Vac Conjugate 12/02/2014 Pneumovax 02/06/2008 06/01/2009 TD Adult 05/08/2004 Tdap (Age 7+) 12/02/2014 Zostavax 07/01/2008 Deferred Date(s) Deferred Influenza Seasonal - High Dose - Age 65+ 02/21/2017 Allergies ALLERGIES Allergen Reactions - Crab Itching, swelling - Lobster (Crustacean* Can'T touch - Ragweed Other: See Comments Sneezing - Sulfa (Sulfonamide * SWELLING Rash - Scampi [Other] Swelling, itching. - Toprol Xl [Metoprol* Other: See Comments Chest fullness This patient's past medical history, family history, social history, medications and allergies have been reviewed from the [facility] electronic medical record and any appropriate up-dates have been made. Physical Exam BP 135/78 Pulse 68 Temp 36.7 ?C (98 ?F) (Temporal Artery) SpO2 96% GEN: NAD, AANDamp;O x 3, speaking in full sentences HEENT: EOMI, sinus non tender; clear oropharynx, nares patent CV: irregularly irregular rhythm, no MRG, no heaves/thrills, 2+ radial arteries bilaterally, no clubbing, cyanosis or edema of LE Lungs: symmetrical expansion, equal breath sounds, no wheeze Ext: gait normal, digits/nails no clubbing, cyanosis or edema, muscles of head and neck stable, non-tender. Diagnostic Data SPIROMETRY - BASELINE AND POST DILATOR ([id number]) - ordered on 02/14/17 [facility] [address] [place] [address] Test Date: 2017-02-14 Pat Name: FELTON STOVER Department: Room: Gender: Female Funeral Service Apprentice: JUDITH Argueta : 1935 Requested By: Order Number: [id number] Reading MD: Dr. Stan Poe M.D. Interpretive Statements Test no. 3 02/14/2017 11:05:03AM Medications and Allergies were reviewed for possible drug interactions per policy MM-102. No contraindications or sensitivities were noted. Respiratory meds taken today: ARNUITY ELLIPTA 2 hours before testing. PRE AND POST: ATS acceptability and reproducibility standards for spirometry met. 4 puffs albuterol (36 0 mcg) delivered by MDI via valved holding chamber, HRpre=92 /min, HRpost=76 /min.//SL IMPRESSION: Spirometry shows no obstruction. The reduced FVC corrects to normal after bronchodilator suggesting no restriction. There is no significant bronchodilator response.~ Electronically Signed On 02-14-2017 12:23:16 EDT by Fellow Sally Luna MD Electronically Signed On 02-15-2017 8:11:[address] Stan Poe M.D. [facility] [place] Pulmonary Function Lab Pred N ROHAN Pre % Post % % chg Date [id number] Time 10:54AM 11:10AM Height 170.2 170.2 Weight 90.1 90.1 FVC 2.90 2.14 3.66 2.06 71 2.16 74 5 FEV 1 2.16 1.52 2.80 1.35 63 1.44 66 6 FEV1%F 73.38 63.59 83.18 65.58 89 66.55 91 1 FEV 2 2.30 1.56 3.04 1.60 69 1.69 74 6 FEV 3 2.67 2.05 3.29 1.71 64 1.83 69 7 FEV3%E 88.85 83.49 94.21 83.03 93 84.83 95 2 MEF 50 2.80 1.62 3.98 1.05 37 1.05 38 1 FIF 50 2.64 2.70 2 F25/75 1.48 0.13 2.84 0.63 42 0.67 45 7 FE%FIF 39.67 39.00 -2 FEV6 1.91 2.02 6 PEF 5.55 3.82 7.28 3.75 68 4.98 90 33 FET 11.03 11.27 2 FETPEF 0.07 0.06 -25 VBe%FV 4.87 4.06 -17 VBEex 0.10 0.09 -13 VC MAX 2.90 2.14 3.66 2.06 71 2.16 74 5 I have personally reviewed and confirmed the findings on pulmonary function testing. ACT: 25 Impression / Plan: Moderate persistent asthma, well controlled on daily ICS inhaler - Continue Arnuity Ellipta once daily - Albuterol PRN for symptoms Cough - Suspect post nasal drip instigated by vasomotor rhintis, upper airway cough syndrome - Tried flonase in the past without resolution - Cannot have antihistamines per pt - TRIAL of ipratropium bromide nasal spray- 2-3 x a day, advised to use before meal in the evening. - If symptoms continue, can consider a trial of different nasal steroid spray. Felicia Stover will follow-up in pulmonary clinic in 6 months, sooner if needed. The duration of this appointment visit was 30 minutes of alkj-rd-xzwv time with the patient. More than 50% of this time was spent in counseling, explanation of diagnosis, planning of further management, and coordination of care. Justina Martinez PA-C [facility] [place] August 08, 2017 10:33 AM LEONCIO Gonzalez 08/08/2017 11:24 AM Signed Continue the Arnuity Ellipta 1 puff once a day This is to control the asthma. New nose spray- not an antihistamine, not a steroid - Atrovent (ipratropium bromide) This is to help with the nose running that starts with eating sometimes. 2 sprays twice a day, you can do 3 x a day if you feel it is helping. Call with update in a month- let me know if cough has improved. Otherwise 6 months for follow up and updated breathing tests. Referring Provider: JUSTINA MARTINEZ (LEONCIO) [[id number]] Allergies As of Date: 08/08/2017 Noted Allergy Reaction CRAB 03/12/2003 Comments: Itching, swelling LOBSTER (CRUSTACEANS) 03/12/2003 Comments: Can'T touch RAGWEED 03/12/2003 14 - Other: See Comments Comments: Sneezing SULFA (SULFONAMIDE ANTIBIOTICS) 03/12/2003 Comments: SWELLING Rash Scampi [Other] 03/12/2003 Comments: Swelling, itching. TOPROL XL (METOPROLOL SUCCINATE) 04/13/2010 14 - Other: See Comments Comments: Chest fullness Date Reviewed: 08/08/2017 Reviewed by: Zulma Whitley Ma - Fully Assessed Reason for Visit: Recheck [92] Primary Visit Diagnosis:Moderate persistent asthma without complication [J45.40] Other Visit Diagnosis:Upper airway cough syndrome [R05] Order(s):ipratropium bromide (ATROVENT) 42 mcg (0.06 %) nasal spray2 sprays per each nostril 2-3 times a day.Disp: 1 BottleRfl: 3 SPIROMETRY WITH DILATOR IF OBSTRUCTED [[id number]] Order #: [id number] FUTURE Prescriptions as of 08/08/2017 Sig: IPRATROPIUM BROMIDE 42 MCG (0* 2 sprays per each nostril 2-3* POTASSIUM CHLORIDE ER 10 MEQ * Take 1 tablet by mouth every * FUROSEMIDE 20 MG TABLET Take 1 tablet by mouth every * MUPIROCIN 2 % TOPICAL CREAM Apply 1 application to affect* VERAPAMIL ER (SR) 240 MG TABL* Take 1.5 tablets by mouth onc* NITROGLYCERIN 0.4 MG SUBLINGU* Dissolve 1 tablet under the t* FLUTICASONE FUROATE 200 MCG/A* Inhale 1 Inhalation as instru* KETOCONAZOLE 2 % SHAMPOO Apply 1 application to affect* FLECAINIDE 100 MG TABLET Take 1 tablet by mouth twice * HYDROXYCHLOROQUINE 200 MG TAB* Take 200 mg by mouth twice da* LISINOPRIL 20 MG TABLET Take 1 tablet by mouth twice * WARFARIN 3 MG TABLET Take 1 tablet by mouth once d* MONTELUKAST 10 MG TABLET Take 1 tablet by mouth daily * WARFARIN 2.5 MG TABLET Take as directed per physicia* WARFARIN 5 MG TABLET Take as directed WARFARIN 2 MG TABLET Take 1 tablet by mouth daily * DENOSUMAB 60 MG/ML SUBCUTANEO* Inject 1 mL subcutaneously as* OXYCODONE-ACETAMINOPHEN 5 MG-* Take 1 tablet by mouth once d* TRAMADOL 50 MG TABLET Take 1 tablet by mouth every * BIOTIN ORAL Take 1 capsule by mouth once * CHOLECALCIFEROL (VITAMIN D3) * Take 1 capsule by mouth once * Problem List As Of Date 08/08/2017 Noted Resolved PARESTHESIAS [R20.9] INVALID FOR* OVERWEIGHT [E66.9] INVALID FOR*12/02/2014 Essential hypertension [I10] INVALID FOR* More... FEMALE STRESS INCONTINENCE [N39.3] INVALID FOR* DIVERTICULITIS OF COLON W/O BLEED [K57.32] INVALID FOR* HEMORRHOIDS NOS [K64.9] INVALID FOR* ATRIAL FIBRILLATION [I48.91] INVALID FOR* More... HYPERLIPIDEMIA NEC/NOS [E78.5] INVALID FOR* More... INSOMNIA NOS [G47.00] INVALID FOR* GENERAL OSTEOARTHROSIS [M15.9] INVALID FOR* BRADYCARDIA [I49.8] INVALID FOR* Postmenopausal osteoporosis [M81.0] INVALID FOR* More... HYPERGLYCEMIA [R79.89] INVALID FOR* More... MITRAL REGURGITATION [I05.9] INVALID FOR* HYPOMAGNESEMIA [E83.40] INVALID FOR* Unspecified closed fracture of ankle [S82.899A] INVALID FOR* More... IDIO PERIPH NEURPTHY NOS [G60.9] INVALID FOR* BACKACHE NOS [M54.9] INVALID FOR* Other Chronic Pain [G89.29] INVALID FOR* More... 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 Pathologic fracture of vertebrae [M84.48XA] INVALID FOR* Lumbago [M54.5] INVALID FOR* Pseudogout [M11.20] INVALID FOR* More... Lumbar spondylosis [M47.816] INVALID FOR* Lumbar stenosis [M48.061] INVALID FOR* Vitamin D deficiency [E55.9] INVALID FOR* GERD (gastroesophageal reflux disease) [K21.9] INVALID FOR* BMI 32.0-32.9,adult [Z68.32] INVALID FOR* Hyperlipidemia [E78.5] INVALID FOR* More... Impaired fasting glucose [R73.01] INVALID FOR* Bilateral low back pain without sciatica [M54.5]INVALID FOR* Moderate persistent asthma [J45.40] INVALID FOR* More... Persistent asthma [J45.909] INVALID FOR* CKD (chronic kidney disease) stage 3, GFR 30-59*INVALID FOR* Other instructions from your clinician: Continue the Arnuity Ellipta 1 puff once a day This is to control the asthma. New nose spray- not an antihistamine, not a steroid - Atrovent (ipratropium bromide) This is to help with the nose running that starts with eating sometimes. 2 sprays twice a day, you can do 3 x a day if you feel it is helping. Call with update in a month- let me know if cough has improved. Otherwise 6 months for follow up and updated breathing tests. Prescriptions ordered this encounter Disp Refills Start End IPRATROPIUM BROMIDE 42 MCG (0.06 %) * 1 Sascha* 3 08/08/2017 Si sprays per each nostril 2-3 times a day. Disposition: Return in about 6 months (around 02/07/2018) for asthma follow up with spirometry. Follow-up and Disposition History Recorded Questionnaire: ASTHMA CONTROL TEST Last 4 weeks, your asthma limited your activity at work or home: -> 5 NONE OF THE TIME Past 4 weeks, how often have you had shortness of breath? -> 5 NOT AT ALL Past 4 weeks: Asthma symptoms woke you at night or earlier than usual? -> 5 NOT AT ALL Past 4 weeks: How often did you use rescue inhaler or nebulizer med? 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 Since that time she has been treated with inhaled corticosteroid and LTRA with good results. Today she has reported some continuing symptoms of dyspnea. ? Occasional symptoms, especially after exertion. Not using rescue inhaler. Stable spirometry, very slight drop in FEV1. Step up therapy with Breo (ICS+LABA) for a month, see if this is ameliorates day to day activity related symptoms. ? Hx of atrial fibrillation, 2 cardioversions in the past per patient. Believe she is currently in a fib, advised follow up with cardiology. This may be part of residual dyspnea she experiences. She is anticoagulated on coumadin. ? Plan as provided to patient: We will try the Breo - this has long acting medication to keep airways open, plus inhaled steroid. Very similar to the Arnuity- may help with the daily shortness of breath a little more. ? Lets try this for a month- if you are doing well, we can either elect to do a couple more months and then step back down to Arnuity, or you can just go back to Arnuity at that point. ? For day to day symptoms- if you are active and and notice the shortness of breath after sitting down that persists, do one puff of your rescue inhaler. ? You can come off of the singulair- if you notice increase in symptoms you can call and let us know and restart. ? Either way, please call me with update in 1 month- we can make the decision on breo at that point. [phone] - you can leave a message if I dont answer and I will get back to you. ? Please do call your recreational therapy technician for follow up, heart rate today was normal, but was irregular. Some of the shortness of breath might be from cardiac side. ? Felton Stover will follow-up in pulmonary clinic in 6 months, sooner if needed. History Felicia Stover is a 81 year old female with asthma who presents today for follow-up. Coughing regularly No wheeze or shortness of breath. On arnuity ellipta once a day. Feels asthma is well controlled. Cough is dry Usually happens when eating- any food and sometimes water- feels it hits her throat at a certain place and triggers the cough. No trouble swallowing Cough is not triggered by talking, laughing, change in temperature, cold air, strong scents, or aerosols. Coughs in bouts, usually not in the morning, can start in the afternoon. When she eats after after dinner, sometimes after washing her face, she notes an increase in rhinitis and post nasal drip. Sensation of post nasal drip triggers the cough. Occasionally wakes and has phlegm in her throat that she feels she needs to spit out. Saline spray does not help. Cannot have antihistamines per her other doctors. No chest pain, dyspnea In a fib, on anticoagulant, going in for cardioversion in the next few weeks. Sinuses not congested, just c/o rhinitis, when eating or after washing face. No increased fatigue Very rare GERD symptoms- uses tums if needed Medications Current Outpatient Prescriptions: potassium chloride (K-TAB) 10 mEq tablet Take 1 tablet by mouth every 48 hours. furosemide (LASIX) 20 mg tablet Take 1 tablet by mouth every 48 hours. mupirocin (BACTROBAN) 2 % cream Apply 1 application to affected area three times daily. verapamil SR (CALAN SR, ISOPTIN SR) 240 mg CR tablet Take 1.5 tablets by mouth once daily. nitroglycerin sublingual (NITROQUICK) 0.4 mg SL tablet Dissolve 1 tablet under the tongue as needed. for chest pain,every 5 min x3 fluticasone furoate (ARNUITY ELLIPTA) 200 mcg/actuation dsdv Inhale 1 Inhalation as instructed once daily. ketoconazole (NIZORAL) 2 % shampoo Apply 1 application to affected area once daily as needed. For hair thinning flecainide (TAMBOCOR) 100 mg tablet Take 1 tablet by mouth twice daily. hydroxychloroquine (PLAQUENIL) 200 mg tablet Take 200 mg by mouth twice daily. lisinopril (ZESTRIL, PRINIVIL) 20 mg tablet Take 1 tablet by mouth twice daily. warfarin (COUMADIN) 3 mg tablet Take 1 tablet by mouth once daily. As directed montelukast (SINGULAIR) 10 mg tablet Take 1 tablet by mouth daily at bedtime. warfarin (COUMADIN) 2.5 mg tablet Take as directed per physician. warfarin (COUMADIN) 5 mg tablet Take as directed warfarin (COUMADIN) 2 mg tablet Take 1 tablet by mouth daily as directed. denosumab (PROLIA) 60 mg/mL syrg Inject 1 mL subcutaneously as directed. oxyCODONE-acetaminophen (PERCOCET) 5-325 mg tablet Take 1 tablet by mouth once daily as needed. traMADol (ULTRAM) 50 mg tablet Take 1 tablet by mouth every 6 hours as needed. BIOTIN ORAL Take 1 capsule by mouth once daily. Cholecalciferol, Vitamin D3, 2,000 unit cap Take 1 capsule by mouth once daily. take with the largest meal of the day No current facility-administered medications for this visit. Immunization History Administered Date(s) Administered Influenza Seasonal - High Dose - Age 65+ 03/21/2015 04/07/2016 02/21/2017 Influenza Seasonal Inj Age 3+ 03/27/2014 Influenza Vaccine, Split-Non Spec 04/21/2005 03/20/2006 03/07/2007 03/13/2008 02/07/2009 03/09/2010 03/19/2011 02/25/2012 03/23/2013 Pneumococcal-13 Vac Conjugate 12/02/2014 Pneumovax 02/06/2008 06/01/2009 TD Adult 05/08/2004 Tdap (Age 7+) 12/02/2014 Zostavax 07/01/2008 Deferred Date(s) Deferred Influenza Seasonal - High Dose - Age 65+ 02/21/2017 Allergies ALLERGIES Allergen Reactions - Crab Itching, swelling - Lobster (Crustacean* Can'T touch - Ragweed Other: See Comments Sneezing - Sulfa (Sulfonamide * SWELLING Rash - Scampi [Other] Swelling, itching. - Toprol Xl [Metoprol* Other: See Comments Chest fullness This patient's past medical history, family history, social history, medications and allergies have been reviewed from the [facility] electronic medical record and any appropriate up-dates have been made. Physical Exam BP 135/78 Pulse 68 Temp 36.7 ?C (98 ?F) (Temporal Artery) SpO2 96% GEN: NAD, AANDO x 3, speaking in full sentences HEENT: EOMI, sinus non tender; clear oropharynx, nares patent CV: irregularly irregular rhythm, no MRG, no heaves/thrills, 2+ radial arteries bilaterally, no clubbing, cyanosis or edema of LE Lungs: symmetrical expansion, equal breath sounds, no wheeze Ext: gait normal, digits/nails no clubbing, cyanosis or edema, muscles of head and neck stable, non-tender. Diagnostic Data SPIROMETRY - BASELINE AND POST DILATOR ([id number]) - ordered on 02/14/17 [facility] [address] [place] [address] Test Date: 2017-02-14 Pat Name: FELTON STOVER Department: Room: Gender: Female Funeral Service Apprentice: JUDITH Argueta : 1935 Requested By: Order Number: [id number] Reading MD: Dr. Stan Poe M.D. Interpretive Statements Test no. 3 02/14/2017 11:05:03AM Medications and Allergies were reviewed for possible drug interactions per policy MM-102. No contraindications or sensitivities were noted. Respiratory meds taken today: ARNUITY ELLIPTA 2 hours before testing. PRE AND POST: ATS acceptability and reproducibility standards for spirometry met. 4 puffs albuterol (36 0 mcg) delivered by MDI via valved holding chamber, HRpre=92 /min, HRpost=76 /min.//SL IMPRESSION: Spirometry shows no obstruction. The reduced FVC corrects to normal after bronchodilator suggesting no restriction. There is no significant bronchodilator response.~ Electronically Signed On 02-14-2017 12:23:16 EDT by Fellow Sally Luna MD Electronically Signed On 02-15-2017 8:11:[address] Stan Poe M.D. [facility] [place] Pulmonary Function Lab Pred [facility] Pre % Post % % [facility] Date [id number] Time 10:54AM 11:10AM -- Height 170.2 170.2 Weight 90.1 90.1 -- FVC 2.90 2.14 3.66 2.06 71 2.16 74 5 FEV 1 2.16 1.52 2.80 1.35 63 1.44 66 6 FEV1%F 73.38 63.59 83.18 65.58 89 66.55 91 1 FEV 2 2.30 1.56 3.04 1.60 69 1.69 74 6 FEV 3 2.67 2.05 3.29 1.71 64 1.83 69 7 FEV3%E 88.85 83.49 94.21 83.03 93 84.83 95 2 MEF 50 2.80 1.62 3.98 1.05 37 1.05 38 1 FIF 50 2.64 2.70 2 F25/75 1.48 0.13 2.84 0.63 42 0.67 45 7 FE%FIF 39.67 39.00 -2 FEV6 1.91 2.02 6 PEF 5.55 3.82 7.28 3.75 68 4.98 90 33 FET 11.03 11.27 2 FETPEF 0.07 0.06 -25 VBe%FV 4.87 4.06 -17 VBEex 0.10 0.09 -13 -- VC MAX 2.90 2.14 3.66 2.06 71 2.16 74 5 -- -- -- -- I have personally reviewed and confirmed the findings on pulmonary function testing. ACT: 25 Impression / Plan: Moderate persistent asthma, well controlled on daily ICS inhaler - Continue Arnuity Ellipta once daily - Albuterol PRN for symptoms Cough - Suspect post nasal drip instigated by vasomotor rhintis, upper airway cough syndrome - Tried flonase in the past without resolution - Cannot have antihistamines per pt - TRIAL of ipratropium bromide nasal spray- 2-3 x a day, advised to use before meal in the evening. - If symptoms continue, can consider a trial of different nasal steroid spray. Felicia Stover will follow-up in pulmonary clinic in 6 months, sooner if needed. The duration of this appointment visit was 30 minutes of pzzh-ac-pfzv time with the patient. More than 50% of this time was spent in counseling, explanation of diagnosis, planning of further management, and coordination of care. Justina Martinez PA-C [facility] [place] August 08, 2017 10:33 AM PROGRESS Observed: 08/08/2017 Status: COMPLETED Source: [place] 9:06 AM [facility] REPOSITORY HNO ID: [id number] Author: Luis Vazquez Service: (none) Author Type: Physician Type: Progress Notes Filed: 08/08/2017 9:26 AM Note Text: ENDOCRINE CALCIUM CLINIC FOLLOW UP - OSTEOPOROSIS LAST SEEN 07-26-2016 Last Denosumab Inj: 08-08-2017 - first injection Most Recent DXA: 03-08-2016 - stable low bone mass - [place], [place] CC: 4 fractures - ankle with ORIF, hip (spontaneous), and two spine fractures L1, and L5 - was stabilized via vertebroplasty - tried fosamax for 4 months and stopped due to GERD and also noted tinnitus with her pulse. - last fracture was in 2007 HPI/ROS: Felicia Stover is a 81 year old female who first presented in consultation for multiple fractures. History includes Afib with cardioversion, and some joint pains - polyarticular migrating pain; has some allergies that are severe. Fractures as noted above. She underwent dunosumab injection last May 30 (2013). - She remains active; stretching in the morning and has joined a senior fitness program. She continues to take her D and calcium, rides a bike at the gym and also a stair-stepper. - at fitness class 3 days per week and daily stretching - no interval falls, no fractures, no bone pain, no spine pain, no change in bowel habits, weight ess stable tho heavier than she prefers - next month will get 2nd Prolia inj -- tolerated first injections without any noted side effects of complications remainder of ROS is neg PLEASE ALSO SEE PREVIOUS ENCOUNTERS IN THIS EMR . . . FOLLOW UP VISIT 07-26-2016: Newly diagnosed asthma and not yet on stable dose meds for control. Jameson Prolia well, No bone pain No falls, notes loss of another inch. Using a cane to ambulate more often. Keeping up with calcium and Vitamin D. 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 No other interval changes noted. Feels well and continues to tolerate the Prolia without difficulty FOLLOW UP VISIT 08-08-2017: States that she is doing well. Continues to jameson the Prolia well. Falls - at least 3; one out of bed; no fractures. Recently seen by Rheum and has been started on new med for both joint and soft tissue swelling. She also notes that she is in A-fib -- and undergoing testing and scheduled for procedure next week. Risk Factors for Osteoporosis and Fracture: Personal history of fracture since age 39 and Loss of height of one inch or more; adult height: 5'11. MEDICAL HISTORY: PAST MEDICAL HISTORY Diagnosis Date - Abdominal pain, left lower quadrant - Atrial fibrillation (HCC) - Diverticulitis - Diverticulitis of colon (without mention of hemorrhage)(562.11) - Diverticulosis of colon (without mention of hemorrhage) - Essential hypertension, benign - Insomnia, unspecified - Other combinations of endocrine dysfunction - PMH - PAST MEDICAL HISTORY OF Sensory neuropathy - PMH - PAST MEDICAL HISTORY OF Stress Urinary Incontinence - PMH - PAST MEDICAL HISTORY OF cyst on the ovary SURGICAL HISTORY: PAST SURGICAL HISTORY Procedure Laterality Date - APPENDECTOMY 1969 - DELIVERY ONLY 1964 , low transverse - DELIVERY ONLY 1968 , low transverse - COLONOSCOP W/ OR W/O BRSH SPEC 06/2004 Colonoscopy - LAMINCTMY 1-2 SEG EXC LESION O 2010? - LAPAROSCOPIC CYSTECTOMY 01/14/14 bilateral oophrectomy - PAST SURGICAL HISTORY OF 04/02/2002 DC cardioversion - PAST SURGICAL HISTORY OF 2008 cataracts left and right - PAST SURGICAL HISTORY OF 2007 ankle surgery x 2 right - PAST SURGICAL HISTORY OF lumbar pain injections X2 - REMOVAL GALLBLADDER 1968 Cholecystectomy open - SIGMOIDOSCOPY FLEX DIAG 12/10/09 FAMILY HISTORY: FAMILY HISTORY Problem Relation Age of Onset - Heart Father - Stroke Mother - Hypertension Mother - Diabetes Brother - Mother with Osteoporosis with dowager's hump - Does not know about her MGM SOCIAL HISTORY: SOCIAL HISTORY Employer And Job Title: [employer]ING [employer]) - retired Marital Status: to Brianna with 2 children Tobacco Use: Never Alcohol Use: Yes (7 glasses of wine weekly) Drug Use: No Sexual Activity: Not on file DXA HISTORY: DATE OF EXAM: 2015 PROCEDURE REASON: Age-related osteoporosis without current pathological fracture INDICATION: Age-related osteoporosis without current pathological fracture ? TECHNIQUE: Low dose AP spine and hip images, low-dose lateral thoracolumbar spine image COMPARISON: ?02/18/2014 LUMBAR SPINE: ?The bone mineral density from L1 and L2 is 1.294 grams per square centimeter which yields a T-score of 2.1. ?The computer excluded L1 and L4. ?Accurate evaluation is difficult.. LEFT HIP: ?The bone mineral density of the total region of the hip is 0.778 grams per square centimeter which yields a T-score of -1.3. ?This is not significantly changed. LEFT FEMORAL NECK: ?The bone mineral density of the femoral neck is 0.601 grams per square centimeter which yields a T-score of -2.2. ?This is not significantly changed. RIGHT HIP: ? The bone mineral density of the total region of the hip is 0.708 grams per square centimeter which yields a T-score of -1.9. ?This is not significantly changed. RIGHT FEMORAL NECK: ?The bone mineral density of the femoral neck is 0.616 grams per square centimeter which yields a T-score of -2.1. ?This is unchanged. Lateral view of the thoracolumbar spine demonstrates a moderate biconcave compression fracture of L1 and a mild compression fracture of the superior endplate of L3. ?Vertebral augmentation is noted at L5. IMPRESSION: ?Osteopenia, not significantly changed. ?Lumbar compression fractures, not significantly changed at L1 but appearing worse at L3 compared to lumbar spine images dated 10/03/2015.. I have reviewed these images extensively and concur with the above noted interpretation; I also reviewed the images with the patient HISTORY/RISK FACTORS: Post menopause. Family history of osteoporosis, fracture, and loss of height. Personal history of fracture and loss of height. TECHNIQUE: Measurements performed with a Hologic scanner, Discovery C model ([id number].) The examination is of good technical quality. Severe degeneration of L spine with previous intervention -- L 2 and 3 only used for interpretation LUMBAR SPINE: 2013: L2 -L3 Data not available 2011: BMD: L1-L4: 1.057 gm/cm2. T-score: 0.1 Z-score: 2.6 LEFT HIP: 2013: 0.594 g/cm2 BMD (Femoral neck): 0.599 gm/cm2 T-score: -2.3 Z-score: -0.1 No significant change 2013: 0.770 g/cm2 BMD (Total hip): 0.777 gm/cm2 T-score: -1.4 Z-score: 0.6 No significant change RIGHT HIP: 2013: 0.612 g/cm2 BMD (Femoral neck): 0.599 gm/cm2 T-score: -2.3. Z-score: -0.0 No significant change 2013: 0.714 g/cm2 BMD (Total hip): 0.747 gm/cm2 T-score: -1.6 Z-score: 0.[address] [facility] our calculated LSC (Least Significant Change) is 0.031 g/cm2 at the spine, and 0.040 g/cm2 at the hip.) CORRECTION OF DXA INTERPRETATION: Spine can not be used for BMD assessment due to degenerative disease. Based on the facility LSC, there has been no significant change in BMD from 2011 to 2013. LABS Component Latest Ref Rng AND Units 08/07/2017 Glucose 74 - 99 mg/dL 82 BUN 7 - 21 mg/dL 30 (H) Creatinine 0.58 - 0.96 mg/dL 1.21 (H) Sodium 136 - 144 mmol/L 142 Potassium 3.7 - 5.1 mmol/L 4.8 Chloride 97 - 105 mmol/L 102 CO2 22 - 30 mmol/L 26 Anion Gap 9 - 18 mmol/L 14 Calcium 8.5 - 10.2 mg/dL 9.4 eGFR- 52 eGFR-All Other Races . 43 MEDS Current Outpatient Prescriptions on File Prior to Visit: temazepam (RESTORIL) 15 mg cap Take 1 capsule by mouth at bedtime as needed. montelukast (SINGULAIR) 10 mg tablet Take 1 tablet by mouth daily at bedtime. fluticasone furoate (ARNUITY ELLIPTA) 200 mcg/actuation dsdv Inhale 1 Inhalation as instructed once daily. albuterol HFA (PROAIR HFA) 90 mcg/actuation inhaler Inhale 2 Puffs as instructed every 4 hours as needed. warfarin (COUMADIN) 5 mg tablet Take as directed warfarin (COUMADIN) 2 mg tablet Take 1 tablet by mouth daily as directed. flecainide (TAMBOCOR) 100 mg tablet Take 1 tablet by mouth twice daily. denosumab (PROLIA) 60 mg/mL syrg Inject 1 mL subcutaneously as directed. verapamil SR (CALAN SR, ISOPTIN SR) 240 mg CR tablet Take 1 tablet by mouth once daily. oxyCODONE-acetaminophen (PERCOCET) 5-325 mg tablet Take 1 tablet by mouth once daily as needed. traMADol (ULTRAM) 50 mg tablet Take 1 tablet by mouth every 6 hours as needed. lisinopril (ZESTRIL, PRINIVIL) 20 mg tablet Take 1 tablet by mouth twice daily. ketoconazole (NIZORAL) 2 % shampoo Apply 1 application to affected area once daily as needed. For hair thinning warfarin (COUMADIN) 3 mg tablet Take 1 tablet by mouth once daily. As directed warfarin (COUMADIN) 2.5 mg tablet Take as directed per physician. BIOTIN ORAL Take 1 capsule by mouth once daily. Cholecalciferol, Vitamin D3, 2,000 unit cap Take 1 capsule by mouth once daily. take with the largest meal of the day clobetasol 0.05 % ointment Apply 1 application to affected area twice daily. TO AFFECTED AREA. MAGOX 400 MG TAB Take one(1) tablet daily. CENTRUM SILVER TABLET Take one(1) tablet daily. No current facility-administered medications on file prior to visit. PHYSICAL EXAMINATION: General appearance: Well appearing, alert, in no acute distress Body mass index is 31.81 kg/(m2). - more frail than in past visits Head: Normal Skin: skin color, texture, turgor normal, no rashes or lesions Abdomen: central obesity Extremities: tr edema bilat ankles Spine: nontender; kyphosis is noted with lordosis Musculoskeletal: Spine range of motion normal. Muscular strength: subtle proximal weakness Neuro: Gait normal. Assessment/Plan: 1. 733.01 Senile osteoporosis (primary diagnosis) 2. 733.13 Pathologic fracture of vertebrae - 3 falls recently - sent note to PCP regarding this - req PT/OT for strength and balance - jameson Prolia well - continue q 6 mo - most recent BMD notes continued stable bone mass - encouraged continued supplement intake of D and calcium; adequate protein and routine activity - continue to follow up annually 3. 268.9 Vitamin D deficiency - CHOLECALCIFEROL (VITAMIN D3) 2,000 UNIT CAPSULE - continue - still a milk drinker and consumes cheese and cottage cheese - likely getting sufficient calcium I thank you for the opportunity to participate in the care of this patient. Please do not hesitate to contact me if you have further concerns or questions. Luis Vazquez MD, MS, CCD, FACN, FACP, FACE Diplomate, [place] [employer] Diplomate, [place] [employer] and -20 / [phone] / [phone] CNOV Observed: 08/08/2017 Status: COMPLETED Source: [place] 8:45 AM [facility] REPOSITORY Office Visit (ENDMED) FELICIA STOVER ([id number]) 1935 F NFR Date Time Provider Department 08/08/17 8:45 AM LUIS VAZQUEZ During your visit today, we recorded the following information about you: Pulse Blood pressure Weight Height 70/minute 125/80 92.4 kg 1.704 m Brittany Perez MA 08/08/2017 8:54 AM Signed Patient presents with: Established Patient: osteo ANDamp; prollia Brittany Dickson, RN, RN 08/08/2017 9:06 AM Signed The patient is here for an injection of Prolia Dose: 60mg Route: Subcutaneous Lot# [id number] Expiration date 10/25 Given without incident. Site: left deltoid Dr. Vazquez present in clinic at time of injection. The date due for the next injection is 02-07-2018 Patient education was given by nurse. Yumiko Dickson, PARUL Vazquez MD 08/08/2017 9:26 AM Signed ENDOCRINE CALCIUM CLINIC FOLLOW UP - OSTEOPOROSIS LAST SEEN 07-26-2016 Last Denosumab Inj: 08-08-2017 - first injection Most Recent DXA: 03-08-2016 - stable low bone mass - alex, [place] CC: 4 fractures - ankle with ORIF, hip (spontaneous), and two spine fractures L1, and L5 - was stabilized via vertebroplasty - tried fosamax for 4 months and stopped due to GERD and also noted tinnitus with her pulse. - last fracture was in 2007 HPI/ROS: Feilcia Stover is a 81 year old female who first presented in consultation for multiple fractures. History includes Afib with cardioversion, and some joint pains - polyarticular migrating pain; has some allergies that are severe. Fractures as noted above. She underwent dunosumab injection last May 30 (2013). - She remains active; stretching in the morning and has joined a senior fitness program. She continues to take her D and calcium, rides a bike at the gym and also a stair-stepper. - at fitness class 3 days per week and daily stretching - no interval falls, no fractures, no bone pain, no spine pain, no change in bowel habits, weight ess stable tho heavier than she prefers - next month will get 2nd Prolia inj -- tolerated first injections without any noted side effects of complications remainder of ROS is neg PLEASE ALSO SEE PREVIOUS ENCOUNTERS IN THIS EMR . . . FOLLOW UP VISIT 07-26-2016: Newly diagnosed asthma and not yet on stable dose meds for control. Jameson Prolia well, No bone pain No falls, notes loss of another inch. Using a cane to ambulate more often. Keeping up with calcium and Vitamin D. 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 No other interval changes noted. Feels well and continues to tolerate the Prolia without difficulty FOLLOW UP VISIT 08-08-2017: States that she is doing well. Continues to jameson the Prolia well. Falls - at least 3; one out of bed; no fractures. Recently seen by Rheum and has been started on new med for both joint and soft tissue swelling. She also notes that she is in A-fib -- and undergoing testing and scheduled for procedure next week. Risk Factors for Osteoporosis and Fracture: Personal history of fracture since age 39 and Loss of height of one inch or more; adult height: 5'11ANDquot;. MEDICAL HISTORY: PAST MEDICAL HISTORY Diagnosis Date - Abdominal pain, left lower quadrant - Atrial fibrillation (HCC) - Diverticulitis - Diverticulitis of colon (without mention of hemorrhage)(562.11) - Diverticulosis of colon (without mention of hemorrhage) - Essential hypertension, benign - Insomnia, unspecified - Other combinations of endocrine dysfunction - PMH - PAST MEDICAL HISTORY OF Sensory neuropathy - PMH - PAST MEDICAL HISTORY OF Stress Urinary Incontinence - PMH - PAST MEDICAL HISTORY OF cyst on the ovary SURGICAL HISTORY: PAST SURGICAL HISTORY Procedure Laterality Date - APPENDECTOMY 1968 - DELIVERY ONLY 1964 , low transverse - DELIVERY ONLY 1968 , low transverse - COLONOSCOP W/ OR W/O BRSH SPEC 06/2004 Colonoscopy - LAMINCTMY 1-2 SEG EXC LESION O 2010? - LAPAROSCOPIC CYSTECTOMY 01/14/14 bilateral oophrectomy - PAST SURGICAL HISTORY OF 04/02/2002 DC cardioversion - PAST SURGICAL HISTORY OF 2008 cataracts left and right - PAST SURGICAL HISTORY OF 2007 ankle surgery x 2 right - PAST SURGICAL HISTORY OF lumbar pain injections X2 - REMOVAL GALLBLADDER 1968 Cholecystectomy open - SIGMOIDOSCOPY FLEX DIAG 12/10/09 FAMILY HISTORY: FAMILY HISTORY Problem Relation Age of Onset - Heart Father - Stroke Mother - Hypertension Mother - Diabetes Brother - Mother with Osteoporosis with dowager's hump - Does not know about her MGM SOCIAL HISTORY: SOCIAL HISTORY Employer And Job Title: [employer] ([employer]) - retired Marital Status: to Brianna with 2 children Tobacco Use: Never Alcohol Use: Yes (7 glasses of wine weekly) Drug Use: No Sexual Activity: Not on file DXA HISTORY: DATE OF EXAM: Mar?2015 PROCEDURE REASON: Age-related osteoporosis without current pathological fracture INDICATION: Age-related osteoporosis without current pathological fracture ? TECHNIQUE: Low dose AP spine and hip images, low-dose lateral thoracolumbar spine image COMPARISON: ?02/18/2014 LUMBAR SPINE: ?The bone mineral density from L1 and L2 is 1.294 grams per square centimeter which yields a T-score of 2.1. ?The computer excluded L1 and L4. ?Accurate evaluation is difficult.. LEFT HIP: ?The bone mineral density of the total region of the hip is 0.778 grams per square centimeter which yields a T-score of -1.3. ?This is not significantly changed. LEFT FEMORAL NECK: ?The bone mineral density of the femoral neck is 0.601 grams per square centimeter which yields a T-score of -2.2. ?This is not significantly changed. RIGHT HIP: ? The bone mineral density of the total region of the hip is 0.708 grams per square centimeter which yields a T-score of -1.9. ?This is not significantly changed. RIGHT FEMORAL NECK: ?The bone mineral density of the femoral neck is 0.616 grams per square centimeter which yields a T-score of -2.1. ?This is unchanged. Lateral view of the thoracolumbar spine demonstrates a moderate biconcave compression fracture of L1 and a mild compression fracture of the superior endplate of L3. ?Vertebral augmentation is noted at L5. IMPRESSION: ?Osteopenia, not significantly changed. ?Lumbar compression fractures, not significantly changed at L1 but appearing worse at L3 compared to lumbar spine images dated 10/03/2015.. I have reviewed these images extensively and concur with the above noted interpretation; I also reviewed the images with the patient HISTORY/RISK FACTORS: Post menopause. Family history of osteoporosis, fracture, and loss of height. Personal history of fracture and loss of height. TECHNIQUE: Measurements performed with a HoloIntroBridge scanner, Discovery C model ([id number].) The examination is of good technical quality. 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 T-score: 0.1 Z-score: 2.6 LEFT HIP: 2014: 0.594 g/cm2 BMD (Femoral neck): 0.599 gm/cm2 T-score: -2.3 Z-score: -0.1 No significant change 2013: 0.770 g/cm2 BMD (Total hip): 0.777 gm/cm2 T-score: -1.4 Z-score: 0.6 No significant change RIGHT HIP: 2013: 0.612 g/cm2 BMD (Femoral neck): 0.599 gm/cm2 T-score: -2.3. Z-score: -0.0 No significant change 2013: 0.714 g/cm2 BMD (Total hip): 0.747 gm/cm2 T-score: -1.6 Z-score: 0.[address] [facility] our calculated LSC (Least Significant Change) is 0.031 g/cm2 at the spine, and 0.040 g/cm2 at the hip.) CORRECTION OF DXA INTERPRETATION: Spine can not be used for BMD assessment due to degenerative disease. Based on the facility LSC, there has been no significant change in BMD from 2011 to 2013. LABS Component Latest Ref Rng ANDamp; Units 08/07/2017 Glucose 74 - 99 mg/dL 82 BUN 7 - 21 mg/dL 30 (H) Creatinine 0.58 - 0.96 mg/dL 1.21 (H) Sodium 136 - 144 mmol/L 142 Potassium 3.7 - 5.1 mmol/L 4.8 Chloride 97 - 105 mmol/L 102 CO2 22 - 30 mmol/L 26 Anion Gap 9 - 18 mmol/L 14 Calcium 8.5 - 10.2 mg/dL 9.4 eGFR- 52 eGFR-All Other Races . 43 MEDS Current Outpatient Prescriptions on File Prior to Visit: temazepam (RESTORIL) 15 mg cap Take 1 capsule by mouth at bedtime as needed. montelukast (SINGULAIR) 10 mg tablet Take 1 tablet by mouth daily at bedtime. fluticasone furoate (ARNUITY ELLIPTA) 200 mcg/actuation dsdv Inhale 1 Inhalation as instructed once daily. albuterol HFA (PROAIR HFA) 90 mcg/actuation inhaler Inhale 2 Puffs as instructed every 4 hours as needed. warfarin (COUMADIN) 5 mg tablet Take as directed warfarin (COUMADIN) 2 mg tablet Take 1 tablet by mouth daily as directed. flecainide (TAMBOCOR) 100 mg tablet Take 1 tablet by mouth twice daily. denosumab (PROLIA) 60 mg/mL syrg Inject 1 mL subcutaneously as directed. verapamil SR (CALAN SR, ISOPTIN SR) 240 mg CR tablet Take 1 tablet by mouth once daily. oxyCODONE-acetaminophen (PERCOCET) 5-325 mg tablet Take 1 tablet by mouth once daily as needed. traMADol (ULTRAM) 50 mg tablet Take 1 tablet by mouth every 6 hours as needed. lisinopril (ZESTRIL, PRINIVIL) 20 mg tablet Take 1 tablet by mouth twice daily. ketoconazole (NIZORAL) 2 % shampoo Apply 1 application to affected area once daily as needed. For hair thinning warfarin (COUMADIN) 3 mg tablet Take 1 tablet by mouth once daily. As directed warfarin (COUMADIN) 2.5 mg tablet Take as directed per physician. BIOTIN ORAL Take 1 capsule by mouth once daily. Cholecalciferol, Vitamin D3, 2,000 unit cap Take 1 capsule by mouth once daily. take with the largest meal of the day clobetasol 0.05 % ointment Apply 1 application to affected area twice daily. TO AFFECTED AREA. MAGOX 400 MG TAB Take one(1) tablet daily. CENTRUM SILVER TABLET Take one(1) tablet daily. No current facility-administered medications on file prior to visit. PHYSICAL EXAMINATION: General appearance: Well appearing, alert, in no acute distress Body mass index is 31.81 kg/(m2). - more frail than in past visits Head: Normal Skin: skin color, texture, turgor normal, no rashes or lesions Abdomen: central obesity Extremities: tr edema bilat ankles Spine: nontender; kyphosis is noted with lordosis Musculoskeletal: Spine range of motion normal. Muscular strength: subtle proximal weakness Neuro: Gait normal. Assessment/Plan: . Senile osteoporosis (primary diagnosis) 2. .13 Pathologic fracture of vertebrae - 3 falls recently - sent note to PCP regarding this - req PT/OT for strength and balance - jameson Prolia well - continue q 6 mo - most recent BMD notes continued stable bone mass - encouraged continued supplement intake of D and calcium; adequate protein and routine activity - continue to follow up annually 3. 268.9 Vitamin D deficiency - CHOLECALCIFEROL (VITAMIN D3) 2,000 UNIT CAPSULE - continue - still a milk drinker and consumes cheese and cottage cheese - likely getting sufficient calcium I thank you for the opportunity to participate in the care of this patient. Please do not hesitate to contact me if you have further concerns or questions. Luis Vazquez MD, MS, CCD, FACN, FACP, FACE Diplomate, [place] [employer] Diplomate, [place] [employer] [facility] and 20 / [phone] / [phone] Referring Provider: SELF [[id number]] Allergies As of Date: 08/08/2017 Noted Allergy Reaction CRAB 03/12/2003 Comments: Itching, swelling LOBSTER (CRUSTACEANS) 03/12/2003 Comments: Can'T touch RAGWEED 03/12/2003 14 - Other: See Comments Comments: Sneezing SULFA (SULFONAMIDE ANTIBIOTICS) 03/12/2003 Comments: SWELLING Rash Scampi [Other] 03/12/2003 Comments: Swelling, itching. TOPROL XL (METOPROLOL SUCCINATE) 04/13/2010 14 - Other: See Comments Comments: Chest fullness Date Reviewed: 08/08/2017 Reviewed by: Luis Vazquez - Fully Assessed Reason for Visit: Established Patient [175] Cmt: osteo AND prollia prolia injection [Other] Reason For Visit History Recorded Primary Visit Diagnosis:Postmenopausal osteoporosis [M81.0] Other Visit Diagnosis:Vitamin D deficiency [E55.9] Prescriptions as of 08/08/2017 Sig: POTASSIUM CHLORIDE ER 10 MEQ * Take 1 tablet by mouth every * FUROSEMIDE 20 MG TABLET Take 1 tablet by mouth every * MUPIROCIN 2 % TOPICAL CREAM Apply 1 application to affect* VERAPAMIL ER (SR) 240 MG TABL* Take 1.5 tablets by mouth onc* FLUTICASONE FUROATE 200 MCG/A* Inhale 1 Inhalation as instru* KETOCONAZOLE 2 % SHAMPOO Apply 1 application to affect* FLECAINIDE 100 MG TABLET Take 1 tablet by mouth twice * HYDROXYCHLOROQUINE 200 MG TAB* Take 200 mg by mouth twice da* LISINOPRIL 20 MG TABLET Take 1 tablet by mouth twice * WARFARIN 3 MG TABLET Take 1 tablet by mouth once d* MONTELUKAST 10 MG TABLET Take 1 tablet by mouth daily * WARFARIN 2.5 MG TABLET Take as directed per physicia* WARFARIN 5 MG TABLET Take as directed WARFARIN 2 MG TABLET Take 1 tablet by mouth daily * DENOSUMAB 60 MG/ML SUBCUTANEO* Inject 1 mL subcutaneously as* OXYCODONE-ACETAMINOPHEN 5 MG-* Take 1 tablet by mouth once d* TRAMADOL 50 MG TABLET Take 1 tablet by mouth every * BIOTIN ORAL Take 1 capsule by mouth once * CHOLECALCIFEROL (VITAMIN D3) * Take 1 capsule by mouth once * NITROGLYCERIN 0.4 MG SUBLINGU* Dissolve 1 tablet under the t* Medication notes this encounter NITROGLYCERIN 0.4 MG SUBLINGUAL TABLET >> Brittany Perez MA 08/08/2017 8:53 AM >> BRITTANY PEREZ MA Aug 08, 2017 8:53 AM Not taking Problem List As Of Date 08/08/2017 Noted Resolved PARESTHESIAS [R20.9] INVALID FOR* OVERWEIGHT [E66.9] INVALID FOR*12/02/2014 Essential hypertension [I10] INVALID FOR* More... FEMALE STRESS INCONTINENCE [N39.3] INVALID FOR* DIVERTICULITIS OF COLON W/O BLEED [K57.32] INVALID FOR* HEMORRHOIDS NOS [K64.9] INVALID FOR* ATRIAL FIBRILLATION [I48.91] INVALID FOR* More... HYPERLIPIDEMIA NEC/NOS [E78.5] INVALID FOR* More... INSOMNIA NOS [G47.00] INVALID FOR* GENERAL OSTEOARTHROSIS [M15.9] INVALID FOR* BRADYCARDIA [I49.8] INVALID FOR* Postmenopausal osteoporosis [M81.0] INVALID FOR* More... HYPERGLYCEMIA [R79.89] INVALID FOR* More... MITRAL REGURGITATION [I05.9] INVALID FOR* HYPOMAGNESEMIA [E83.40] INVALID FOR* Unspecified closed fracture of ankle [S82.899A] INVALID FOR* More... IDIO PERIPH NEURPTHY NOS [G60.9] INVALID FOR* BACKACHE NOS [M54.9] INVALID FOR* Other Chronic Pain [G89.29] INVALID FOR* More... 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 Pathologic fracture of vertebrae [M84.48XA] INVALID FOR* Lumbago [M54.5] INVALID FOR* Pseudogout [M11.20] INVALID FOR* More... Lumbar spondylosis [M47.816] INVALID FOR* Lumbar stenosis [M48.061] INVALID FOR* Vitamin D deficiency [E55.9] INVALID FOR* GERD (gastroesophageal reflux disease) [K21.9] INVALID FOR* BMI 32.0-32.9,adult [Z68.32] INVALID FOR* Hyperlipidemia [E78.5] INVALID FOR* More... Impaired fasting glucose [R73.01] INVALID FOR* Bilateral low back pain without sciatica [M54.5]INVALID FOR* Moderate persistent asthma [J45.40] INVALID FOR* More... Persistent asthma [J45.909] INVALID FOR* CKD (chronic kidney disease) stage 3, GFR 30-59*INVALID FOR* Visit Notes: >> Brittany Perez MA MonAug 08, 2017 8:54 AM Status: Signed Patient presents with: Established Patient: osteo AND prollia Brittany Ethel RAYO >> Ymuiko (Parul) PARUL Dickson Aug 08, 2017 9:05 AM Status: Signed The patient is here for an injection of Prolia Dose: 60mg Route: Subcutaneous Lot# [id number] Expiration date 10/25 Given without incident. Site: left deltoid Dr. Vazquez present in clinic at time of injection. The date due for the next injection is 02-07-2018 Patient education was given by nurse. Yumiko Dickson RN Disposition: Return in about 1 year (around 08/08/2018) for osteoporosis . Follow-up and Disposition History Recorded Encounter Status:Closed by LUIS VAZQUEZ MD on 08/08/17 PROTIME Collected: 08/07/2017 Status: F Source: [place] 10:41 AM [facility] REPOSITORY TYPE CODE TESTS RESULT OUT OF RANGE REFERENCE UNITS LAB PSEC 9.7-13.0 sec High PT Sec 25.9 LAB INR 0.9-1.3 High PT INR 2.7 Result Comment: Vitamin K Antagonist (VKA) Therapeutic Range: INR 2 to 3 (Target INR of 2.5) Note: For patients treated with VKA drugs, such as warfarin, the [place] [employer] 2012 Guideline recommends a therapeutic INR range of 2 to 3 (target INR of 2.5). This recommendation includes high-risk patients with antiphospholipid syndrome with previous arterial or venous thromboembolism, current-generation mechanical or bioprosthetic aortic heart valve replacement. Note: Patients with mechanical aortic valve replacement and additional risk factors for thromboembolic events (atrial fibrillation, previous thromboembolism, LV dysfunction, hypercoagulable conditions) or an older generation mechanical AVR (i.e., ball in-Cage) or any mechanical MVR should have a INR therapeutic range of 2.5 to 3.5 (target INR of 3). Solomon GH, et al. Chest 2012, 141:7S-47S Harshad ESCAMILLA et al. [facility] 2017, 70: 252-289 Performed By: #### PT, BMP #### [facility] [address], [place] [address] BASIC METABOLIC PANL Collected: 08/07/2017 Status: F Source: [place] 10:41 AM [facility] [place] REPOSITORY TYPE CODE TESTS RESULT OUT OF REFERENCE UNITS RANGE LAB GLU 74-99 mg/dL Glucose 82 Result Comment: The [place] [employer] Association (ADA) provides guidance for cutoff values for fasting glucose and random glucose. The ADA defines fasting as no caloric intake for at least 8 hours. Fas ting plasma glucose results between 100 to 125 mg/dL indicate increased risk for diabetes (prediabetes). Fasting plasma glucose results greater than or equal to 126 mg/dL meet the criteria for diagnosis of diabetes. In the absence of unequivocal hyperglycemia, results should be confirmed by repeat testing. In a patient with classic symptoms of hyperglycemia or hyperglycemic crisis, random plasma glucose results greater than or equal to 200 mg/dL meet the criteria for diagnosis of diabetes. Reference: Standards of Medical Care in Diabetes 2016, [place] [employer]. Diabetes Care. 2016.39(Suppl 1). LAB BUN 7-21 mg/dL BUN High 30 LAB CRET 0.58-0.96 mg/dL Creatinine High 1.21 LAB NA 136-144 mmol/L Sodium 142 LAB K 3.7-5.1 mmol/L Potassium 4.8 LAB CL 97-105 mmol/L Chloride 102 LAB CO2 22-30 mmol/L CO2 26 LAB AGAP 9-18 mmol/L Anion Gap 14 LAB CA 8.5-10.2 mg/dL Calcium, Total 9.4 LAB GFRAA eGFR- Amer. 52 LAB GFRNAA . eGFR-All Other Races 43 Result Comment: eGFR (Estimated GFR) Units of measure: mL/min/1.73 meters squared eGFR is derived from the reexpressed MDRD Study equation using the following parameters: serum creatinine, age, gender and race. The creatinine assay has been calibrated to be traceable to IDMS. An eGFR <60 mL/min/1.73m2 for >3 months is consistent with chronic kidney disease. Refer to KDOQI guidelines for clinical interpretation. In patients with unstable renal function, e.g. those with acute kidney injury, the eGFR may not accurately reflect actual GFR. Performed By: #### PT, BMP #### [facility] [address] [place] [address] CNNURSE Observed: 08/03/2017 Status: COMPLETED Source: [place] 11:00 AM CLINIC OTHER CAMPUS REPOSITORY Nurse Visit (AGCARDWST) FELICIA STOVER ([id number]) 1935 F NFR Date Time Provider Department 08/03/17 11:00 AM NURSE CARD AG [facility] AGCARDWST During your visit today, we recorded the following information about you: Referring Provider: RASHARD HALL [[id number]] Allergies As of Date: 08/03/2017 Noted Allergy Reaction CRAB 03/12/2003 Comments: Itching, swelling LOBSTER (CRUSTACEANS) 03/12/2003 Comments: Can'T touch RAGWEED 03/12/2003 14 - Other: See Comments Comments: Sneezing SULFA (SULFONAMIDE ANTIBIOTICS) 03/12/2003 Comments: SWELLING Rash Scampi [Other] 03/12/2003 Comments: Swelling, itching. TOPROL XL (METOPROLOL SUCCINATE) 04/13/2010 14 - Other: See Comments Comments: Chest fullness Date Reviewed: 08/01/2017 Reviewed by: Chula Renee RN - Fully Assessed Reason for Visit: EKG [793] Primary Visit Diagnosis:PAF (paroxysmal atrial fibrillation) (HCC) [I48.0] Prescriptions as of 08/03/2017 Sig: POTASSIUM CHLORIDE ER 10 MEQ * Take 1 tablet by mouth every * FUROSEMIDE 20 MG TABLET Take 1 tablet by mouth every * MUPIROCIN 2 % TOPICAL CREAM Apply 1 application to affect* TEMAZEPAM 15 MG CAPSULE TAKE 1 CAPSULE EVERY DAY AT B* VERAPAMIL ER (SR) 240 MG TABL* Take 1.5 tablets by mouth onc* NITROGLYCERIN 0.4 MG SUBLINGU* Dissolve 1 tablet under the t* FLUTICASONE FUROATE 200 MCG/A* Inhale 1 Inhalation as instru* KETOCONAZOLE 2 % SHAMPOO Apply 1 application to affect* FLECAINIDE 100 MG TABLET Take 1 tablet by mouth twice * HYDROXYCHLOROQUINE 200 MG TAB* Take 200 mg by mouth twice da* LISINOPRIL 20 MG TABLET Take 1 tablet by mouth twice * WARFARIN 3 MG TABLET Take 1 tablet by mouth once d* MONTELUKAST 10 MG TABLET Take 1 tablet by mouth daily * WARFARIN 2.5 MG TABLET Take as directed per physicia* WARFARIN 5 MG TABLET Take as directed WARFARIN 2 MG TABLET Take 1 tablet by mouth daily * DENOSUMAB 60 MG/ML SUBCUTANEO* Inject 1 mL subcutaneously as* OXYCODONE-ACETAMINOPHEN 5 MG-* Take 1 tablet by mouth once d* TRAMADOL 50 MG TABLET Take 1 tablet by mouth every * BIOTIN ORAL Take 1 capsule by mouth once * CHOLECALCIFEROL (VITAMIN D3) * Take 1 capsule by mouth once * Problem List As Of Date 08/03/2017 Noted Resolved PARESTHESIAS [R20.9] INVALID FOR* OVERWEIGHT [E66.9] INVALID FOR*12/02/2014 Essential hypertension [I10] INVALID FOR* More... FEMALE STRESS INCONTINENCE [N39.3] INVALID FOR* DIVERTICULITIS OF COLON W/O BLEED [K57.32] INVALID FOR* HEMORRHOIDS NOS [K64.9] INVALID FOR* ATRIAL FIBRILLATION [I48.91] INVALID FOR* More... HYPERLIPIDEMIA NEC/NOS [E78.5] INVALID FOR* More... INSOMNIA NOS [G47.00] INVALID FOR* GENERAL OSTEOARTHROSIS [M15.9] INVALID FOR* BRADYCARDIA [I49.8] INVALID FOR* Postmenopausal osteoporosis [M81.0] INVALID FOR* More... HYPERGLYCEMIA [R79.89] INVALID FOR* More... MITRAL REGURGITATION [I05.9] INVALID FOR* HYPOMAGNESEMIA [E83.40] INVALID FOR* Unspecified closed fracture of ankle [S82.899A] INVALID FOR* More... IDIO PERIPH NEURPTHY NOS [G60.9] INVALID FOR* BACKACHE NOS [M54.9] INVALID FOR* Other Chronic Pain [G89.29] INVALID FOR* More... 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 Pathologic fracture of vertebrae [M84.48XA] INVALID FOR* Lumbago [M54.5] INVALID FOR* Pseudogout [M11.20] INVALID FOR* More... Lumbar spondylosis [M47.816] INVALID FOR* Lumbar stenosis [M48.061] INVALID FOR* Vitamin D deficiency [E55.9] INVALID FOR* GERD (gastroesophageal reflux disease) [K21.9] INVALID FOR* BMI 32.0-32.9,adult [Z68.32] INVALID FOR* Hyperlipidemia [E78.5] INVALID FOR* More... Impaired fasting glucose [R73.01] INVALID FOR* Bilateral low back pain without sciatica [M54.5]INVALID FOR* Moderate persistent asthma [J45.40] INVALID FOR* More... Persistent asthma [J45.909] INVALID FOR* CKD (chronic kidney disease) stage 3, GFR 30-59*INVALID FOR* Encounter Status:Closed by SUSANA BRITTON MA on 08/03/17 PROGRESS Observed: 08/01/2017 Status: COMPLETED Source: [place] 4:26 PM [facility] [place] REPOSITORY HNO ID: [id number] Author: Herbert Ferraro) Gilmor, RN Service: (none) Author Type: Registered Nurse Type: Progress Notes Filed: 08/01/2017 4:28 PM Note Text: Patient verbalizes understanding. PROGRESS Observed: 08/01/2017 Status: COMPLETED Source: [place] 4:20 PM [facility] REPOSITORY HNO ID: [id number] Author: Rashard Hall Service: (none) Author Type: Physician Type: Progress Notes Filed: 08/01/2017 4:28 PM Note Text: Subjective HPI ROS Objective Physical Exam change to cycle of 9-9-6 milligrams. One week. Have her come in for EKG later this week and we will arrange cardioversion for next week if she is still in atrial fibrillation Rashard Hall MD PROGRESS Observed: 08/01/2017 Status: COMPLETED Source: [place] 2:59 PM [facility] REPOSITORY HNO ID: [id number] Author: Chula Renee RN Service: (none) Author Type: (none) Type: Progress Notes Filed: 08/01/2017 3:00 PM Note Text: patient had inr completed at [facility] [place] patients inr is 2.7 (patients inr range is 2.0-3.0) patient is currently taking 9mg alternating with 6mg patients last dose change was on 07/04/17 due to a low level of 1.8 (doser at that time was 9mg Mon,Mon and 6mg all other days) patient has had no changes in medication and no missed doses and no change in diet Advised patient to continue on the same dose(s) and that they would only be contacted regarding dosage and follow up instructions after review with provider, if a change is needed. Written instructions given and patient verbalized understanding. Presently scheduled in 1 weeks (08/07/17) for follow up INR. PROGRESS Observed: 07/25/2017 Status: COMPLETED Source: [place] 2:34 PM [facility] REPOSITORY HNO ID: [id number] Author: Herbert JoseRn) PARUL Hernández Service: (none) Author Type: Registered Nurse Type: Progress Notes Filed: 07/25/2017 2:34 PM Note Text: Patient verbalizes understanding. PROGRESS Observed: 07/25/2017 Status: COMPLETED Source: [place] 12:47 PM [facility] REPOSITORY HNO ID: [id number] Author: Rashard Hall Service: (none) Author Type: Physician Type: Progress Notes Filed: 07/25/2017 2:34 PM Note Text: Subjective HPI ROS Objective Physical Exam Same dose. One week. Rashard Hall MD PROGRESS Observed: 07/25/2017 Status: COMPLETED Source: [place] 11:43 AM [facility] REPOSITORY HNO ID: [id number] Author: Chula Renee RN Service: (none) Author Type: (none) Type: Progress Notes Filed: 07/25/2017 11:45 AM Note Text: patient had inr completed at [facility] [place] patients inr is 3.1 (patients inr range is 2.0-3.0) patient is currently taking 9mg alternating with 6mg patients last dose change was on 07/04/17 due to a low level of 1.8 (dose at that time was 9mg Mon,Mon and 6mg all other days) patient has had no changes in medication or missed doses and no change in diet Advised patient that they would be contacted regarding medication dose and when to follow up after information is reviewed by provider. After provider review please contact the patient with information and schedule follow up appointment with coumadin clinic. FYI - patient has been scheduled for a 1 week follow up inr on 08/01/17 PROGRESS Observed: 07/18/2017 Status: COMPLETED Source: [place] 1:29 PM [facility] REPOSITORY HNO ID: [id number] Author: Herbert JoseRn) Sabrina, RN Service: (none) Author Type: Registered Nurse Type: Progress Notes Filed: 07/18/2017 1:32 PM Note Text: Patient verbalizes understanding. She states that Chula had instructed her to hold tonight. I confirmed with patient that she understood not to do that, but continue current dose. PROGRESS Observed: 07/18/2017 Status: COMPLETED Source: [place] 1:29 PM [facility] REPOSITORY HNO ID: [id number] Author: Herbert JoseRn) Sabrina, RN Service: (none) Author Type: Registered Nurse Type: Progress Notes Filed: 07/18/2017 1:32 PM Note Text: INR 3.1. Continue current dose and recheck in one week. Rashard Hall MD ? PROGRESS Observed: 07/18/2017 Status: COMPLETED Source: [place] 12:04 PM [facility] REPOSITORY HNO ID: [id number] Author: Rashard Hall Service: (none) Author Type: Physician Type: Progress Notes Filed: 07/18/2017 1:32 PM Note Text: Subjective HPI ROS Objective Physical Exam PROGRESS Observed: 07/18/2017 Status: COMPLETED Source: [place] 11:33 AM [facility] REPOSITORY HNO ID: [id number] Author: Chula Renee RN Service: (none) Author Type: (none) Type: Progress Notes Filed: 07/18/2017 11:34 AM Note Text: patient had inr completed at [facility] [place] patients inr is 3.1 (patients inr range is 2.0-3.0) patient is currently taking 9mg alternating with 6mg patients last dose change was on 07/04/17 due to a low level of 1.8 (dose at that time was 9mg Mon,Mon and 6mg all other days) patient has had no changes in medication and no missed doses and no change in diet Advised patient that they would be contacted regarding medication dose and when to follow up after information is reviewed by provider. After provider review please contact the patient with information and schedule follow up appointment with coumadin clinic. FYI - patient has been scheduled for a 1 week follow up inr on 07/25/17 PROGRESS Observed: 07/14/2017 Status: COMPLETED Source: [place] 2:44 PM [facility] REPOSITORY HNO ID: [id number] Author: Farrukh Whalen Service: (none) Author Type: Physician Type: Progress Notes Filed: 07/14/2017 5:26 PM Note Text: Reason for Visit Patient presents with: Established Patient: 6 month follow up-with issues left eye Felicia Stover is a 81 year old female who presents here today for Above Complaints.. Health Maintenance There are no preventive care reminders to display for this patient. HPI She is in afib again, and needs to be converted again, she is being stabilized currently by Dr Hall and who converted her in the past. She also had some impetigo recently, she had crusting and was even up her nose she thought that topical would be better Has a lesion on the left upper lid of eye, no tingling or numbness or burning of the eyes. Avoid NSAIDS like naproxen, motrin, brufen, aleve etc and contrast. Notes back ache, and stooping when she walks this could be from lumbar stenosis No problem-specific Assessment AND Plan notes found for this encounter. PAST MEDICAL HISTORY Diagnosis Date - Abdominal pain, left lower quadrant - Atrial fibrillation (HCC) - Diverticulitis - Diverticulitis of colon (without mention of hemorrhage)(562.11) - Diverticulosis of colon (without mention of hemorrhage) - Essential hypertension, benign - Insomnia, unspecified - Other combinations of endocrine dysfunction - PMH - PAST MEDICAL HISTORY OF Sensory neuropathy - PMH - PAST MEDICAL HISTORY OF Stress Urinary Incontinence - PMH - PAST MEDICAL HISTORY OF cyst on the ovary PAST SURGICAL HISTORY Procedure Laterality Date - APPENDECTOMY 1968 - DELIVERY ONLY 1964 , low transverse - DELIVERY ONLY 1968 , low transverse - COLONOSCOP W/ OR W/O [facility] SPEC 06/2004 Colonoscopy - LAMINCTMY 1-2 SEG EXC LESION O 2010? - LAPAROSCOPIC CYSTECTOMY 01/14/14 bilateral oophrectomy - PAST SURGICAL HISTORY OF 04/02/2002 DC cardioversion - PAST SURGICAL HISTORY OF 2008 cataracts left and right - PAST SURGICAL HISTORY OF 2007 ankle surgery x 2 right - PAST SURGICAL HISTORY OF lumbar pain injections X2 - REMOVAL GALLBLADDER 1968 Cholecystectomy open - SIGMOIDOSCOPY FLEX DIAG 12/10/09 FAMILY HISTORY Problem Relation Age of Onset - Heart Father - Stroke Mother - Hypertension Mother - Diabetes Brother Social History Substance Use Topics - Smoking status: Never Smoker - Smokeless tobacco: Never Used - Alcohol use Yes Comment: 7 glasses of wine weekly Past medical history, appointments, medications, allergies reviewed. Pertinent Lab/Diagnostic Studies are reviewed and discussed today Current Outpatient Prescriptions: - gentamicin (GENTAK) 0.3 % ophthalmic solution - mupirocin (BACTROBAN) 2 % cream - temazepam (RESTORIL) 15 mg cap - verapamil SR (CALAN SR, ISOPTIN SR) 240 mg CR tablet - potassium chloride (K-TAB) 10 mEq tablet - nitroglycerin sublingual (NITROQUICK) 0.4 mg SL tablet - fluticasone furoate (ARNUITY ELLIPTA) 200 mcg/actuation dsdv - furosemide (LASIX) 20 mg tablet - ketoconazole (NIZORAL) 2 % shampoo - flecainide (TAMBOCOR) 100 mg tablet - hydroxychloroquine (PLAQUENIL) 200 mg tablet - lisinopril (ZESTRIL, PRINIVIL) 20 mg tablet - warfarin (COUMADIN) 3 mg tablet - montelukast (SINGULAIR) 10 mg tablet - warfarin (COUMADIN) 2.5 mg tablet - warfarin (COUMADIN) 5 mg tablet - warfarin (COUMADIN) 2 mg tablet - denosumab (PROLIA) 60 mg/mL syrg - oxyCODONE-acetaminophen (PERCOCET) 5-325 mg tablet - traMADol (ULTRAM) 50 mg tablet - BIOTIN ORAL - Cholecalciferol, Vitamin D3, 2,000 unit cap Review of Systems CONSTITUTIONAL: No fevers, chills night sweats, unintended weight loss CARDIOVASCULAR: No chest pain, dyspnea, palpitations, orthopnea, PND, ankle edema. PULM: No dyspnea, unexplained cough. GI: No dysphagia/odynophagia, problematic reflux, constipation, diarrhea, changes in stool habits, hematochezia, melena. : No new urinary complaints, including dysuria, gross hematuria or pyuria. NEURO: No new balance problems, peripheral weakness/paresthesias or numbness of concern. Physical Exam BP 130/76 (BP Site: Left Arm, BP Position: Sitting, BP Cuff Size: Large Adult) Pulse 77 Resp 12 Ht 170.2 cm (5' 7) Wt 91.6 kg (202 lb) SpO2 95% BMI 31.64 kg/m2 General appearance: Well appearing, alert, in no acute distress, well nourished. Skin: Skin color, texture, turgor normal, no suspicious rashes or lesions Head: Normocephalic, no masses, lesions, tenderness or abnormalities Eyes: Anicteric sclera. Pupils are equally round and reactive to light. Extraocular movements are intact. Lungs: Lungs clear to auscultation. No wheezing, rhonchi, rales Heart: RRR without murmur, gallop, or rubs. Extremities: No deformities, edema, skin discoloration, clubbing or cyanosis. Good capillary refill. ASSESSMENT/PLAN: 1. Conjunctivitis of both eyes, unspecified conjunctivitis type - ICD9: 372.30, ICD10: H10.9 (primary diagnosis) - see medication orders - course and contagiousness issues discussed, including hand washing. - Instructed to call if high fever, development of periorbital redness or swelling, eye pain, visual changes, concerns or if symptoms persist. 2. CKD (chronic kidney disease) stage 3, GFR 30-59 ml/min - ICD9: 585.3, ICD10: N18.3 Avoid NSAIDS like naproxen, motrin, brufen, aleve etc and contrast. 3. Essential hypertension - ICD9: 401.9, ICD10: I10 - good control - Recommended regular aerobic exercise. - Recommend home blood pressure monitoring, to bring results in on next visit - Goal of BP <130/80 4. Atrial fibrillation, unspecified type (HCC) - ICD9: 427.31, ICD10: I48.91 Afib, needs a cardioversion 5. Rash - ICD9: 782.1, ICD10: R21 Patient has rash on the eye lid which seems like a bug bite to me. Reassured her FARRUKH WHALEN MD CNOV Observed: 07/14/2017 Status: COMPLETED Source: [place] 2:20 PM [facility] REPOSITORY Office Visit (INTMWS) FELICIA STOVER ([id number]) 1935 F NFR Date Time Provider Department 07/14/17 2:20 PM FARRUKH WHALEN INTMWS During your visit today, we recorded the following information about you: Pulse Respiration Blood pressure Weight 77/minute 12/minute 130/76 91.6 kg Height 1.702 m FARRUKH WHALEN MD 07/14/2017 5:26 PM Signed Reason for Visit Patient presents with: Established Patient: 6 month follow up-with issues left eye Felicia Stover is a 81 year old female who presents here today for Above Complaints.. Health Maintenance There are no preventive care reminders to display for this patient. HPI She is in afib again, and needs to be converted again, she is being stabilized currently by Dr Hall and who converted her in the past. She also had some impetigo recently, she had crusting and was even up her nose she thought that topical would be better Has a lesion on the left upper lid of eye, no tingling or numbness or burning of the eyes. Avoid NSAIDS like naproxen, motrin, brufen, aleve etc and contrast. Notes back ache, and stooping when she walks this could be from lumbar stenosis No problem-specific Assessment ANDamp; Plan notes found for this encounter. PAST MEDICAL HISTORY Diagnosis Date - Abdominal pain, left lower quadrant - Atrial fibrillation (HCC) - Diverticulitis - Diverticulitis of colon (without mention of hemorrhage)(562.11) - Diverticulosis of colon (without mention of hemorrhage) - Essential hypertension, benign - Insomnia, unspecified - Other combinations of endocrine dysfunction - PMH - PAST MEDICAL HISTORY OF Sensory neuropathy - PMH - PAST MEDICAL HISTORY OF Stress Urinary Incontinence - PMH - PAST MEDICAL HISTORY OF cyst on the ovary PAST SURGICAL HISTORY Procedure Laterality Date - APPENDECTOMY 1968 - DELIVERY ONLY 1964 , low transverse - DELIVERY ONLY 1968 , low transverse - COLONOSCOP W/ OR W/O [facility] SPEC 06/2004 Colonoscopy - LAMINCTMY 1-2 SEG EXC LESION O 2010? - LAPAROSCOPIC CYSTECTOMY 01/14/14 bilateral oophrectomy - PAST SURGICAL HISTORY OF 04/02/2002 DC cardioversion - PAST SURGICAL HISTORY OF 2008 cataracts left and right - PAST SURGICAL HISTORY OF 2007 ankle surgery x 2 right - PAST SURGICAL HISTORY OF lumbar pain injections X2 - REMOVAL GALLBLADDER 1968 Cholecystectomy open - SIGMOIDOSCOPY FLEX DIAG 12/10/09 FAMILY HISTORY Problem Relation Age of Onset - Heart Father - Stroke Mother - Hypertension Mother - Diabetes Brother Social History Substance Use Topics - Smoking status: Never Smoker - Smokeless tobacco: Never Used - Alcohol use Yes Comment: 7 glasses of wine weekly Past medical history, appointments, medications, allergies reviewed. Pertinent Lab/Diagnostic Studies are reviewed and discussed today Current Outpatient Prescriptions: - gentamicin (GENTAK) 0.3 % ophthalmic solution - mupirocin (BACTROBAN) 2 % cream - temazepam (RESTORIL) 15 mg cap - verapamil SR (CALAN SR, ISOPTIN SR) 240 mg CR tablet - potassium chloride (K-TAB) 10 mEq tablet - nitroglycerin sublingual (NITROQUICK) 0.4 mg SL tablet - fluticasone furoate (ARNUITY ELLIPTA) 200 mcg/actuation dsdv - furosemide (LASIX) 20 mg tablet - ketoconazole (NIZORAL) 2 % shampoo - flecainide (TAMBOCOR) 100 mg tablet - hydroxychloroquine (PLAQUENIL) 200 mg tablet - lisinopril (ZESTRIL, PRINIVIL) 20 mg tablet - warfarin (COUMADIN) 3 mg tablet - montelukast (SINGULAIR) 10 mg tablet - warfarin (COUMADIN) 2.5 mg tablet - warfarin (COUMADIN) 5 mg tablet - warfarin (COUMADIN) 2 mg tablet - denosumab (PROLIA) 60 mg/mL syrg - oxyCODONE-acetaminophen (PERCOCET) 5-325 mg tablet - traMADol (ULTRAM) 50 mg tablet - BIOTIN ORAL - Cholecalciferol, Vitamin D3, 2,000 unit cap Review of Systems CONSTITUTIONAL: No fevers, chills night sweats, unintended weight loss CARDIOVASCULAR: No chest pain, dyspnea, palpitations, orthopnea, PND, ankle edema. PULM: No dyspnea, unexplained cough. GI: No dysphagia/odynophagia, problematic reflux, constipation, diarrhea, changes in stool habits, hematochezia, melena. : No new urinary complaints, including dysuria, gross hematuria or pyuria. NEURO: No new balance problems, peripheral weakness/paresthesias or numbness of concern. Physical Exam BP 130/76 (BP Site: Left Arm, BP Position: Sitting, BP Cuff Size: Large Adult) Pulse 77 Resp 12 Ht 170.2 cm (5' 7ANDquot;) Wt 91.6 kg (202 lb) SpO2 95% BMI 31.64 kg/m2 General appearance: Well appearing, alert, in no acute distress, well nourished. Skin: Skin color, texture, turgor normal, no suspicious rashes or lesions Head: Normocephalic, no masses, lesions, tenderness or abnormalities Eyes: Anicteric sclera. Pupils are equally round and reactive to light. Extraocular movements are intact. Lungs: Lungs clear to auscultation. No wheezing, rhonchi, rales Heart: RRR without murmur, gallop, or rubs. Extremities: No deformities, edema, skin discoloration, clubbing or cyanosis. Good capillary refill. ASSESSMENT/PLAN: 1. Conjunctivitis of both eyes, unspecified conjunctivitis type - ICD9: 372.30, ICD10: H10.9 (primary diagnosis) - see medication orders - course and contagiousness issues discussed, including hand washing. - Instructed to call if high fever, development of periorbital redness or swelling, eye pain, visual changes, concerns or if symptoms persist. 2. CKD (chronic kidney disease) stage 3, GFR 30-59 ml/min - ICD9: 585.3, ICD10: N18.3 Avoid NSAIDS like naproxen, motrin, brufen, aleve etc and contrast. 3. Essential hypertension - ICD9: 401.9, ICD10: I10 - good control - Recommended regular aerobic exercise. - Recommend home blood pressure monitoring, to bring results in on next visit - Goal of BP ANDlt;130/80 4. Atrial fibrillation, unspecified type (HCC) - ICD9: 427.31, ICD10: I48.91 Afib, needs a cardioversion 5. Rash - ICD9: 782.1, ICD10: R21 Patient has rash on the eye lid which seems like a bug bite to me. Reassured her FARRUKH WHALEN MD Referring Provider: FARRUKH WHALEN [[id number]] Allergies As of Date: 07/14/2017 Noted Allergy Reaction CRAB 03/12/2003 Comments: Itching, swelling LOBSTER (CRUSTACEANS) 03/12/2003 Comments: Can'T touch RAGWEED 03/12/2003 14 - Other: See Comments Comments: Sneezing SULFA (SULFONAMIDE ANTIBIOTICS) 03/12/2003 Comments: SWELLING Rash Scampi [Other] 03/12/2003 Comments: Swelling, itching. TOPROL XL (METOPROLOL SUCCINATE) 04/13/2010 14 - Other: See Comments Comments: Chest fullness Date Reviewed: 07/14/2017 Reviewed by: Swathi Lopez LPN - Fully Assessed Reason for Visit: Established Patient [175] Cmt: 6 month follow up-with issues left eye Primary Visit Diagnosis:Conjunctivitis of both eyes, unspecified conjunctivitis type [H10.9] Other Visit Diagnoses:CKD (chronic kidney disease) stage 3, GFR 30-59 ml/min [N18.3] Essential hypertension [I10] Atrial fibrillation, unspecified type (HCC) [I48.91] Rash [R21] Prescriptions as of 07/14/2017 Sig: GENTAMICIN 0.3 % EYE DROPS Use 2 Drops in both eyes ever* MUPIROCIN 2 % TOPICAL CREAM Apply 1 application to affect* TEMAZEPAM 15 MG CAPSULE TAKE 1 CAPSULE EVERY DAY AT B* VERAPAMIL ER (SR) 240 MG TABL* Take 1.5 tablets by mouth onc* POTASSIUM CHLORIDE ER 10 MEQ * Take 1 tablet by mouth once d* NITROGLYCERIN 0.4 MG SUBLINGU* Dissolve 1 tablet under the t* FLUTICASONE FUROATE 200 MCG/A* Inhale 1 Inhalation as instru* FUROSEMIDE 20 MG TABLET Take 1 tablet by mouth as nee* KETOCONAZOLE 2 % SHAMPOO Apply 1 application to affect* FLECAINIDE 100 MG TABLET Take 1 tablet by mouth twice * HYDROXYCHLOROQUINE 200 MG TAB* Take 200 mg by mouth twice da* LISINOPRIL 20 MG TABLET Take 1 tablet by mouth twice * WARFARIN 3 MG TABLET Take 1 tablet by mouth once d* MONTELUKAST 10 MG TABLET Take 1 tablet by mouth daily * WARFARIN 2.5 MG TABLET Take as directed per physicia* WARFARIN 5 MG TABLET Take as directed WARFARIN 2 MG TABLET Take 1 tablet by mouth daily * DENOSUMAB 60 MG/ML SUBCUTANEO* Inject 1 mL subcutaneously as* OXYCODONE-ACETAMINOPHEN 5 MG-* Take 1 tablet by mouth once d* TRAMADOL 50 MG TABLET Take 1 tablet by mouth every * BIOTIN ORAL Take 1 capsule by mouth once * CHOLECALCIFEROL (VITAMIN D3) * Take 1 capsule by mouth once * Problem List As Of Date 07/14/2017 Noted Resolved PARESTHESIAS [R20.9] INVALID FOR* OVERWEIGHT [E66.9] INVALID FOR*12/02/2014 Essential hypertension [I10] INVALID FOR* More... FEMALE STRESS INCONTINENCE [N39.3] INVALID FOR* DIVERTICULITIS OF COLON W/O BLEED [K57.32] INVALID FOR* HEMORRHOIDS NOS [K64.9] INVALID FOR* ATRIAL FIBRILLATION [I48.91] INVALID FOR* More... HYPERLIPIDEMIA NEC/NOS [E78.5] INVALID FOR* More... INSOMNIA NOS [G47.00] INVALID FOR* GENERAL OSTEOARTHROSIS [M15.9] INVALID FOR* BRADYCARDIA [I49.8] INVALID FOR* Postmenopausal osteoporosis [M81.0] INVALID FOR* More... HYPERGLYCEMIA [R79.89] INVALID FOR* More... MITRAL REGURGITATION [I05.9] INVALID FOR* HYPOMAGNESEMIA [E83.40] INVALID FOR* Unspecified closed fracture of ankle [S82.899A] INVALID FOR* More... IDIO PERIPH NEURPTHY NOS [G60.9] INVALID FOR* BACKACHE NOS [M54.9] INVALID FOR* Other Chronic Pain [G89.29] INVALID FOR* More... 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 Pathologic fracture of vertebrae [M84.48XA] INVALID FOR* Lumbago [M54.5] INVALID FOR* Pseudogout [M11.20] INVALID FOR* More... Lumbar spondylosis [M47.816] INVALID FOR* Lumbar stenosis [M48.061] INVALID FOR* Vitamin D deficiency [E55.9] INVALID FOR* GERD (gastroesophageal reflux disease) [K21.9] INVALID FOR* BMI 32.0-32.9,adult [Z68.32] INVALID FOR* Hyperlipidemia [E78.5] INVALID FOR* More... Impaired fasting glucose [R73.01] INVALID FOR* Bilateral low back pain without sciatica [M54.5]INVALID FOR* Moderate persistent asthma [J45.40] INVALID FOR* More... Persistent asthma [J45.909] INVALID FOR* CKD (chronic kidney disease) stage 3, GFR 30-59*INVALID FOR* Encounter Status:Closed by FARRUKH WHALEN MD on 07/14/17 PROGRESS Observed: 07/11/2017 Status: COMPLETED Source: [place] 1:52 PM [facility] [place] REPOSITORY HNO ID: [id number] Author: Rashard Hall Service: (none) Author Type: Physician Type: Progress Notes Filed: 07/11/2017 2:02 PM Note Text: Subjective HPI ROS Objective Physical Exam see telephone note.Rashard Hall MD PROGRESS Observed: 07/11/2017 Status: COMPLETED Source: [place] 11:28 AM [facility] [place] REPOSITORY HNO ID: [id number] Author: Chula Renee RN Service: (none) Author Type: (none) Type: Progress Notes Filed: 07/11/2017 11:29 AM Note Text: patient had inr completed at [facility] [place] patients inr is 2.7 (patients inr range is 2.0-3.0) patient is currently taking 9mg alternating with 6mg patients last dose change was on 07/04/17 due to a low level of 1.8 (dose at that time was 9mg Mon,Mon and 6mg all other days) patient has had no changes in medication except for the coumadin and no missed dosed and no change in diet Advised patient to continue on the same dose(s) and that they would only be contacted regarding dosage and follow up instructions after review with provider, if a change is needed. Written instructions given and patient verbalized understanding. Presently scheduled in 1 week (07/18/17) for follow up INR. BAHMAN Observed: 07/11/2017 Status: COMPLETED Source: [place] 12:00 AM [facility] REPOSITORY Telephone (AGCARDWST) FELICIA STOVER ([id number]) 1935 F NFR Date Time Provider Department 07/11/17 RASHARD HALL AGCARDWST During your visit today, we recorded the following information about you: Rashard Hall MD 07/11/2017 12:06 PM Signed INR 2.7. Same dose. Recheck weekly until cardioversion. MD Chula Adams RN 07/11/2017 2:02 PM Signed PATIENT NOTIFIED OF INFORMATION Herbert Hernández, RN, RN 07/13/2017 9:34 AM Signed Patient states that she was never notified. She verbalizes understanding. Allergies As of Date: 07/11/2017 Noted Allergy Reaction CRAB 03/12/2003 Comments: Itching, swelling LOBSTER (CRUSTACEANS) 03/12/2003 Comments: Can'T touch RAGWEED 03/12/2003 14 - Other: See Comments Comments: Sneezing SULFA (SULFONAMIDE ANTIBIOTICS) 03/12/2003 Comments: SWELLING Rash Scampi [Other] 03/12/2003 Comments: Swelling, itching. TOPROL XL (METOPROLOL SUCCINATE) 04/13/2010 14 - Other: See Comments Comments: Chest fullness Date Reviewed: 07/11/2017 Reviewed by: Chula Renee RN - Fully Assessed Reason for Visit: Anticoagulation [8] Prescriptions as of 07/11/2017 Sig: GENTAMICIN 0.3 % EYE DROPS Use 2 Drops in both eyes ever* MUPIROCIN 2 % TOPICAL CREAM Apply 1 application to affect* TEMAZEPAM 15 MG CAPSULE TAKE 1 CAPSULE EVERY DAY AT B* CEPHALEXIN 500 MG CAPSULE Take 1 capsule by mouth four * VERAPAMIL ER (SR) 240 MG TABL* Take 1.5 tablets by mouth onc* POTASSIUM CHLORIDE ER 10 MEQ * Take 1 tablet by mouth once d* NITROGLYCERIN 0.4 MG SUBLINGU* Dissolve 1 tablet under the t* FLUTICASONE FUROATE 200 MCG/A* Inhale 1 Inhalation as instru* FUROSEMIDE 20 MG TABLET Take 1 tablet by mouth as nee* KETOCONAZOLE 2 % SHAMPOO Apply 1 application to affect* FLECAINIDE 100 MG TABLET Take 1 tablet by mouth twice * HYDROXYCHLOROQUINE 200 MG TAB* Take 200 mg by mouth twice da* LISINOPRIL 20 MG TABLET Take 1 tablet by mouth twice * WARFARIN 3 MG TABLET Take 1 tablet by mouth once d* MONTELUKAST 10 MG TABLET Take 1 tablet by mouth daily * WARFARIN 2.5 MG TABLET Take as directed per physicia* WARFARIN 5 MG TABLET Take as directed WARFARIN 2 MG TABLET Take 1 tablet by mouth daily * DENOSUMAB 60 MG/ML SUBCUTANEO* Inject 1 mL subcutaneously as* OXYCODONE-ACETAMINOPHEN 5 MG-* Take 1 tablet by mouth once d* TRAMADOL 50 MG TABLET Take 1 tablet by mouth every * BIOTIN ORAL Take 1 capsule by mouth once * CHOLECALCIFEROL (VITAMIN D3) * Take 1 capsule by mouth once * Problem List As Of Date 07/11/2017 Noted Resolved PARESTHESIAS [R20.9] INVALID FOR* OVERWEIGHT [E66.9] INVALID FOR*12/02/2014 Essential hypertension [I10] INVALID FOR* More... FEMALE STRESS INCONTINENCE [N39.3] INVALID FOR* DIVERTICULITIS OF COLON W/O BLEED [K57.32] INVALID FOR* HEMORRHOIDS NOS [K64.9] INVALID FOR* ATRIAL FIBRILLATION [I48.91] INVALID FOR* More... HYPERLIPIDEMIA NEC/NOS [E78.5] INVALID FOR* More... INSOMNIA NOS [G47.00] INVALID FOR* GENERAL OSTEOARTHROSIS [M15.9] INVALID FOR* BRADYCARDIA [I49.8] INVALID FOR* Postmenopausal osteoporosis [M81.0] INVALID FOR* More... HYPERGLYCEMIA [R79.89] INVALID FOR* More... MITRAL REGURGITATION [I05.9] INVALID FOR* HYPOMAGNESEMIA [E83.40] INVALID FOR* Unspecified closed fracture of ankle [S82.899A] INVALID FOR* More... IDIO PERIPH NEURPTHY NOS [G60.9] INVALID FOR* BACKACHE NOS [M54.9] INVALID FOR* Other Chronic Pain [G89.29] INVALID FOR* More... 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 Pathologic fracture of vertebrae [M84.48XA] INVALID FOR* Lumbago [M54.5] INVALID FOR* Pseudogout [M11.20] INVALID FOR* More... Lumbar spondylosis [M47.816] INVALID FOR* Lumbar stenosis [M48.061] INVALID FOR* Vitamin D deficiency [E55.9] INVALID FOR* GERD (gastroesophageal reflux disease) [K21.9] INVALID FOR* BMI 32.0-32.9,adult [Z68.32] INVALID FOR* Hyperlipidemia [E78.5] INVALID FOR* More... Impaired fasting glucose [R73.01] INVALID FOR* Bilateral low back pain without sciatica [M54.5]INVALID FOR* Moderate persistent asthma [J45.40] INVALID FOR* More... Persistent asthma [J45.909] INVALID FOR* Encounter Status:Closed by CHULA RENEE RN on 07/11/17 PROGRESS Observed: 07/09/2017 Status: COMPLETED Source: [place] 4:11 PM [facility] REPOSITORY HNO ID: [id number] Author: Irene Rush Service: (none) Author Type: Nurse Practitioner Type: Progress Notes Filed: 07/09/2017 4:15 PM Note Text: Subjective HPI Pt presents with c/o left eye redness and drainage x 2 days. Right eye sx began today. Hx dry eyes. Applies eye drops daily. Denies fever, chills, eye pain, vision change. States PCP called in rx for impetigo to nose. States only has one small lesion to left nare. Has not spread. Review of Systems Constitutional: Negative for chills and fever. Eyes: Positive for discharge and redness. Negative for blurred vision, double vision, photophobia and pain. Skin: Positive for rash. Objective Physical Exam Constitutional: She is oriented to person, place, and time and well-developed, well-nourished, and in no distress. No distress. Eyes: EOM are normal. Pupils are equal, round, and reactive to light. Right eye exhibits discharge. Left eye exhibits discharge. Right conjunctiva is injected. Left conjunctiva is injected. Pupils unequal: vision 20/20 via romberg card. Neurological: She is alert and oriented to person, place, and time. Skin: Skin is warm and dry. She is not diaphoretic. BP 110/76 Pulse 78 Temp 36.1 ?C (96.9 ?F) (Right Tympanic) Resp 16 Wt 91.6 kg (202 lb) BMI 31.64 kg/m2 .No chief complaint on file. PAST MEDICAL HISTORY Diagnosis Date - Abdominal pain, left lower quadrant - Atrial fibrillation (HCC) - Diverticulitis - Diverticulitis of colon (without mention of hemorrhage)(562.11) - Diverticulosis of colon (without mention of hemorrhage) - Essential hypertension, benign - Insomnia, unspecified - Other combinations of endocrine dysfunction - PMH - PAST MEDICAL HISTORY OF Sensory neuropathy - PMH - PAST MEDICAL HISTORY OF Stress Urinary Incontinence - PMH - PAST MEDICAL HISTORY OF cyst on the ovary PAST SURGICAL HISTORY Procedure Laterality Date - APPENDECTOMY 1968 - DELIVERY ONLY 1964 , low transverse - DELIVERY ONLY 1968 , low transverse - COLONOSCOP W/ OR W/O BRSH SPEC 06/2004 Colonoscopy - LAMINCTMY 1-2 SEG EXC LESION O 2010? - LAPAROSCOPIC CYSTECTOMY 01/14/14 bilateral oophrectomy - PAST SURGICAL HISTORY OF 04/02/2002 DC cardioversion - PAST SURGICAL HISTORY OF 2009 cataracts left and right - PAST SURGICAL HISTORY OF 2008 ankle surgery x 2 right - PAST SURGICAL HISTORY OF lumbar pain injections X2 - REMOVAL GALLBLADDER 1969 Cholecystectomy open - SIGMOIDOSCOPY FLEX DIAG 12/10/09 ALLERGIES Crab; Lobster (Crustaceans); Ragweed; Sulfa (Sulfonamide Antibiotics); Scampi [Other]; Toprol Xl [Metoprolol Succinate] MEDICATIONS gentamicin (GENTAK) 0.3 % ophthalmic solution Use 2 Drops in both eyes every 4 hours for 7 days. mupirocin (BACTROBAN) 2 % cream Apply 1 application to affected area three times daily. temazepam (RESTORIL) 15 mg cap TAKE 1 CAPSULE EVERY DAY AT BEDTIME cephALEXin (KEFLEX) 500 mg capsule Take 1 capsule by mouth four times daily for 10 days. verapamil SR (CALAN SR, ISOPTIN SR) 240 mg CR tablet Take 1.5 tablets by mouth once daily. potassium chloride (K-TAB) 10 mEq tablet Take 1 tablet by mouth once daily. nitroglycerin sublingual (NITROQUICK) 0.4 mg SL tablet Dissolve 1 tablet under the tongue as needed. for chest pain,every 5 min x3 fluticasone furoate (ARNUITY ELLIPTA) 200 mcg/actuation dsdv Inhale 1 Inhalation as instructed once daily. furosemide (LASIX) 20 mg tablet Take 1 tablet by mouth as needed (for swelling, up to one per day). ketoconazole (NIZORAL) 2 % shampoo Apply 1 application to affected area once daily as needed. For hair thinning flecainide (TAMBOCOR) 100 mg tablet Take 1 tablet by mouth twice daily. hydroxychloroquine (PLAQUENIL) 200 mg tablet Take 200 mg by mouth twice daily. lisinopril (ZESTRIL, PRINIVIL) 20 mg tablet Take 1 tablet by mouth twice daily. warfarin (COUMADIN) 3 mg tablet Take 1 tablet by mouth once daily. As directed montelukast (SINGULAIR) 10 mg tablet Take 1 tablet by mouth daily at bedtime. warfarin (COUMADIN) 2.5 mg tablet Take as directed per physician. warfarin (COUMADIN) 5 mg tablet Take as directed warfarin (COUMADIN) 2 mg tablet Take 1 tablet by mouth daily as directed. denosumab (PROLIA) 60 mg/mL syrg Inject 1 mL subcutaneously as directed. oxyCODONE-acetaminophen (PERCOCET) 5-325 mg tablet Take 1 tablet by mouth once daily as needed. traMADol (ULTRAM) 50 mg tablet Take 1 tablet by mouth every 6 hours as needed. BIOTIN ORAL Take 1 capsule by mouth once daily. Cholecalciferol, Vitamin D3, 2,000 unit cap Take 1 capsule by mouth once daily. take with the largest meal of the day FAMILY HISTORY Problem Relation Age of Onset - Heart Father - Stroke Mother - Hypertension Mother - Diabetes Brother Social History Substance Use Topics - Smoking status: Never Smoker - Smokeless tobacco: Never Used - Alcohol use Yes Comment: 7 glasses of wine weekly ASSESSMENT/PLAN: 1. Bacterial conjunctivitis - ICD9: 372.39, 041.9, ICD10: H10.9 (primary diagnosis) - see medication orders - course and contagiousness issues discussed, including hand washing. - Instructed to call if high fever, development of periorbital redness or swelling, eye pain, visual changes, concerns or if symptoms persist. - GENTAMICIN 0.3 % EYE DROPS 2. Impetigo - ICD9: 684, ICD10: L01.00 - Skin care and contagious disease precautions discussed - Follow up if symptoms persist or fail to resolve - MUPIROCIN 2 % TOPICAL CREAM The patient is instructed to return or seek emergency treatment if symptoms become worse or with any acute change in condition. The patient verbalizes understanding and is in agreement with plan of care. Irene Rush CNP CNOV Observed: 07/09/2017 Status: COMPLETED Source: [place] 3:45 PM [facility] REPOSITORY Office Visit (WSTR) MERCHANTDENZEL ([id number]) 1935 F NFR Date Time Provider Department 07/09/17 3:45 PM [facility] During your visit today, we recorded the following information about you: Temperature Pulse Respiration Blood pressure 96.9 degrees 78/minute 16/minute 110/76 Weight 91.6 kg Irene RushALVIN 07/09/2017 4:15 PM Signed Subjective HPI Pt presents with c/o left eye redness and drainage x 2 days. Right eye sx began today. Hx dry eyes. Applies eye drops daily. Denies fever, chills, eye pain, vision change. [facility] PCP called in rx for impetigo to nose. States only has one small lesion to left nare. Has not spread. Review of Systems Constitutional: Negative for chills and fever. Eyes: Positive for discharge and redness. Negative for blurred vision, double vision, photophobia and pain. Skin: Positive for rash. Objective Physical Exam Constitutional: She is oriented to person, place, and time and well-developed, well-nourished, and in no distress. No distress. Eyes: EOM are normal. Pupils are equal, round, and reactive to light. Right eye exhibits discharge. Left eye exhibits discharge. Right conjunctiva is injected. Left conjunctiva is injected. Pupils unequal: vision 20/20 via romberg card. Neurological: She is alert and oriented to person, place, and time. Skin: Skin is warm and dry. She is not diaphoretic. BP 110/76 Pulse 78 Temp 36.1 ?C (96.9 ?F) (Right Tympanic) Resp 16 Wt 91.6 kg (202 lb) BMI 31.64 kg/m2 .No chief complaint on file. PAST MEDICAL HISTORY Diagnosis Date - Abdominal pain, left lower quadrant - Atrial fibrillation (HCC) - Diverticulitis - Diverticulitis of colon (without mention of hemorrhage)(562.11) - Diverticulosis of colon (without mention of hemorrhage) - Essential hypertension, benign - Insomnia, unspecified - Other combinations of endocrine dysfunction - PMH - PAST MEDICAL HISTORY OF Sensory neuropathy - PMH - PAST MEDICAL HISTORY OF Stress Urinary Incontinence - PMH - PAST MEDICAL HISTORY OF cyst on the ovary PAST SURGICAL HISTORY Procedure Laterality Date - APPENDECTOMY 1968 - DELIVERY ONLY 1964 , low transverse - DELIVERY ONLY 1968 , low transverse - COLONOSCOP W/ OR W/O BRSH SPEC 06/2004 Colonoscopy - LAMINCTMY 1-2 SEG EXC LESION O 2010? - LAPAROSCOPIC CYSTECTOMY 01/14/14 bilateral oophrectomy - PAST SURGICAL HISTORY OF 04/02/2002 DC cardioversion - PAST SURGICAL HISTORY OF 2009 cataracts left and right - PAST SURGICAL HISTORY OF 2008 ankle surgery x 2 right - PAST SURGICAL HISTORY OF lumbar pain injections X2 - REMOVAL GALLBLADDER 1969 Cholecystectomy open - SIGMOIDOSCOPY FLEX DIAG 12/10/09 ALLERGIES Crab; Lobster (Crustaceans); Ragweed; Sulfa (Sulfonamide Antibiotics); Scampi [Other]; Toprol Xl [Metoprolol Succinate] MEDICATIONS gentamicin (GENTAK) 0.3 % ophthalmic solution Use 2 Drops in both eyes every 4 hours for 7 days. mupirocin (BACTROBAN) 2 % cream Apply 1 application to affected area three times daily. temazepam (RESTORIL) 15 mg cap TAKE 1 CAPSULE EVERY DAY AT BEDTIME cephALEXin (KEFLEX) 500 mg capsule Take 1 capsule by mouth four times daily for 10 days. verapamil SR (CALAN SR, ISOPTIN SR) 240 mg CR tablet Take 1.5 tablets by mouth once daily. potassium chloride (K-TAB) 10 mEq tablet Take 1 tablet by mouth once daily. nitroglycerin sublingual (NITROQUICK) 0.4 mg SL tablet Dissolve 1 tablet under the tongue as needed. for chest pain,every 5 min x3 fluticasone furoate (ARNUITY ELLIPTA) 200 mcg/actuation dsdv Inhale 1 Inhalation as instructed once daily. furosemide (LASIX) 20 mg tablet Take 1 tablet by mouth as needed (for swelling, up to one per day). ketoconazole (NIZORAL) 2 % shampoo Apply 1 application to affected area once daily as needed. For hair thinning flecainide (TAMBOCOR) 100 mg tablet Take 1 tablet by mouth twice daily. hydroxychloroquine (PLAQUENIL) 200 mg tablet Take 200 mg by mouth twice daily. lisinopril (ZESTRIL, PRINIVIL) 20 mg tablet Take 1 tablet by mouth twice daily. warfarin (COUMADIN) 3 mg tablet Take 1 tablet by mouth once daily. As directed montelukast (SINGULAIR) 10 mg tablet Take 1 tablet by mouth daily at bedtime. warfarin (COUMADIN) 2.5 mg tablet Take as directed per physician. warfarin (COUMADIN) 5 mg tablet Take as directed warfarin (COUMADIN) 2 mg tablet Take 1 tablet by mouth daily as directed. denosumab (PROLIA) 60 mg/mL syrg Inject 1 mL subcutaneously as directed. oxyCODONE-acetaminophen (PERCOCET) 5-325 mg tablet Take 1 tablet by mouth once daily as needed. traMADol (ULTRAM) 50 mg tablet Take 1 tablet by mouth every 6 hours as needed. BIOTIN ORAL Take 1 capsule by mouth once daily. Cholecalciferol, Vitamin D3, 2,000 unit cap Take 1 capsule by mouth once daily. take with the largest meal of the day FAMILY HISTORY Problem Relation Age of Onset - Heart Father - Stroke Mother - Hypertension Mother - Diabetes Brother Social History Substance Use Topics - Smoking status: Never Smoker - Smokeless tobacco: Never Used - Alcohol use Yes Comment: 7 glasses of wine weekly ASSESSMENT/PLAN: 1. Bacterial conjunctivitis - ICD9: 372.39, 041.9, ICD10: H10.9 (primary diagnosis) - see medication orders - course and contagiousness issues discussed, including hand washing. - Instructed to call if high fever, development of periorbital redness or swelling, eye pain, visual changes, concerns or if symptoms persist. - GENTAMICIN 0.3 % EYE DROPS 2. Impetigo - ICD9: 684, ICD10: L01.00 - Skin care and contagious disease precautions discussed - Follow up if symptoms persist or fail to resolve - MUPIROCIN 2 % TOPICAL CREAM The patient is instructed to return or seek emergency treatment if symptoms become worse or with any acute change in condition. The patient verbalizes understanding and is in agreement with plan of care. Irene Rush CNP Referring Provider: SELF [[id number]] Allergies As of Date: 07/09/2017 Noted Allergy Reaction CRAB 03/12/2003 Comments: Itching, swelling LOBSTER (CRUSTACEANS) 03/12/2003 Comments: Can'T touch RAGWEED 03/12/2003 14 - Other: See Comments Comments: Sneezing SULFA (SULFONAMIDE ANTIBIOTICS) 03/12/2003 Comments: SWELLING Rash Scampi [Other] 03/12/2003 Comments: Swelling, itching. TOPROL XL (METOPROLOL SUCCINATE) 04/13/2010 14 - Other: See Comments Comments: Chest fullness Date Reviewed: 07/09/2017 Reviewed by: Phoebe Jarquin Ma - Fully Assessed Primary Visit Diagnosis:Bacterial conjunctivitis [H10.9] Other Visit Diagnosis:Impetigo [L01.00] Order(s):gentamicin (GENTAK) 0.3 % ophthalmic solutionUse 2 Drops in both eyes every 4 hours for 7 days.Disp: 1 BottleRfl: 0 mupirocin (BACTROBAN) 2 % creamApply 1 application to affected area three times daily.Disp: 30 gRfl: 1 Prescriptions as of 07/09/2017 Sig: GENTAMICIN 0.3 % EYE DROPS Use 2 Drops in both eyes ever* MUPIROCIN 2 % TOPICAL CREAM Apply 1 application to affect* TEMAZEPAM 15 MG CAPSULE TAKE 1 CAPSULE EVERY DAY AT B* CEPHALEXIN 500 MG CAPSULE Take 1 capsule by mouth four * VERAPAMIL ER (SR) 240 MG TABL* Take 1.5 tablets by mouth onc* POTASSIUM CHLORIDE ER 10 MEQ * Take 1 tablet by mouth once d* NITROGLYCERIN 0.4 MG SUBLINGU* Dissolve 1 tablet under the t* FLUTICASONE FUROATE 200 MCG/A* Inhale 1 Inhalation as instru* FUROSEMIDE 20 MG TABLET Take 1 tablet by mouth as nee* KETOCONAZOLE 2 % SHAMPOO Apply 1 application to affect* FLECAINIDE 100 MG TABLET Take 1 tablet by mouth twice * HYDROXYCHLOROQUINE 200 MG TAB* Take 200 mg by mouth twice da* LISINOPRIL 20 MG TABLET Take 1 tablet by mouth twice * WARFARIN 3 MG TABLET Take 1 tablet by mouth once d* MONTELUKAST 10 MG TABLET Take 1 tablet by mouth daily * WARFARIN 2.5 MG TABLET Take as directed per physicia* WARFARIN 5 MG TABLET Take as directed WARFARIN 2 MG TABLET Take 1 tablet by mouth daily * DENOSUMAB 60 MG/ML SUBCUTANEO* Inject 1 mL subcutaneously as* OXYCODONE-ACETAMINOPHEN 5 MG-* Take 1 tablet by mouth once d* TRAMADOL 50 MG TABLET Take 1 tablet by mouth every * BIOTIN ORAL Take 1 capsule by mouth once * CHOLECALCIFEROL (VITAMIN D3) * Take 1 capsule by mouth once * Problem List As Of Date 07/09/2017 Noted Resolved PARESTHESIAS [R20.9] INVALID FOR* OVERWEIGHT [E66.9] INVALID FOR*12/02/2014 Essential hypertension [I10] INVALID FOR* More... FEMALE STRESS INCONTINENCE [N39.3] INVALID FOR* DIVERTICULITIS OF COLON W/O BLEED [K57.32] INVALID FOR* HEMORRHOIDS NOS [K64.9] INVALID FOR* ATRIAL FIBRILLATION [I48.91] INVALID FOR* More... HYPERLIPIDEMIA NEC/NOS [E78.5] INVALID FOR* More... INSOMNIA NOS [G47.00] INVALID FOR* GENERAL OSTEOARTHROSIS [M15.9] INVALID FOR* BRADYCARDIA [I49.8] INVALID FOR* Postmenopausal osteoporosis [M81.0] INVALID FOR* More... HYPERGLYCEMIA [R79.89] INVALID FOR* More... MITRAL REGURGITATION [I05.9] INVALID FOR* HYPOMAGNESEMIA [E83.40] INVALID FOR* Unspecified closed fracture of ankle [S82.899A] INVALID FOR* More... IDIO PERIPH NEURPTHY NOS [G60.9] INVALID FOR* BACKACHE NOS [M54.9] INVALID FOR* Other Chronic Pain [G89.29] INVALID FOR* More... 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 Pathologic fracture of vertebrae [M84.48XA] INVALID FOR* Lumbago [M54.5] INVALID FOR* Pseudogout [M11.20] INVALID FOR* More... Lumbar spondylosis [M47.816] INVALID FOR* Lumbar stenosis [M48.061] INVALID FOR* Vitamin D deficiency [E55.9] INVALID FOR* GERD (gastroesophageal reflux disease) [K21.9] INVALID FOR* BMI 32.0-32.9,adult [Z68.32] INVALID FOR* Hyperlipidemia [E78.5] INVALID FOR* More... Impaired fasting glucose [R73.01] INVALID FOR* Bilateral low back pain without sciatica [M54.5]INVALID FOR* Moderate persistent asthma [J45.40] INVALID FOR* More... Persistent asthma [J45.909] INVALID FOR* Prescriptions ordered this encounter Disp Refills Start End GENTAMICIN 0.3 % EYE DROPS 1 Sascha* 0 07/09/2017 07/16/2017 Route: BOTH EYES Sig: Use 2 Drops in both eyes every 4 hours for 7 days. MUPIROCIN 2 % TOPICAL CREAM 30 g 1 07/09/2017 Route: TOPICAL Sig: Apply 1 application to affected area three times daily. Encounter Status:Closed by IRENE RUSH CNP on 07/09/17 PROGRESS Observed: 07/05/2017 Status: COMPLETED Source: [place] 3:03 PM [facility] REPOSITORY HNO ID: [id number] Author: Herbert (Rn) PARUL Hernández Service: (none) Author Type: Registered Nurse Type: Progress Notes Filed: 07/05/2017 3:04 PM Note Text: Patient's spouse verbalizes understanding and will relay to patient. PROGRESS Observed: 07/05/2017 Status: COMPLETED Source: [place] 2:53 PM [facility] REPOSITORY HNO ID: [id number] Author: Rashard Hall Service: (none) Author Type: Physician Type: Progress Notes Filed: 07/05/2017 3:04 PM Note Text: Subjective HPI ROS Objective Physical Exam 9 milligrams alternating 6. Recheck one week. Rashard Hall MD PROGRESS Observed: 07/05/2017 Status: COMPLETED Source: [place] 9:37 AM [facility] REPOSITORY HNO ID: [id number] Author: Chula Renee RN Service: (none) Author Type: (none) Type: Progress Notes Filed: 07/05/2017 9:37 AM Note Text: please address inr from yesterday, thanks PROGRESS Observed: 07/04/2017 Status: COMPLETED Source: [place] 11:46 AM [facility] REPOSITORY HNO ID: [id number] Author: Chula Renee RN Service: (none) Author Type: (none) Type: Progress Notes Filed: 07/04/2017 11:48 AM Note Text: patient had inr completed at [facility] [place] patients inr is 1.8 (patients inr range is 2.0-3.0) patient is currently taking 9mg Sun Wed and 6mg all other days patients last dose change was on 06/27/17 due to a low level of 1.9 (dose at that time was 6mg daily) patient has had no changes in medication and missed doses and no change in diet FYI - patient is still taking keflex and she did not start the new coumadin dose due to she was not notified until Th about the change so she has only had 1 dose of the 9mg on Sun Advised patient that they would be contacted regarding medication dose and when to follow up after information is reviewed by provider. After provider review please contact the patient with information and schedule follow up appointment with coumadin clinic. Fyi - patient has been scheduled for a 1 week inr follow up on 07/11/17 PROGRESS Observed: 06/30/2017 Status: COMPLETED Source: [place] 3:50 PM [facility] REPOSITORY HNO ID: [id number] Author: Dacia Reis) Zaina Service: (none) Author Type: LICENSED NURSE Type: Progress Notes Filed: 06/30/2017 3:50 PM Note Text: Event monitor placed and instructions given.Dacia Uriostegui LPN PROGRESS Observed: 06/29/2017 Status: COMPLETED Source: [place] 4:58 PM [facility] REPOSITORY HNO ID: [id number] Author: Herbert JoseRn) PARUL Hernández Service: (none) Author Type: Registered Nurse Type: Progress Notes Filed: 06/29/2017 4:58 PM Note Text: Confirmed that patient received instructions and flow sheet updated. PROGRESS Observed: 06/29/2017 Status: COMPLETED Source: [place] 4:58 PM [facility] [place] REPOSITORY HNO ID: [id number] Author: Herbert JoseRn) PARUL Hernández Service: (none) Author Type: Registered Nurse Type: Progress Notes Filed: 06/29/2017 4:58 PM Note Text: Rashard Hall P [facility] ? Please confirm that she was contacted regarding change in warfarin. Rashard Hall MD PROGRESS Observed: 06/28/2017 Status: COMPLETED Source: [place] 2:02 PM [facility] REPOSITORY HNO ID: [id number] Author: Chula Renee RN Service: (none) Author Type: (none) Type: Progress Notes Filed: 06/28/2017 2:02 PM Note Text: See phone note: Please make a flowsheet. We will monitor until cardioversion. Confirm current dose is 6 milligrams daily. Increase dose to 9 milligrams on Monday and Monday, otherwise 6 milligrams. Recheck one week. Rashard Hall MD BASIC METABOLIC PANL Collected: 06/27/2017 Status: F Source: [place] 11:26 AM [facility] REPOSITORY TYPE CODE TESTS RESULT OUT OF REFERENCE UNITS RANGE LAB GLU 74-99 mg/dL Glucose 96 Result Comment: The [place] [employer] (ADA) provides guidance for cutoff values for fasting glucose and random glucose. The ADA defines fasting as no caloric intake for at least 8 hours. Fas ting plasma glucose results between 100 to 125 mg/dL indicate increased risk for diabetes (prediabetes). Fasting plasma glucose results greater than or equal to 126 mg/dL meet the criteria for diagnosis of diabetes. In the absence of unequivocal hyperglycemia, results should be confirmed by repeat testing. In a patient with classic symptoms of hyperglycemia or hyperglycemic crisis, random plasma glucose results greater than or equal to 200 mg/dL meet the criteria for diagnosis of diabetes. Reference: Standards of Medical Care in Diabetes 2016, [place] [employer]. Diabetes Care. 2016.39(Suppl 1). LAB BUN 7-21 mg/dL BUN High 24 LAB CRET 0.58-0.96 mg/dL Creatinine High 1.18 LAB NA 136-144 mmol/L Sodium 140 LAB K 3.7-5.1 mmol/L Potassium 4.5 LAB CL 97-105 mmol/L Chloride 100 LAB CO2 22-30 mmol/L CO2 27 LAB AGAP 9-18 mmol/L Anion Gap 13 LAB CA 8.5-10.2 mg/dL Calcium, Total 9.7 LAB GFRAA eGFR- Amer. 53 LAB GFRNAA . eGFR-All Other Races 44 Result Comment: eGFR (Estimated GFR) Units of measure: mL/min/1.73 meters squared eGFR is derived from the reexpressed MDRD Study equation using the following parameters: serum creatinine, age, gender and race. The creatinine assay has been calibrated to be traceable to IDMS. An eGFR <60 mL/min/1.73m2 for >3 months is consistent with chronic kidney disease. Refer to KDOQI guidelines for clinical interpretation. In patients with unstable renal function, e.g. those with acute kidney injury, the eGFR may not accurately reflect actual GFR. Performed By: #### BMP, MG1, TSH #### [facility] [employer] [address] [place], [place] [address] MAGNESIUM Collected: 06/27/2017 Status: F Source: [place] 11:26 AM [facility] REPOSITORY TYPE CODE TESTS RESULT OUT OF REFERENCE UNITS RANGE LAB MG 1.7-2.3 mg/dL Magnesium 2.1 Performed By: #### BMP, MG1, TSH #### [facility] [employer] [address] [place], [place] [address] TSH Collected: 06/27/2017 Status: F Source: [place] 11:26 AM [facility] REPOSITORY TYPE CODE TESTS RESULT OUT OF RANGE REFERENCE UNITS LAB TSH 0.400-5.500 uU/mL TSH 1.650 Performed By: #### BMP, MG1, TSH #### [facility] [employer] [address] [place], [place] [address] PROGRESS Observed: 06/27/2017 Status: COMPLETED Source: [place] 11:16 AM [facility] REPOSITORY HNO ID: [id number] Author: Chula Renee RN Service: (none) Author Type: (none) Type: Progress Notes Filed: 06/27/2017 11:18 AM Note Text: patient had inr completed at [facility] patients inr is 1.9 (patients inr range is 2.0-3.0) patient is currently taking 6mg daily patients last dose change was on 04/11/17 due to a high level of 3.7 (dose at that time was 7mg alternating with 6mg) patient has had no changes in medication and no missed doses and no change in diet Advised patient that they would be contacted regarding medication dose and when to follow up after information is reviewed by provider. After provider review please contact the patient with information and schedule follow up appointment with coumadin clinic. FYI - patient has been scheduled for an inr follow up in 1 week on 07/04/17 - results to Dr Mario Hall at this time until cardioversion. PROGRESS Observed: 06/27/2017 Status: COMPLETED Source: [place] 10:42 AM [facility] [place] REPOSITORY HNO ID: [id number] Author: Rashard Hall Service: (none) Author Type: Physician Type: Progress Notes Filed: 06/27/2017 2:58 PM Note Text: PERTINENT CARDIAC HISTORY Atrial fib - paroxysmal, c/version, intolerant of beta doug (bradycardia) HL - declines statin HTN ADHERENCE TO GUIDELINES ABDIEL-I or ARB for HF with prior LVEF<40 (NQF 0081) - N/A ASA or Plavix for ASHD (NQF 0067) - N/A Beta doug for ASHD with prior NC or prior LVEF<40 (NQF 0070) - N/A Beta doug for HF with prior LVEF<40 (NQF 0083) - N/A ABDIEL-I or ARB for ASHD with DM or prior LVEF<40 (NQF 0066) - N/A Statin therapy for ASHD or FHL or DM - declines BMI documented and plan if >25 (NQF 0421) - lifestyle recommendation form Tobacco use screening and referral (NQF 0028) - lifestyle recommendation form Recommendation for whole food, plant based diet - lifestyle recommendation form CLINICAL IMPRESSION/PLAN: Felicia Stover has recurrent atrial fibrillation. This is now persistent. She's had no documented episodes since 2014 when she had her last cardioversion. It is possible that she may maintain sinus rhythm with another cardioversion on the current dose of flecainide, but it is unlikely that she will convert spontaneously. Her QRS and QT intervals are longer and would preclude increasing the dose of flecainide. She may benefit from an alternative agent or for consideration of ablation. Her INR has been subtherapeutic during the last month. We will take over management of her INR and have weekly levels done until she has been therapeutic for 30 days, at which time she will be referred for cardioversion. Basic profile, magnesium and TSH will be drawn. If her atrial fibrillation recurs, she will undergo echocardiogram and stress test prior to being taken off flecainide. At that point, I would consider admitting her for initiation of dofetilide or referring for ablation. She is not tried any agents over the years other than flecainide. For the time being, verapamil will be increased for better rate control. She has not tolerated beta doug well in the past, due to fatigue and bradycardia. I will see her on a to be arranged basis. Written and verbal health teaching given to patient, patient verbalizes understanding and agrees with treatment plan. This note was generated using BlueMessaging voice recognition system, and there may be some incorrect words, spellings, and punctuation that were not noted in checking the note before saving. DIAGNOSIS FOR VISIT: Atrial fibrillation Hypertension HISTORY OF PRESENT ILLNESS Felicia Stover returns for problem follow-up visit. Over the last 2 weeks she has noted more frequent readings on her blood pressure machine indicating an irregular rhythm. Event monitor was ordered to see if she was having intermittent atrial fibrillation. She was noted to have atrial fibrillation on the baseline reading and this has persisted . She is largely unaware of her heart rhythm. She has had intermittent atrial fibrillation. Her last cardioversion was in 2014. She's been on the same dose of flecainide for over 5 years. She has noted some decrease in exercise tolerance over the past few weeks. She's had no chest discomfort. She denies orthopnea. She's had some worsening of chronic pedal edema. She denies syncope, TIAs, amaurosis or claudication. She was recently started on Lasix and potassium because of fluid retention and weight gain. ALLERGIES: ALLERGIES Allergen Reactions - Crab Itching, swelling - Lobster (Crustacean* Can'T touch - Ragweed Other: See Comments Sneezing - Sulfa (Sulfonamide * SWELLING Rash - Scampi [Other] Swelling, itching. - Toprol Xl [Metoprol* Other: See Comments Chest fullness CURRENT OUTPATIENT MEDICATIONS: potassium chloride (K-TAB) 10 mEq tablet Take 1 tablet by mouth once daily. nitroglycerin sublingual (NITROQUICK) 0.4 mg SL tablet Dissolve 1 tablet under the tongue as needed. for chest pain,every 5 min x3 fluticasone furoate (ARNUITY ELLIPTA) 200 mcg/actuation dsdv Inhale 1 Inhalation as instructed once daily. verapamil SR (CALAN SR, ISOPTIN SR) 240 mg CR tablet Take 1 tablet by mouth once daily. furosemide (LASIX) 20 mg tablet Take 1 tablet by mouth as needed (for swelling, up to one per day). ketoconazole (NIZORAL) 2 % shampoo Apply 1 application to affected area once daily as needed. For hair thinning flecainide (TAMBOCOR) 100 mg tablet Take 1 tablet by mouth twice daily. hydroxychloroquine (PLAQUENIL) 200 mg tablet Take 200 mg by mouth twice daily. temazepam (RESTORIL) 15 mg cap Take 1 capsule by mouth at bedtime as needed. lisinopril (ZESTRIL, PRINIVIL) 20 mg tablet Take 1 tablet by mouth twice daily. warfarin (COUMADIN) 3 mg tablet Take 1 tablet by mouth once daily. As directed montelukast (SINGULAIR) 10 mg tablet Take 1 tablet by mouth daily at bedtime. warfarin (COUMADIN) 2.5 mg tablet Take as directed per physician. warfarin (COUMADIN) 5 mg tablet Take as directed warfarin (COUMADIN) 2 mg tablet Take 1 tablet by mouth daily as directed. denosumab (PROLIA) 60 mg/mL syrg Inject 1 mL subcutaneously as directed. oxyCODONE-acetaminophen (PERCOCET) 5-325 mg tablet Take 1 tablet by mouth once daily as needed. traMADol (ULTRAM) 50 mg tablet Take 1 tablet by mouth every 6 hours as needed. BIOTIN ORAL Take 1 capsule by mouth once daily. Cholecalciferol, Vitamin D3, 2,000 unit cap Take 1 capsule by mouth once daily. take with the largest meal of the day PAST MEDICAL HISTORY Diagnosis Date - Abdominal pain, left lower quadrant - Atrial fibrillation (HCC) - Diverticulitis - Diverticulitis of colon (without mention of hemorrhage)(562.11) - Diverticulosis of colon (without mention of hemorrhage) - Essential hypertension, benign - Insomnia, unspecified - Other combinations of endocrine dysfunction - PMH - PAST MEDICAL HISTORY OF Sensory neuropathy - PMH - PAST MEDICAL HISTORY OF Stress Urinary Incontinence - PMH - PAST MEDICAL HISTORY OF cyst on the ovary PAST SURGICAL HISTORY Procedure Laterality Date - APPENDECTOMY 1969 - DELIVERY ONLY 1964 , low transverse - DELIVERY ONLY 1968 , low transverse - COLONOSCOP W/ OR W/O [facility] SPEC 06/2004 Colonoscopy - LAMINCTMY 1-2 SEG EXC LESION O 2010? 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 Respiratory: No productive cough. Cardiac: As noted above. GI: No melena. : No dysuria. Musculoskeletal: No myalgias. PHYSICAL EXAMINATION: S/he is alert and in no distress. VITAL SIGNS: BP 116/90 Pulse 105 Ht 5' 7 (1.70m) Wt 203 lb 11.2 oz (92.4kg) BMI 31.90 kg/(m2). SHEENT: Skin is warm and dry. No xanthelasmas appreciated. Pharynx is benign. There is no oral cyanosis. Neck: supple. No adenopathy or thyroid enlargement. Chest: Clear to percussion and auscultation. Trachea is midline. Air entry is equal. There is no chest wall tenderness. Cardiac: Irregularly irregular rhythm. S1 and S2 are normal. PMI is nondisplaced. There is a soft murmur of mitral insufficiency. Carotids are brisk without bruits. JVP is less than 10 cm. Abdomen: Soft and nontender. There are no pulsatile masses or bruits. No liver enlargement. Bowel sounds are active. Extremities: 1 plus edema. Pulses are intact and symmetrical. No clubbing or cyanosis. No femoral bruits. Neurologic: Grossly normal motor and sensory. S/he is alert and oriented x4. EKG shows atrial fibrillation with rapid ventricular response. There is nonspecific IVCD. QT interval is increased for rate. Since prior study, QRS duration has increased and the QTC is longer. Recent labs reviewed. There is moderate renal insufficiency. Electronically Signed: Rashard Hall MD June 27, 2017 10:42 AM CC:FARRUKH WHALEN MD CNOV Observed: 06/27/2017 Status: COMPLETED Source: [place] 10:00 AM [facility]AMPUS REPOSITORY Office Visit (AGCARDWST) FELICIA STOVER ([id number]) 1935 F NFR Date Time Provider Department 06/27/17 10:00 AM RASHARD HALL AGCARDWSMonica During your visit today, we recorded the following information about you: Pulse Blood pressure Weight Height 105/minute 116/90 92.4 kg 1.702 m Rashard Hall MD 06/27/2017 2:58 PM Signed PERTINENT CARDIAC HISTORY Atrial fib - paroxysmal, c/version, intolerant of beta doug (bradycardia) HL - declines statin HTN ADHERENCE TO GUIDELINES ABDIEL-I or ARB for HF with prior LVEFANDlt;40 (NQF 0081) - N/A ASA or Plavix for ASHD (NQF 0067) - N/A Beta doug for ASHD with prior NC or prior LVEFANDlt;40 (NQF 0070) - N/A Beta doug for HF with prior LVEFANDlt;40 (NQF 0083) - N/A ABDIEL-I or ARB for ASHD with DM or prior LVEFANDlt;40 (NQF 0066) - N/A Statin therapy for ASHD or FHL or DM - declines BMI documented and plan if ANDgt;25 (NQF 0421) - lifestyle recommendation form Tobacco use screening and referral (NQF 0028) - lifestyle recommendation form Recommendation for whole food, plant based diet - lifestyle recommendation form CLINICAL IMPRESSION/PLAN: Felicia Stover has recurrent atrial fibrillation. This is now persistent. She's had no documented episodes since 2014 when she had her last cardioversion. It is possible that she may maintain sinus rhythm with another cardioversion on the current dose of flecainide, but it is unlikely that she will convert spontaneously. Her QRS and QT intervals are longer and would preclude increasing the dose of flecainide. She may benefit from an alternative agent or for consideration of ablation. Her INR has been subtherapeutic during the last month. We will take over management of her INR and have weekly levels done until she has been therapeutic for 30 days, at which time she will be referred for cardioversion. Basic profile, magnesium and TSH will be drawn. If her atrial fibrillation recurs, she will undergo echocardiogram and stress test prior to being taken off flecainide. At that point, I would consider admitting her for initiation of dofetilide or referring for ablation. She is not tried any agents over the years other than flecainide. For the time being, verapamil will be increased for better rate control. She has not tolerated beta doug well in the past, due to fatigue and bradycardia. I will see her on a to be arranged basis. Written and verbal health teaching given to patient, patient verbalizes understanding and agrees with treatment plan. This note was generated using BlueMessaging voice recognition system, and there may be some incorrect words, spellings, and punctuation that were not noted in checking the note before saving. DIAGNOSIS FOR VISIT: Atrial fibrillation Hypertension HISTORY OF PRESENT ILLNESS Felicia Stover returns for problem follow-up visit. Over the last 2 weeks she has noted more frequent readings on her blood pressure machine indicating an irregular rhythm. Event monitor was ordered to see if she was having intermittent atrial fibrillation. She was noted to have atrial fibrillation on the baseline reading and this has persisted . She is largely unaware of her heart rhythm. She has had intermittent atrial fibrillation. Her last cardioversion was in 2014. She's been on the same dose of flecainide for over 5 years. She has noted some decrease in exercise tolerance over the past few weeks. She's had no chest discomfort. She denies orthopnea. She's had some worsening of chronic pedal edema. She denies syncope, TIAs, amaurosis or claudication. She was recently started on Lasix and potassium because of fluid retention and weight gain. ALLERGIES: ALLERGIES Allergen Reactions - Crab Itching, swelling - Lobster (Crustacean* Can'T touch - Ragweed Other: See Comments Sneezing - Sulfa (Sulfonamide * SWELLING Rash - Scampi [Other] Swelling, itching. - Toprol Xl [Metoprol* Other: See Comments Chest fullness CURRENT OUTPATIENT MEDICATIONS: potassium chloride (K-TAB) 10 mEq tablet Take 1 tablet by mouth once daily. nitroglycerin sublingual (NITROQUICK) 0.4 mg SL tablet Dissolve 1 tablet under the tongue as needed. for chest pain,every 5 min x3 fluticasone furoate (ARNUITY ELLIPTA) 200 mcg/actuation dsdv Inhale 1 Inhalation as instructed once daily. verapamil SR (CALAN SR, ISOPTIN SR) 240 mg CR tablet Take 1 tablet by mouth once daily. furosemide (LASIX) 20 mg tablet Take 1 tablet by mouth as needed (for swelling, up to one per day). ketoconazole (NIZORAL) 2 % shampoo Apply 1 application to affected area once daily as needed. For hair thinning flecainide (TAMBOCOR) 100 mg tablet Take 1 tablet by mouth twice daily. hydroxychloroquine (PLAQUENIL) 200 mg tablet Take 200 mg by mouth twice daily. temazepam (RESTORIL) 15 mg cap Take 1 capsule by mouth at bedtime as needed. lisinopril (ZESTRIL, PRINIVIL) 20 mg tablet Take 1 tablet by mouth twice daily. warfarin (COUMADIN) 3 mg tablet Take 1 tablet by mouth once daily. As directed montelukast (SINGULAIR) 10 mg tablet Take 1 tablet by mouth daily at bedtime. warfarin (COUMADIN) 2.5 mg tablet Take as directed per physician. warfarin (COUMADIN) 5 mg tablet Take as directed warfarin (COUMADIN) 2 mg tablet Take 1 tablet by mouth daily as directed. denosumab (PROLIA) 60 mg/mL syrg Inject 1 mL subcutaneously as directed. oxyCODONE-acetaminophen (PERCOCET) 5-325 mg tablet Take 1 tablet by mouth once daily as needed. traMADol (ULTRAM) 50 mg tablet Take 1 tablet by mouth every 6 hours as needed. BIOTIN ORAL Take 1 capsule by mouth once daily. Cholecalciferol, Vitamin D3, 2,000 unit cap Take 1 capsule by mouth once daily. take with the largest meal of the day PAST MEDICAL HISTORY Diagnosis Date - Abdominal pain, left lower quadrant - Atrial fibrillation (HCC) - Diverticulitis - Diverticulitis of colon (without mention of hemorrhage)(562.11) - Diverticulosis of colon (without mention of hemorrhage) - Essential hypertension, benign - Insomnia, unspecified - Other combinations of endocrine dysfunction - PMH - PAST MEDICAL HISTORY OF Sensory neuropathy - PMH - PAST MEDICAL HISTORY OF Stress Urinary Incontinence - PMH - PAST MEDICAL HISTORY OF cyst on the ovary PAST SURGICAL HISTORY Procedure Laterality Date - APPENDECTOMY 1968 - DELIVERY ONLY 1964 , low transverse - DELIVERY ONLY 1968 , low transverse - COLONOSCOP W/ OR W/O [facility] SPEC 06/2004 Colonoscopy - LAMINCTMY 1-2 SEG EXC LESION THO 2010? 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 Respiratory: No productive cough. Cardiac: As noted above. GI: No melena. : No dysuria. Musculoskeletal: No myalgias. PHYSICAL EXAMINATION: S/he is alert and in no distress. VITAL SIGNS: BP 116/90 Pulse 105 Ht 5' 7ANDquot; (1.70m) Wt 203 lb 11.2 oz (92.4kg) BMI 31.90 kg/(m2). SHEENT: Skin is warm and dry. No xanthelasmas appreciated. Pharynx is benign. There is no oral cyanosis. Neck: supple. No adenopathy or thyroid enlargement. Chest: Clear to percussion and auscultation. Trachea is midline. Air entry is equal. There is no chest wall tenderness. Cardiac: Irregularly irregular rhythm. S1 and S2 are normal. PMI is nondisplaced. There is a soft murmur of mitral insufficiency. Carotids are brisk without bruits. JVP is less than 10 cm. Abdomen: Soft and nontender. There are no pulsatile masses or bruits. No liver enlargement. Bowel sounds are active. Extremities: 1 plus edema. Pulses are intact and symmetrical. No clubbing or cyanosis. No femoral bruits. Neurologic: Grossly normal motor and sensory. S/he is alert and oriented x4. EKG shows atrial fibrillation with rapid ventricular response. There is nonspecific IVCD. QT interval is increased for rate. Since prior study, QRS duration has increased and the QTC is longer. Recent labs reviewed. There is moderate renal insufficiency. Electronically Signed: Rashard Hall MD June 27, 2017 10:42 AM CC:MD Rashard POSADA MD 06/27/2017 10:43 AM Signed Take verapamil 1.5 tablets daily Call with vitals next week Have INR done weekly and call to me LIFESTYLE CHANGE A healthy lifestyle is the most important component of your overall treatment plan. Please give serious thought to the following areas and commit to making retirement changes. EAT A WHOLE FOOD, PLANT BASED DIET The nutrition your body gets is more important than the medicine you take. What matters most is the overall way you eat. We encourage you to minimize the use of animal products (which include dairy and all meats except fatty fish) and use whole, unprocessed plant foods to provide your protein, vitamins and other nutrients. We have a lot of information to share with you on this topic. We also hold Shared Medical Appointments, where you can come visit with Dr. Hall in the company of other patients and spend over an hour talking about the challenges of changing the way you eat. This is not a ANDquot;dietANDquot;. It is a way of life that you will keep with you. EXERCISE REGULARLY It is not important to spend hours in the gym, lifting weights and perspiring heavily. A total of 2-3 hours per week of aerobic (causing you to be moderately short of breath) exercise is sufficient to improve your health. Talk to us before you begin a new exercise program, if you have heart disease or experience shortness of breath or chest pain. REDUCE STRESS Chronic emotional and physical stress leads to disease. Ways of reducing stress include meditation, visualization, prayer, yoga and other forms of relaxation therapy. Consistency is the issa. Find a technique that works for you and do it every day. CULTIVATE RELATIONSHIPS Loneliness and isolation have a major negative impact on health. Seek out others who can love, care for and nurture you. Avoid hurtful relationships. MAINTAIN IDEAL BODY WEIGHT The best way to do this is to do all the things above. Our bodies naturally find the right weight if we keep moving and feed ourselves the right food. If your BMI is greater than 25, we strongly recommend a referral to a weight management program. Please speak to us or your family physician about available programs. AVOID NICOTINE IN ALL FORMS This includes all tobacco products, whether chewed, smoked, vaped, or rubbed on the skin. Smoking cessation programs, which can make use of tobacco substitutes, medications to suppress cravings and behavior management, are available. Please contact your family physician about programs in your area. Referring Provider: RASHARD HALL [[id number]] Allergies As of Date: 06/27/2017 Noted Allergy Reaction CRAB 03/12/2003 Comments: Itching, swelling LOBSTER (CRUSTACEANS) 03/12/2003 Comments: Can'T touch RAGWEED 03/12/2003 14 - Other: See Comments Comments: Sneezing SULFA (SULFONAMIDE ANTIBIOTICS) 03/12/2003 Comments: SWELLING Rash Scampi [Other] 03/12/2003 Comments: Swelling, itching. TOPROL XL (METOPROLOL SUCCINATE) 04/13/2010 14 - Other: See Comments Comments: Chest fullness Date Reviewed: 06/27/2017 Reviewed by: Chula Renee RN - Fully Assessed Reason for Visit: Follow Up [171] Primary Visit Diagnosis:PAF (paroxysmal atrial fibrillation) (HCC) [I48.0] Other Visit Diagnosis:Hypertension, essential [I10] Order(s):ECG B/O W INTERP (MED OFFICE) [ECG06] Order #: [id number] verapamil SR (CALAN SR, ISOPTIN SR) 240 mg CR tabletTake 1.5 tablets by mouth once daily.Disp: 90 tabletRfl: 4 MAGNESIUM BLD [SQMG1] Order #: [id number] FUTURE TSH BLD [SQTSH] Order #: [id number] FUTURE BASIC METABOLIC PNL [SQBMP] Order #: [id number] FUTURE Prescriptions as of 06/27/2017 Sig: VERAPAMIL ER (SR) 240 MG TABL* Take 1.5 tablets by mouth onc* POTASSIUM CHLORIDE ER 10 MEQ * Take 1 tablet by mouth once d* NITROGLYCERIN 0.4 MG SUBLINGU* Dissolve 1 tablet under the t* FLUTICASONE FUROATE 200 MCG/A* Inhale 1 Inhalation as instru* FUROSEMIDE 20 MG TABLET Take 1 tablet by mouth as nee* KETOCONAZOLE 2 % SHAMPOO Apply 1 application to affect* FLECAINIDE 100 MG TABLET Take 1 tablet by mouth twice * HYDROXYCHLOROQUINE 200 MG TAB* Take 200 mg by mouth twice da* TEMAZEPAM 15 MG CAPSULE Take 1 capsule by mouth at be* LISINOPRIL 20 MG TABLET Take 1 tablet by mouth twice * WARFARIN 3 MG TABLET Take 1 tablet by mouth once d* MONTELUKAST 10 MG TABLET Take 1 tablet by mouth daily * WARFARIN 2.5 MG TABLET Take as directed per physicia* WARFARIN 5 MG TABLET Take as directed WARFARIN 2 MG TABLET Take 1 tablet by mouth daily * DENOSUMAB 60 MG/ML SUBCUTANEO* Inject 1 mL subcutaneously as* OXYCODONE-ACETAMINOPHEN 5 MG-* Take 1 tablet by mouth once d* TRAMADOL 50 MG TABLET Take 1 tablet by mouth every * BIOTIN ORAL Take 1 capsule by mouth once * CHOLECALCIFEROL (VITAMIN D3) * Take 1 capsule by mouth once * Problem List As Of Date 06/27/2017 Noted Resolved PARESTHESIAS [R20.9] INVALID FOR* OVERWEIGHT [E66.9] INVALID FOR*12/02/2014 Essential hypertension [I10] INVALID FOR* More... FEMALE STRESS INCONTINENCE [N39.3] INVALID FOR* DIVERTICULITIS OF COLON W/O BLEED [K57.32] INVALID FOR* HEMORRHOIDS NOS [K64.9] INVALID FOR* ATRIAL FIBRILLATION [I48.91] INVALID FOR* More... HYPERLIPIDEMIA NEC/NOS [E78.5] INVALID FOR* More... INSOMNIA NOS [G47.00] INVALID FOR* GENERAL OSTEOARTHROSIS [M15.9] INVALID FOR* BRADYCARDIA [I49.8] INVALID FOR* Postmenopausal osteoporosis [M81.0] INVALID FOR* More... HYPERGLYCEMIA [R79.89] INVALID FOR* More... MITRAL REGURGITATION [I05.9] INVALID FOR* HYPOMAGNESEMIA [E83.40] INVALID FOR* Unspecified closed fracture of ankle [S82.899A] INVALID FOR* More... IDIO PERIPH NEURPTHY NOS [G60.9] INVALID FOR* BACKACHE NOS [M54.9] INVALID FOR* Other Chronic Pain [G89.29] INVALID FOR* More... 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 Pathologic fracture of vertebrae [M84.48XA] INVALID FOR* Lumbago [M54.5] INVALID FOR* Pseudogout [M11.20] INVALID FOR* More... Lumbar spondylosis [M47.816] INVALID FOR* Lumbar stenosis [M48.061] INVALID FOR* Vitamin D deficiency [E55.9] INVALID FOR* GERD (gastroesophageal reflux disease) [K21.9] INVALID FOR* BMI 32.0-32.9,adult [Z68.32] INVALID FOR* Hyperlipidemia [E78.5] INVALID FOR* More... Impaired fasting glucose [R73.01] INVALID FOR* Bilateral low back pain without sciatica [M54.5]INVALID FOR* Moderate persistent asthma [J45.40] INVALID FOR* More... Persistent asthma [J45.909] INVALID FOR* Other instructions from your clinician: Take verapamil 1.5 tablets daily Call with vitals next week Have INR done weekly and call to me LIFESTYLE CHANGE A healthy lifestyle is the most important component of your overall treatment plan. Please give serious thought to the following areas and commit to making 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 changes. EAT A WHOLE FOOD, PLANT BASED DIET The nutrition your body gets is more important than the medicine you take. What matters most is the overall way you eat. We encourage you to minimize the use of animal products (which include dairy and all meats except fatty fish) and use whole, unprocessed plant foods to provide your protein, vitamins and other nutrients. We have a lot of information to share with you on this topic. We also hold Shared Medical Appointments, where you can come visit with Dr. Hall in the company of other patients and spend over an hour talking about the challenges of changing the way you eat. This is not a diet. It is a way of life that you will keep with you. EXERCISE REGULARLY It is not important to spend hours in the gym, lifting weights and perspiring heavily. A total of 2-3 hours per week of aerobic (causing you to be moderately short of breath) exercise is sufficient to improve your health. Talk to us before you begin a new exercise program, if you have heart disease or experience shortness of breath or chest pain. REDUCE STRESS Chronic emotional and physical stress leads to disease. Ways of reducing stress include meditation, visualization, prayer, yoga and other forms of relaxation therapy. Consistency is the issa. Find a technique that works for you and do it every day. CULTIVATE RELATIONSHIPS Loneliness and isolation have a major negative impact on health. Seek out others who can love, care for and nurture you. Avoid hurtful relationships. MAINTAIN IDEAL BODY WEIGHT The best way to do this is to do all the things above. Our bodies naturally find the right weight if we keep moving and feed ourselves the right food. If your BMI is greater than 25, we strongly recommend a referral to a weight management program. Please speak to us or your family physician about available programs. AVOID NICOTINE IN ALL FORMS This includes all tobacco products, whether chewed, smoked, vaped, or rubbed on the skin. Smoking cessation programs, which can make use of tobacco substitutes, medications to suppress cravings and behavior management, are available. Please contact your family physician about programs in your area. Prescriptions ordered this encounter Disp Refills Start End VERAPAMIL ER (SR) 240 MG TABLET,EXTE* 90 t* 4 06/27/2017 Class: Med Update Route: ORAL Sig: Take 1.5 tablets by mouth once daily. Medications Discontinued During This Encounter verapamil SR (CALAN SR, ISOPTIN SR) * 90 t* 4 05/23/2017 06/27/2017 Route: ORAL Sig: Take 1 tablet by mouth once daily. Disc: Reason for discontinue is not on file. Follow-up and Disposition History Recorded Encounter Status:Closed by RASHARD HALL MD on 06/27/17 CNNURSE Observed: 06/20/2017 Status: COMPLETED Source: [place] 10:30 AM [facility] [place] RE[facility] Nurse Visit (AGCARDWST) MERCHANTDENZEL ([id number]) 1935 F NFR Date Time Provider Department 06/20/17 10:30 AM [facility] AGCARD[facility] During your visit today, we recorded the following information about you: Dacia Uriostegui LPN 06/30/2017 3:50 PM Signed Event monitor placed and instructions given.Dacia Uriostegui LPN Referring Provider: RASHARD HALL [[id number]] Allergies As of Date: 06/20/2017 Noted Allergy Reaction CRAB 03/12/2003 Comments: Itching, swelling LOBSTER (CRUSTACEANS) 03/12/2003 Comments: Can'T touch RAGWEED 03/12/2003 14 - Other: See Comments Comments: Sneezing SULFA (SULFONAMIDE ANTIBIOTICS) 03/12/2003 Comments: SWELLING Rash Scampi [Other] 03/12/2003 Comments: Swelling, itching. TOPROL XL (METOPROLOL SUCCINATE) 04/13/2010 14 - Other: See Comments Comments: Chest fullness Date Reviewed: 06/06/2017 Reviewed by: Chula Renee RN - Fully Assessed Reason for Visit: Event [921] Primary Visit Diagnosis:Atrial fibrillation, unspecified type (HCC) [I48.91] Prescriptions as of 06/20/2017 Sig: POTASSIUM CHLORIDE ER 10 MEQ * Take 1 tablet by mouth once d* NITROGLYCERIN 0.4 MG SUBLINGU* Dissolve 1 tablet under the t* FLUTICASONE FUROATE 200 MCG/A* Inhale 1 Inhalation as instru* X VERAPAMIL ER (SR) 240 MG TABL* Take 1 tablet by mouth once d* FUROSEMIDE 20 MG TABLET Take 1 tablet by mouth as nee* KETOCONAZOLE 2 % SHAMPOO Apply 1 application to affect* FLECAINIDE 100 MG TABLET Take 1 tablet by mouth twice * HYDROXYCHLOROQUINE 200 MG TAB* Take 200 mg by mouth twice da* TEMAZEPAM 15 MG CAPSULE Take 1 capsule by mouth at be* LISINOPRIL 20 MG TABLET Take 1 tablet by mouth twice * WARFARIN 3 MG TABLET Take 1 tablet by mouth once d* MONTELUKAST 10 MG TABLET Take 1 tablet by mouth daily * WARFARIN 2.5 MG TABLET Take as directed per physicia* WARFARIN 5 MG TABLET Take as directed WARFARIN 2 MG TABLET Take 1 tablet by mouth daily * DENOSUMAB 60 MG/ML SUBCUTANEO* Inject 1 mL subcutaneously as* OXYCODONE-ACETAMINOPHEN 5 MG-* Take 1 tablet by mouth once d* TRAMADOL 50 MG TABLET Take 1 tablet by mouth every * BIOTIN ORAL Take 1 capsule by mouth once * CHOLECALCIFEROL (VITAMIN D3) * Take 1 capsule by mouth once * Problem List As Of Date 06/20/2017 Noted Resolved PARESTHESIAS [R20.9] INVALID FOR* OVERWEIGHT [E66.9] INVALID FOR*12/02/2014 Essential hypertension [I10] INVALID FOR* More... FEMALE STRESS INCONTINENCE [N39.3] INVALID FOR* DIVERTICULITIS OF COLON W/O BLEED [K57.32] INVALID FOR* HEMORRHOIDS NOS [K64.9] INVALID FOR* ATRIAL FIBRILLATION [I48.91] INVALID FOR* More... HYPERLIPIDEMIA NEC/NOS [E78.5] INVALID FOR* More... INSOMNIA NOS [G47.00] INVALID FOR* GENERAL OSTEOARTHROSIS [M15.9] INVALID FOR* BRADYCARDIA [I49.8] INVALID FOR* Postmenopausal osteoporosis [M81.0] INVALID FOR* More... HYPERGLYCEMIA [R79.89] INVALID FOR* More... MITRAL REGURGITATION [I05.9] INVALID FOR* HYPOMAGNESEMIA [E83.40] INVALID FOR* Unspecified closed fracture of ankle [S82.899A] INVALID FOR* More... IDIO PERIPH NEURPTHY NOS [G60.9] INVALID FOR* BACKACHE NOS [M54.9] INVALID FOR* Other Chronic Pain [G89.29] INVALID FOR* More... 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 Pathologic fracture of vertebrae [M84.48XA] INVALID FOR* Lumbago [M54.5] INVALID FOR* Pseudogout [M11.20] INVALID FOR* More... Lumbar spondylosis [M47.816] INVALID FOR* Lumbar stenosis [M48.061] INVALID FOR* Vitamin D deficiency [E55.9] INVALID FOR* GERD (gastroesophageal reflux disease) [K21.9] INVALID FOR* BMI 32.0-32.9,adult [Z68.32] INVALID FOR* Hyperlipidemia [E78.5] INVALID FOR* More... Impaired fasting glucose [R73.01] INVALID FOR* Bilateral low back pain without sciatica [M54.5]INVALID FOR* Moderate persistent asthma [J45.40] INVALID FOR* More... Persistent asthma [J45.909] INVALID FOR* Encounter Status:Closed by DACIA URIOSTEGUI LPN on 06/30/17 PROGRESS Observed: 06/15/2017 Status: COMPLETED Source: [place] 10:40 AM [facility] [place] RE[facility] HNO ID: [id number] Author: Farrukh Whalen Service: (none) Author Type: Physician Type: Progress Notes Filed: 06/15/2017 4:11 PM Note Text: Agree with dose and follow up BASIC METABOLIC PANL Collected: 06/15/2017 Status: F Source: [place] 9:59 AM [facility] REPOSITORY TYPE CODE TESTS RESULT OUT OF REFERENCE UNITS RANGE LAB GLU 74-99 mg/dL High Glucose 123 Result Comment: The [place] [employer] Association (ADA) provides guidance for cutoff values for fasting glucose and random glucose. The ADA defines fasting as no caloric intake for at least 8 hours. Fas ting plasma glucose results between 100 to 125 mg/dL indicate increased risk for diabetes (prediabetes). Fasting plasma glucose results greater than or equal to 126 mg/dL meet the criteria for diagnosis of diabetes. In the absence of unequivocal hyperglycemia, results should be confirmed by repeat testing. In a patient with classic symptoms of hyperglycemia or hyperglycemic crisis, random plasma glucose results greater than or equal to 200 mg/dL meet the criteria for diagnosis of diabetes. Reference: Standards of Medical Care in Diabetes 2016, [place] [employer]. Diabetes Care. 2016.39(Suppl 1). LAB BUN 7-21 mg/dL BUN 21 LAB CRET 0.58-0.96 mg/dL Creatinine High 1.21 LAB NA 136-144 mmol/L Sodium 140 LAB K 3.7-5.1 mmol/L Potassium 4.3 LAB CL 97-105 mmol/L Chloride 99 LAB CO2 22-30 mmol/L CO2 27 LAB AGAP 9-18 mmol/L Anion Gap 14 LAB CA 8.5-10.2 mg/dL Calcium, Total 9.4 LAB GFRAA eGFR- Amer. 52 LAB GFRNAA . eGFR-All Other Races 43 Result Comment: eGFR (Estimated GFR) Units of measure: mL/min/1.73 meters squared eGFR is derived from the reexpressed MDRD Study equation using the following parameters: serum creatinine, age, gender and race. The creatinine assay has been calibrated to be traceable to IDMS. An eGFR <60 mL/min/1.73m2 for >3 months is consistent with chronic kidney disease. Refer to KDOQI guidelines for clinical interpretation. In patients with unstable renal function, e.g. those with acute kidney injury, the eGFR may not accurately reflect actual GFR. Performed By: #### BMP #### [facility] [employer] [address] [place], [place] [address] PROGRESS Observed: 06/15/2017 Status: COMPLETED Source: [place] 9:49 AM [facility] REPOSITORY HNO ID: [id number] Author: Irena Montoya RN Service: (none) Author Type: (none) Type: Progress Notes Filed: 06/15/2017 9:50 AM Note Text: Patient had INR completed at [facility] Patient's INR is 2.1 Patient is currently taking 6mg daily Patient's last dose change was 05/30/17 due to low INR at 1.4 Patient has had no medication and no change in diet. Advised patient to continue on same dose and they would only be contacted with different instructions after provider review. Written instructions were given to patient and patient verbalized understanding. Presently, patient has been scheduled for 06/27/17 for INR follow up. PROGRESS Observed: 06/07/2017 Status: COMPLETED Source: [place] 7:58 AM [facility] REPOSITORY HNO ID: [id number] Author: Negrita Stallings LPN Service: (none) Author Type: (none) Type: Progress Notes Filed: 06/07/2017 7:58 AM Note Text: Pt notified. PROGRESS Observed: 06/06/2017 Status: COMPLETED Source: [place] 5:06 PM [facility] REPOSITORY HNO ID: [id number] Author: Farrukh Whalen Service: (none) Author Type: Physician Type: Progress Notes Filed: 06/07/2017 7:58 AM Note Text: Cont the same and recheck in 1 week PROGRESS Observed: 06/06/2017 Status: COMPLETED Source: [place] 3:09 PM [facility] REPOSITORY HNO ID: [id number] Author: Chula Renee RN Service: (none) Author Type: (none) Type: Progress Notes Filed: 06/06/2017 3:11 PM Note Text: patient had inr completed at [facility] patients inr is 1.7 (patients inr range is 2.0-3.0) patient is currently taking 6mg daily patients last dose change was on 04/11/17 due to a high level of 3.7 (dose at that time was 7mg alternating with 6mg) patient has had a change in medication as patient was on pred for last thur,fri,sat and no change in diet Advised patient that they would be contacted regarding medication dose and when to follow up after information is reviewed by provider. After provider review please contact the patient with information and schedule follow up appointment with coumadin clinic. FYI - patient has been scheduled for a 1 week inr follow up on 06/13/17 HOSP Observed: 06/06/2017 Status: COMPLETED Source: [place] 3:00 PM [facility] REPOSITORY Anticoagulation Visit (COUMWS) FELICIA STOVER ([id number]) 1935 F NFR Date Time Provider Department 06/06/17 3:00 PM [facility] During your visit today, we recorded the following information about you: Chula Renee RN 06/06/2017 3:11 PM Signed patient had inr completed at [facility] patients inr is 1.7 (patients inr range is 2.0-3.0) patient is currently taking 6mg daily patients last dose change was on 04/11/17 due to a high level of 3.7 (dose at that time was 7mg alternating with 6mg) patient has had a change in medication as patient was on pred for last ,mon,mon and no change in diet Advised patient that they would be contacted regarding medication dose and when to follow up after information is reviewed by provider. After provider review please contact the patient with information and schedule follow up appointment with coumadin clinic. FYI - patient has been scheduled for a 1 week inr follow up on 06/13/17 FARRUKH WHALEN MD 06/07/2017 7:58 AM Signed Cont the same and recheck in 1 week Negrita Stallings LPN 06/07/2017 7:58 AM Signed Pt notified. Referring Provider: FARRUKH WHALEN [[id number]] Allergies As of Date: 06/06/2017 Noted Allergy Reaction CRAB 03/12/2003 Comments: Itching, swelling LOBSTER (CRUSTACEANS) 03/12/2003 Comments: Can'T touch RAGWEED 03/12/2003 14 - Other: See Comments Comments: Sneezing SULFA (SULFONAMIDE ANTIBIOTICS) 03/12/2003 Comments: SWELLING Rash Scampi [Other] 03/12/2003 Comments: Swelling, itching. TOPROL XL (METOPROLOL SUCCINATE) 04/13/2010 14 - Other: See Comments Comments: Chest fullness Date Reviewed: 06/06/2017 Reviewed by: Chula Renee RN - Fully Assessed Reason for Visit: Anticoagulation [8] Primary Visit Diagnosis:Atrial fibrillation, unspecified type (HCC) [I48.91] Order(s):INR (POC) [[id number]] Order #: [id number]. #:[id number] Prescriptions as of 06/06/2017 Sig: NITROGLYCERIN 0.4 MG SUBLINGU* Dissolve 1 tablet under the t* FLUTICASONE FUROATE 200 MCG/A* Inhale 1 Inhalation as instru* VERAPAMIL ER (SR) 240 MG TABL* Take 1 tablet by mouth once d* FUROSEMIDE 20 MG TABLET Take 1 tablet by mouth as nee* X POTASSIUM CHLORIDE ER 10 MEQ * Take 1 tablet by mouth once d* KETOCONAZOLE 2 % SHAMPOO Apply 1 application to affect* FLECAINIDE 100 MG TABLET Take 1 tablet by mouth twice * HYDROXYCHLOROQUINE 200 MG TAB* Take 200 mg by mouth twice da* TEMAZEPAM 15 MG CAPSULE Take 1 capsule by mouth at be* LISINOPRIL 20 MG TABLET Take 1 tablet by mouth twice * WARFARIN 3 MG TABLET Take 1 tablet by mouth once d* MONTELUKAST 10 MG TABLET Take 1 tablet by mouth daily * WARFARIN 2.5 MG TABLET Take as directed per physicia* WARFARIN 5 MG TABLET Take as directed WARFARIN 2 MG TABLET Take 1 tablet by mouth daily * DENOSUMAB 60 MG/ML SUBCUTANEO* Inject 1 mL subcutaneously as* OXYCODONE-ACETAMINOPHEN 5 MG-* Take 1 tablet by mouth once d* TRAMADOL 50 MG TABLET Take 1 tablet by mouth every * BIOTIN ORAL Take 1 capsule by mouth once * CHOLECALCIFEROL (VITAMIN D3) * Take 1 capsule by mouth once * Problem List As Of Date 06/06/2017 Noted Resolved PARESTHESIAS [R20.9] INVALID FOR* OVERWEIGHT [E66.9] INVALID FOR*12/02/2014 Essential hypertension [I10] INVALID FOR* More... FEMALE STRESS INCONTINENCE [N39.3] INVALID FOR* DIVERTICULITIS OF COLON W/O BLEED [K57.32] INVALID FOR* HEMORRHOIDS NOS [K64.9] INVALID FOR* ATRIAL FIBRILLATION [I48.91] INVALID FOR* More... HYPERLIPIDEMIA NEC/NOS [E78.5] INVALID FOR* More... INSOMNIA NOS [G47.00] INVALID FOR* GENERAL OSTEOARTHROSIS [M15.9] INVALID FOR* BRADYCARDIA [I49.8] INVALID FOR* Postmenopausal osteoporosis [M81.0] INVALID FOR* More... HYPERGLYCEMIA [R79.89] INVALID FOR* More... MITRAL REGURGITATION [I05.9] INVALID FOR* HYPOMAGNESEMIA [E83.40] INVALID FOR* Unspecified closed fracture of ankle [S82.899A] INVALID FOR* More... IDIO PERIPH NEURPTHY NOS [G60.9] INVALID FOR* BACKACHE NOS [M54.9] INVALID FOR* Other Chronic Pain [G89.29] INVALID FOR* More... 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 Pathologic fracture of vertebrae [M84.48XA] INVALID FOR* Lumbago [M54.5] INVALID FOR* Pseudogout [M11.20] INVALID FOR* More... Lumbar spondylosis [M47.816] INVALID FOR* Lumbar stenosis [M48.061] INVALID FOR* Vitamin D deficiency [E55.9] INVALID FOR* GERD (gastroesophageal reflux disease) [K21.9] INVALID FOR* BMI 32.0-32.9,adult [Z68.32] INVALID FOR* Hyperlipidemia [E78.5] INVALID FOR* More... Impaired fasting glucose [R73.01] INVALID FOR* Bilateral low back pain without sciatica [M54.5]INVALID FOR* Moderate persistent asthma [J45.40] INVALID FOR* More... Persistent asthma [J45.909] INVALID FOR* Follow-up and Disposition History Recorded Encounter Status:Closed by NEGRITA STALLINGS LPN on 06/07/17 OBSOLETE Observed: 06/06/2017 Status: COMPLETED Source: [place] 12:00 AM [facility] Refill (AGCARDWST) FELICIA STOVER ([id number]) 1935 F NFR Date Time Provider Department 06/06/17 RASHARD HALL AGCARDWST During your visit today, we recorded the following information about you: Dacia Uriostegui LPN 06/06/2017 4:48 PM Signed Patient has been identified by name and date of : Yes Pending Prescriptions Disp Refills POTASSIUM CHLORIDE ER 10 MEQ TABLET,EXTENDED RELEASE 7 tablet 0 Sig: Take 1 tablet by mouth once daily. MELISSA: No RX INSTRUCTIONS: Patient aware RX will be sent to pharmacy. No need to notify patient. MAN Kendrick MD 06/06/2017 4:53 PM Signed The following approved medication requests have been transmitted electronically. Signed Prescriptions Disp Refills potassium chloride (K-TAB) 10 mEq tablet 7 tablet 0 Sig: Take 1 tablet by mouth once daily. MELISSA: No Authorizing Provider: RASHARD HALL MD Adam Gilmor, RN, RN 06/07/2017 11:21 AM Signed escript confirmed Allergies As of Date: 06/06/2017 Noted Allergy Reaction CRAB 03/12/2003 Comments: Itching, swelling LOBSTER (CRUSTACEANS) 03/12/2003 Comments: Can'T touch RAGWEED 03/12/2003 14 - Other: See Comments Comments: Sneezing SULFA (SULFONAMIDE ANTIBIOTICS) 03/12/2003 Comments: SWELLING Rash Scampi [Other] 03/12/2003 Comments: Swelling, itching. TOPROL XL (METOPROLOL SUCCINATE) 04/13/2010 14 - Other: See Comments Comments: Chest fullness Date Reviewed: 06/06/2017 Reviewed by: Chula Renee RN - Fully Assessed Reason for Visit: Refill Request [94] Order(s):potassium chloride (K-TAB) 10 mEq tabletTake 1 tablet by mouth once daily.Disp: 7 tabletRfl: 0 Prescriptions as of 06/06/2017 Sig: NITROGLYCERIN 0.4 MG SUBLINGU* Dissolve 1 tablet under the t* POTASSIUM CHLORIDE ER 10 MEQ * Take 1 tablet by mouth once d* FLUTICASONE FUROATE 200 MCG/A* Inhale 1 Inhalation as instru* VERAPAMIL ER (SR) 240 MG TABL* Take 1 tablet by mouth once d* FUROSEMIDE 20 MG TABLET Take 1 tablet by mouth as nee* KETOCONAZOLE 2 % SHAMPOO Apply 1 application to affect* FLECAINIDE 100 MG TABLET Take 1 tablet by mouth twice * HYDROXYCHLOROQUINE 200 MG TAB* Take 200 mg by mouth twice da* TEMAZEPAM 15 MG CAPSULE Take 1 capsule by mouth at be* LISINOPRIL 20 MG TABLET Take 1 tablet by mouth twice * WARFARIN 3 MG TABLET Take 1 tablet by mouth once d* MONTELUKAST 10 MG TABLET Take 1 tablet by mouth daily * WARFARIN 2.5 MG TABLET Take as directed per physicia* WARFARIN 5 MG TABLET Take as directed WARFARIN 2 MG TABLET Take 1 tablet by mouth daily * DENOSUMAB 60 MG/ML SUBCUTANEO* Inject 1 mL subcutaneously as* OXYCODONE-ACETAMINOPHEN 5 MG-* Take 1 tablet by mouth once d* TRAMADOL 50 MG TABLET Take 1 tablet by mouth every * BIOTIN ORAL Take 1 capsule by mouth once * CHOLECALCIFEROL (VITAMIN D3) * Take 1 capsule by mouth once * Problem List As Of Date 06/06/2017 Noted Resolved PARESTHESIAS [R20.9] INVALID FOR* OVERWEIGHT [E66.9] INVALID FOR*12/02/2014 Essential hypertension [I10] INVALID FOR* More... FEMALE STRESS INCONTINENCE [N39.3] INVALID FOR* DIVERTICULITIS OF COLON W/O BLEED [K57.32] INVALID FOR* HEMORRHOIDS NOS [K64.9] INVALID FOR* ATRIAL FIBRILLATION [I48.91] INVALID FOR* More... HYPERLIPIDEMIA NEC/NOS [E78.5] INVALID FOR* More... INSOMNIA NOS [G47.00] INVALID FOR* GENERAL OSTEOARTHROSIS [M15.9] INVALID FOR* BRADYCARDIA [I49.8] INVALID FOR* Postmenopausal osteoporosis [M81.0] INVALID FOR* More... HYPERGLYCEMIA [R79.89] INVALID FOR* More... MITRAL REGURGITATION [I05.9] INVALID FOR* HYPOMAGNESEMIA [E83.40] INVALID FOR* Unspecified closed fracture of ankle [S82.899A] INVALID FOR* More... IDIO PERIPH NEURPTHY NOS [G60.9] INVALID FOR* BACKACHE NOS [M54.9] INVALID FOR* Other Chronic Pain [G89.29] INVALID FOR* More... 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 Pathologic fracture of vertebrae [M84.48XA] INVALID FOR* Lumbago [M54.5] INVALID FOR* Pseudogout [M11.20] INVALID FOR* More... Lumbar spondylosis [M47.816] INVALID FOR* Lumbar stenosis [M48.061] INVALID FOR* Vitamin D deficiency [E55.9] INVALID FOR* GERD (gastroesophageal reflux disease) [K21.9] INVALID FOR* BMI 32.0-32.9,adult [Z68.32] INVALID FOR* Hyperlipidemia [E78.5] INVALID FOR* More... Impaired fasting glucose [R73.01] INVALID FOR* Bilateral low back pain without sciatica [M54.5]INVALID FOR* Moderate persistent asthma [J45.40] INVALID FOR* More... Persistent asthma [J45.909] INVALID FOR* Prescriptions ordered this encounter Disp Refills Start End POTASSIUM CHLORIDE ER 10 MEQ TABLET,* 7 ta* 0 06/06/2017 Route: ORAL Sig: Take 1 tablet by mouth once daily. Medications Discontinued During This Encounter potassium chloride (K-TAB) 10 mEq ta* 7 ta* 0 03/29/2017 06/06/2017 Route: ORAL Sig: Take 1 tablet by mouth once daily. Disc: Reason for discontinue is not on file. Encounter Status:Closed by HERBERT HERNÁNDEZ on 06/07/17 PROGRESS Observed: 05/30/2017 Status: COMPLETED Source: [place] 6:50 PM [facility] [place] REPOSITORY HNO ID: [id number] Author: Manjula Vieira LPN Service: (none) Author Type: (none) Type: Progress Notes Filed: 05/30/2017 6:51 PM Note Text: Pt called back to verify coumadin instructions. Appt made with coumadin clinic for 1 week. Manjula Vieira LPN PROGRESS Observed: 05/30/2017 Status: COMPLETED Source: [place] 5:00 PM [facility] REPOSITORY HNO ID: [id number] Author: Irena Montoya RN Service: (none) Author Type: (none) Type: Progress Notes Filed: 05/30/2017 5:02 PM Note Text: Patient notified via voicemail. Asked patient to call back to make appt and confirm that she got message. PROGRESS Observed: 05/30/2017 Status: COMPLETED Source: [place] 4:46 PM [facility] REPOSITORY HNO ID: [id number] Author: Negrita Stallings LPN Service: (none) Author Type: (none) Type: Progress Notes Filed: 05/30/2017 4:47 PM Note Text: Detailed message left on pt's voicemail. LM for pt to return call to confirm received instructions. PROGRESS Observed: 05/30/2017 Status: COMPLETED Source: [place] 4:37 PM [facility] REPOSITORY HNO ID: [id number] Author: Farrukh Whalen Service: (none) Author Type: Physician Type: Progress Notes Filed: 05/30/2017 6:51 PM Note Text: Please ask patient to take 9 mgs today and tomorrow and return to 6 mgs daily for the rest of the week Recheck in 1 week PROGRESS Observed: 05/30/2017 Status: COMPLETED Source: [place] 12:08 PM [facility] REPOSITORY HNO ID: [id number] Author: Irena Montoya RN Service: (none) Author Type: (none) Type: Progress Notes Filed: 05/30/2017 12:09 PM Note Text: Patient had INR completed at [facility] Patient's INR is 1.4 Patient is currently taking 6mg daily Patient's last dose change was 04/11/17 due to high INR at 3.7 (patient was on ATB at that time) Patient has had no medication and no change in diet. Advised patient that they would be contacted regarding medication dose and follow-up once reviewed by provider. After provider review, please contact patient with information and schedule follow-up appointment with coumadin clinic. Irena Montoya RN HOSP Observed: 05/30/2017 Status: COMPLETED Source: [place] 11:15 AM [facility] REPOSITORY Anticoagulation Visit (COUMWS) FELICIA STOVER ([id number]) 1935 F NFR Date Time Provider Department 05/30/17 11:15 AM [facility] COUMWS During your visit today, we recorded the following information about you: Irena Montoya RN 05/30/2017 12:09 PM Signed Patient had INR completed at [facility] Patient's INR is 1.4 Patient is currently taking 6mg daily Patient's last dose change was 04/11/17 due to high INR at 3.7 (patient was on ATB at that time) Patient has had no medication and no change in diet. Advised patient that they would be contacted regarding medication dose and follow-up once reviewed by provider. After provider review, please contact patient with information and schedule follow-up appointment with coumadin clinic. Irena WHALEN MD 05/30/2017 6:51 PM Signed Please ask patient to take 9 mgs today and tomorrow and return to 6 mgs daily for the rest of the week Recheck in 1 week Negrita Stallings LPN 05/30/2017 4:47 PM Signed Detailed message left on pt's voicemail. LM for pt to return call to confirm received instructions. Irena Montoya RN 05/30/2017 5:02 PM Signed Patient notified via voicemail. Asked patient to call back to make appt and confirm that she got message. Manjula Vieira LPN 05/30/2017 6:51 PM Signed Pt called back to verify coumadin instructions. Appt made with coumadin clinic for 1 week. Manjula Virgil BLOOD BANK BOOKING CLERK Referring Provider: FARRUKH WHALEN [[id number]] Allergies As of Date: 05/30/2017 Noted Allergy Reaction CRAB 03/12/2003 Comments: Itching, swelling LOBSTER (CRUSTACEANS) 03/12/2003 Comments: Can'T touch RAGWEED 03/12/2003 14 - Other: See Comments Comments: Sneezing SULFA (SULFONAMIDE ANTIBIOTICS) 03/12/2003 Comments: SWELLING Rash Scampi [Other] 03/12/2003 Comments: Swelling, itching. TOPROL XL (METOPROLOL SUCCINATE) 04/13/2010 14 - Other: See Comments Comments: Chest fullness Date Reviewed: 05/02/2017 Reviewed by: Chula Renee RN - Fully Assessed Reason for Visit: Coumadin/INR [1207] Primary Visit Diagnosis:Atrial fibrillation, unspecified type (HCC) [I48.91] Prescriptions as of 05/30/2017 Sig: FLUTICASONE FUROATE 200 MCG/A* Inhale 1 Inhalation as instru* VERAPAMIL ER (SR) 240 MG TABL* Take 1 tablet by mouth once d* FUROSEMIDE 20 MG TABLET Take 1 tablet by mouth as nee* POTASSIUM CHLORIDE ER 10 MEQ * Take 1 tablet by mouth once d* KETOCONAZOLE 2 % SHAMPOO Apply 1 application to affect* FLECAINIDE 100 MG TABLET Take 1 tablet by mouth twice * HYDROXYCHLOROQUINE 200 MG TAB* Take 200 mg by mouth twice da* TEMAZEPAM 15 MG CAPSULE Take 1 capsule by mouth at be* LISINOPRIL 20 MG TABLET Take 1 tablet by mouth twice * WARFARIN 3 MG TABLET Take 1 tablet by mouth once d* MONTELUKAST 10 MG TABLET Take 1 tablet by mouth daily * WARFARIN 2.5 MG TABLET Take as directed per physicia* WARFARIN 5 MG TABLET Take as directed WARFARIN 2 MG TABLET Take 1 tablet by mouth daily * DENOSUMAB 60 MG/ML SUBCUTANEO* Inject 1 mL subcutaneously as* OXYCODONE-ACETAMINOPHEN 5 MG-* Take 1 tablet by mouth once d* TRAMADOL 50 MG TABLET Take 1 tablet by mouth every * BIOTIN ORAL Take 1 capsule by mouth once * CHOLECALCIFEROL (VITAMIN D3) * Take 1 capsule by mouth once * Problem List As Of Date 05/30/2017 Noted Resolved PARESTHESIAS [R20.9] INVALID FOR* OVERWEIGHT [E66.9] INVALID FOR*12/02/2014 Essential hypertension [I10] INVALID FOR* More... FEMALE STRESS INCONTINENCE [N39.3] INVALID FOR* DIVERTICULITIS OF COLON W/O BLEED [K57.32] INVALID FOR* HEMORRHOIDS NOS [K64.9] INVALID FOR* ATRIAL FIBRILLATION [I48.91] INVALID FOR* More... HYPERLIPIDEMIA NEC/NOS [E78.5] INVALID FOR* More... INSOMNIA NOS [G47.00] INVALID FOR* GENERAL OSTEOARTHROSIS [M15.9] INVALID FOR* BRADYCARDIA [I49.8] INVALID FOR* Postmenopausal osteoporosis [M81.0] INVALID FOR* More... HYPERGLYCEMIA [R79.89] INVALID FOR* More... MITRAL REGURGITATION [I05.9] INVALID FOR* HYPOMAGNESEMIA [E83.40] INVALID FOR* Unspecified closed fracture of ankle [S82.899A] INVALID FOR* More... IDIO PERIPH NEURPTHY NOS [G60.9] INVALID FOR* BACKACHE NOS [M54.9] INVALID FOR* Other Chronic Pain [G89.29] INVALID FOR* More... 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 Pathologic fracture of vertebrae [M84.48XA] INVALID FOR* Lumbago [M54.5] INVALID FOR* Pseudogout [M11.20] INVALID FOR* More... Lumbar spondylosis [M47.816] INVALID FOR* Lumbar stenosis [M48.061] INVALID FOR* Vitamin D deficiency [E55.9] INVALID FOR* GERD (gastroesophageal reflux disease) [K21.9] INVALID FOR* BMI 32.0-32.9,adult [Z68.32] INVALID FOR* Hyperlipidemia [E78.5] INVALID FOR* More... Impaired fasting glucose [R73.01] INVALID FOR* Bilateral low back pain without sciatica [M54.5]INVALID FOR* Moderate persistent asthma [J45.40] INVALID FOR* More... Persistent asthma [J45.909] INVALID FOR* Follow-up and Disposition History Recorded Encounter Status:Closed by ISHA MANJULA CONWAY on 05/30/17 BASIC METABOLIC PANL Collected: 05/22/2017 Status: F Source: [place] 3:36 PM [facility] REPOSITORY TYPE CODE TESTS RESULT OUT OF REFERENCE UNITS RANGE LAB GLU 74-99 mg/dL Glucose 99 Result Comment: The [place] [employer] (ADA) provides guidance for cutoff values for fasting glucose and random glucose. The ADA defines fasting as no caloric intake for at least 8 hours. Fas ting plasma glucose results between 100 to 125 mg/dL indicate increased risk for diabetes (prediabetes). Fasting plasma glucose results greater than or equal to 126 mg/dL meet the criteria for diagnosis of diabetes. In the absence of unequivocal hyperglycemia, results should be confirmed by repeat testing. In a patient with classic symptoms of hyperglycemia or hyperglycemic crisis, random plasma glucose results greater than or equal to 200 mg/dL meet the criteria for diagnosis of diabetes. Reference: Standards of Medical Care in Diabetes 2016, [place] [employer]. Diabetes Care. 2016.39(Suppl 1). LAB BUN 7-21 mg/dL BUN High 22 LAB CRET 0.58-0.96 mg/dL Creatinine High 1.16 LAB NA 136-144 mmol/L Sodium 143 LAB K 3.7-5.1 mmol/L Potassium 4.5 LAB CL 97-105 mmol/L Chloride 102 LAB CO2 22-30 mmol/L CO2 26 LAB AGAP 9-18 mmol/L Anion Gap 15 LAB CA 8.5-10.2 mg/dL Calcium, Total 9.6 LAB GFRAA eGFR- Amer. 54 LAB GFRNAA . eGFR-All Other Races 45 Result Comment: eGFR (Estimated GFR) Units of measure: mL/min/1.73 meters squared eGFR is derived from the reexpressed MDRD Study equation using the following parameters: serum creatinine, age, gender and race. The creatinine assay has been calibrated to be traceable to IDMS. An eGFR <60 mL/min/1.73m2 for >3 months is consistent with chronic kidney disease. Refer to KDOQI guidelines for clinical interpretation. In patients with unstable renal function, e.g. those with acute kidney injury, the eGFR may not accurately reflect actual GFR. Performed By: #### BMP #### [facility] [address] [place], [place] [address] OBSOLETE Observed: 05/22/2017 Status: COMPLETED Source: [place] 12:00 AM [facility] REPOSITORY Refill (INTMWS) FELICIADENZEL ([id number]) 1935 F NFR Date Time Provider Department 05/22/17 MARLEEFARRUKH INTMWS During your visit today, we recorded the following information about you: Len Ventura RN 05/23/2017 1:13 PM Signed Duplicate request. Verapamil. Allergies As of Date: 05/22/2017 Noted Allergy Reaction CRAB 03/12/2003 Comments: Itching, swelling LOBSTER (CRUSTACEANS) 03/12/2003 Comments: Can'T touch RAGWEED 03/12/2003 14 - Other: See Comments Comments: Sneezing SULFA (SULFONAMIDE ANTIBIOTICS) 03/12/2003 Comments: SWELLING Rash Scampi [Other] 03/12/2003 Comments: Swelling, itching. TOPROL XL (METOPROLOL SUCCINATE) 04/13/2010 14 - Other: See Comments Comments: Chest fullness Date Reviewed: 05/02/2017 Reviewed by: Chula Renee RN - Fully Assessed Reason for Visit: Refill Request [94] Prescriptions as of 05/22/2017 Sig: MOMETASONE-FORMOTEROL HFA 100* Inhale 2 Puffs as instructed * FUROSEMIDE 20 MG TABLET Take 1 tablet by mouth as nee* POTASSIUM CHLORIDE ER 10 MEQ * Take 1 tablet by mouth once d* KETOCONAZOLE 2 % SHAMPOO Apply 1 application to affect* FLECAINIDE 100 MG TABLET Take 1 tablet by mouth twice * PREDNISONE 10 MG TABLET Take 10 mg by mouth once annalee* HYDROXYCHLOROQUINE 200 MG TAB* Take 200 mg by mouth twice da* TEMAZEPAM 15 MG CAPSULE Take 1 capsule by mouth at be* LISINOPRIL 20 MG TABLET Take 1 tablet by mouth twice * WARFARIN 3 MG TABLET Take 1 tablet by mouth once d* MONTELUKAST 10 MG TABLET Take 1 tablet by mouth daily * WARFARIN 2.5 MG TABLET Take as directed per physicia* WARFARIN 5 MG TABLET Take as directed WARFARIN 2 MG TABLET Take 1 tablet by mouth daily * DENOSUMAB 60 MG/ML SUBCUTANEO* Inject 1 mL subcutaneously as* VERAPAMIL ER (SR) 240 MG TABL* Take 1 tablet by mouth once d* OXYCODONE-ACETAMINOPHEN 5 MG-* Take 1 tablet by mouth once d* TRAMADOL 50 MG TABLET Take 1 tablet by mouth every * BIOTIN ORAL Take 1 capsule by mouth once * CHOLECALCIFEROL (VITAMIN D3) * Take 1 capsule by mouth once * Problem List As Of Date 05/22/2017 Noted Resolved PARESTHESIAS [R20.9] INVALID FOR* OVERWEIGHT [E66.9] INVALID FOR*12/02/2014 Essential hypertension [I10] INVALID FOR* More... FEMALE STRESS INCONTINENCE [N39.3] INVALID FOR* DIVERTICULITIS OF COLON W/O BLEED [K57.32] INVALID FOR* HEMORRHOIDS NOS [K64.9] INVALID FOR* ATRIAL FIBRILLATION [I48.91] INVALID FOR* More... HYPERLIPIDEMIA NEC/NOS [E78.5] INVALID FOR* More... INSOMNIA NOS [G47.00] INVALID FOR* GENERAL OSTEOARTHROSIS [M15.9] INVALID FOR* BRADYCARDIA [I49.8] INVALID FOR* Postmenopausal osteoporosis [M81.0] INVALID FOR* More... HYPERGLYCEMIA [R79.89] INVALID FOR* More... MITRAL REGURGITATION [I05.9] INVALID FOR* HYPOMAGNESEMIA [E83.40] INVALID FOR* Unspecified closed fracture of ankle [S82.899A] INVALID FOR* More... IDIO PERIPH NEURPTHY NOS [G60.9] INVALID FOR* BACKACHE NOS [M54.9] INVALID FOR* Other Chronic Pain [G89.29] INVALID FOR* More... 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 Pathologic fracture of vertebrae [M84.48XA] INVALID FOR* Lumbago [M54.5] INVALID FOR* Pseudogout [M11.20] INVALID FOR* More... Lumbar spondylosis [M47.816] INVALID FOR* Lumbar stenosis [M48.061] INVALID FOR* Vitamin D deficiency [E55.9] INVALID FOR* GERD (gastroesophageal reflux disease) [K21.9] INVALID FOR* BMI 32.0-32.9,adult [Z68.32] INVALID FOR* Hyperlipidemia [E78.5] INVALID FOR* More... Impaired fasting glucose [R73.01] INVALID FOR* Bilateral low back pain without sciatica [M54.5]INVALID FOR* Moderate persistent asthma [J45.40] INVALID FOR* More... Persistent asthma [J45.909] INVALID FOR* Encounter Status:Closed by Len VENTURA RN on 05/23/17 OBSOLETE Observed: 05/19/2017 Status: COMPLETED Source: [place] 12:00 AM [facility] REPOSITORY Refill (INTMWS) FELICIA STOVER ([id number]) 1935 F NFR Date Time Provider Department 05/19/17 FARRUKH WHALEN INTMWS During your visit today, we recorded the following information about you: Len Ventura RN 05/23/2017 11:41 AM Signed Patient has been identified by name and date of : Yes Patient phones for refill(s): Pending Prescriptions Disp Refills VERAPAMIL ER (SR) 240 MG TABLET,EXTENDED RELEASE 90 tablet 4 Sig: Take 1 tablet by mouth once daily. MELISSA: No Date of last office visit with pcp: 02-21-17. appt: 08-22-17 Date of last office visit in primary care: 04-10-17 Last 2 Encounter Wt Readings: Date: Wt: 04/10/2017 88.9 kg (196 lb) 04/04/2017 91.2 kg (201 lb) Previous labs/tests for medication: Blood Pressure: BUN (mg/dL) Date Value 05/22/2017 22 Sodium (mmol/L) Date Value 05/22/2017 143 Last 1 Encounter BP Readings: Date: BP: 04/10/2017 132/88 Please advise. Thank you. Len Ventura RN 05/23/2017 1:11 PM Signed Patient reports she has 1 pill left. Swathi Lopez LPN 05/23/2017 4:48 PM Signed The following approved medication requests have been transmitted electronically. Signed Prescriptions Disp Refills verapamil SR (CALAN SR, ISOPTIN SR) 240 mg CR tablet 90 tablet 4 Sig: Take 1 tablet by mouth once daily. MELISSA: No Authorizing Provider: FARRUKH WHALEN LPN Allergies As of Date: 05/19/2017 Noted Allergy Reaction CRAB 03/12/2003 Comments: Itching, swelling LOBSTER (CRUSTACEANS) 03/12/2003 Comments: Can'T touch RAGWEED 03/12/2003 14 - Other: See Comments Comments: Sneezing SULFA (SULFONAMIDE ANTIBIOTICS) 03/12/2003 Comments: SWELLING Rash Scampi [Other] 03/12/2003 Comments: Swelling, itching. TOPROL XL (METOPROLOL SUCCINATE) 04/13/2010 14 - Other: See Comments Comments: Chest fullness Date Reviewed: 05/02/2017 Reviewed by: Chula Renee RN - Fully Assessed Reason for Visit: Refill Request [94] Order(s):verapamil SR (CALAN SR, ISOPTIN SR) 240 mg CR tabletTake 1 tablet by mouth once daily.Disp: 90 tabletRfl: 4 Prescriptions as of 05/19/2017 Sig: VERAPAMIL ER (SR) 240 MG TABL* Take 1 tablet by mouth once d* MOMETASONE-FORMOTEROL HFA 100* Inhale 2 Puffs as instructed * FUROSEMIDE 20 MG TABLET Take 1 tablet by mouth as nee* POTASSIUM CHLORIDE ER 10 MEQ * Take 1 tablet by mouth once d* KETOCONAZOLE 2 % SHAMPOO Apply 1 application to affect* FLECAINIDE 100 MG TABLET Take 1 tablet by mouth twice * PREDNISONE 10 MG TABLET Take 10 mg by mouth once annalee* HYDROXYCHLOROQUINE 200 MG TAB* Take 200 mg by mouth twice da* TEMAZEPAM 15 MG CAPSULE Take 1 capsule by mouth at be* LISINOPRIL 20 MG TABLET Take 1 tablet by mouth twice * WARFARIN 3 MG TABLET Take 1 tablet by mouth once d* MONTELUKAST 10 MG TABLET Take 1 tablet by mouth daily * WARFARIN 2.5 MG TABLET Take as directed per physicia* WARFARIN 5 MG TABLET Take as directed WARFARIN 2 MG TABLET Take 1 tablet by mouth daily * DENOSUMAB 60 MG/ML SUBCUTANEO* Inject 1 mL subcutaneously as* OXYCODONE-ACETAMINOPHEN 5 MG-* Take 1 tablet by mouth once d* TRAMADOL 50 MG TABLET Take 1 tablet by mouth every * BIOTIN ORAL Take 1 capsule by mouth once * CHOLECALCIFEROL (VITAMIN D3) * Take 1 capsule by mouth once * Problem List As Of Date 05/19/2017 Noted Resolved PARESTHESIAS [R20.9] INVALID FOR* OVERWEIGHT [E66.9] INVALID FOR*12/02/2014 Essential hypertension [I10] INVALID FOR* More... FEMALE STRESS INCONTINENCE [N39.3] INVALID FOR* DIVERTICULITIS OF COLON W/O BLEED [K57.32] INVALID FOR* HEMORRHOIDS NOS [K64.9] INVALID FOR* ATRIAL FIBRILLATION [I48.91] INVALID FOR* More... HYPERLIPIDEMIA NEC/NOS [E78.5] INVALID FOR* More... INSOMNIA NOS [G47.00] INVALID FOR* GENERAL OSTEOARTHROSIS [M15.9] INVALID FOR* BRADYCARDIA [I49.8] INVALID FOR* Postmenopausal osteoporosis [M81.0] INVALID FOR* More... HYPERGLYCEMIA [R79.89] INVALID FOR* More... MITRAL REGURGITATION [I05.9] INVALID FOR* HYPOMAGNESEMIA [E83.40] INVALID FOR* Unspecified closed fracture of ankle [S82.899A] INVALID FOR* More... IDIO PERIPH NEURPTHY NOS [G60.9] INVALID FOR* BACKACHE NOS [M54.9] INVALID FOR* Other Chronic Pain [G89.29] INVALID FOR* More... 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 Pathologic fracture of vertebrae [M84.48XA] INVALID FOR* Lumbago [M54.5] INVALID FOR* Pseudogout [M11.20] INVALID FOR* More... Lumbar spondylosis [M47.816] INVALID FOR* Lumbar stenosis [M48.061] INVALID FOR* Vitamin D deficiency [E55.9] INVALID FOR* GERD (gastroesophageal reflux disease) [K21.9] INVALID FOR* BMI 32.0-32.9,adult [Z68.32] INVALID FOR* Hyperlipidemia [E78.5] INVALID FOR* More... Impaired fasting glucose [R73.01] INVALID FOR* Bilateral low back pain without sciatica [M54.5]INVALID FOR* Moderate persistent asthma [J45.40] INVALID FOR* More... Persistent asthma [J45.909] INVALID FOR* Prescriptions ordered this encounter Disp Refills Start End VERAPAMIL ER (SR) 240 MG TABLET,EXTE* 90 t* 4 05/23/2017 Route: ORAL Sig: Take 1 tablet by mouth once daily. Medications Discontinued During This Encounter verapamil SR (CALAN SR, ISOPTIN SR) * 90 t* 4 02/09/2016 05/23/2017 Route: ORAL Sig: Take 1 tablet by mouth once daily. Disc: Reason for discontinue is not on file. Encounter Status:Closed by SWATHI LOPEZ LPN on 05/23/17 OBSOLETE Observed: 05/04/2017 Status: COMPLETED Source: [place] 12:00 AM [facility] [place] REPOSITORY Refill (AGCARDWST) FELICIA STOVER ([id number]) 1935 F NFR Date Time Provider Department 05/04/17 RASHARD HALL AGCARDWST During your visit today, we recorded the following information about you: Herbert Hernández, RN, RN 05/04/2017 8:46 AM Signed Patient states that the swelling in her feet was resolved after taking the short lasix prescription at the end of Mar. Yesterday edema in her left foot recurred and is still present today. She asks if she can have another prescription of lasix as it worked well previously. Thank you. Rashard Hall MD 05/04/2017 2:38 PM Signed Have BMP done in 2 wks. Use only as needed, no more than once a day Rashard Hall MD The following approved medication requests have been transmitted electronically. Signed Prescriptions Disp Refills furosemide (LASIX) 20 mg tablet 30 tablet 6 Sig: Take 1 tablet by mouth as needed (for swelling, up to one per day). MELISSA: No Authorizing Provider: RASHARD HALL MD Adam Gilmor, RN, RN 05/04/2017 5:13 PM Signed Left detailed msg with instructions and asked patient to call back and confirm. Herbert Hernández RN, RN 05/05/2017 11:29 AM Signed Left generic msg for patient to return call. Susana Britton MA 05/09/2017 12:36 PM Signed Patient notified and verbalized understanding. Susana Britton MA Allergies As of Date: 05/04/2017 Noted Allergy Reaction CRAB 03/12/2003 Comments: Itching, swelling LOBSTER (CRUSTACEANS) 03/12/2003 Comments: Can'T touch RAGWEED 03/12/2003 14 - Other: See Comments Comments: Sneezing SULFA (SULFONAMIDE ANTIBIOTICS) 03/12/2003 Comments: SWELLING Rash Scampi [Other] 03/12/2003 Comments: Swelling, itching. TOPROL XL (METOPROLOL SUCCINATE) 04/13/2010 14 - Other: See Comments Comments: Chest fullness Date Reviewed: 05/02/2017 Reviewed by: Chula Renee RN - Fully Assessed Primary Visit Diagnosis:Essential hypertension [I10] Order(s):furosemide (LASIX) 20 mg tabletTake 1 tablet by mouth as needed (for swelling, up to one per day).Disp: 30 tabletRfl: 6 BASIC METABOLIC PNL [SQBMP] Order #: [id number] FUTURE Prescriptions as of 05/04/2017 Sig: FUROSEMIDE 20 MG TABLET Take 1 tablet by mouth as nee* POTASSIUM CHLORIDE ER 10 MEQ * Take 1 tablet by mouth once d* KETOCONAZOLE 2 % SHAMPOO Apply 1 application to affect* FLECAINIDE 100 MG TABLET Take 1 tablet by mouth twice * PREDNISONE 10 MG TABLET Take 10 mg by mouth once annalee* HYDROXYCHLOROQUINE 200 MG TAB* Take 200 mg by mouth twice da* TEMAZEPAM 15 MG CAPSULE Take 1 capsule by mouth at be* X FLUTICASONE 200 MCG-VILANTERO* Inhale 1 Inhalation as instru* LISINOPRIL 20 MG TABLET Take 1 tablet by mouth twice * WARFARIN 3 MG TABLET Take 1 tablet by mouth once d* MONTELUKAST 10 MG TABLET Take 1 tablet by mouth daily * X FLUTICASONE FUROATE 200 MCG/A* Inhale 1 Inhalation as instru* WARFARIN 2.5 MG TABLET Take as directed per physicia* WARFARIN 5 MG TABLET Take as directed WARFARIN 2 MG TABLET Take 1 tablet by mouth daily * DENOSUMAB 60 MG/ML SUBCUTANEO* Inject 1 mL subcutaneously as* VERAPAMIL ER (SR) 240 MG TABL* Take 1 tablet by mouth once d* OXYCODONE-ACETAMINOPHEN 5 MG-* Take 1 tablet by mouth once d* TRAMADOL 50 MG TABLET Take 1 tablet by mouth every * BIOTIN ORAL Take 1 capsule by mouth once * CHOLECALCIFEROL (VITAMIN D3) * Take 1 capsule by mouth once * Problem List As Of Date 05/04/2017 Noted Resolved PARESTHESIAS [R20.9] INVALID FOR* OVERWEIGHT [E66.9] INVALID FOR*12/02/2014 Essential hypertension [I10] INVALID FOR* More... FEMALE STRESS INCONTINENCE [N39.3] INVALID FOR* DIVERTICULITIS OF COLON W/O BLEED [K57.32] INVALID FOR* HEMORRHOIDS NOS [K64.9] INVALID FOR* ATRIAL FIBRILLATION [I48.91] INVALID FOR* More... HYPERLIPIDEMIA NEC/NOS [E78.5] INVALID FOR* More... INSOMNIA NOS [G47.00] INVALID FOR* GENERAL OSTEOARTHROSIS [M15.9] INVALID FOR* BRADYCARDIA [I49.8] INVALID FOR* Postmenopausal osteoporosis [M81.0] INVALID FOR* More... HYPERGLYCEMIA [R79.89] INVALID FOR* More... MITRAL REGURGITATION [I05.9] INVALID FOR* HYPOMAGNESEMIA [E83.40] INVALID FOR* Unspecified closed fracture of ankle [S82.899A] INVALID FOR* More... IDIO PERIPH NEURPTHY NOS [G60.9] INVALID FOR* BACKACHE NOS [M54.9] INVALID FOR* Other Chronic Pain [G89.29] INVALID FOR* More... 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 Pathologic fracture of vertebrae [M84.48XA] INVALID FOR* Lumbago [M54.5] INVALID FOR* Pseudogout [M11.20] INVALID FOR* More... Lumbar spondylosis [M47.816] INVALID FOR* Lumbar stenosis [M48.061] INVALID FOR* Vitamin D deficiency [E55.9] INVALID FOR* GERD (gastroesophageal reflux disease) [K21.9] INVALID FOR* BMI 32.0-32.9,adult [Z68.32] INVALID FOR* Hyperlipidemia [E78.5] INVALID FOR* More... Impaired fasting glucose [R73.01] INVALID FOR* Bilateral low back pain without sciatica [M54.5]INVALID FOR* Moderate persistent asthma [J45.40] INVALID FOR* More... Persistent asthma [J45.909] INVALID FOR* Prescriptions ordered this encounter Disp Refills Start End FUROSEMIDE 20 MG TABLET 30 t* 6 05/04/2017 Route: ORAL Sig: Take 1 tablet by mouth as needed (for swelling, up to one per day). Medications Discontinued During This Encounter furosemide (LASIX) 20 mg tablet 7 ta* 0 03/29/2017 05/04/2017 Route: ORAL Sig: Take 1 tablet by mouth once daily. Disc: Reason for discontinue is not on file. Encounter Status:Closed by SUSANA BRITTON MA on 05/09/17 PROGRESS Observed: 05/02/2017 Status: COMPLETED Source: [place] 5:20 PM [facility] REPOSITORY HNO ID: [id number] Author: Farrukh Whalen Service: (none) Author Type: Physician Type: Progress Notes Filed: 05/03/2017 9:26 AM Note Text: agree PROGRESS Observed: 05/02/2017 Status: COMPLETED Source: [place] 10:35 AM [facility] REPOSITORY HNO ID: [id number] Author: Chula Renee RN Service: (none) Author Type: (none) Type: Progress Notes Filed: 05/02/2017 10:36 AM Note Text: patient had inr completed at [facility] patients inr is 2.1 (patients inr range is 2.0-3.0) patient is currently taking 6mg daily patients last dose change was on 04/11/17 due to a high level of 3.7 (dose at that time was 3mg daily) patient has had no changes in medication and no change in diet Advised patient to continue on the same dose(s) and that they would only be contacted regarding dosage and follow up instructions after review with provider, if a change is needed. Written instructions given and patient verbalized understanding. Presently scheduled in 4 weeks (05/30/17) for follow up INR. HOSP Observed: 05/02/2017 Status: COMPLETED Source: [place] 10:00 AM [facility] REPOSITORY Anticoagulation Visit (COUMWS) FELICIA STOVER ([id number]) 1935 F NFR Date Time Provider Department 05/02/17 10:00 AM [facility] During your visit today, we recorded the following information about you: Chula Renee RN 05/02/2017 10:36 AM Signed patient had inr completed at [facility] patients inr is 2.1 (patients inr range is 2.0-3.0) patient is currently taking 6mg daily patients last dose change was on 04/11/17 due to a high level of 3.7 (dose at that time was 3mg daily) patient has had no changes in medication and no change in diet Advised patient to continue on the same dose(s) and that they would only be contacted regarding dosage and follow up instructions after review with provider, if a change is needed. Written instructions given and patient verbalized understanding. Presently scheduled in 4 weeks (05/30/17) for follow up INR. FARRUKH WHALEN MD 05/03/2017 9:26 AM Signed agree Referring Provider: FARRUKH WHALEN [[id number]] Allergies As of Date: 05/02/2017 Noted Allergy Reaction CRAB 03/12/2003 Comments: Itching, swelling LOBSTER (CRUSTACEANS) 03/12/2003 Comments: Can'T touch RAGWEED 03/12/2003 14 - Other: See Comments Comments: Sneezing SULFA (SULFONAMIDE ANTIBIOTICS) 03/12/2003 Comments: SWELLING Rash Scampi [Other] 03/12/2003 Comments: Swelling, itching. TOPROL XL (METOPROLOL SUCCINATE) 04/13/2010 14 - Other: See Comments Comments: Chest fullness Date Reviewed: 05/02/2017 Reviewed by: Chula Renee RN - Fully Assessed Reason for Visit: Anticoagulation [8] Primary Visit Diagnosis:Chronic atrial fibrillation (HCC) [I48.2] Order(s):INR (POC) [7390440] Order #: [id number]. #:[id number] Prescriptions as of 05/02/2017 Sig: FUROSEMIDE 20 MG TABLET Take 1 tablet by mouth once d* POTASSIUM CHLORIDE ER 10 MEQ * Take 1 tablet by mouth once d* KETOCONAZOLE 2 % SHAMPOO Apply 1 application to affect* FLECAINIDE 100 MG TABLET Take 1 tablet by mouth twice * PREDNISONE 10 MG TABLET Take 10 mg by mouth once annalee* HYDROXYCHLOROQUINE 200 MG TAB* Take 200 mg by mouth twice da* TEMAZEPAM 15 MG CAPSULE Take 1 capsule by mouth at be* FLUTICASONE 200 MCG-VILANTERO* Inhale 1 Inhalation as instru* LISINOPRIL 20 MG TABLET Take 1 tablet by mouth twice * WARFARIN 3 MG TABLET Take 1 tablet by mouth once d* MONTELUKAST 10 MG TABLET Take 1 tablet by mouth daily * FLUTICASONE FUROATE 200 MCG/A* Inhale 1 Inhalation as instru* WARFARIN 2.5 MG TABLET Take as directed per physicia* WARFARIN 5 MG TABLET Take as directed WARFARIN 2 MG TABLET Take 1 tablet by mouth daily * DENOSUMAB 60 MG/ML SUBCUTANEO* Inject 1 mL subcutaneously as* VERAPAMIL ER (SR) 240 MG TABL* Take 1 tablet by mouth once d* OXYCODONE-ACETAMINOPHEN 5 MG-* Take 1 tablet by mouth once d* TRAMADOL 50 MG TABLET Take 1 tablet by mouth every * BIOTIN ORAL Take 1 capsule by mouth once * CHOLECALCIFEROL (VITAMIN D3) * Take 1 capsule by mouth once * Problem List As Of Date 05/02/2017 Noted Resolved PARESTHESIAS [R20.9] INVALID FOR* OVERWEIGHT [E66.9] INVALID FOR*12/02/2014 Essential hypertension [I10] INVALID FOR* More... FEMALE STRESS INCONTINENCE [N39.3] INVALID FOR* DIVERTICULITIS OF COLON W/O BLEED [K57.32] INVALID FOR* HEMORRHOIDS NOS [K64.9] INVALID FOR* ATRIAL FIBRILLATION [I48.91] INVALID FOR* More... HYPERLIPIDEMIA NEC/NOS [E78.5] INVALID FOR* More... INSOMNIA NOS [G47.00] INVALID FOR* GENERAL OSTEOARTHROSIS [M15.9] INVALID FOR* BRADYCARDIA [I49.8] INVALID FOR* Postmenopausal osteoporosis [M81.0] INVALID FOR* More... HYPERGLYCEMIA [R79.89] INVALID FOR* More... MITRAL REGURGITATION [I05.9] INVALID FOR* HYPOMAGNESEMIA [E83.40] INVALID FOR* Unspecified closed fracture of ankle [S82.899A] INVALID FOR* More... IDIO PERIPH NEURPTHY NOS [G60.9] INVALID FOR* BACKACHE NOS [M54.9] INVALID FOR* Other Chronic Pain [G89.29] INVALID FOR* More... 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 Pathologic fracture of vertebrae [M84.48XA] INVALID FOR* Lumbago [M54.5] INVALID FOR* Pseudogout [M11.20] INVALID FOR* More... Lumbar spondylosis [M47.816] INVALID FOR* Lumbar stenosis [M48.061] INVALID FOR* Vitamin D deficiency [E55.9] INVALID FOR* GERD (gastroesophageal reflux disease) [K21.9] INVALID FOR* BMI 32.0-32.9,adult [Z68.32] INVALID FOR* Hyperlipidemia [E78.5] INVALID FOR* More... Impaired fasting glucose [R73.01] INVALID FOR* Bilateral low back pain without sciatica [M54.5]INVALID FOR* Moderate persistent asthma [J45.40] INVALID FOR* More... Persistent asthma [J45.909] INVALID FOR* Follow-up and Disposition History Recorded Encounter Status:Closed by CHULA RENEE RN on 05/03/17 ALLERGIES ALLERGIES DATE TYPE / CODE NAME / CODE REACTION SEVERITY SOURCE 04/06/2018 Drug Sulfa swelling, rash [place] Allergy/926893428( (Sulfonamide Community SNOMED CT) Antibiotics)/ Hospital 14258623(RXNORM Repository ) 04/06/2018 Drug metoprolol/F006 Chest [place] Allergy/974540546( 257720(RXNORM) heaviness or Community SNOMED CT) [facility] Hospital Repository 04/06/2018 Drug crab/I853036977 Itching and [place] Allergy/917251490( (RXNORM) swelling on Community SNOMED CT) contact Hospital Repository 04/06/2018 Miscellaneous Lobster Itching and [place] Allergy/949350535( swelling on Community SNOMED [facility]) contact Hospital Repository 04/06/2018 Miscellaneous Scampi Itching and SV [place] Allergy/322454699( swelling on Community SNOMED [facility]) contact Hospital Repository 04/13/2010 DRUG METOPROLOL OTHER: SEE [facility] INGREDI/240833096( SUCCINATE Clinic Other SNOMED CT) [place] Repository 03/12/2003 DRUG CRAB [facility] INGREDI/777769516( Clinic Other SNOMED CT) [place] Rep[facility] 03/12/2003 Food/651006826(SNO LOBSTER [facility]) ([facility]ACE[facility]) Clinic Other [place] Repository 03/12/2003 Environ/286888713( RAGWEED OTHER: SEE C [facility] SN[facility]) Clinic Other [place] Repository 03/12/2003 Drug SULFA [facility] Class/580346792(SN (SULFONAMIDE Clinic Other OMED CT) ANTIBIOTICS) [place] Repository 03/12/2003 Miscellaneous OTHER [facility] Allergy/693483168( Clinic Other SNOMED CT) [place] Repository NG/966677620(SNOME CRAB [facility]) [facility] Repository NG/822866899(SNOME LOBSTER [facility]) (CRUSTACEANS) Health System Repository NG/710806145(SNOME RAGWEED [facility]) [facility] System Repository NG/583741235(SNOME SULFA [facility]) (SULFONAMIDE [facility] ANTIBIOTICS) Repository NG/477564427(SNOME OTHER [facility]) Health System Repository NG/623001174(SNOME METOPROLOL [facility]) SUCCINATE Health System Repository ENCOUNTERS ENCOUNTERS ADMIT/DISCHARGE ACCOUNT NUMBER ADMITTING ENCOUNTER LOCATION SOURCE CLASS 04/18/2018/04/18/20 [id number] Ambulatory [facility] Main [place] Repository 04/18/2018/04/18/20 [id number] Ambulatory [place] [facility] Main [place] Repository 04/16/2018/04/16/20 [id number] Ambulatory [place] 18 [facility] Main [place] Repository 04/16/2018/04/17/20 [id number] Ambulatory [place] 18 [facility] Main [place] Repository 04/10/2018/04/11/20 [id number] Ambulatory [place] 18 [facility] Main [place] Repository 04/06/2018/04/06/20 [id number] Emergency [place] ding:ED Repository 04/06/2018/04/09/20 [id number] Ambulatory [place] 18 [facility] Main [place] Repository 03/16/2018/03/19/20 [id number] Ambulatory [place] [facility] Main [place] Repository 03/16/2018/03/19/20 [id number] Ambulatory [place] [facility] Main [place] Repository 03/15/2018/03/16/20 [id number] Ambulatory [place] [facility] Main [place] Repository 03/08/2018/03/08/20 [id number] Ambulatory [place] [facility] Main [place] Repository 02/22/2018/02/23/20 [id number] Ambulatory [place] [facility] [place] Repository 02/02/2018/02/06/20 [id number] Ambulatory [facility] [facility] Main [place] Repository 01/05/2018/01/10/20 [id number] Ambulatory [facility] [facility] Main [place] Repository 01/04/2018/01/10/20 [id number] Ambulatory [facility] [facility] [place] Repository 01/02/2018/01/04/20 [id number] Ambulatory [facility] [facility] Main [place] Repository 12/28/2017/01/02/20 [id number] Ambulatory [facility] Main [place] Repository 12/26/2017/12/29/19 [id number] Ambulatory [facility] Main [place] Repository 12/21/2017/12/26/19 [id number] Ambulatory [place] 18 [facility] Main [place] Repository 12/19/2017/12/22/19 [id number] Ambulatory [place] 18 [facility] Main [place] Repository 12/15/2017/12/19/19 [id number] Ambulatory [place] Main [place] Repository 12/15/2017/03/21/20 [id number] Ambulatory [place] 18 [facility] Main [place] Repository 12/12/2017/12/14/19 [id number] Ambulatory [place] 18 [facility] Main [place] Repository 11/29/2017/03/12/20 [id number] Ambulatory [address] Main [place] Repository 11/23/2017/11/25/19 [id number] Ambulatory [address] Main [place] Repository 11/17/2017/11/18/19 [id number] Ambulatory [address] Main [place] Repository 11/14/2017/11/16/19 [id number] Ambulatory [address] Main [place] Repository 11/14/2017/11/15/19 [id number] Ambulatory [address] Main [place] Repository 10/19/2017/10/21/19 [id number] Ambulatory [address] Main [place] Repository 10/16/2017 [id number] Ambulatory [facility] Main [place] Repository 10/06/2017/10/11/19 [id number] Ambulatory [address] Main [place] Repository 09/12/2017/09/13/19 [id number] Ambulatory [address] Main [place] Repository 09/12/2017/09/13/19 [id number] Ambulatory [address] Main [place] Repository 08/29/2017/08/31/19 [id number] Ambulatory [address] Main [place] Repository 08/24/2017 [id number] Ambulatory [facility] MEDICAL Repository CENTERBuildi ng:CAGWS 08/23/2017/08/30/19 [id number] Ambulatory [address] Main [place] Repository 08/22/2017 [id number] Ambulatory BMSBuilding: Alex BMS.[facility] Repository 08/18/2017/08/19/19 [id number] Ambulatory [address] Other [place] Repository 08/18/2017/08/19/19 [id number] Ambulatory [place] [address] MEDICAL Repository CENTERBuildi ng:CAGWS 08/14/2017 [id number] Ambulatory Alex [facility] ding:[facility] Repository 08/14/2017 [id number] Ambulatory BMSBuilding: [place] BMS.CF.[facility] Repository 08/14/2017 [id number] Ambulatory BMSBuilding: [place] BMS.CF.[facility] Repository 08/11/2017/10/31/19 [id number] Ambulatory [address] Main [place] Repository 08/08/2017/08/10/19 [id number] Ambulatory [address] Main [place] Repository 08/08/2017/08/09/19 [id number] Ambulatory [address] Repository 08/07/2017/08/08/19 [id number] Ambulatory [address] Repository 08/04/2017 [id number] Ambulatory BMSBuilding: [place] BMS.[facility] Repository 08/03/2017/08/04/19 [id number] Ambulatory [address] Other [place] Repository 08/03/2017/08/04/19 [id number] Ambulatory [place] [address] MEDICAL Repository CENTERBuildi ng:CAGWS 08/01/2017/08/03/19 [id number] Ambulatory [address] Main [place] Repository 07/25/2017/07/27/19 [id number] Ambulatory [address] Main [place] Repository 07/18/2017/07/20/19 [id number] Ambulatory [address] Main [place] Repository 07/14/2017/07/19/19 [id number] Ambulatory [address] Main [place] Repository 07/11/2017/07/12/19 [id number] Ambulatory [address] Main [place] Repository 07/09/2017/07/11/19 [id number] Ambulatory [address] Main [place] Repository 07/04/2017/07/07/19 [id number] Ambulatory [address] Main [place] Repository 06/27/2017 [id number] Ambulatory [facility] Main [place] Repository 06/27/2017/06/29/19 [id number] Ambulatory [address] Main [place] Repository 06/27/2017/06/27/19 [id number] Ambulatory [address] Other [place] Repository 06/27/2017/06/27/19 [id number] Ambulatory [address] MEDICAL Repository CENTERBuildi ng:CAGWS 06/20/2017/06/20/19 [id number] Ambulatory [address] Other [place] Repository 06/20/2017/06/20/19 [id number] Ambulatory [address] MEDICAL Repository CENTERBuildi ng:CAGWS 06/15/2017/06/15/19 [id number] Ambulatory [address] Main [place] Repository 06/15/2017/06/16/19 [id number] Ambulatory [address] Main [place] Repository 06/06/2017/06/07/19 [id number] Ambulatory [address] Main [place] Repository 05/30/2017/05/31/19 [id number] Ambulatory [address] Main [place] Repository 05/22/2017 [id number] Ambulatory [facility] Main [place] Repository 05/02/2017/05/03/20 [id number] Ambulatory [address] Main [place] Repository PAYERS PAYERS ENCOUNTER GUARANTOR PAYER SUBSCRIBER SOURCE 04/06/2018 FELICIA Santos Primary Insurance:AETWES Paiz [id number] [facility] [id number] Date:8269-45-95JX BOX Repository [address]Uye: [phone], [place] [phone] (FB) [phone]: 04/06/2018 Secondary NOT GIVENUNK Alex Insurance:SELF PAY Community INSURANCEPolicy Number: Hospital Effective Repository Date:2018-04-06 08/24/2017 FELTON Primary Insurance:AEMonicaWES Kay [facility] MERCHANTDOB: MEDICARE PPOPolicy MERCHANTB: [facility] System Number: [id number] Repository JACQUELIN MEBFFTSHEffective Date: [place], [place] [address]Zkj: () 08/22/2017 FELICIA Danielle Primary Insurance:AETWES Paiz [id number] [facility] [facility] Number: MERCHANTDOB: Community JACQUELIN MEBFFTSHEffective [id number] [place], [place] Date:1918-63-22JE BOX Repository [address]Lvt: [phone] PRABHA SALCIDO [phone] () [phone]: 08/22/2017 Secondary NOT GIVENUNK Alex Insurance:SELF PAY Community INSURANCEPolicy Number: Hospital Effective Repository Date:2017-08-14 08/18/2017 FELICIA RODRIGUES Primary Insurance:DANNYMonicaWES RODRIGUES [place] [facility] MERCHANTDOB: MEDICARE PPOPolicy MERCHANTDOB: Health System Number: [id number] Repository JACQUELIN MEBFFTSHEffective Date: [place], [place] [address]Txz: () 08/14/2017 FELICIA Danielle Primary Insurance:AETWES Paiz [id number] [facility] Number: MERCHANTDOB: Community JACQUELIN MEBFFTSHEffective [id number] Date:1415-97-49IJ BOX Repository [address]Rpr: [phone] HICKS [phone] () [phone]: 08/14/2017 Secondary NOT GIVENUNK Alex Insurance:SELF PAY Community INSURANCEPolicy Number: Hospital Effective Repository Date:2017-08-03 08/14/2017 FELICIA A Primary Insurance:GILMA Paiz [id number] [facility] Number: MERCHANTDOB: Community JACQUELIN MEBFFTSHEffective [id number] Date:2814-14-70FS BOX Repository [address]Uln: [phone] HICKS [phone] () [address]OW: 08/14/2017 Secondary NOT GIVENUNK Alex Insurance:SELF PAY Community INSURANCEPolicy Number: Hospital Effective Repository Date:2017-08-14 08/14/2017 FELICIA A Primary Insurance:GILMA [id number] [facility] HMOPolicy Number: MERCHANTDOB: Community JACQUELIN MEBFFTSHEffective [id number] Date:5331-36-59ZU BOX Repository [address]Tjt: [phone] LOLYPRABHA [phone] () [phone]: 08/14/2017 Secondary NOT GIVENUNK [place] Insurance:SELF PAY Community INSURANCEPolicy Number: Hospital Effective Repository Date:2017-08-14 08/04/2017 Brianna Primary Insurance:GILMA [id number] [facility] HMOPolicy Number: MERCHANTDOB: Community Jacquelin MEBFFTSHEffective [id number], [place] Date:7541-89-67JV BOX Repository [address]Cjq: [phone] PAS[place] MD [phone] () [phone]: 08/04/2017 Secondary NOT GIVENUNK Alex Insurance:SELF PAY Community INSURANCEPolicy Number: Hospital Effective Repository Date:2017-08-04 08/03/2017 FELICIA RODRIGUES Primary Insurance:GILMA [facility] MERCHANTDOB: MEDICARE PPOPolicy MERCHANTDOB: Health System Number: [id number] Repository JACQUELIN MEBFFTSHEffective Date: [place], [place] [address]Vqn: () 06/27/2017 DENZEL Primary Insurance:GILMA [facility] MERCHANTDOB: MEDICARE PPOPolicy MERCHANTDOB: Health System Number: [id number] Repository JACQUELIN MEBFFTSHEffective Date: [place], [place] [address]Opf: () 06/20/2017 DENZEL Primary Insurance:GILMA [facility] MERCHANTDOB: MEDICARE PPOPolicy MERCHANTDOB: Health System Number: [id number] Repository JACQUELIN MEBFFTSHEffective Date: [place], [place] [address]Hct: ()
== END 2018-04-06 19:03 | disposition home or self-care (01) ==
LOC: ED 17:13
PROVIDERS: Emergency Provider Emergency Medicine; Family Provider Internal Medicine; PCP Internal Medicine
DX: S00.03XA Contusion of scalp, initial encounter (principal); S16.1XXA Strain of muscle, fascia and tendon at neck level, initial encounter; W19.XXXA Unspecified fall, initial encounter; Y93.9 Activity, unspecified; Y92.9 Unspecified place or not applicable; R79.1 Abnormal coagulation profile; Z79.01 Long term (current) use of anticoagulants; R93.89 Abnormal findings on diagnostic imaging of other specified body structures; I48.91 Unspecified atrial fibrillation; M19.90 Unspecified osteoarthritis, unspecified site; Z79.899 Other long term (current) drug therapy
CPT/HCPCS: 70450; 72125; 99282

== ENCOUNTER 2018-05-31 22:42 | Emergency (ER) | payer MEDICARE, SELFPAY ==
[2018-05-31 22:43] VITALS: BP 149/107; PULSE 70; RESP 16; TEMP 37.1; O2SAT 95; BMI 35.4
--- NOTE | 2018-05-31 23:05 | RAD_ITS ---
STUDY: X-RAY - LEFT TIBIA AND FIBULA REASON FOR EXAM: Female, 82 years old. Fall left leg pain, knee pain. Patient with oblique nondisplaced fracture of the proximal fibula. TECHNIQUE: 4 view(s) of the tibia and fibula were obtained. COMPARISON: None. FINDINGS: Normal visualized tibia. Acute oblique nondisplaced fracture of the proximal fibula. Degenerative changes of the tibiofibular articulation. Mild osteopenia. Enthesophyte formation along the calcaneus. The soft tissue structures are unremarkable. Extensive degenerative changes of the knee joint as per knee assessment. RAD/Tibia & Fibula 2 Views IMPRESSION: Acute nondisplaced fracture of the proximal fibula. No further fibular injury detected, the ankle detail however is limited. Formal ankle views are recommended. Mild osteopenia. Degenerative changes. Electronically Signed: Luna Ching MD at 23:38 EST , Service support ,
--- NOTE | 2018-05-31 23:05 | RAD_ITS ---
STUDY: X-RAY - LEFT KNEE REASON FOR EXAM: Female, 82 years old. Fall, left knee pain TECHNIQUE: 4 view(s) of the knee. COMPARISON: None. FINDINGS: Normal visualized distal femur. Acute oblique nondisplaced fracture of the proximal fibula. There is arthrosis of the proximal tibiofibular articulation. Spurring along the femoral notch and tibial spine. There is moderate to severe degenerative arthrosis of the medial femorotibial compartment with severe joint space narrowing. There is moderate to is severe degenerative arthrosis of the lateral femorotibial compartment with severe joint space narrowing. There is chondrocalcinosis of the lateral greater than medial meniscus. Normal patellofemoral articulation. There is no demonstrated joint effusion. The soft tissue structures are unremarkable. RAD/Knee 4 or More Views IMPRESSION: Acute nondisplaced oblique fracture of the proximal fibula. Assessment for Maisonneuve type injury recommended. Moderate to severe bilateral femoral tibial degenerative changes with chondrocalcinosis of menisci. Electronically Signed: Luna Ching MD at 23:34 EST , Service support ,
--- NOTE | 2018-05-31 23:10 | RAD_ITS ---
STUDY: X-RAY - LEFT FOOT CLINICAL: Female, 82 years old. Fall. Pain. TECHNIQUE: 3 view(s) of the foot. COMPARISON: None. FINDINGS: Plantar and dorsal heel spurs. Normal visualized subtalar, talonavicular, calcaneocuboid, tarsal and tarsometatarsal articulations. Normal metatarsi. Normal metatarsophalangeal joint of the great toe. Normal tibial and fibular sesamoid bones. Normal interphalangeal joint of the great toe. Normal phalanges of the great toe. Normal second through fifth metatarsophalangeal joints. There is Hammer toe deformity of the second through fifth toes. The soft tissue structures are unremarkable. There is no demonstrated fracture. RAD/Foot min 3 Views IMPRESSION: No fracture seen. Electronically Signed: Domenic De La Garza MD at 23:47 EST , Service support ,
--- NOTE | 2018-06-01 00:02 | ED.VISSUMM ---
- ER Visit Summary Date of Service: 06/01/18 Chief Complaint: Left leg injury History of Present Illness: The patient is a [address] George. She reports that she was leaning forward and lost her balance and fell onto her knees. She heard a sharp crack in her left leg. She reports that she has an aching pain 3-10 at worst and she is pain-free at rest. States that this is worsened by walking. She denies any new paresthesias. No blow to the head or loss of consciousness. No neck, back, shoulder, wrist, or hip pain. Patient reports that she has a cough productive gold/white sputum without blood. She denies any fever or chills. She reports that she has chronic shortness of breath that is unchanged. Physical Examination: Vitals: Stable. Afebrile. Neck: No vertebral tenderness. Full ROM without difficulty. Cleared by NEXUS criteria. Back: No vertebral tenderness. General: A&O x 3. NAD. Cardiovascular exam: Regular rate and rhythm, no murmur, rub or gallop. Respiratory exam: Chest nontender. No crepitus. Clear to auscultation bilaterally. No wheezes or stridor. Abdominal exam: Soft, nontender, nondistended, normal bowel sounds. No pain in RUQ or LUQ specifically. No peritoneal signs. Extremity: Moderate tenderness palpation over the left patella and proximal fibula. She has full range of motion of her knee without any difficulty. She is able to extend her knee and lift her leg off the bed without any difficulty. She does have mild tenderness palpation over the lateral malleolus. No pain over the medial malleolus. She has mild tenderness palpation over the second through fourth mid metatarsals. She has a 2+ dorsalis pedis pulse. She has normal dorsiflexion and plantarflexion. She reports chronic paresthesias in her legs that are unchanged. Test Results: Left knee x-ray shows degenerative changes and a proximal fibula fracture that is nondisplaced. Left tibia/fibula x-ray showed proximal fibula fracture that is nondisplaced. No evidence of a Maisonneuve fracture. Left foot x-ray shows degenerative changes. Emergency Department Course and Treatment: When the x-ray returned I examined the patient again. She has no pain over the medial malleolus to suggest a Maisonneuve fracture. I do not feel that she needs dedicated ankle x-rays. Patient refused pain medications. She reports that she uses a cane and walker at home. She does not feel comfortable using crutches or a walking boot. Treatment Plan: Patient was placed in a knee immobilizer. She reports that she Jonathon has pain medications at home. She will be discharged instructions follow-up Dr. Iain Robertson within a week for another exam. Return to the emergency department for any worsening symptoms. Disposition: To home in improved and stable condition. Impression: 1. Left proximal fibula fracture. This note was generated with [employer] dictation software. It may contain incorrect words, spelling, and punctuation that were not noted in review of the chart prior to signing ED Disposition - Plan for ED Patient: Disposition: Home or Assisted Living Chief Complaint: Lower Extremity Injury Instructions: ED Fx Lower Ext Referrals: Iain Robertson MD [STAFF PHYSICIAN] - 1 Week
[2018-06-01 00:09] VITALS: BP 146/98; PULSE 78; RESP 16; O2SAT 98
== END 2018-06-01 00:32 | disposition home or self-care (01) ==
LOC: ED 23:29
PROVIDERS: Emergency Provider Emergency Medicine; Family Provider Internal Medicine; PCP Internal Medicine
DX: S82.832A Other fracture of upper and lower end of left fibula, initial encounter for closed fracture (principal); W18.39XA Other fall on same level, initial encounter; Y93.89 Activity, other specified; Y92.9 Unspecified place or not applicable; I10 Essential (primary) hypertension; I48.91 Unspecified atrial fibrillation; Z79.01 Long term (current) use of anticoagulants; Z79.899 Other long term (current) drug therapy
CPT/HCPCS: 73564; 73590; 73630; 99284

== ENCOUNTER → 2018-06-07 14:02 | Outpatient (CLI) | payer MEDICARE, SELFPAY ==
[2018-05-31 22:43] VITALS: BMI 35.4
[2018-06-07 14:27] LABS: International Normalized Ratio 2.9; Prothrombin Time (Protime)PT. 30.3 SECONDS (11.7-14.9)
== END ==
PROVIDERS: Family Provider Internal Medicine; PCP Internal Medicine; Referring Provider Internal Medicine Cardiovascular Disease; Visit Provider Internal Medicine Cardiovascular Disease
DX: I48.91 Unspecified atrial fibrillation (principal)
CPT/HCPCS: 85610

== ENCOUNTER 2018-07-03 15:01 | Emergency (ER) | payer MEDICARE, SELFPAY ==
[2018-07-03] VITALS (9 sets, daily range): BP systolic 123–161; BP diastolic 72–102; PULSE 51–90; RESP 14–20; TEMP 36.4; O2SAT 93–100; BMI 33.5
--- NOTE | 2018-07-03 15:23 | EKG12_ITS ---
Test Reason : A FIB Blood Pressure : / mmHG Vent. Rate : 077 BPM Atrial Rate : 202 BPM P-R Int : 000 ms QRS Dur : 122 ms QT Int : 394 ms P-R-T Axes : 000 002 -58 degrees QTc Int : 445 ms Atrial fibrillation Non-specific intra-ventricular conduction delay Nonspecific ST and T wave abnormality Abnormal ECG Confirmed by JIM TREADWELL, TAMI ([id number]), telegraph editor JAY GUERRA ([id number]) on 07/05/2018 3:46:45 PM Referred By: ANDREW Confirmed By:TAMI FERNANDEZ MD
--- NOTE | 2018-07-03 15:31 | ED.DCSUM_ITS ---
History of Present Illness Chief Complaint: Hypertension Detail of Chief Complaint: Asymptomatic hypertension and atrial fibrillation Informant: Patient Onset: Today, - - 04:30 Context: Sudden Onset - Patient states she was woken from sleep at 0430 because of palpitation. States her heart rate was rapid and regular. She was cardioverted August 2017. She is presently on Coumadin. Timing: Continuous Quality: Irregular heartbeat and elevated blood pressure Location: Home Current Severity: Mild Maximum Severity: Moderate Worsened by: Nothing Relieved by: Nothing Associated Symptoms: Palpitations only Narrative: Patient is an elderly woman with history of hypertension, H fibrillation on Coumadin who was sent to the ER because of recurrent atrial fibrillation. Onset 0430. States he was awakened from sleep. She also had an elevated blood pressure of 175/105 at home. She has no neurologic symptoms. She has no cardiovascular respiratory other than palpitations. Prior similar symptoms: Yes Recent Illness/Hospitalization: No Past Medical History - Allergies and Home Meds Allergies/Adverse Reactions: Allergies crab Allergy (Severe, Verified 07/03/18 15:04) Itching and swelling on contact Sulfa (Sulfonamide Antibiotics) Allergy (Severe, Verified 07/03/18 15:04) Swelling, Rash metoprolol [From Toprol XL] Adverse Reaction (Intermediate, Verified 07/03/18 15:04) Chest heaviness or fullness Lobster Allergy (Severe, Uncoded 07/03/18 15:04) Itching and swelling on contact Scampi Allergy (Severe, Uncoded 07/03/18 15:04) Itching and swelling on contact Primary Care Physician: Ariana Almazan MD [Primary Care Provider] - Past Medical History: - - Hypertension, atrial fibrillation Surgical History: appendectomy, cholecystectomy, - - Sigmoidoscopy, colonoscopy, cardioversion Smoking Status: Never smoker Review of Systems General: Denies: Chills, Fever, Sweats Eyes: Denies: Visual changes - bilaterally, Blurred Vision - bilaterally, Diplopia ENT: Denies: Rhinorrhea, Sore throat Cardiovascular: Reports: Palpitations. Denies: Chest pain Respiratory: Denies: Dyspnea, Cough, Dyspnea on exertion, Orthopnea Gastrointestinal: Denies: Abdominal pain, Nausea, Vomiting, Diarrhea, Melena, Hematochezia Genitourinary: Denies: Dysuria, Hematuria, Frequency Musculoskeletal: Denies: Myalgias, Arthralgias, Back pain, Extremity Pain Skin: Denies: Rash, Wounds Neurological: Denies: Headache, Weakness, Numbness Endocrine: Denies: Polyuria, Polydipsia Hematologic: Denies: Easy bruising, Easy bleeding Physical Exam Vital Signs/Narrative: Vital Signs Temp Pulse Resp BP Pulse Ox 07/03/18 15:02 97.6 F L 88 16 150/78 H 96 Inital Vital Signs reviewed: Yes General: Well nourished, Well developed, Obese, No Acute Distress Head: Normocephalic, Atraumatic Eyes: Perrl, EOMI. Negative for: Pale conjunctiva, Scleral icterus ENT: Moist mucous membranes, No rhinorrhea Neck: Supple, Nontender, No lymphadenopathy, No JVD Cardiovascular: Regular rate, No murmurs, Irregular. Negative for: S3, S4 Respiratory: No distress, CTA bilaterally, Chest nontender. Negative for: Chest tenderness Abdomen: Soft, Nontender, Nondistended, Normal bowel sounds, No masses Rectal: Deferred Extremities: Nontender, No edema. Negative for: Calf Tenderness Skin: Normal color, No rash. Negative for: Cyanosis, Jaundice Neurological: Alert, Oriented x3, Cranial nerves II-XII grossly intact, Normal Strength, Normal Sensation Psychological: Normal affect, Normal Mood Diagnostic/Tx/Re-eval Patient's blood pressure is 157/75. She is asymptomatic. Therefore no treatment is indicated. Since she is on anticoagulant nose the time of onset of atrial fibrillation and has discussed sedation with propofol and cardioversion. Patient informed she has been cardioverted in the past. Patient denies allergy to soy products or egg products. She denies complication with IV anesthetics. She understands the risk benefits of the procedure and will hide the procedure needs to be performed. She informed me that she was sent here because of concern for stroke since she is now in A. fib. Patient was placed on the monitor, IV was established. She was made n.p.o. Appropriate labs were obtained and will obtain consent for deep sedation with propofol and cardioversion. Patient did inform me that she took an additional dose of flecainide as instructed by her duty officer, Dr. Hector Garcia she has not had anything eat in the last 3-1/2 hours or anything to drink in the last 3- 1/2 hours CBC is unremarkable. Creatinine is 1.12. - Rhythm Strip Rhythm Strip: A-fib Rate: 88 - EKG Initial EKG Interpretation: Atrial Fibrillation - Ventricular rate is 77. There is a nonspecific intraventricular conduction delay. No acute ischemic changes Prior: Changed Follow-up EKG Interpretation: Sinus Rhythm - Ventricular rate 56 with a first-degree AV block and decreased anterior force. QRS duration is prolonged. [place] is normal. - Medical Decision Making Patient's blood pressure is 157/75. She is asymptomatic. Therefore no treatment is indicated. Since she is on anticoagulant nose the time of onset of atrial fibrillation and has discussed sedation with propofol and cardioversion. Patient informed she has been cardioverted in the past. Patient denies allergy to soy products or egg products. She denies complication with IV anesthetics. She understands the risk benefits of the procedure and will hide the procedure needs to be performed. She informed me that she was sent here because of concern for stroke since she is now in A. fib. Patient was placed on the monitor, IV was established. She was made n.p.o. Appropriate labs were obtained and will obtain consent for deep sedation with propofol and cardioversion. Patient did inform me that she took an additional dose of flecainide as instructed by her duty officer, Dr. Hector Garcia she has not had anything eat in the last 3-1/2 hours or anything to drink in the last 3- 1/2 hours Procedures Procedure(s): 1. Patient was consented for deep sedation using propofol and cardioversion. Patient was explained risk benefits using propofol and need for cardioversion. Patient denies allergy to soy products or egg products. She reports no prior complications with IV anesthetics or any type of anesthetic. 2. Total time of procedure 6 minutes 45 seconds. Patient received a total of 50 mg of propofol. Once patient was sedated she was successfully cardioverted 100 J. Post cardioversion EKG was obtained. She tolerated procedure well with no complications. ED Disposition - Plan for ED Patient: Disposition: Home or Assisted Living Diagnosis: Atrial fibrillation Instructions: ED Cardioversion Electrical Referrals: Ariana Almazan MD [Primary Care Provider] - 5-7 Days
[2018-07-03 16:09] LABS: Hematocrit 42.9 % (37-47); Mean Corp Hgb Conc 32.6 g/gl (32-36); Mean Corpuscular Volume 97.9 fL (81-99); Mean Platelet Vol. 9.5 fl (6.2-12.0); Platelet Count 247 K/mm3 (150-450); RBC Distribution Width CV 13.7 % (11.6-14.6); RBC Distribution Width SD 48.2 fl (35.1-43.9); Red Blood Count 4.38 M/mm3 (4.2-5.4); White Blood Count 6.8 K/mm3 (4.4-11.0)
[2018-07-03 16:10] LABS: Scan Indicated on CBC? Y/N NO
[2018-07-03 16:20] LABS: International Normalized Ratio 2.3; Prothrombin Time (Protime)PT. 25.2 SECONDS (11.7-14.9)
[2018-07-03 16:21] LABS: Anion Gap 10 (5-15); BUN 24 mg/dL (7-18); BUN/Creat Ratio 21.4 RATIO (10-20); Calcium,Total 9.2 mg/dL (8.5-10.1); Chloride 105 mmol/L (98-107); Creatinine, Serum 1.12 mg/dL (0.55-1.02); EST Glomerular Filtration Rate 49 mL/min (>60); Est Glom Filt Rate - Afr Amer 60 mL/min (>60); Estimated Creatinine Clearance 37.01 ml/min; Glucose 106 mg/dL (74-106); Potassium 4.2 mmol/L (3.5-5.1); Sodium Level 144 mmol/L (136-145)
[2018-07-03] MEDS: Propofol 200 MG/20 ML Vial IV BOLUS (17:00)
--- NOTE | 2018-07-03 17:22 | EKG12_ITS ---
Test Reason : POST CARDIOVERSION Blood Pressure : / mmHG Vent. Rate : 058 BPM Atrial Rate : 058 BPM P-R Int : 272 ms QRS Dur : 108 ms QT Int : 458 ms P-R-T Axes : 076 -04 055 degrees QTc Int : 449 ms Sinus bradycardia with 1st degree A-V block Septal infarct , age undetermined Abnormal ECG Confirmed by JIM TREADWELL, TAMI ([id number]), city editor JAY GUERRA ([id number]) on 07/05/2018 3:47:06 PM Referred By: ANDREW Confirmed By:TAMI FERNANDEZ MD
== END 2018-07-03 18:21 | disposition home or self-care (01) ==
PROVIDERS: Emergency Provider Emergency Medicine; Family Provider Internal Medicine; PCP Internal Medicine
DX: I48.91 Unspecified atrial fibrillation (principal); I10 Essential (primary) hypertension; Z79.01 Long term (current) use of anticoagulants; Z79.899 Other long term (current) drug therapy
CPT/HCPCS: 80048; 85027; 85610; 92960; 93005; 99284; J7030

== ENCOUNTER → 2018-07-10 09:53 | Outpatient (CLI) | payer MEDICARE, SELFPAY ==
[2018-07-03 15:02] VITALS: BMI 33.5
[2018-07-10 10:26] LABS: International Normalized Ratio 2.4; Prothrombin Time (Protime)PT. 26.2 SECONDS (11.7-14.9)
== END ==
PROVIDERS: Family Provider Internal Medicine; PCP Internal Medicine; Referring Provider Internal Medicine Cardiovascular Disease; Visit Provider Internal Medicine Cardiovascular Disease
DX: I48.91 Unspecified atrial fibrillation (principal)
CPT/HCPCS: 85610

== ENCOUNTER 2018-08-15 14:47 | Emergency (ER) | payer MEDICARE, SELFPAY ==
[2018-07-03 15:02] VITALS: BMI 33.5
[2018-08-15] VITALS (9 sets, daily range): BP systolic 142–157; BP diastolic 82–105; PULSE 62–87; RESP 12–20; TEMP 36.3; O2SAT 95–99; BMI 33.4
--- NOTE | 2018-08-15 15:10 | EKG12_ITS ---
Test Reason : SOB Blood Pressure : / mmHG Vent. Rate : 059 BPM Atrial Rate : 062 BPM P-R Int : 000 ms QRS Dur : 114 ms QT Int : 296 ms P-R-T Axes : 000 039 158 degrees QTc Int : 293 ms Atrial fibrillation with slow ventricular response Septal infarct , age undetermined Abnormal ECG Confirmed by JIM TREADWELL, TAMI ([id number]), editor sound AMINA GONZALEZ ([id number]) on 08/20/2018 4:32:33 PM Referred By: KRISSY Confirmed By:TAMI FERNANDEZ MD
--- NOTE | 2018-08-15 15:14 | ED.DCSUM_ITS ---
- ER Visit Summary Date of Service: 08/15/18 Chief Complaint: Shortness of breath History of Present Illness: The patient is a 82 F who presents for 2 weeks of shortness of breath, chest tightness and now abdominal bloating. Patient states she was diagnosed by her primary care office with pneumonia after being short of breath and having intermittent chest tightness 2 weeks ago. She is currently completing a course of doxycycline and was told on Monday that the chest x-ray shows the pneumonia has resolved. Patient states she does not feel any better. She woke up this morning feeling 9 months due to abdominal bloating. She does not have abdominal pain, nausea or vomiting. She has shortness of breath on exertion and worsening shortness of breath when lying flat. She does have a history of asthma and has a daily inhaler she uses for prevention but has been using her rescue inhaler frequently with some improvement. Patient has a mild cough. Denies fever, sinus congestion, diarrhea, back pain, myalgias. She has history of atrial fibrillation and is on flecainide, but was told recently that it has stopped working. She was started on another heart medication but does not know the name of it. She also had her lisinopril dose increased. Patient is on Coumadin. Physical Examination: Vital signs: afebrile, hemodynamically stable, no hypoxia on room air General: well nourished, well developed, in no distress Skin: warm, dry, no rash, no pallor HEENT: normocephalic and atraumatic; PERRL, EOMI, moist mucous membranes Cardiovascular: regular rate and rhythm without murmurs, trace peripheral edema, 2+ pulses all distal extremities Respiratory: No increased work of breathing, lungs are moderately diminished in all [place] with occasional fine wheezes Abdominal: Abdomen is soft, nontender with normoactive bowel sounds, nondistended, no guarding or rebound, no masses MSK: Moves all extremities, no deformities, normal strength Neuro: Awake and alert, oriented ?4. No facial droop, sensation and motor function intact and symmetric Test Results: Abnormal Lab Results 08/15/18 08/15/18 08/15/18 16:05 16:05 16:05 WBC 6.7 RBC 4.16 L Hgb 12.8 Hct 39.5 MCV 95.0 MCH 30.8 MCHC 32.4 RDW 13.7 RDW Differential 45.5 H Plt Count 264 MPV 9.2 Immature Gran % (Auto) 0.300 Neut % (Auto) 79.0 H Lymph % (Auto) 12.3 L Rolette % (Auto) 7.7 Eos % (Auto) 0.2 Baso % (Auto) 0.5 Absolute Neuts (auto) 5.3 Absolute Lymphs (auto) 0.82 L Total Counted Not Reportable PT 25.1 H INR 2.3 APTT 46.6 H Sodium 139 Potassium 4.3 Chloride 106 Carbon Dioxide 25.0 Anion Gap 8 BUN 24 H Creatinine 1.15 H Estim Creat Clear Calc 37.39 Est GFR (MDRD) Af Amer 58 L Est GFR (MDRD) Non-Af 48 L BUN/Creatinine Ratio 20.9 H Glucose 102 Calcium 9.2 Total Bilirubin 0.40 AST 37 ALT 42 Alkaline Phosphatase 24 L Troponin I < 0.015 B-Natriuretic Peptide Total Protein 7.3 Albumin 3.8 Globulin 3.5 Albumin/Globulin Ratio 1.1 08/15/18 16:05 WBC RBC Hgb Hct MCV MCH MCHC RDW RDW Differential Plt Count MPV Immature Gran % (Auto) Neut % (Auto) Lymph % (Auto) Rolette % (Auto) Eos % (Auto) Baso % (Auto) Absolute Neuts (auto) Absolute Lymphs (auto) Total Counted PT INR APTT Sodium Potassium Chloride Carbon Dioxide Anion Gap BUN Creatinine Estim Creat Clear Calc Est GFR (MDRD) Af Amer Est GFR (MDRD) Non-Af BUN/Creatinine Ratio Glucose Calcium Total Bilirubin AST ALT Alkaline Phosphatase Troponin I B-Natriuretic Peptide 423.0 H Total Protein Albumin Globulin Albumin/Globulin Ratio Clinical Impression(s) from Imaging Studies Chest X-Ray 08/15/18 15:55 IMPRESSION: Normal x-ray examination of the chest. Electronically Signed: Kody Vivar MD at 16:39 EDT , Service support , Medications Given Discontinued Medications Albuterol/Ipratropium (Duoneb) 3 ml INHALATION X1 ONE Stop: 08/15/18 15:11 Last Admin: 08/15/18 15:20 Dose: 3 ml Furosemide (Lasix) 20 mg PO X1 ONE Stop: 08/15/18 18:39 Last Admin: 08/15/18 19:06 Dose: 20 mg Emergency Department Course and Treatment: Patient presents for worsening shortness of breath, with her description of symptoms and exacerbating factors concerning for possible congestive heart failure rather than pneumonia. Patient does have history of asthma and had some adventitious breath sounds on exam, though she was given a DuoNeb. EKG was performed that showed atrial fibrillation without any ischemic changes. Chest x-ray showed no interstitial edema or infiltrates. No leukocytosis or electrolyte derangements. INR was the rapeutic at 2.3. Troponin negative. BNP was elevated at 423, making CHF more concerning. Patient was reevaluated after the breathing treatment and had improvement in her breath sounds with bibasilar crackles. Patient did not feel any better. She was discussed with Dr. Lo, who states patient does have a diastolic component of mild heart failure and she takes Lasix as needed. Her systolic function is normal. Patient is to take the Lasix scheduled now, as she has not been using it because she did not think her ankles were swollen. She was given a dose in the emergency department. She is to call Dr. Lo in 2 days to check in and let them know how she is doing. She has a scheduled appointment already in place that she will keep. Patient was ambulated and had oxygen level but did not go below 89%. Patient feels comfortable going home and taking the scheduled Lasix and following up with Dr. Lo. SHe will return if any worsening of her condition or further concerns. Treatment Plan: [] Disposition: [] Impression: CHF exacerbation This note was generated with [employer] dictation software. It may contain incorrect words, spelling, and punctuation that were not noted in review of the chart prior to signing ED Disposition - Plan for ED Patient: Disposition: Home or Assisted Living Instructions: ED CHF General Prescriptions: Furosemide [Lasix] 20 mg PO BID 30 Days #60 tab Referrals: Ariana Almazan MD [Primary Care Provider] - As Needed Rashard Aguilera MD [STAFF PHYSICIAN] - Keep Sun appointment Additional Instructions: Please start taking your Lasix 20 mg twice daily. Follow-up with Dr. Aguilera on Monday, calling the office to let him know how you are feeling on the Lasix. Keep your appointment that is scheduled later this month. Return immediately to the emergency department if you become increasingly more short of breath or have any worsening of your condition. If you have any worsening of your condition or any new concerning symptoms, please return immediately to the emergency department for another evaluation.
[2018-08-15] MEDS: Ipratropium/Albuterol Sulfate 3 ML AMPUL.NEB INHALATION (15:20)
--- NOTE | 2018-08-15 15:55 | RAD_ITS ---
STUDY: X-RAY CHEST REASON FOR EXAM: Female, 82 years old. Chest pain TECHNIQUE: Frontal and lateral views of the chest. COMPARISON: None. FINDINGS: The lungs are clear and expanded. There is no demonstrated pleural abnormality. Normal size heart. Normal mediastinum and mounika. Normal visualized pulmonary arteries. Normal visualized aortic arch and descending thoracic aorta. Normal visualized thoracic spine. Normal visualized ribs, clavicles, and shoulders. There is no demonstrated abnormality of the visualized soft tissue structures of the upper abdomen. RAD/Chest PA and Lateral IMPRESSION: Normal x-ray examination of the chest. Electronically Signed: Kody Vivar MD at 16:39 EDT , Service support ,
[2018-08-15 16:19] LABS: Absolute Lymphocyte Count 0.82 X10^3/ul (0.83-4.51); Absolute Neutrophil Count 5.3 X10^3/uL (2.0-7.7); Basophil# 0.03 X10^3/uL; Basophil% 0.5 % (0-1); Eosinophil# 0.01 X10^3/uL; Eosinophils% 0.2 % (0-5); Hematocrit 39.5 % (37-47); Hemoglobin 12.8 g/dl (12.0-15.0); Lymphocyte # 0.82 X10^3/ul (4.0); Lymphocyte % 12.3 % (19-41); Mean Corp Hgb Conc 32.4 g/gl (32-36); Mean Corpuscular Hgb 30.8 pg (27.0-32.0); Mean Platelet Vol. 9.2 fl (6.2-12.0); Monocyte# 0.51 X10^3/uL; Monocyte% 7.7 % (0-10); Neutrophil # 5.27 X10^3/uL (2.7-7.7); Platelet Count 264 K/mm3 (150-450); RBC Distribution Width CV 13.7 % (11.6-14.6); RBC Distribution Width SD 45.5 fl (35.1-43.9); Red Blood Count 4.16 M/mm3 (4.2-5.4); White Blood Count 6.7 K/mm3 (4.4-11.0)
[2018-08-15 16:22] LABS: POSITIVE COUNT NO; POSITIVE DIFFERENTIAL NO; POSITIVE MORPHOLOGY NO
[2018-08-15 16:37] LABS: ALB/GLOB Ratio 1.1 RATIO (0.9-2.4); AST(SGOT) 37 U/L (15-37); Alanine Aminotransfer ALT/SGPT 42 U/L (13-56); Albumin, Serum 3.8 g/dL (3.2-5.0); Alkaline Phosphatase 24 U/L (45-117); Anion Gap 8 (5-15); BUN 24 mg/dL (7-18); BUN/Creat Ratio 20.9 RATIO (10-20); Calcium,Total 9.2 mg/dL (8.5-10.1); Chloride 106 mmol/L (98-107); Creatinine, Serum 1.15 mg/dL (0.55-1.02); EST Glomerular Filtration Rate 48 mL/min (>60); Est Glom Filt Rate - Afr Amer 58 mL/min (>60); Estimated Creatinine Clearance 37.39 ml/min; Globulin 3.5 g/dL (2.2-4.2); Glucose 102 mg/dL (74-106); Potassium 4.3 mmol/L (3.5-5.1); Protein, Total 7.3 g/dL (6.4-8.2); Sodium Level 139 mmol/L (136-145)
[2018-08-15 16:42] LABS: International Normalized Ratio 2.3; Partial Thromboplast Time 46.6 Seconds (24.1-36.2); Prothrombin Time (Protime)PT. 25.1 SECONDS (11.7-14.9)
[2018-08-15] MEDS: Furosemide 20 MG Tablet PO (19:06)
== END 2018-08-15 19:07 | disposition home or self-care (01) ==
PROVIDERS: Emergency Provider Emergency Medicine; Family Provider Internal Medicine; PCP Internal Medicine
DX: I50.9 Heart failure, unspecified (principal); J45.909 Unspecified asthma, uncomplicated; I48.91 Unspecified atrial fibrillation; Z79.01 Long term (current) use of anticoagulants; Z79.899 Other long term (current) drug therapy
CPT/HCPCS: 71046; 80053; 83880; 84484; 85025; 85610; 85730; 93005; 94640; 99285

== ENCOUNTER → 2018-09-17 12:13 | Outpatient (CLI) | payer MEDICARE, SELFPAY ==
[2018-08-15 14:48] VITALS: BMI 33.4
[2018-09-17 12:33] LABS: International Normalized Ratio 2.3; Prothrombin Time (Protime)PT. 25.7 SECONDS (11.7-14.9)
== END ==
PROVIDERS: Family Provider Internal Medicine; PCP Internal Medicine; Referring Provider Internal Medicine; Visit Provider Internal Medicine
DX: I48.91 Unspecified atrial fibrillation (principal); Z79.01 Long term (current) use of anticoagulants
CPT/HCPCS: 85610

== ENCOUNTER 2018-12-04 13:23 | Outpatient (RCR) | payer MEDICARE, SELFPAY ==
[2018-11-13 14:39] VITALS: BMI 33.0
[2018-11-22 15:40] LABS: International Normalized Ratio 1.9; Prothrombin Time (Protime)PT. 21.6 SECONDS (11.7-14.9)
[2018-12-04 14:08] LABS: International Normalized Ratio 1.8; Prothrombin Time (Protime)PT. 20.8 SECONDS (11.7-14.9)
== END 2018-12-04 14:00 | disposition home or self-care (01) ==
LOC: LAB 13:23
PROVIDERS: Family Provider Internal Medicine; PCP Internal Medicine; Referring Provider Internal Medicine Cardiovascular Disease; Visit Provider Internal Medicine Cardiovascular Disease
DX: I48.1 Persistent atrial fibrillation (principal); Z79.01 Long term (current) use of anticoagulants
CPT/HCPCS: 36415; 85610

== ENCOUNTER → 2018-12-17 14:16 | Outpatient (CLI) | payer MEDICARE, SELFPAY ==
[2018-11-13 14:39] VITALS: BMI 33.0
--- NOTE | 2018-12-17 14:26 | CT_ITS ---
STUDY: CT ABDOMEN AND PELVIS WITHOUT CONTRAST REASON FOR EXAM: Female, 83 years old. Left lower quadrant pain RADIATION DOSAGE (If Supplied By Facility): CTDIvol = ( 14.53 ) mGy, DLP = ( 640.18 ) mGycm TECHNIQUE: Transaxial images were obtained from the dome of the diaphragm to the symphysis pubis without oral contrast, and without intravenous contrast. Sagittal and coronal images were reconstructed. Individualized dose optimization techniques were used for this CT. COMPARISON: October 06, 2009 FINDINGS: The visualized lung bases are unremarkable. The visualized portions of the heart are within normal limits. Small hiatal hernia is present. Normal liver. Gallbladder has been removed surgically.. Tiny hypoattenuated densities in the spleen likely due to cysts. Normal pancreas. Normal bilateral adrenal glands. Normal right kidney. Normal left kidney. Normal visualized stomach. Normal small intestine. Mild diverticular changes in the descending and sigmoid colon without evidence for acute epiglottitis. No evidence for acute appendicitis. Atherosclerotic changes of the aorta without evidence for aneurysm. Normal inferior vena cava. Normal retroperitoneum. Normal urinary bladder. Tiny fat-containing umbilical hernia.. Dorsal spine demonstrates advanced spondylosis. Old compression fracture of L5 status post kyphoplasty. There are also chronic compression deformities of L3 and L1. CT/Abdomen/Pelvis without Cont IMPRESSION: Mild diverticular changes of the descending and sigmoid colon without evidence for acute diverticulitis.. Status post cholecystectomy. No acute abnormality Electronically Signed: Don Field MD at 16:57 EDT , Service support ,
== END ==
PROVIDERS: Family Provider Internal Medicine; PCP Internal Medicine; Visit Provider Internal Medicine
DX: R10.32 Left lower quadrant pain (principal); R19.7 Diarrhea, unspecified
CPT/HCPCS: 74176

== ENCOUNTER 2019-01-03 11:15 | Outpatient (RCR) | payer MEDICARE, SELFPAY ==
[2018-11-13 14:39] VITALS: BMI 33.0
[2018-12-12 16:54] LABS: Prothrombin Time (Protime)PT. 22.9 SECONDS (11.7-14.9)
[2018-12-26 15:56] LABS: International Normalized Ratio 2.9; Prothrombin Time (Protime)PT. 30.6 SECONDS (11.7-14.9)
[2019-01-03 13:42] LABS: International Normalized Ratio 2.7; Prothrombin Time (Protime)PT. 28.7 SECONDS (11.7-14.9)
== END 2019-01-03 12:00 | disposition home or self-care (01) ==
LOC: LAB 11:15
PROVIDERS: Family Provider Internal Medicine; PCP Internal Medicine; Referring Provider Internal Medicine Cardiovascular Disease; Visit Provider Internal Medicine Cardiovascular Disease
DX: I48.1 Persistent atrial fibrillation (principal); Z79.01 Long term (current) use of anticoagulants
CPT/HCPCS: 36415; 85610

== ENCOUNTER 2019-01-22 13:50 | Outpatient (RCR) | payer MEDICARE, SELFPAY ==
[2018-11-13 14:39] VITALS: BMI 33.0
[2019-01-22 15:10] LABS: International Normalized Ratio 2.4; Prothrombin Time (Protime)PT. 26.5 SECONDS (11.7-14.9)
== END 2019-01-22 17:00 | disposition home or self-care (01) ==
LOC: LAB 13:50
PROVIDERS: Family Provider Internal Medicine; PCP Internal Medicine; Referring Provider Internal Medicine Cardiovascular Disease; Visit Provider Internal Medicine Cardiovascular Disease
DX: I48.1 Persistent atrial fibrillation (principal); Z79.01 Long term (current) use of anticoagulants
CPT/HCPCS: 36415; 85610

== ENCOUNTER 2019-02-19 10:02 | Outpatient (RCR) | payer MEDICARE, SELFPAY ==
[2018-11-13 14:39] VITALS: BMI 33.0
[2019-02-19 11:52] LABS: International Normalized Ratio 2.4; Prothrombin Time (Protime)PT. 26.3 SECONDS (11.7-14.9)
== END 2019-02-19 18:00 | disposition home or self-care (01) ==
LOC: LAB 10:02
PROVIDERS: Family Provider Internal Medicine; PCP Internal Medicine; Referring Provider Internal Medicine Cardiovascular Disease; Visit Provider Internal Medicine Cardiovascular Disease
DX: I48.19 Other persistent atrial fibrillation (principal); Z79.01 Long term (current) use of anticoagulants
CPT/HCPCS: 36415; 85610

== ENCOUNTER 2019-03-19 08:20 | Outpatient (RCR) | payer MEDICARE, SELFPAY ==
[2018-11-13 14:39] VITALS: BMI 33.0
[2019-03-15 11:10] VITALS: BMI 33.8
[2019-03-19 09:39] LABS: International Normalized Ratio 2.8; Prothrombin Time (Protime)PT. 29.2 SECONDS (11.7-14.9)
[2019-03-19 09:54] LABS: AST(SGOT) 24 U/L (15-37); Alanine Aminotransfer ALT/SGPT 23 U/L (13-56); Albumin, Serum 3.4 g/dL (3.2-5.0); Alkaline Phosphatase 32 U/L (45-117); Bilirubin, Direct 0.13 mg/dL (0.00-0.30); Cholesterol 174 mg/dL (200); Globulin 3.6 g/dL (2.2-4.2); High Density Lipoprotein 75 mg/dL; Triglycerides 58 mg/dL; Very Low Density Lipoprotein 12 mg/dL (5-40)
== END 2019-03-19 18:00 | disposition home or self-care (01) ==
LOC: LAB 08:20
PROVIDERS: Family Provider Internal Medicine; PCP Internal Medicine; Referring Provider Internal Medicine Cardiovascular Disease; Visit Provider Internal Medicine Cardiovascular Disease
DX: I48.11 Longstanding persistent atrial fibrillation (principal); Z79.01 Long term (current) use of anticoagulants; E78.00 Pure hypercholesterolemia, unspecified
CPT/HCPCS: 36415; 80061; 80076; 85610

== ENCOUNTER 2019-04-16 15:32 | Outpatient (RCR) | payer MEDICARE, SELFPAY ==
[2019-03-15 11:10] VITALS: BMI 33.8
[2019-04-16 16:38] LABS: Prothrombin Time (Protime)PT. 31.5 SECONDS (11.7-14.9)
== END 2019-04-16 18:00 | disposition home or self-care (01) ==
LOC: LAB 15:32
PROVIDERS: Family Provider Internal Medicine; PCP Internal Medicine; Referring Provider Internal Medicine Cardiovascular Disease; Visit Provider Internal Medicine Cardiovascular Disease
DX: I48.11 Longstanding persistent atrial fibrillation (principal); Z79.01 Long term (current) use of anticoagulants
CPT/HCPCS: 36415; 85610

== ENCOUNTER 2019-05-14 10:54 | Outpatient (RCR) | payer MEDICARE, SELFPAY ==
[2019-03-15 11:10] VITALS: BMI 33.8
[2019-05-14 11:37] LABS: Absolute Lymphocyte Count 2.69 X10^3/uL (0.83-4.51); Absolute Neutrophil Count 3.2 X10^3/uL (2.0-7.7); Basophil# 0.06 X10^3/uL; Basophil% 0.9 % (0-1); Eosinophil# 0.14 X10^3/uL; Hematocrit 41.1 % (37-47); Hemoglobin 13.4 g/dL (12.0-15.0); Lymphocyte # 2.69 X10^3/ul (4.0); Lymphocyte % 38.7 % (19-41); Mean Corp Hgb Conc 32.6 g/dL (32-36); Mean Corpuscular Hgb 31.2 pg (27.0-32.0); Mean Corpuscular Volume 95.8 fL (81-99); Mean Platelet Vol. 9.3 fl (6.2-12.0); Monocyte# 0.89 X10^3/uL; Monocyte% 12.8 % (0-10); NRBC Flagged by Analyzer 0 % (0-5); Neutrophil # 3.15 X10^3/uL (2.7-7.7); Neutrophil % 45.3 % (47-70); Platelet Count 296 K/mm3 (150-450); RBC Distribution Width CV 13.1 % (11.6-14.6); RBC Distribution Width SD 46.4 fl (35.1-43.9); Red Blood Count 4.29 M/mm3 (4.2-5.4)
[2019-05-14 11:46] LABS: International Normalized Ratio 2.5; Prothrombin Time (Protime)PT. 26.7 SECONDS (11.7-14.9)
[2019-05-14 12:12] LABS: AST(SGOT) 19 U/L (15-37); Alanine Aminotransfer ALT/SGPT 26 U/L (13-56); Albumin, Serum 3.5 g/dL (3.2-5.0); Alkaline Phosphatase 31 U/L (45-117); Anion Gap 4 (5-15); BUN 25 mg/dL (7-18); BUN/Creat Ratio 22.7 RATIO (10-20); Calcium,Total 9.3 mg/dL (8.5-10.1); Chloride 108 mmol/L (98-107); EST Glomerular Filtration Rate 50 mL/min (>60); Est Glom Filt Rate - Afr Amer 61 mL/min (>60); Globulin 3.5 g/dL (2.2-4.2); Glucose 106 mg/dL (74-106); Potassium 4.2 mmol/L (3.5-5.1); Sodium Level 141 mmol/L (136-145)
== END 2019-05-14 18:00 | disposition home or self-care (01) ==
LOC: LAB 10:54
PROVIDERS: Family Provider Internal Medicine; PCP Internal Medicine; Referring Provider Internal Medicine Cardiovascular Disease; Visit Provider Internal Medicine Cardiovascular Disease
DX: I48.11 Longstanding persistent atrial fibrillation (principal); Z79.01 Long term (current) use of anticoagulants; M06.4 Inflammatory polyarthropathy; M15.9 Polyosteoarthritis, unspecified; M48.061 Spinal stenosis, lumbar region without neurogenic claudication; G62.9 Polyneuropathy, unspecified; I10 Essential (primary) hypertension; I48.0 Paroxysmal atrial fibrillation; M81.0 Age-related osteoporosis without current pathological fracture; I34.0 Nonrheumatic mitral (valve) insufficiency; J45.909 Unspecified asthma, uncomplicated
CPT/HCPCS: 36415; 80053; 85025; 85610

== ENCOUNTER 2019-07-01 10:12 | Outpatient (RCR) | payer MEDICARE, SELFPAY ==
[2019-03-15 11:10] VITALS: BMI 33.8
[2019-06-11 14:30] LABS: International Normalized Ratio 3.3; Prothrombin Time (Protime)PT. 34.1 SECONDS (11.7-14.9)
[2019-06-26 15:01] LABS: Prothrombin Time (Protime)PT. 41.2 SECONDS (11.7-14.9)
[2019-06-26 15:12] LABS: International Normalized Ratio 4.2
[2019-07-01 11:15] LABS: International Normalized Ratio 1.9
== END 2019-07-01 18:00 | disposition home or self-care (01) ==
LOC: LAB 10:12
PROVIDERS: Family Provider Internal Medicine; PCP Internal Medicine; Referring Provider Internal Medicine Cardiovascular Disease; Visit Provider Internal Medicine Cardiovascular Disease
DX: I48.11 Longstanding persistent atrial fibrillation (principal); Z79.01 Long term (current) use of anticoagulants
CPT/HCPCS: 36415; 85610

== ENCOUNTER 2019-07-24 11:28 | Outpatient (RCR) | payer MEDICARE, SELFPAY ==
[2019-03-15 11:10] VITALS: BMI 33.8
[2019-07-10 16:42] LABS: International Normalized Ratio 2.6; Prothrombin Time (Protime)PT. 27.8 SECONDS (11.7-14.9)
[2019-07-24 12:44] LABS: International Normalized Ratio 2.9; Prothrombin Time (Protime)PT. 30.7 SECONDS (11.7-14.9)
== END 2019-07-24 18:00 | disposition home or self-care (01) ==
LOC: LAB 11:28
PROVIDERS: Family Provider Internal Medicine; PCP Internal Medicine; Referring Provider Internal Medicine Cardiovascular Disease; Visit Provider Internal Medicine Cardiovascular Disease
DX: I48.11 Longstanding persistent atrial fibrillation (principal); Z79.01 Long term (current) use of anticoagulants
CPT/HCPCS: 36415; 85610

== ENCOUNTER 2019-08-20 11:29 | Outpatient (RCR) | payer MEDICARE, SELFPAY ==
[2019-07-11 14:03] VITALS: BMI 33.8
[2019-08-20 11:55] LABS: International Normalized Ratio 2.5; Prothrombin Time (Protime)PT. 26.4 SECONDS (11.7-14.9)
== END 2019-09-05 18:00 | disposition home or self-care (01) ==
LOC: LAB 11:29
PROVIDERS: Family Provider Internal Medicine; PCP Internal Medicine; Referring Provider Internal Medicine Cardiovascular Disease; Visit Provider Internal Medicine Cardiovascular Disease
DX: I48.19 Other persistent atrial fibrillation (principal); Z79.01 Long term (current) use of anticoagulants
CPT/HCPCS: 36415; 85610

== ENCOUNTER 2019-09-17 13:57 | Outpatient (RCR) | payer MEDICARE, SELFPAY ==
[2019-07-11 14:03] VITALS: BMI 33.8
[2019-09-17 14:41] LABS: International Normalized Ratio 2.6
== END 2019-09-17 18:00 | disposition home or self-care (01) ==
LOC: LAB 13:57
PROVIDERS: Family Provider Internal Medicine; PCP Internal Medicine; Referring Provider Internal Medicine Cardiovascular Disease; Visit Provider Internal Medicine Cardiovascular Disease
DX: I48.19 Other persistent atrial fibrillation (principal); Z79.01 Long term (current) use of anticoagulants
CPT/HCPCS: 36415; 85610

== ENCOUNTER 2019-10-16 11:23 | Outpatient (RCR) | payer MEDICARE, SELFPAY ==
[2019-07-11 14:03] VITALS: BMI 33.8
[2019-10-16 13:31] LABS: International Normalized Ratio 2.4; Prothrombin Time (Protime)PT. 25.3 SECONDS (11.7-14.9)
== END 2019-10-16 18:00 | disposition home or self-care (01) ==
LOC: LAB 11:23
PROVIDERS: Family Provider Internal Medicine; PCP Internal Medicine; Referring Provider Internal Medicine Cardiovascular Disease; Visit Provider Internal Medicine Cardiovascular Disease
DX: I48.19 Other persistent atrial fibrillation (principal); Z79.01 Long term (current) use of anticoagulants
CPT/HCPCS: 36415; 85610

== ENCOUNTER 2019-11-12 14:35 | Outpatient (RCR) | payer MEDICARE, SELFPAY ==
[2019-07-11 14:03] VITALS: BMI 33.8
[2019-11-12 15:07] LABS: International Normalized Ratio 2.5; Prothrombin Time (Protime)PT. 26.6 SECONDS (11.7-14.9)
== END 2019-11-12 18:00 | disposition home or self-care (01) ==
LOC: LAB 14:35
PROVIDERS: Family Provider Internal Medicine; PCP Internal Medicine; Referring Provider Internal Medicine Cardiovascular Disease; Visit Provider Internal Medicine Cardiovascular Disease
DX: Z79.01 Long term (current) use of anticoagulants (principal)
CPT/HCPCS: 36415; 85610

== ENCOUNTER → 2019-11-29 11:05 | Outpatient (CLI) | payer MEDICARE, SELFPAY ==
[2019-11-14 11:02] VITALS: BMI 33.5
--- NOTE | 2019-11-29 11:08 | ECHOD_ITS ---
Reason For Study: Afib/Flutter Procedure This was a 2D Doppler, Color Flow transthoracic echocardiogram. Technically difficult. Exam performed in department. Left Ventricle Normal size and thickness. The estimated ejection fraction is 65 %. Stage 1 diastolic dysfunction. No regional wall motion abnormalities noted. Right Ventricle Normal size and thickness. Normal systolic function. Atria The left atrium is severely enlarged. The right atrium is severely enlarged. Normal atrial septum. Mitral Valve The mitral valve is structurally normal. No prolapse or stenosis seen. Tricuspid Valve Normal tricuspid valve. Mild (1+) tricuspid valve insufficiency. Right ventricular systolic pressure estimated to be 29 mmHg. Aortic Valve Trisinus/trileaflet aortic valve. Moderate diffuse aortic valve thickening. Mild restriction of the aortic valve. Mild aortic stenosis. Peak aortic valve gradient 14 mmHg. Mean aortic valve gradient 6 mmHg. Pulmonic Valve Normal pulmonic valve. Great Vessels Mildly dilated aortic root. Normal arch. Normal inferior vena cava. Inferior vena cava collapse with sniff. Pericardium/Pleural No pericardial effusion. MMode/2D Measurements & Calculations LVIDd: 4.6 cm IVSd: 1.2 cm LVOT diam: 2.0 cm LVIDs: 3.4 cm LVPWd: 1.4 cm LVOT area: 3.2 cm2 FS: 27.7 % Ao root diam: 4.4 cm LAV(MOD-bp): 93.5 ml LA A4 area: 28.9 cm2 LA dimension: 4.5 cm LAV(MOD-bp) Indexed: 44.8 ml/m2 LAV(MOD-sp2): 79.7 ml LAV(MOD-sp4): 98.5 ml RA A4 area: 29.4 cm2 Time Measurements MV dec time: 0.31 sec Doppler Measurements & Calculations MV E max bob: 45.7 cm/sec Lat Peak E' Bob: 4.7 cm/sec Med Peak E' Bob: 5.0 cm/sec MV A max bob: 76.2 cm/sec E/E' lat: 9.7 E/E' med: 9.1 MV E/A: 0.60 MV V2 max: 93.4 cm/sec MV P1/2t max bob: 63.6 cm/sec Ao V2 max: 183.5 cm/sec MV max P.5 mmHg MV P1/2t: 114.9 msec Ao max P.5 mmHg MV V2 mean: 42.2 cm/sec MV dec slope: 162.0 cm/sec2 Ao V2 mean: 115.6 cm/sec MV mean P.84 mmHg Ao mean P.2 mmHg MV V2 VTI: 26.8 cm MVA(P1/2t): 1.9 cm2 Ao V2 VTI: 30.4 cm MVA(VTI): 2.4 cm2 CHARLES(I,D): 2.1 cm2 CHARLES(V,D): 1.9 cm2 LV V1 max: 110.0 cm/sec SV(LVOT): 63.8 ml TR max bob: 238.8 cm/sec LV V1 max P.9 mmHg TR max P.8 mmHg LV V1 mean P.3 mmHg LV V1 mean: 69.6 cm/sec LV V1 VTI: 20.0 cm Interpretation Summary The estimated ejection fraction is 65 %. Stage 1 diastolic dysfunction. The left atrium is severely enlarged. The right atrium is severely enlarged. Mild (1+) tricuspid valve insufficiency. Right ventricular systolic pressure estimated to be 29 mmHg. Mild aortic stenosis. Mildly dilated aortic root at estimated 4.0 cm. Compared to echo report dated 01/20/2009, LV function has remained the same but aortic root has increased from 3.4 to 4.0 cm. Patient appears to be in normal sinus rhythm. Ordering Physician: Jasen Barragan Referring Physician: Jasen Barragan Performed By: Brian López RCS
== END ==
LOC: CVS 11:08
PROVIDERS: PCP Internal Medicine; Referring Provider Internal Medicine Cardiovascular Disease; Visit Provider Internal Medicine Cardiovascular Disease
DX: I34.0 Nonrheumatic mitral (valve) insufficiency (principal); I48.91 Unspecified atrial fibrillation; I48.92 Unspecified atrial flutter
CPT/HCPCS: 93306

== ENCOUNTER → 2019-12-06 10:17 | Outpatient (CLI) | payer MEDICARE, SELFPAY ==
[2019-11-14 11:02] VITALS: BMI 33.5
--- NOTE | 2019-12-06 10:21 | STEWCON_ITS ---
Reason For Study: ATRIAL FIBRILLATION/FLUTTER Stress Results Protocol: Dobutatmine Stress Echo Maximum Predicted HR: 135 bpm Target HR: 115 bpm % Maximum Predicted HR: 119 % DurationHeart Rate Stage (mm:ss) (bpm) BP Dose Comment BASELINE 71 148/88 7 CC DILUTED DEFINITY USED DSE- 10 MCG 3:32 73 144/9210.00SL SOB DSE- 20 MCG 2:49 160 110/6220.00SOB, AFIB/FLUTTER RECOVERY 86 124/84 STATES SHE FEELS GOOD, ATE CRACKERS/AURORA DAVID Stress Duration: 6:21 mm:ss Maximum Stress HR: 160 bpm Baseline Echocardiogram Findings The estimated ejection fraction is 65 %. Stress Echo Wall motion Data Resting WM Intermediate WM Stress WM Resting Wall Motion Wall Motion Stress No regional wall motion No regional wall motion abnormalities noted. abnormalities noted. EKG Data The baseline ECG displays normal sinus rhythm. The patient was titrated from 10 mcg to a maximum of 20 mcg of dobutamine during the stress. The maximum heart rate attained was 160 beats per minute. This was 118% of maximum predicted heart rate. At peak infusion, upsloping ST changes only were noted, which did not meet the criteria for ischemia. No clinical angina was noted. Interpretation Summary The estimated ejection fraction is 65 %. Normal, adequate, dobutamine echocardiogram. Negative for ischemia by EKG and echocardiographic criteria. No anginal symptoms noted. Rare PACs, PVCs, and runs of supraventricular tachycardia which were self terminating which is a nonspecific finding on dobutamine infusion. Test terminated due to the attainment of target heart rate and dyspnea. Final LVEF is 75%. Decrease sensitivity due to poor echo windows requiring Definity agent. Patient tolerated procedure well. No complication. The study was technically difficult. Contrast injection was performed. Ordering Physician: Jasen Barragan MD Referring Physician: Jasen Barragan MD Performed By: Clover Escobar, RDCORRIE
== END ==
PROVIDERS: PCP Internal Medicine; Referring Provider Internal Medicine Cardiovascular Disease; Visit Provider Internal Medicine Cardiovascular Disease
DX: I48.19 Other persistent atrial fibrillation (principal); I48.92 Unspecified atrial flutter; I34.0 Nonrheumatic mitral (valve) insufficiency; R06.00 Dyspnea, unspecified; Z51.81 Encounter for therapeutic drug level monitoring; Z79.899 Other long term (current) drug therapy
CPT/HCPCS: 93017; 93350; J7040; Q9957; A4216; C8928

== ENCOUNTER 2019-12-10 15:44 | Outpatient (RCR) | payer MEDICARE, SELFPAY ==
[2019-11-14 11:02] VITALS: BMI 33.5
[2019-12-10 17:18] LABS: International Normalized Ratio 2.7; Prothrombin Time (Protime)PT. 27.9 SECONDS (11.7-14.9)
== END 2020-01-06 18:00 | disposition home or self-care (01) ==
LOC: LAB 15:44
PROVIDERS: Nurse Practitioner Family; Family Provider Internal Medicine; PCP Internal Medicine; Referring Provider Internal Medicine Cardiovascular Disease; Visit Provider Internal Medicine Cardiovascular Disease
DX: Z79.01 Long term (current) use of anticoagulants (principal)
CPT/HCPCS: 36415; 85610

== ENCOUNTER → 2019-12-17 10:48 | Outpatient (CLI) | payer MEDICARE, SELFPAY ==
[2019-11-14 11:02] VITALS: BMI 33.5
--- NOTE | 2019-12-17 10:52 | BD_ITS ---
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 COMPARISON: None. FINDINGS: Lumbar Spine (L1-L4): g/cm2 (1.461) / T-score (2.5) / Z-score (4.4) Findings are suggestive of normal bone density with no abnormal increase fracture risk. Left Femur Total: g/cm2 (0.802) / T-score (-1.6) / Z-score (0.7) Left Femoral Neck: g/cm2 (0.675) / T-score (-2.6) / Z-score (-0.2) Right Femur Total: g/cm2 (0.759) / T-score (-2.0) / Z-score (0.3) Right Femoral Neck: g/cm2 (0.768) / T-score (-1.9) / Z-score (0.4) . BD/Dexa Bone Density Study IMPRESSION: The patient is considered normal bone density in the lumbar spine and moderate osteopenia in both hips as outlined below according to World Gerard Organization (WHO) criteria with a no abnormal increased fracture risk in the lumbar spine and mild increased fracture risk in both hips. Reference Information: The T-score is the number of standard deviations above or below the standard which is normal for young adults at their peak bone mineral density. The World Health Organization (WHO) interprets the T-scores as follows: Above -1 Normal bone density Between -1 and -2.5 Osteopenia Equal to / or below -2.5 Osteoporosis As a practical clinical guideline, osteopenia may be graded as follows: Mild -1 through -1.5 Moderate -1.6 through -2.0 Severe -2.1 through -2.4 The Z-score is the number of standard deviations above or below age-matched controls. A Z-score of less than -1.5 would be considered abnormal. References: 1. NIH Osteoporosis and Related Bone Diseases http://www.osteo.org 2. International Society for Clinical Densitometry http://www.iscd.org 3. National Osteoporosis Foundation http://www.nof.org Electronically Signed: Elvis Champion MD at 16:44 EDT , Service support ,
== END ==
PROVIDERS: PCP Internal Medicine; Referring Provider Internal Medicine; Visit Provider Internal Medicine
DX: M81.0 Age-related osteoporosis without current pathological fracture (principal)
CPT/HCPCS: 77080

== ENCOUNTER 2020-02-04 16:00 | Outpatient (RCR) | payer MEDICARE, SELFPAY ==
[2019-11-14 11:02] VITALS: BMI 33.5
[2020-01-07 15:47] LABS: International Normalized Ratio 3.5
[2020-01-21 15:55] LABS: International Normalized Ratio 2.6; Prothrombin Time (Protime)PT. 27.8 SECONDS (11.7-14.9)
[2020-02-04 17:34] LABS: International Normalized Ratio 2.7; Prothrombin Time (Protime)PT. 28.3 SECONDS (11.7-14.9)
== END 2020-02-04 18:00 | disposition home or self-care (01) ==
LOC: LAB 16:00
PROVIDERS: Family Provider Internal Medicine; PCP Internal Medicine; Referring Provider Internal Medicine Cardiovascular Disease; Visit Provider Internal Medicine Cardiovascular Disease
DX: Z79.01 Long term (current) use of anticoagulants (principal)
CPT/HCPCS: 36415; 85610

== ENCOUNTER 2020-03-03 15:22 | Outpatient (RCR) | payer MEDICARE, SELFPAY ==
[2019-11-14 11:02] VITALS: BMI 33.5
[2020-03-03 15:55] LABS: International Normalized Ratio 2.7; Prothrombin Time (Protime)PT. 28.5 SECONDS (11.7-14.9)
== END 2020-03-03 18:00 | disposition home or self-care (01) ==
LOC: LAB 15:22
PROVIDERS: Family Provider Internal Medicine; PCP Internal Medicine; Referring Provider Internal Medicine Cardiovascular Disease; Visit Provider Internal Medicine Cardiovascular Disease
DX: Z79.01 Long term (current) use of anticoagulants (principal)
CPT/HCPCS: 36415; 85610

== ENCOUNTER 2020-03-31 14:35 | Outpatient (RCR) | payer MEDICARE, SELFPAY ==
[2019-11-14 11:02] VITALS: BMI 33.5
[2020-03-24 11:28] VITALS: BMI 34.7
[2020-03-31 15:07] LABS: International Normalized Ratio 2.9; Prothrombin Time (Protime)PT. 29.9 SECONDS (11.7-14.9)
== END 2020-03-31 18:00 | disposition home or self-care (01) ==
LOC: LAB 14:35
PROVIDERS: Family Provider Internal Medicine; PCP Internal Medicine; Referring Provider Internal Medicine Cardiovascular Disease; Visit Provider Internal Medicine Cardiovascular Disease
DX: Z79.01 Long term (current) use of anticoagulants (principal)
CPT/HCPCS: 36415; 85610

== ENCOUNTER 2020-05-05 14:34 | Outpatient (RCR) | payer MEDICARE, SELFPAY ==
[2020-03-24 11:28] VITALS: BMI 34.7
[2020-04-28 16:09] LABS: Prothrombin Time (Protime)PT. 35.5 SECONDS (11.7-14.9)
[2020-04-28 17:05] LABS: International Normalized Ratio 3.6
[2020-05-05 15:42] LABS: International Normalized Ratio 3.1; Prothrombin Time (Protime)PT. 31.7 SECONDS (11.7-14.9)
== END 2020-05-05 18:00 | disposition home or self-care (01) ==
LOC: LAB 14:34
PROVIDERS: Family Provider Internal Medicine; PCP Internal Medicine; Referring Provider Internal Medicine Cardiovascular Disease; Visit Provider Internal Medicine Cardiovascular Disease
DX: Z79.01 Long term (current) use of anticoagulants (principal)
CPT/HCPCS: 36415; 85610

== ENCOUNTER 2020-05-26 15:04 | Outpatient (RCR) | payer MEDICARE, SELFPAY ==
[2020-03-24 11:28] VITALS: BMI 34.7
[2020-05-12 15:07] LABS: International Normalized Ratio 3.1; Prothrombin Time (Protime)PT. 31.8 SECONDS (11.7-14.9)
[2020-05-26 15:59] LABS: International Normalized Ratio 3.3; Prothrombin Time (Protime)PT. 33.2 SECONDS (11.7-14.9)
== END 2020-05-26 18:00 | disposition home or self-care (01) ==
LOC: LAB 15:04
PROVIDERS: Family Provider Internal Medicine; PCP Internal Medicine; Referring Provider Internal Medicine Cardiovascular Disease; Visit Provider Internal Medicine Cardiovascular Disease
DX: Z79.01 Long term (current) use of anticoagulants (principal)
CPT/HCPCS: 36415; 85610

== ENCOUNTER 2020-07-01 15:02 | Outpatient (RCR) | payer MEDICARE, SELFPAY ==
[2020-03-24 11:28] VITALS: BMI 34.7
[2020-07-01 15:34] LABS: Prothrombin Time (Protime)PT. 35.9 SECONDS (11.7-14.9)
[2020-07-01 15:41] LABS: International Normalized Ratio 3.6
== END 2020-07-01 18:00 | disposition home or self-care (01) ==
LOC: LAB 15:02
PROVIDERS: Family Provider Internal Medicine; PCP Internal Medicine; Referring Provider Internal Medicine Cardiovascular Disease; Visit Provider Internal Medicine Cardiovascular Disease
DX: Z79.01 Long term (current) use of anticoagulants (principal)
CPT/HCPCS: 36415; 85610

== ENCOUNTER 2020-08-05 13:49 | Outpatient (RCR) | payer MEDICARE, SELFPAY ==
[2020-03-24 11:28] VITALS: BMI 34.7
[2020-07-08 15:52] LABS: International Normalized Ratio 3.2; Prothrombin Time (Protime)PT. 32.6 SECONDS (11.7-14.9)
[2020-07-22 17:30] LABS: International Normalized Ratio 2.3; Prothrombin Time (Protime)PT. 24.8 SECONDS (11.7-14.9)
[2020-08-05 14:28] LABS: Prothrombin Time (Protime)PT. 21.9 SECONDS (11.7-14.9)
== END 2020-08-05 18:00 | disposition home or self-care (01) ==
LOC: LAB 13:49
PROVIDERS: Family Provider Internal Medicine; PCP Internal Medicine; Referring Provider Internal Medicine Cardiovascular Disease; Visit Provider Internal Medicine Cardiovascular Disease
DX: Z79.01 Long term (current) use of anticoagulants (principal)
CPT/HCPCS: 36415; 85610

== ENCOUNTER 2020-08-19 15:29 | Outpatient (RCR) | payer MEDICARE, SELFPAY ==
[2020-03-24 11:28] VITALS: BMI 34.7
[2020-08-10 10:15] VITALS: BMI 34.2
[2020-08-19 16:26] LABS: Prothrombin Time (Protime)PT. 22.2 SECONDS (11.7-14.9)
== END 2020-08-19 18:00 | disposition home or self-care (01) ==
LOC: LAB 15:29
PROVIDERS: Family Provider Internal Medicine; PCP Internal Medicine; Referring Provider Internal Medicine Cardiovascular Disease; Visit Provider Internal Medicine Cardiovascular Disease
DX: Z79.01 Long term (current) use of anticoagulants (principal)
CPT/HCPCS: 36415; 85610

== ENCOUNTER 2020-09-23 11:19 | Outpatient (RCR) | payer MEDICARE, SELFPAY ==
[2020-08-10 10:15] VITALS: BMI 34.2
[2020-09-08 16:08] LABS: International Normalized Ratio 1.7
[2020-09-23 12:02] LABS: International Normalized Ratio 1.8
== END 2020-09-23 18:00 | disposition home or self-care (01) ==
LOC: LAB 11:19
PROVIDERS: Family Provider Internal Medicine; PCP Internal Medicine; Referring Provider Internal Medicine Cardiovascular Disease; Visit Provider Internal Medicine Cardiovascular Disease
DX: Z79.01 Long term (current) use of anticoagulants (principal)
CPT/HCPCS: 36415; 85610

== ENCOUNTER 2020-11-04 14:28 | Outpatient (RCR) | payer MEDICARE, SELFPAY ==
[2020-08-10 10:15] VITALS: BMI 34.2
[2020-10-07 12:44] LABS: Prothrombin Time (Protime)PT. 21.6 SECONDS (11.7-14.9)
[2020-10-20 15:34] LABS: International Normalized Ratio 1.9; Prothrombin Time (Protime)PT. 20.7 SECONDS (11.7-14.9)
[2020-10-28 15:13] LABS: International Normalized Ratio 1.7; Prothrombin Time (Protime)PT. 19.4 SECONDS (11.7-14.9)
[2020-11-04 15:53] LABS: International Normalized Ratio 1.5; Prothrombin Time (Protime)PT. 17.1 SECONDS (11.7-14.9)
== END 2020-11-04 18:00 | disposition home or self-care (01) ==
LOC: LAB 14:28
PROVIDERS: Family Provider Internal Medicine; PCP Internal Medicine; Referring Provider Internal Medicine Cardiovascular Disease; Visit Provider Internal Medicine Cardiovascular Disease
DX: Z79.01 Long term (current) use of anticoagulants (principal)
CPT/HCPCS: 36415; 85610

== ENCOUNTER → 2020-11-05 10:06 | Outpatient (CLI) | payer MEDICARE, SELFPAY ==
[2020-08-10 10:15] VITALS: BMI 34.2
--- NOTE | 2020-11-05 10:06 | ECHOD_ITS ---
Reason For Study: MURMUR Procedure This was a 2D Doppler, Color Flow transthoracic echocardiogram. The study was technically difficult. Exam performed in department. Left Ventricle Based upon the 2D echocardiographic and contrast enhanced images obtained appears to be grossly normal left ventricular size, wall motion, and systolic function. The estimated ejection fraction is 55 %. Diastolic function is indeterminate. Right Ventricle Normal RV size. Normal systolic function. Atria The left atrium is severely enlarged. The right atrium is severely enlarged. No doppler evidence for ASD. Mitral Valve There is mild mitral annular calcification. The mitral valve chordae are thickened and/or calcified. Mild (1+) mitral valve insufficiency. Tricuspid Valve Normal tricuspid valve. Mild to moderate (1-2+) tricuspid valve insufficiency. Right ventricular systolic pressure estimated to be 30 mmHg. Aortic Valve Trisinus/trileaflet aortic valve. Mild diffuse aortic valve thickening. Mild focal aortic valve calcification. Mild aortic stenosis. Pulmonic Valve The pulmonic valve is not well visualized. Trivial pulmonic valve insufficiency. Great Vessels Mildly dilated aortic root. Pericardium/Pleural No pericardial effusion. MMode/2D Measurements & Calculations LVIDd: 5.6 cm IVSd: 1.1 cm LVOT diam: 2.0 cm LVIDs: 3.5 cm LVPWd: 1.1 cm LVOT area: 3.1 cm2 RVDd: 3.6 cm FS: 37.4 % Ao root diam: 4.1 cm LAV(MOD-bp): 110.1 ml LA A4 area: 29.5 cm2 LAV(MOD-bp) Indexed: 53.1 ml/m2 LAV(MOD-sp2): 100.8 ml LAV(MOD-sp4): 100.5 ml LA dimension(2D): 4.7 cm RA A4 area: 27.3 cm2 Time Measurements MV dec time: 0.19 sec Doppler Measurements & Calculations MV E max bob: 65.3 cm/sec Lat Peak E' Bob: 6.5 cm/sec Med Peak E' Bob: 7.6 cm/sec E/E' lat: 10.1 E/E' med: 8.7 Ao V2 max: 227.8 cm/sec LV V1 max: 123.0 cm/sec SV(LVOT): 84.7 ml Ao max P.8 mmHg LV V1 max P.1 mmHg Ao V2 mean: 170.0 cm/sec LV V1 mean P.6 mmHg Ao mean P.5 mmHg LV V1 mean: 91.2 cm/sec Ao V2 VTI: 54.9 cm LV V1 VTI: 27.4 cm CHARLES(I,D): 1.5 cm2 CHARLES(V,D): 1.7 cm2 PA V2 max: 76.7 cm/sec TR max bob: 260.8 cm/sec TR max P.2 mmHg ECHO/Echo Complete Interpretation Summary The study was technically difficult. Based upon the 2D echocardiographic and contrast enhanced images obtained appea rs to be grossly normal left ventricular size, wall motion, and systolic function. The estimated ejection fraction is 55 %. The left atrium is severely enlarged. The right atrium is severely enlarged. There is mild mitral annular calcification. The mitral valve chordae are thickened and/or calcified. Mild (1+) mitral valve insufficiency. Mild to moderate (1-2+) tricuspid valve insufficiency. Mild aortic stenosis. Trivial pulmonic valve insufficiency. Mildly dilated aortic root. Right ventricular systolic pressure estimated to be 30 mmHg. Diastolic function is indeterminate. Ordering Physician: Ty Wooten Referring Physician: Ariana Almazan Performed By: Julia Resendiz, RDCS, RVT
== END ==
PROVIDERS: PCP Internal Medicine; Referring Provider Internal Medicine Cardiovascular Disease; Visit Provider Internal Medicine Cardiovascular Disease
DX: I35.0 Nonrheumatic aortic (valve) stenosis (principal); R01.1 Cardiac murmur, unspecified
CPT/HCPCS: 93306

== ENCOUNTER → 2020-11-16 12:47 | Outpatient (CLI) | payer MEDICARE, SELFPAY ==
[2020-08-10 10:15] VITALS: BMI 34.2
--- NOTE | 2020-11-16 14:54 | NEURO ---
NCS and/or EMG Patient Report Ordering Doctor: Ariana Almazan DATE OF SERVICE: 11/16/20 Indication: Bilateral hand numbness for years. 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 She reports a history of peripheral neuropathy as well as right sided carpal tunnel syndrome that improved with surgical release. Findings: Nerve conduction studies were performed in the left upper extremity. The left median motor study recording the abductor pollicis brevis showed a reduced amplitude, prolonged distal latency and slowed conduction velocity. The left ulnar motor study recording the abductor digiti minimi showed a normal amplitude, normal distal latency and normal conduction velocity. No conduction block or focal slowing was present across the elbow. The left median sensory response recording digit two showed a reduced amplitude, prolonged latency and slowed conduction velocity. The left ulnar sensory response recording digit five showed a normal amplitude, prolonged latency and slowed conduction velocity. The left radial sensory response recording over the extensor snuff box showed a normal amplitude, normal latency and borderline conduction velocity. Left median-ulnar lumbrical / interosseous motor latencies showed a prolonged median latency compared to the ulnar. Needle EMG of the left upper extremity was performed. Sampling of the cervical paraspinal muscles was not performed due to the patient's treatment with warfarin. No denervation was seen in any muscle. In the abductor pollicis brevis motor units were large amplitude, long duration with slightly reduced recruitment. All other motor unit morphology, activation and recruitment patterns were normal. Impression: This is an abnormal study. There is electrophysiologic evidence of median neuropathy across the left wrist. The pathophysiology is primarily demyelination, though there is evidence of secondary axonal loss. These findings are compatible with the clinical diagnosis of carpal tunnel syndrome. Lastly, the prolonged ulnar sensory response and diffusely borderline conduction velocities are of unclear significance. They may be related to the patient's self-reported history of peripheral neuropathy. This was not investigated further as it was not the indication for the study. Clinical correlation is recommended. Pramod Griffith D.O.
== END ==
PROVIDERS: PCP Internal Medicine; Referring Provider Internal Medicine; Visit Provider Internal Medicine
DX: R20.0 Anesthesia of skin (principal); R20.2 Paresthesia of skin
CPT/HCPCS: 95886; 95910

== ENCOUNTER 2020-12-03 14:44 | Outpatient (RCR) | payer MEDICARE, SELFPAY ==
[2020-08-10 10:15] VITALS: BMI 34.2
[2020-11-12 14:29] LABS: International Normalized Ratio 1.7; Prothrombin Time (Protime)PT. 19.1 SECONDS (11.7-14.9)
[2020-11-19 14:58] LABS: International Normalized Ratio 1.9; Prothrombin Time (Protime)PT. 20.7 SECONDS (11.7-14.9)
[2020-12-03 17:30] LABS: International Normalized Ratio 1.7; Prothrombin Time (Protime)PT. 19.6 SECONDS (11.7-14.9)
== END 2020-12-03 18:00 | disposition home or self-care (01) ==
LOC: LAB 14:44
PROVIDERS: Family Provider Internal Medicine; PCP Internal Medicine; Referring Provider Internal Medicine Cardiovascular Disease; Visit Provider Internal Medicine Cardiovascular Disease
DX: I48.0 Paroxysmal atrial fibrillation (principal); Z79.01 Long term (current) use of anticoagulants
CPT/HCPCS: 36415; 85610